=== PATIENT | male | born 1960 | race Caucasian/White ===

== ENCOUNTER 2019-06-20 12:13 | Emergency (ER) | payer MEDICAID ==
[2019-06-20] MEDS ORDERED: Pepcid 20 MG VIAL IV ONE ×2 (12:18→12:43)
[2019-06-20] MEDS ORDERED: Protonix 40MG Tablet PO ONE (12:19)
[2019-06-20] MEDS ORDERED: DUONEB 0.5-3 MG/3 ml Neb IH ONE ×2 (12:20→12:55)
[2019-06-20 12:33] LABS: BASOPHIL % 0.6 % (0.0-0.4); Basophil (Absolute #) 0.06 (0-0.4); Eosinophil % 1.9 % (0.00-5.0); Granulocyte Absolute (ANC) 7.69 (1.4-6.9); Granulocytes % 74.4 % (36.0-66.0); Hematocrit 37.2 % (42-50); Hemoglobin 10.9 gm/dl (12.5-18.0); Lymphocyte (Absolute #) 1.35 (1.0-4.6); Mean Cell Volume 73.5 fl (78-100); Mean Corpuscular Hemoglobin 21.5 pg (26-32); Mean Corpuscular Hgb Concent. 29.3 g/dl (32-36); Mean Platelet Volume 10.2 fl (6-9.5); Monocyte (Absolute #) 1.05 (0.0-1.3); Monocytes % 10.1 % (0.0-12.0); Platelet Count 336 K/mm3 (150-450); Red Blood Count 5.06 M/mm3 (4.1-5.6); Red Cell Distribution Width 20.7 % (11.5-14.0); White Blood Count 10.4 K/mm3 (4.0-10.5)
[2019-06-20] MEDS ORDERED: Protonix 40MG Tablet ONE (12:43)
[2019-06-20 12:53] LABS: ALKALINE PHOSPHATASE 81 U/L (38-126); ANION GAP 11.6 MEQ/L (5-15); BLOOD UREA NITROGEN 11 mg/dL (9-20); CHLORIDE 105 mmol/L (98-107); Calcium 9.8 mg/dL (8.4-10.2); Carbon Dioxide 28 mmol/L (22-30); Creatinine 1 0.92 mg/dL (0.66-1.25); Glucose 104 mg/dL (74-106); NT PRO BNP 1300 pg/mL (0-900); Potassium 4.1 mmol/L (3.5-5.1); SGOT/AST 30 U/L (17-59); SGPT/ALT 18 U/L (0-50); SODIUM 141 mmol/L (137-145); Total Protein 7.4 g/dL (6.3-8.2)
[2019-06-20 13:16] LABS: Slide Review 1 YES
[2019-06-20] MEDS ORDERED: BABY ASPIRIN 81 MG CHEW PO ONE (13:17)
[2019-06-20] MEDS ORDERED: BABY ASPIRIN 81 MG CHEW ONE (13:18)
--- NOTE | 2019-06-20 13:19 | ERPHSYRPT ---
- History of Present Illness Historian: patient Exam Limitations: no limitations Patient Subjective Stated Complaint: HAS BEEN HAVING SHARP UPPER EPIGASTRIC PAIN THAT RADIATES INTO CHEST AND HAVING SHORTNESS OF BREATH WITH ACTIVITY SINCE JANUARY. IS WORSE OVER THE PAST TWO WEEKS AND SAW DR. DE LUNA TODAY FOR SYMPTOMS AND WAS SENT TO THE ER. RECENT CAROTID SURGERY AND HAS HX OF MULTIPLE HEART STENTS. PATIENT STATES HE HAS NOT TAKEN ANY OF HIS MEDS SINCE MID JANUARY BECAUSE EVERY TIME HE TAKES THEM HE VOMITS. WAS ALSO IN THE PROCESS OF MOVING TO [place] AND WAS UNABLE TO FOLLOW UP WITH A DOCTOR AT THAT TIME. Triage Nursing Assessment: TO ROOM PER W/C. SKIN W/D, COLOR PALE, RESP SLIGHTLY LABORED WITH EXERTION OF GETTING OUT OF W/C AND ONTO COT. PAIN AND TENDERNESS IN UPPER EPIGASTRIC AREA. ALSO HAVING SOME NAUSEA OCCASIONALLY. Physician History: Pt in a 59 y/o male that presented to the ED secondary to complains of epigastric pain and discomfort. Pt has a h/o CAD with stents, CEA on the R and COPD. He could not tolerate ASA, as he was vomiting with it, and he decided to stop all his meds, including hs inhalers. Pt was planning to move to [place] from [place] , so he dfid not see any physician in [place] and did not start any work up. He presented to acute care today, with complains of epigastric pain, wheezing and SOB. He denies any radiation, or any abdominal pain. He was complaining of epigstric pain as stated. Timing/Duration: today Activities at Onset: none Quality: burning, sharpness, stabbing Location: epigastric Chest Pain Radiation: no radiation Severity of Pain-Max: moderate Severity of Pain-Current: moderate Modifying Factors: Improves With: other (being off ASA) Associated Symptoms: nausea, vomiting, heartburn, abdominal pain (epigastric), shortness of breath, cough Prior Chest Pain/Cardiac Workup: cardiac cath (with stents) Nitro Today/Relief: no nitro taken today Aspirin Treatment Today: no aspirin today, provided by ED (324mg) Allergies/Adverse Reactions: No Known Drug Allergies Allergy (Unverified 06/20/19 12:59) Home Medications: Albuterol 2.5 mg/3 ml Neb [Proventil 2.5 mg/3 ml Neb] 2.5 mg IH Q4HPRN PRN 06/20/19 [History] Albuterol Sulfate [Proair Hfa] 8.5 gm IH QIDPRN PRN 06/20/19 [History] Aspirin EC 325 mg [Ecotrin 325 MG] 325 mg PO DAILY 06/20/19 [History] Atorvastatin Calcium [Lipitor] 80 mg PO DAILY 06/20/19 [History] Clopidogrel Bisulfate 75 mg [PLAVIX 75 MG Tablet] 75 mg PO DAILY 06/20/19 [History] Clopidogrel Bisulfate 75 mg [PLAVIX 75 MG Tablet] 75 mg PO DAILY 06/20/19 [History] Metoprolol Tartrate 50 mg [Lopressor 50 MG] 50 mg PO BID 06/20/19 [History ] Tiotropium Br/Olodaterol HCl [Stiolto Respimat Inhal [place]] 4 gm IH DAILY [History] Trazodone HCl 50 mg [Desyrel 50 mg] 50 mg PO HS 06/20/19 [History] Hx Tetanus, Diphtheria Vaccination/Date Given: No Hx Influenza Vaccination/Date Given: No Hx Pneumococcal Vaccination/Date Given: No - Review of Systems Constitutional: No Fever, No Chills Eyes: No Symptoms Ears, Nose, & Throat: No Symptoms Respiratory: Cough, Dyspnea, Dyspnea on Exertion (FOX) Cardiac: Chest Pain (epigastric) Abdominal/Gastrointestinal: Abdominal Pain (epigastric), Nausea, Vomiting Genitourinary Symptoms: No Dysuria Musculoskeletal: No Back Pain, No Neck Pain Neurological: No Dizziness, No Focal Weakness, No Sensory Changes Psychological: No Symptoms Endocrine: No Symptoms - Past Medical History Pertinent Past Medical History: Yes Neurological History: Stroke Cardiac History: Angina, Congestive Heart Failure, Coronary Artery Disease, High Cholesterol, Hypertension, Myocardial Infarction ([place]) Respiratory History: Bronchitis, COPD Endocrine Medical History: No Pertinent History GI Medical History: Hernia, Ulcer Psycho-Social History: Depression - Past Surgical History Past Surgical History: Yes Cardiac: Cardiac Catheterization, Cardiac Stent, Vascular Surgery Gastrointestinal: Hernia Repair Other Surgical History: LEFT CAROTID SURGERY NOVEMBER 2018 - Social History Smoking Status: Current every day smoker How long have you smoked: 45 Exposure to second hand smoke: Yes Drug Use: none Patient Lives Alone: No - Nursing Vital Signs Nursing Vital Signs: Initial Vital Signs Temperature 97.9 F 06/20/19 12:16 Pulse Rate 117 H 06/20/19 12:16 Respiratory Rate 20 06/20/19 12:16 Blood Pressure 155/103 06/20/19 12:16 O2 Sat by Pulse Oximetry 96 06/20/19 12:16 Pain Scale Pain Intensity 5 - Physical Exam General Appearance: moderate distress, alert Eye Exam: PERRL/EOMI, eyes nml inspection Ears, Nose, Throat Exam: normal ENT inspection, moist mucous membranes Neck Exam: normal inspection, non-tender, supple, full range of motion Respiratory Exam: prolonged expirations, crackles/rales, wheezing Cardiovascular Exam: tachycardia, capillary refill >3 sec, No normal peripheral pulses Gastrointestinal/Abdomen Exam: normal bowel sounds, tenderness (epigastric only) Back Exam: normal inspection, No CVA tenderness, No vertebral tenderness Extremity Exam: normal inspection, normal range of motion Neurologic Exam: alert, oriented x 3, cooperative, normal mood/affect, sensation nml, No motor deficits Skin Exam: normal color, warm, dry SpO2 Interpretation: normal SpO2: 96 O2 Delivery: Room Air - Course Nursing assessment & vital signs reviewed: Yes EKG Interpreted by Me: RATE (112bpm), Non-specific ST Changes Ordered Tests: Active Orders 24 hr Category Date Time Status EKG-ER Only STAT Care 06/20/19 12:18 Active IV Insertion STAT Care 06/20/19 12:18 Active Oxygen-ED Only Nasal Cannula 2 lpm Care 06/20/19 12:18 Active CHEST 2 VIEWS (PA AND LAT) Stat Exams 06/20/19 12:18 Ordered CBC W DIFF Stat Lab 06/20/19 12:30 Completed CMP Stat Lab 06/20/19 12:30 Completed NT PRO BNP Stat Lab 06/20/19 12:30 Completed TROPONIN Q3H Lab 06/20/19 12:30 Completed TROPONIN Q3H Lab 06/20/19 15:30 Ordered TROPONIN Q3H Lab 06/20/19 18:30 Ordered TROPONIN Q3H Lab 06/20/19 21:30 Ordered TROPONIN Q3H Lab 06/21/19 00:30 Ordered Medication Summary Discontinued Medications Generic Name Dose Route Start Last Admin Trade Name Freq PRN Reason Stop Dose Admin Albuterol/Ipratropium 3 ml 06/20/19 12:20 Duoneb 0.5-3 Mg/3 Ml Neb IH 06/20/19 12:21 STAT ONE Albuterol/Ipratropium Confirm 06/20/19 12:55 Duoneb 0.5-3 Mg/3 Ml Neb Administered 06/20/19 12:56 Dose 3 ml IH .STK-MED ONE Famotidine 20 mg 06/20/19 12:18 06/20/19 12:46 Pepcid 20 Mg Vial IV 06/20/19 12:19 20 mg STAT ONE Administration Famotidine Confirm 06/20/19 12:43 Pepcid 20 Mg Vial Administered 06/20/19 12:44 Dose 20 mg IV .STK-MED ONE Pantoprazole Sodium 40 mg 06/20/19 12:19 06/20/19 12:46 Protonix 40mg Tablet PO 06/20/19 12:20 40 mg STAT ONE Administration Pantoprazole Sodium Confirm 06/20/19 12:43 Protonix 40mg Tablet Administered 06/20/19 12:44 Dose 40 mg .ROUTE .STK-MED ONE Lab/Rad Data: Laboratory Result Diagrams 06/20/19 12:30 06/20/19 12:30 Laboratory Results 06/20/19 06/20/19 06/20/19 Range/Units 12:30 12:30 12:30 WBC 10.4 (4.0-10.5) K/mm3 RBC 5.06 (4.1-5.6) M/mm3 Hgb 10.9 L (12.5-18.0) gm/dl Hct 37.2 L (42-50) % MCV 73.5 L (78-100) fl MCH 21.5 L (26-32) pg MCHC 29.3 L (32-36) g/dl RDW 20.7 H (11.5-14.0) % Plt Count 336 (150-450) K/mm3 MPV 10.2 H (6-9.5) fl Gran % 74.4 H (36.0-66.0) % Eos # (Auto) 0.20 (0-0.5) Absolute Lymphs (auto) 1.35 (1.0-4.6) Absolute Monos (auto) 1.05 (0.0-1.3) Lymphocytes % 13.0 L (24.0-44.0) % Monocytes % 10.1 (0.0-12.0) % Eosinophils % 1.9 (0.00-5.0) % Basophils % 0.6 (0.0-0.4) % Absolute Granulocytes 7.69 H (1.4-6.9) Basophils # 0.06 (0-0.4) Sodium 141 (137-145) mmol/L Potassium 4.1 (3.5-5.1) mmol/L Chloride 105 (98-107) mmol/L Carbon Dioxide 28 (22-30) mmol/L Anion Gap 11.6 (5-15) MEQ/L BUN 11 (9-20) mg/dL Creatinine 0.92 (0.66-1.25) mg/dL Estimated GFR > 60.0 ML/MIN Glucose 104 (74-106) mg/dL Calcium 9.8 (8.4-10.2) mg/dL Total Bilirubin 0.40 (0.2-1.3) mg/dL AST 30 (17-59) U/L ALT 18 (0-50) U/L Alkaline Phosphatase 81 (38-126) U/L Troponin I 0.979 H* (0.000-0.034) ng/mL NT-Pro-B Natriuret Pep 1300 H (0-900) pg/mL Serum Total Protein 7.4 (6.3-8.2) g/dL Albumin 4.0 (3.5-5.0) g/dL - Progress Progress: improved Air Movement: fair Progress Note: 06/20/19 13:24 Pt was seen and examined. He got Duo neb in the ER and was placed on O2. ASA 324mg was given, as well as Protonic and Pepcid as stomach protectors. Pt will get his home Metoprolol as ordered. Pt has elevated trop and Pro-BNP. Dr [facility]. CXR was ordered as well. Blood Culture(s) Obtained: No Antibiotics given: No Will see patient in: other (Transfer to [facility]) Counseled pt/family regarding: lab results, diagnosis, need for follow-up - Departure Departure Disposition: Transfer Clinical Impression: NSTEMI (non-ST elevated myocardial infarction) Condition: Fair Critical Care Time: No Referrals: AYUSH DE LUNA DO [Primary Care Provider] - Additional Instructions: Pt will be transferred to [facility]. Dr Sinha is accepting.
[2019-06-20 13:21] VITALS: BP 140/85
[2019-06-20] MEDS ORDERED: Toprol Xl 50 MG PO STA (13:30)
--- NOTE | 2019-06-20 13:53 | XRAY ---
Exam: Two-view chest from 06/20/2019. Comparison: None. Indication: 59-year-old male with chest pain. Comparison: None. Findings: The transverse heart size appears borderline enlarged. Mild diffuse bilateral perihilar and lower lung field vascular congestion is seen. I see no definite Harpreet B-lines or pleural fluid. No superimposed airspace infiltrate/consolidation or pneumothorax is seen. EKG leads and respiratory tubing are noted. Mild osteophyte formation is seen within the thoracic spine. No fracture or aggressive bone lesion is seen. Impression: 1. Borderline cardiomegaly with mild bilateral perihilar and lower lung field vascular congestion. I see no pleural fluid. Consider fluid volume overload versus early CHF. 2. No superimposed focal airspace consolidation is seen to suggest pneumonia.
[2019-06-20 13:58] VITALS: PULSE 108; O2SAT 97
== END 2019-06-20 14:04 | disposition short-term general hospital (02) ==
LOC: ED 12:13
DX: I21.4 Non-ST elevation (NSTEMI) myocardial infarction (principal); I50.9 Heart failure, unspecified; I25.10 Atherosclerotic heart disease of native coronary artery without angina pectoris; E78.00 Pure hypercholesterolemia, unspecified; J44.9 Chronic obstructive pulmonary disease, unspecified; Z79.899 Other long term (current) drug therapy
CPT/HCPCS: 36000; 36415; 71046; 80053; 83880; 84484; 85025; 93005; 94640; 96374; 99285; A9270-GY

== ENCOUNTER 2020-04-26 08:07 | Emergency (ER) | payer OTHER ==
--- NOTE | 2020-04-26 08:29 | ERPHSYRPT ---
- History of Present Illness Time Seen by Provider: 04/26/20 08:13 Historian: patient Exam Limitations: no limitations Physician History: 60 years old male with history of COPD on 2 L oxygen, coronary artery disease status post multiple stenting, hypertension, hyperlipidemia presented in the ER with chief complaint of substernal/left-sided chest pain continuously since last night. Patient reports intermittent chest pain for almost a month getting relieved with nitro but since last night he is having continuous chest pain and has been taking nitro every hour with partial relief. Patient reported at maximum pain is 6/10 intensity, pressure tightness sensation and was given nitro along with aspirin on the way to the ER and it is better now. Does not want any pain medication now. Patient report minimal increase in the shortness of breath and usual but has mild increased swelling bilateral lower extremities. Prior to arrival patient report he was sitting, turned around, got dizzy/lightheaded with some sweating and pale discoloration and he decided to come to the ER. Timing/Duration: yesterday, constant, gradual onset, improved Activities at Onset: rest Quality: fullness, pressure, tightness Location: substernal Chest Pain Radiation: no radiation Severity of Pain-Max: moderate Severity of Pain-Current: mild Modifying Factors: Improves With: nitroglycerin Associated Symptoms: shortness of breath, fatigue, dizziness Prior Chest Pain/Cardiac Workup: cardiac cath, heart attack Nitro Today/Relief: provided by EMS, mild relief Aspirin Treatment Today: 81 mg x 4, provided by EMS Allergies/Adverse Reactions: No Known Drug Allergies Allergy (Verified 04/26/20 08:26) Home Medications: Albuterol 2.5 mg/3 ml Neb [Proventil 2.5 mg/3 ml Neb] 2.5 mg IH Q4HPRN PRN 06/20/19 [History] Albuterol Sulfate [Proair Hfa] 8.5 gm IH QIDPRN PRN 06/20/19 [History] Aspirin EC 325 mg [Ecotrin 325 MG] 325 mg PO DAILY 06/20/19 [History] Atorvastatin Calcium [Lipitor] 80 mg PO DAILY 06/20/19 [History] Clopidogrel Bisulfate 75 mg [PLAVIX 75 MG Tablet] 75 mg PO DAILY 06/20/19 [History] Clopidogrel Bisulfate 75 mg [PLAVIX 75 MG Tablet] 75 mg PO DAILY 06/20/19 [History] Metoprolol Tartrate 50 mg [Lopressor 50 MG] 50 mg PO BID 06/20/19 [History ] Tiotropium Br/Olodaterol HCl [Stiolto Respimat Inhal [place]] 4 gm IH DAILY [History] Trazodone HCl 50 mg [Desyrel 50 mg] 50 mg PO HS 06/20/19 [History] Hx Tetanus, Diphtheria Vaccination/Date Given: No Hx Influenza Vaccination/Date Given: No Hx Pneumococcal Vaccination/Date Given: No Travel Risk - International Travel Have you traveled outside of the country in past 3 weeks: No Have you or anyone close to you been diagnosed with or: No Do your reside in a community with a known COVID-19 case?: Yes - Coronavirus Screening Has patient experienced Coronavirus symptoms: No - Review of Systems Constitutional: Fatigue Eyes: No Symptoms Ears, Nose, & Throat: No Symptoms Respiratory: Dyspnea on Exertion (FOX), Wheezing Cardiac: Chest Pain, Edema, Palpitations Abdominal/Gastrointestinal: No Symptoms Genitourinary Symptoms: No Symptoms Musculoskeletal: No Symptoms Skin: No Symptoms Neurological: No Symptoms Psychological: No Symptoms Endocrine: No Symptoms Hematologic/Lymphatic: No Symptoms Immunological/Allergic: No Symptoms - Past Medical History Pertinent Past Medical History: Yes Neurological History: Stroke Cardiac History: Angina, Congestive Heart Failure, Coronary Artery Disease, High Cholesterol, Hypertension, Myocardial Infarction ([place]) Respiratory History: Bronchitis, COPD Endocrine Medical History: No Pertinent History GI Medical History: Hernia, Ulcer Psycho-Social History: Depression - Past Surgical History Past Surgical History: Yes Cardiac: Cardiac Catheterization, Cardiac Stent, Vascular Surgery Gastrointestinal: Hernia Repair Other Surgical History: LEFT CAROTID SURGERY NOVEMBER 2018 - Social History Smoking Status: Current every day smoker How long have you smoked: 45 Exposure to second hand smoke: Yes Drug Use: none Patient Lives Alone: No - Nursing Vital Signs Nursing Vital Signs: Initial Vital Signs Temperature 98.4 F 04/26/20 08:09 Pulse Rate 94 H 04/26/20 08:09 Respiratory Rate 14 04/26/20 08:09 Blood Pressure 145/84 04/26/20 08:09 O2 Sat by Pulse Oximetry 100 04/26/20 08:09 Pain Scale Pain Intensity 0 - Physical Exam General Appearance: no apparent distress, alert Eye Exam: eyes nml inspection Ears, Nose, Throat Exam: normal ENT inspection, pharynx normal Neck Exam: normal inspection, supple, full range of motion Respiratory Exam: wheezing Cardiovascular Exam: regular rate/rhythm, normal heart sounds Gastrointestinal/Abdomen Exam: soft, No tenderness Back Exam: normal inspection, No CVA tenderness Extremity Exam: normal inspection, normal range of motion Neurologic Exam: alert, oriented x 3, cooperative Skin Exam: normal color SpO2 Interpretation: O2 applied SpO2: 98 (2L) O2 Delivery: Nasal Cannula - Course Nursing assessment & vital signs reviewed: Yes EKG Interpreted by Me: RATE ([id number]), NORMAL AXIS, NORMAL INTERVALS, Non-specific ST Changes Ordered Tests: Active Orders 24 hr Category Date Time Status Photogrammetric Tech STAT Care 04/26/20 08:23 Active EKG-ER Only STAT Care 04/26/20 08:22 Active IV Insertion STAT Care 04/26/20 08:22 Active IV Insertion-2nd Peripheral STAT Care 04/26/20 09:36 Active CHEST 1 VIEW (PORTABLE) Stat Exams 04/26/20 08:22 Completed CBC W DIFF Stat Lab 04/26/20 08:30 Completed CMP Stat Lab 04/26/20 08:30 Completed NT PRO BNP Stat Lab 04/26/20 08:30 Completed Occult Blood-Screening (Stool) [Occult Blood - Cancer Lab 04/26/20 10:34 Completed Screen] Stat PROTIME WITH INR Stat Lab 04/26/20 09:14 Completed PTT Stat Lab 04/26/20 09:14 Completed TROPONIN Q3H Lab 04/26/20 08:30 Completed TROPONIN Q3H Lab 04/26/20 11:45 Received TROPONIN Q3H Lab 04/26/20 14:30 Ordered TROPONIN Q3H Lab 04/26/20 17:30 Ordered TROPONIN Q3H Lab 04/26/20 20:30 Ordered Respiratory Therapy Assessment ONCE RT 04/26/20 09:20 Active Transfer Order Routine Transfer 04/26/20 Ordered Medication Summary Generic Name Dose Route Start Last Admin Trade Name Freq PRN Reason Stop Dose Admin Pantoprazole Sodium 80 mg/ 500 mls @ 50 mls/hr 04/26/20 10:45 04/26/20 11:09 Sodium Chloride IV 05/26/20 10:44 50 ml/hr .Q10H KIRBY 50 mls/hr Administration Discontinued Medications Generic Name Dose Route Start Last Admin Trade Name Mannie PRN Reason Stop Dose Admin Albuterol/Ipratropium 3 ml 04/26/20 08:47 04/26/20 09:13 Duoneb 0.5-3 Mg/3 Ml Neb IH 04/26/20 08:48 3 ml STAT ONE Administration Albuterol/Ipratropium Confirm 04/26/20 09:06 Duoneb 0.5-3 Mg/3 Ml Neb Administered 04/26/20 09:07 Dose 3 ml IH .STK-MED ONE Sodium Chloride Confirm 04/26/20 11:02 Sodium Chloride 0.9% 500 Ml Administered 04/26/20 11:03 Dose 500 mls @ ud IV .STK-MED ONE Pantoprazole Sodium 40 mg 04/26/20 10:32 04/26/20 10:40 Protonix 40 Mg Iv IV 04/26/20 10:33 40 mg STAT ONE Administration Pantoprazole Sodium Confirm 04/26/20 10:36 Protonix 40 Mg Iv Administered 04/26/20 10:37 Dose 40 mg IV .STK-MED ONE Pantoprazole Sodium Confirm 04/26/20 11:02 Protonix 40 Mg Iv Administered 04/26/20 11:03 Dose 80 mg IV .STK-MED ONE Lab/Rad Data: Laboratory Result Diagrams 04/26/20 08:30 04/26/20 08:30 Laboratory Results 04/26/20 04/26/20 04/26/20 Range/Units 10:34 09:25 09:25 WBC (4.0-10.5) K/mm3 RBC (4.1-5.6) M/mm3 Hgb (12.5-18.0) gm/dl Hct (42-50) % MCV (78-100) fl MCH (26-32) pg MCHC (32-36) g/dl RDW (11.5-14.0) % Plt Count (150-450) K/mm3 MPV (7.5-11.0) fl Gran % (36.0-66.0) % Eos # (Auto) (0-0.5) Absolute Lymphs (auto) (1.0-4.6) Absolute Monos (auto) (0.0-1.3) Lymphocytes % (24.0-44.0) % Monocytes % (0.0-12.0) % Eosinophils % (0.00-5.0) % Basophils % (0.0-0.4) % Absolute Granulocytes (1.4-6.9) Basophils # (0-0.4) PT (8.83-12.87) SECONDS INR (0.8-3.0) APTT (24.1-36.1) SECONDS Sodium (137-145) mmol/L Potassium (3.5-5.1) mmol/L Chloride (98-107) mmol/L Carbon Dioxide (22-30) mmol/L Anion Gap (5-15) MEQ/L BUN (9-20) mg/dL Creatinine (0.66-1.25) mg/dL Estimated GFR ML/MIN Glucose (74-106) mg/dL Calcium (8.4-10.2) mg/dL Total Bilirubin (0.2-1.3) mg/dL AST (17-59) U/L ALT (0-50) U/L Alkaline Phosphatase (38-126) U/L Troponin I (0.000-0.034) ng/mL NT-Pro-B Natriuret Pep (0-900) pg/mL Serum Total Protein (6.3-8.2) g/dL Albumin (3.5-5.0) g/dL Stool Occult Bld Scrn POSITIVE A (NEGATIVE) ABO Group O Rh Factor POSITIVE Antibody Screen NEGATIVE (NEGATIVE) Crossmatch COMPATIBLE COMPATIBLE (COMPATIBLE) 04/26/20 04/26/20 04/26/20 Range/Units 09:14 08:30 08:30 WBC (4.0-10.5) K/mm3 RBC (4.1-5.6) M/mm3 Hgb (12.5-18.0) gm/dl Hct (42-50) % MCV (78-100) fl MCH (26-32) pg MCHC (32-36) g/dl RDW (11.5-14.0) % Plt Count (150-450) K/mm3 MPV (7.5-11.0) fl Gran % (36.0-66.0) % Eos # (Auto) (0-0.5) Absolute Lymphs (auto) (1.0-4.6) Absolute Monos (auto) (0.0-1.3) Lymphocytes % (24.0-44.0) % Monocytes % (0.0-12.0) % Eosinophils % (0.00-5.0) % Basophils % (0.0-0.4) % Absolute Granulocytes (1.4-6.9) Basophils # (0-0.4) PT 13.1 H (8.83-12.87) SECONDS INR 1.16 (0.8-3.0) APTT 29.4 (24.1-36.1) SECONDS Sodium 141 (137-145) mmol/L Potassium 3.9 (3.5-5.1) mmol/L Chloride 102 (98-107) mmol/L Carbon Dioxide 30 (22-30) mmol/L Anion Gap 12.7 (5-15) MEQ/L BUN 23 H (9-20) mg/dL Creatinine 0.96 (0.66-1.25) mg/dL Estimated GFR > 60.0 ML/MIN Glucose 125 H (74-106) mg/dL Calcium 8.5 (8.4-10.2) mg/dL Total Bilirubin 0.40 (0.2-1.3) mg/dL AST 21 (17-59) U/L ALT 10 (0-50) U/L Alkaline Phosphatase 74 (38-126) U/L Troponin I 0.020 (0.000-0.034) ng/mL NT-Pro-B Natriuret Pep 558 (0-900) pg/mL Serum Total Protein 7.0 (6.3-8.2) g/dL Albumin 3.7 (3.5-5.0) g/dL Stool Occult Bld Scrn (NEGATIVE) ABO Group Rh Factor Antibody Screen (NEGATIVE) Crossmatch (COMPATIBLE) 04/26/20 Range/Units 08:30 WBC 8.2 (4.0-10.5) K/mm3 RBC 2.79 L (4.1-5.6) M/mm3 Hgb 6.4 L* (12.5-18.0) gm/dl Hct 22.5 L (42-50) % MCV 80.6 (78-100) fl MCH 22.9 L (26-32) pg MCHC 28.4 L (32-36) g/dl RDW 18.7 H (11.5-14.0) % Plt Count 240 (150-450) K/mm3 MPV 10.7 (7.5-11.0) fl Gran % 78.3 H (36.0-66.0) % Eos # (Auto) 0.12 (0-0.5) Absolute Lymphs (auto) 1.06 (1.0-4.6) Absolute Monos (auto) 0.54 (0.0-1.3) Lymphocytes % 12.9 L (24.0-44.0) % Monocytes % 6.6 (0.0-12.0) % Eosinophils % 1.5 (0.00-5.0) % Basophils % 0.7 (0.0-0.4) % Absolute Granulocytes 6.43 (1.4-6.9) Basophils # 0.06 (0-0.4) PT (8.83-12.87) SECONDS INR (0.8-3.0) APTT (24.1-36.1) SECONDS Sodium (137-145) mmol/L Potassium (3.5-5.1) mmol/L Chloride (98-107) mmol/L Carbon Dioxide (22-30) mmol/L Anion Gap (5-15) MEQ/L BUN (9-20) mg/dL Creatinine (0.66-1.25) mg/dL Estimated GFR ML/MIN Glucose (74-106) mg/dL Calcium (8.4-10.2) mg/dL Total Bilirubin (0.2-1.3) mg/dL AST (17-59) U/L ALT (0-50) U/L Alkaline Phosphatase (38-126) U/L Troponin I (0.000-0.034) ng/mL NT-Pro-B Natriuret Pep (0-900) pg/mL Serum Total Protein (6.3-8.2) g/dL Albumin (3.5-5.0) g/dL Stool Occult Bld Scrn (NEGATIVE) ABO Group Rh Factor Antibody Screen (NEGATIVE) Crossmatch (COMPATIBLE) - Progress Progress: unchanged Air Movement: fair Progress Note: 04/26/20 12:10 60 years old is evaluated for intermittent chest pain which is progressively worsening since last night. Patient received aspirin and nitro prior to arrival and pain is improved. EKG showed normal sinus rhythm with no acute ischemic changes. Negative initial troponins. Chest x-ray did not show any acute cardiopulmonary findings. Grossly unremarkable chemistries but has hemoglobin of 6.4 with a positive stool occult. This is probably the reason for his chest pain as well. I have started him on Protonix. I have typed and crossmatched. I have discussed with Dr. Oneal and patient is accepted for admission and will do transfusions. Later on I was told that hospital is full and patient cannot stay at [facility] and I have discussed with Dr. Fragoso at [facility] and patient is accepted for transfer there. Plan discussed with patient in detail who understand and agrees with it. Discussed with : Elise Counseled pt/family regarding: lab results, diagnosis, rad results - Departure Departure Disposition: Transfer Clinical Impression: Symptomatic anemia, Upper GI bleed Condition: Fair Critical Care Time: Yes Critical Care Time(excluding separately billable procedures): Critical 30-74 mins Referrals: LILLIAN ONEAL [Primary Care Provider] -
--- NOTE | 2020-04-26 08:43 | XRAY ---
Indication: Chest pain. Comparison: June 20, 2019. Portable apical lordotic chest limited as left costophrenic angle not included. Visualized lungs clear. Heart remains enlarged. Bony thorax intact. No new/acute findings.
[2020-04-26] MEDS ORDERED: DUONEB 0.5-3 MG/3 ml Neb IH ONE ×2 (08:47→09:06)
[2020-04-26 08:53] LABS: Absolute Neutrophil Ct (ANC) 6.43 (1.4-6.9); BASOPHIL % 0.7 % (0.0-0.4); Basophil (Absolute #) 0.06 (0-0.4); Eosinophil % 1.5 % (0.00-5.0); Eosinophil (Absolute #) 0.12 (0-0.5); Hematocrit 22.5 % (42-50); Lymphocyte (Absolute #) 1.06 (1.0-4.6); Lymphocytes % 12.9 % (24.0-44.0); Mean Cell Volume 80.6 fl (78-100); Mean Corpuscular Hemoglobin 22.9 pg (26-32); Mean Corpuscular Hgb Concent. 28.4 g/dl (32-36); Mean Platelet Volume 10.7 fl (7.5-11.0); Monocyte (Absolute #) 0.54 (0.0-1.3); Monocytes % 6.6 % (0.0-12.0); Neutrophil % 78.3 % (36.0-66.0); Platelet Count 240 K/mm3 (150-450); Red Blood Count 2.79 M/mm3 (4.1-5.6); Red Cell Distribution Width 18.7 % (11.5-14.0); White Blood Count 8.2 K/mm3 (4.0-10.5)
[2020-04-26 09:10] LABS: Hemoglobin 6.4 gm/dl (12.5-18.0)
[2020-04-26 09:23] LABS: ALBUMIN 3.7 g/dL (3.5-5.0); ALKALINE PHOSPHATASE 74 U/L (38-126); ANION GAP 12.7 MEQ/L (5-15); BLOOD UREA NITROGEN 23 mg/dL (9-20); CHLORIDE 102 mmol/L (98-107); Calcium 8.5 mg/dL (8.4-10.2); Carbon Dioxide 30 mmol/L (22-30); Creatinine 1 0.96 mg/dL (0.66-1.25); Glucose 125 mg/dL (74-106); NT PRO BNP 558 pg/mL (0-900); Potassium 3.9 mmol/L (3.5-5.1); SGOT/AST 21 U/L (17-59); SGPT/ALT 10 U/L (0-50); SODIUM 141 mmol/L (137-145)
[2020-04-26 09:27] LABS: INR 1.16 (0.8-3.0); PROTIME 13.1 SECONDS (8.83-12.87)
[2020-04-26 09:29] LABS: PTT 29.4 SECONDS (24.1-36.1)
[2020-04-26] MEDS ORDERED: PROTONIX 40 MG IV IV ONE ×3 (10:32→11:02)
[2020-04-26] MEDS ORDERED: PROTONIX 40 MG IV*** 80 MG in Sodium Chloride 0.9% 500 ML 500 ML IV SCH (10:45)
[2020-04-26] MEDS ORDERED: Sodium Chloride 0.9% 500 ML 500 ML IV ONE (11:02)
[2020-04-26 11:15] LABS: ABO TYPING O; Antibody Screen NEGATIVE (NEGATIVE); RH TYPING POSITIVE
[2020-04-26 11:18] LABS: CROSS MATCH (PRBC) COMPATIBLE (COMPATIBLE)
[2020-04-26 12:09] VITALS: BP 128/80; PULSE 88
[2020-04-26 12:13] VITALS: O2SAT 98
== END 2020-04-26 12:32 | disposition short-term general hospital (02) ==
LOC: ED 08:07
DX: D64.89 Other specified anemias (principal); K92.2 Gastrointestinal hemorrhage, unspecified; J44.9 Chronic obstructive pulmonary disease, unspecified; I25.10 Atherosclerotic heart disease of native coronary artery without angina pectoris; Z99.81 Dependence on supplemental oxygen; R07.89 Other chest pain
CPT/HCPCS: 36000; 36415; 71045; 80053; 82270; 83880; 84484; 85025; 85610; 85730; 86850; 86900; 86901; 86922; 93005; 93041; 94640; 96365; 96374; 99285; 99291; A9270-GY

== ENCOUNTER 2020-06-06 00:42 | Emergency (ER) | payer OTHER ==
[2020-06-06 01:11] LABS: Absolute Neutrophil Ct (ANC) 4.71 (1.4-6.9); BASOPHIL % 0.6 % (0.0-0.4); Basophil (Absolute #) 0.04 (0-0.4); Eosinophil % 3.4 % (0.00-5.0); Eosinophil (Absolute #) 0.23 (0-0.5); Lymphocyte (Absolute #) 1.24 (1.0-4.6); Lymphocytes % 18.5 % (24.0-44.0); Mean Cell Volume 89.7 fl (78-100); Mean Corpuscular Hemoglobin 26.9 pg (26-32); Monocyte (Absolute #) 0.48 (0.0-1.3); Monocytes % 7.2 % (0.0-12.0); Neutrophil % 70.3 % (36.0-66.0); Platelet Count 248 K/mm3 (150-450); Red Blood Count 2.34 M/mm3 (4.1-5.6); Red Cell Distribution Width 19.1 % (11.5-14.0); White Blood Count 6.7 K/mm3 (4.0-10.5)
[2020-06-06 01:20] LABS: Hemoglobin 6.3 gm/dl (12.5-18.0)
--- NOTE | 2020-06-06 01:31 | ERPHSYRPT ---
- History of Present Illness Time Seen by Provider: 06/06/20 00:58 Historian: patient Exam Limitations: no limitations Physician History: Patient is a 60-year-old male with a history of cardiac stents presents to our ED with complaints of chest pain that started yesterday. Pain has been ongoing. Patient has been taking nitroglycerin to control his chest pain. Home health visited with patient today. Advised patient to come to our ED for an evaluation. However patient did not come in immediately. Patient figured the pain would eventually go away. Pain is associated with mild nausea. No vomiting. Left upper extremity numbness and tingling. Pain did not improve so patient decided to come to our ED for further evaluation. Arrived to our ED via private vehicle. No associated trauma. No fever. No diarrhea. Symptoms are moderate in intensity. No specific worsening improving factors. Patient experiences symptoms at rest. Patient voices no other complaints at this time. Timing/Duration: yesterday Activities at Onset: none Location: substernal Chest Pain Radiation: arm Severity of Pain-Max: moderate Severity of Pain-Current: mild Modifying Factors: Improves With: nitroglycerin Associated Symptoms: nausea, fatigue, No vomiting Prior Chest Pain/Cardiac Workup: angina, heart attack Nitro Today/Relief: 0.4 mg x 4 Aspirin Treatment Today: 81 mg x 1 Allergies/Adverse Reactions: No Known Drug Allergies Allergy (Verified 04/26/20 08:26) Home Medications: Albuterol 2.5 mg/3 ml Neb [Proventil 2.5 mg/3 ml Neb] 2.5 mg IH Q4HPRN PRN 06/20/19 [History] Albuterol Sulfate [Proair Hfa] 8.5 gm IH QIDPRN PRN 06/20/19 [History] Aspirin EC 325 mg [Ecotrin 325 MG] 325 mg PO DAILY 06/20/19 [History] Atorvastatin Calcium [Lipitor] 80 mg PO DAILY 06/20/19 [History] Clopidogrel Bisulfate 75 mg [PLAVIX 75 MG Tablet] 75 mg PO DAILY 06/20/19 [History] Clopidogrel Bisulfate 75 mg [PLAVIX 75 MG Tablet] 75 mg PO DAILY 06/20/19 [History] Metoprolol Tartrate 50 mg [Lopressor 50 MG] 50 mg PO BID 06/20/19 [History] Tiotropium Br/Olodaterol HCl [Stiolto Respimat Inhal [place]] 4 gm IH DAILY 06/20/19 [History] Trazodone HCl 50 mg [Desyrel 50 mg] 50 mg PO HS 06/20/19 [History] Hx Tetanus, Diphtheria Vaccination/Date Given: No Hx Influenza Vaccination/Date Given: No Hx Pneumococcal Vaccination/Date Given: No - Past Medical History Pertinent Past Medical History: Yes Neurological History: Stroke Cardiac History: Angina, Congestive Heart Failure, Coronary Artery Disease, High Cholesterol, Hypertension, Myocardial Infarction ([place]) Respiratory History: Bronchitis, COPD Endocrine Medical History: No Pertinent History GI Medical History: Hernia, Ulcer Psycho-Social History: Depression - Past Surgical History Past Surgical History: Yes Cardiac: Cardiac Catheterization, Cardiac Stent, Vascular Surgery Gastrointestinal: Hernia Repair Other Surgical History: LEFT CAROTID SURGERY NOVEMBER 2018 - Social History Smoking Status: Current every day smoker How long have you smoked: 45 Exposure to second hand smoke: Yes Drug Use: none Patient Lives Alone: No - Nursing Vital Signs Nursing Vital Signs: Initial Vital Signs Temperature 98.3 F 06/06/20 00:54 Pulse Rate 93 H 06/06/20 00:54 Respiratory Rate 22 06/06/20 00:54 Blood Pressure 108/63 06/06/20 00:54 O2 Sat by Pulse Oximetry 98 06/06/20 00:54 Pain Scale Pain Intensity 4 - Physical Exam General Appearance: alert, other (Patient appears dusky.) Eye Exam: PERRL/EOMI, eyes nml inspection Ears, Nose, Throat Exam: normal ENT inspection, moist mucous membranes Neck Exam: normal inspection, non-tender, supple, full range of motion Respiratory Exam: normal breath sounds, lungs clear, airway intact, No chest tenderness, No respiratory distress, No accessory muscle use Cardiovascular Exam: regular rate/rhythm, normal heart sounds, normal peripheral pulses Gastrointestinal/Abdomen Exam: soft, other (Hemoccult negative), No tenderness, No mass Back Exam: normal inspection, No CVA tenderness, No vertebral tenderness Extremity Exam: normal inspection, normal range of motion Neurologic Exam: alert, oriented x 3, cooperative, normal mood/affect, sensation nml, No motor deficits Skin Exam: normal color, warm, dry Lymphatic Exam: No adenopathy SpO2 Interpretation: normal SpO2: 98 O2 Delivery: Room Air - Course Nursing assessment & vital signs reviewed: Yes EKG Interpreted by Me: RATE (94), Sinus Rhythm, NORMAL AXIS, NORMAL INTERVALS, Ischemic ST-T changes - Radiology Exams Chest X-ray Interpretation: Interpreted by me (Infiltrate or consolidation, no effusion atelectasis at bilateral bases, no pneumothorax cardiomegaly normal bony thorax) Ordered Tests: Active Orders 24 hr Category Date Time Status [place] Sifter STAT Care 06/06/20 00:55 Active EKG-ER Only STAT Care 06/06/20 00:54 Active IV Insertion STAT Care 06/06/20 00:54 Active IV Insertion-2nd Peripheral STAT Care 06/06/20 01:51 Active Pulse Oximetry (ED) STAT Care 06/06/20 00:54 Active CHEST 1 VIEW (PORTABLE) Stat Exams 06/06/20 00:55 Taken CBC W DIFF Stat Lab 06/06/20 01:08 Completed CMP Stat Lab 06/06/20 01:08 Completed NT PRO BNP Stat Lab 06/06/20 01:08 Completed PROTIME WITH INR Stat Lab 06/06/20 01:41 Completed PTT Stat Lab 06/06/20 01:41 Completed TROPONIN Q3H Lab 06/06/20 01:08 Completed TROPONIN Q3H Lab 06/06/20 04:00 Ordered TROPONIN Q3H Lab 06/06/20 07:00 Ordered TROPONIN Q3H Lab 06/06/20 10:00 Ordered TROPONIN Q3H Lab 06/06/20 13:00 Ordered Medication Summary Generic Name Dose Route Start Last Admin Trade Name Freq PRN Reason Stop Dose Admin Sodium Chloride 1,000 mls @ 100 mls/hr 06/06/20 01:45 06/06/20 01:57 Sodium Chloride 0.9% 1000 Ml IV 07/06/20 01:44 100 mls/hr .Q10H KIRBY Administration Discontinued Medications Generic Name Dose Route Start Last Admin Trade Name Freq PRN Reason Stop Dose Admin Morphine Sulfate 4 mg 06/06/20 02:18 06/06/20 02:22 Morphine Sulfate 4 Mg Inj IV 06/06/20 02:19 4 mg STAT ONE Administration Morphine Sulfate Confirm 06/06/20 02:20 Morphine Sulfate 4 Mg Inj Administered 06/06/20 02:21 Dose 4 mg .ROUTE .STK-MED ONE Nitroglycerin 1 gm 06/06/20 01:33 06/06/20 01:55 Nitro-Bid 2% Ud Packets TOP 06/06/20 01:34 1 gm STAT ONE Administration Nitroglycerin Confirm 06/06/20 01:53 Nitro-Bid 2% Ud Packets Administered 06/06/20 01:54 Dose 1 gm .ROUTE .STK-MED ONE Lab/Rad Data: Laboratory Result Diagrams 06/06/20 01:08 06/06/20 01:08 Laboratory Results 06/06/20 06/06/20 06/06/20 Range/Units 01:41 01:40 01:40 WBC (4.0-10.5) K/mm3 RBC (4.1-5.6) M/mm3 Hgb (12.5-18.0) gm/dl Hct (42-50) % MCV (78-100) fl MCH (26-32) pg MCHC (32-36) g/dl RDW (11.5-14.0) % Plt Count (150-450) K/mm3 MPV (7.5-11.0) fl Gran % (36.0-66.0) % Eos # (Auto) (0-0.5) Absolute Lymphs (auto) (1.0-4.6) Absolute Monos (auto) (0.0-1.3) Lymphocytes % (24.0-44.0) % Monocytes % (0.0-12.0) % Eosinophils % (0.00-5.0) % Basophils % (0.0-0.4) % Absolute Granulocytes (1.4-6.9) Basophils # (0-0.4) PT 13.0 H (8.83-12.87) SECONDS INR 1.15 (0.8-3.0) APTT 28.9 (24.1-36.1) SECONDS Sodium (137-145) mmol/L Potassium (3.5-5.1) mmol/L Chloride (98-107) mmol/L Carbon Dioxide (22-30) mmol/L Anion Gap (5-15) MEQ/L BUN (9-20) mg/dL Creatinine (0.66-1.25) mg/dL Estimated GFR ML/MIN Glucose (74-106) mg/dL Calcium (8.4-10.2) mg/dL Total Bilirubin (0.2-1.3) mg/dL AST (17-59) U/L ALT (0-50) U/L Alkaline Phosphatase (38-126) U/L Troponin I (0.000-0.034) ng/mL NT-Pro-B Natriuret Pep (0-900) pg/mL Serum Total Protein (6.3-8.2) g/dL Albumin (3.5-5.0) g/dL ABO Group O Rh Factor POSITIVE Antibody Screen NEGATIVE (NEGATIVE) Crossmatch COMPATIBLE (COMPATIBLE) 06/06/20 06/06/20 06/06/20 Range/Units 01:08 01:08 01:08 WBC 6.7 (4.0-10.5) K/mm3 RBC 2.34 L (4.1-5.6) M/mm3 Hgb 6.3 L* (12.5-18.0) gm/dl Hct 21.0 L (42-50) % MCV 89.7 (78-100) fl MCH 26.9 (26-32) pg MCHC 30.0 L (32-36) g/dl RDW 19.1 H (11.5-14.0) % Plt Count 248 (150-450) K/mm3 MPV 10.0 (7.5-11.0) fl Gran % 70.3 H (36.0-66.0) % Eos # (Auto) 0.23 (0-0.5) Absolute Lymphs (auto) 1.24 (1.0-4.6) Absolute Monos (auto) 0.48 (0.0-1.3) Lymphocytes % 18.5 L (24.0-44.0) % Monocytes % 7.2 (0.0-12.0) % Eosinophils % 3.4 (0.00-5.0) % Basophils % 0.6 (0.0-0.4) % Absolute Granulocytes 4.71 (1.4-6.9) Basophils # 0.04 (0-0.4) PT (8.83-12.87) SECONDS INR (0.8-3.0) APTT (24.1-36.1) SECONDS Sodium 136 L (137-145) mmol/L Potassium 4.4 (3.5-5.1) mmol/L Chloride 103 (98-107) mmol/L Carbon Dioxide 26 (22-30) mmol/L Anion Gap 11.4 (5-15) MEQ/L BUN 43 H (9-20) mg/dL Creatinine 1.96 H (0.66-1.25) mg/dL Estimated GFR 37.3 ML/MIN Glucose 121 H (74-106) mg/dL Calcium 9.0 (8.4-10.2) mg/dL Total Bilirubin 0.40 (0.2-1.3) mg/dL AST 19 (17-59) U/L ALT 11 (0-50) U/L Alkaline Phosphatase 64 (38-126) U/L Troponin I 0.024 (0.000-0.034) ng/mL NT-Pro-B Natriuret Pep 1160 H (0-900) pg/mL Serum Total Protein 6.5 (6.3-8.2) g/dL Albumin 3.6 (3.5-5.0) g/dL ABO Group Rh Factor Antibody Screen (NEGATIVE) Crossmatch (COMPATIBLE) - Progress Progress: improved Air Movement: fair Progress Note: 06/06/20 02:40 Patient reassessed. O- blood infusing. Blood pressure improved from 103 systolic to 114 systolic. Patient feels well. Chest pain improved. Troponin negative. New onset renal injury. Hemoccult negative patient normally receives his care at [facility]. Patient requested transfer to [facility] as thats where he normally receives his care. Case discussed with Dr. Dunlap at [facility] who accepted ED to ED transfer. Plan of care discussed with patient. He agrees to transfer to [facility] for further evaluation and treatment. 06/06/20 02:42 06/06/20 02:56 Blood Culture(s) Obtained: No Antibiotics given: No Counseled pt/family regarding: lab results, diagnosis, rad results - Departure Departure Disposition: Transfer Clinical Impression: Angina at rest, Acute renal injury, Elevated brain natriuretic peptide (BNP) level, Abnormal EKG, Symptomatic anemia, Normocytic anemia Condition: Stable Critical Care Time: Yes Critical Care Time(excluding separately billable procedures): Critical 105-134 mins Referrals: LILLIAN ROSADO [Primary Care Provider] -
[2020-06-06] MEDS ORDERED: NITRO-BID 2% UD PACKETS TOP ONE (01:33)
[2020-06-06 01:38] LABS: ALBUMIN 3.6 g/dL (3.5-5.0); ANION GAP 11.4 MEQ/L (5-15); BILIRUBIN,TOTAL 0.4 mg/dL (0.2-1.3); Creatinine 1 1.96 mg/dL (0.66-1.25); Potassium 4.4 mmol/L (3.5-5.1); Total Protein 6.5 g/dL (6.3-8.2)
[2020-06-06] MEDS ORDERED: Sodium Chloride 0.9% 1000 ML 1,000 ML IV SCH (01:45)
[2020-06-06 01:52] LABS: INR 1.15 (0.8-3.0)
[2020-06-06] MEDS ORDERED: NITRO-BID 2% UD PACKETS ONE (01:53)
[2020-06-06 01:54] LABS: PTT 28.9 SECONDS (24.1-36.1)
[2020-06-06] MEDS ORDERED: Sodium Chloride 0.9% 1000 ML 1,000 ML ONE (01:54)
[2020-06-06] MEDS ORDERED: MORPHINE SULFATE 4 MG INJ IV ONE (02:18)
[2020-06-06] MEDS ORDERED: MORPHINE SULFATE 4 MG INJ ONE (02:20)
[2020-06-06 02:40] LABS: ABO TYPING O; Antibody Screen NEGATIVE (NEGATIVE); RH TYPING POSITIVE
[2020-06-06 02:42] LABS: CROSS MATCH (PRBC) COMPATIBLE (COMPATIBLE)
[2020-06-06 03:04] VITALS: BP 113/58; PULSE 78
[2020-06-06 03:06] VITALS: O2SAT 98
--- NOTE | 2020-06-06 08:47 | XRAY ---
Indication: Chest pain. Comparison: April 26, 2020. Portable chest remains clear. Heart remains enlarged. Bony thorax intact. No new/acute findings.
== END 2020-06-06 03:20 | disposition short-term general hospital (02) ==
LOC: ED 00:42
DX: N17.9 Acute kidney failure, unspecified (principal); R79.89 Other specified abnormal findings of blood chemistry; R94.31 Abnormal electrocardiogram [ECG] [EKG]; D64.9 Anemia, unspecified; I50.9 Heart failure, unspecified; I25.10 Atherosclerotic heart disease of native coronary artery without angina pectoris; E78.00 Pure hypercholesterolemia, unspecified; F32.9 Major depressive disorder, single episode, unspecified; Z72.0 Tobacco use; Z86.73 Personal history of transient ischemic attack (TIA), and cerebral infarction without residual deficits
CPT/HCPCS: 36000; 36415; 71045; 80053; 82272; 83880; 84484; 85025; 85610; 85730; 86850; 86900; 86901; 86922; 93005; 93041; 94760; 96360; 96374; 99285; 99291; 99292; P9016; J2270; A9270-GY

== ENCOUNTER 2020-09-17 15:05 | Emergency (ER) | payer OTHER ==
[2020-09-17] MEDS ORDERED: BABY ASPIRIN 81 MG CHEW ONE (15:24)
[2020-09-17] MEDS ORDERED: Nitrostat 0.4 MG (ED) SL ONE (15:24)
[2020-09-17] MEDS: Nitrostat 0.4 MG Tablet SL STA (15:28)
[2020-09-17] MEDS: BABY ASPIRIN 81 MG CHEW PO ONE (15:28)
[2020-09-17 15:30] LABS: Absolute Neutrophil Ct (ANC) 5.66 (1.4-6.9); BASOPHIL % 0.7 % (0.0-0.4); Basophil (Absolute #) 0.06 (0-0.4); Eosinophil % 5.2 % (0.00-5.0); Eosinophil (Absolute #) 0.43 (0-0.5); Hematocrit 25.4 % (42-50); Hemoglobin 7.5 gm/dl (12.5-18.0); Lymphocyte (Absolute #) 1.49 (1.0-4.6); Lymphocytes % 17.9 % (24.0-44.0); Mean Cell Volume 81.4 fl (78-100); Mean Corpuscular Hgb Concent. 29.5 g/dl (32-36); Mean Platelet Volume 10.9 fl (7.5-11.0); Monocyte (Absolute #) 0.67 (0.0-1.3); Monocytes % 8.1 % (0.0-12.0); Neutrophil % 68.1 % (36.0-66.0); Platelet Count 305 K/mm3 (150-450); Red Blood Count 3.12 M/mm3 (4.1-5.6); Red Cell Distribution Width 16.8 % (11.5-14.0); White Blood Count 8.3 K/mm3 (4.0-10.5)
[2020-09-17 15:36] LABS: INR 1.18 (0.8-3.0); PROTIME 13.4 SECONDS (8.83-12.87)
[2020-09-17 15:39] LABS: PTT 31.1 SECONDS (24.1-36.1)
[2020-09-17 15:40] LABS: ALBUMIN 3.9 g/dL (3.5-5.0); ANION GAP 10.5 MEQ/L (5-15); BILIRUBIN,TOTAL 0.4 mg/dL (0.2-1.3); Calcium 8.8 mg/dL (8.4-10.2); Creatinine 1 1.65 mg/dL (0.66-1.25); EST GLOMERULAR FILTRATION RATE 45.5 ML/MIN; MAGNESIUM 2.1 mg/dL (1.6-2.3); Potassium 4.2 mmol/L (3.5-5.1); Total Protein 6.9 g/dL (6.3-8.2)
--- NOTE | 2020-09-17 16:00 | ERPHSYRPT ---
- History of Present Illness Historian: patient Exam Limitations: no limitations Patient Subjective Stated Complaint: Pt stated that his chest has been hurting off and on for the past 2 weeks, spoke to doctor yesterday and they advised to go to the ER so he came today Triage Nursing Assessment: Pt was brought to the ER by a friend, vitals wnl, rates pain 5-6/10, appears short of breath but is 100% on room air, no edema, skin is dusky and dry, left arm feels heavy Physician History: 60 yo wm w L sternal chest pain described as sharp x 2wks. Pt denies radiation and rates the pain a 5 on scale. It improves w NTG and is associated w dyspnea/N /V/diaphoresis. He has a h/o GA/multiple stents/HTN/Hyperlipidemia/2ppd smoker until 01/11. Activities at Onset: rest Quality: sharpness Location: substernal Chest Pain Radiation: no radiation Severity of Pain-Max: moderate Severity of Pain-Current: moderate Modifying Factors: Improves With: nitroglycerin Associated Symptoms: nausea, vomiting, shortness of breath, diaphoresis Prior Chest Pain/Cardiac Workup: heart attack Nitro Today/Relief: 0.4 mg x 2, mild relief Aspirin Treatment Today: 81 mg x 1 Allergies/Adverse Reactions: No Known Drug Allergies Allergy (Verified 09/17/20 15:17) Home Medications: Albuterol 2.5 mg/3 ml Neb [Proventil 2.5 mg/3 ml Neb] 2.5 mg IH Q4HPRN PRN 06/20/19 [History] Albuterol Sulfate [Proair Hfa] 8.5 gm IH QIDPRN PRN 06/20/19 [History] Atorvastatin Calcium [Lipitor] 80 mg PO DAILY 06/20/19 [History] Clopidogrel Bisulfate 75 mg [PLAVIX 75 MG Tablet] 75 mg PO DAILY 06/20/19 [History] Metoprolol Tartrate 50 mg [Lopressor 50 MG] 50 mg PO BID 06/20/19 [History] Tiotropium Br/Olodaterol HCl [Stiolto Respimat Inhal [place]] 4 gm IH DAILY 06/20/19 [History] Aspirin EC 81 mg [Ecotrin 81 mg] 81 mg PO DAILY 09/17/20 [History] Furosemide 40 mg PO BID 09/17/20 [History] Losartan Potassium 50 mg PO DAILY 09/17/20 [History] Potassium Chloride 10 Meq Tab* [Klor Con 10 MEQ] 10 meq PO DAILY 09/17/20 [History] Ranolazine [Ranolazine ER] 1,000 mg PO BID 09/17/20 [History] Sucralfate 1 gm PO QID 09/17/20 [History] Umeclidinium Brm/Vilanterol Tr [Anoro Ellipta 62.5-25 Mcg INH] 1 each IH UD 09/17/20 [History] lisinopriL [Zestril] 2.5 mg PO DAILY 09/17/20 [History] Hx Tetanus, Diphtheria Vaccination/Date Given: No Hx Influenza Vaccination/Date Given: No Hx Pneumococcal Vaccination/Date Given: No Travel Risk - International Travel Have you traveled outside of the country in past 3 weeks: No - Coronavirus Screening Are you exhibiting any of the following symptoms?: No Close contact with a COVID-19 positive Pt in past 14-21 Days: No - Review of Systems Constitutional: Night Sweats, Weakness Eyes: No Symptoms Ears, Nose, & Throat: No Symptoms, Snoring Respiratory: Dyspnea Cardiac: Chest Pain Abdominal/Gastrointestinal: No Symptoms, Nausea, Vomiting Genitourinary Symptoms: No Symptoms Musculoskeletal: No Symptoms Skin: No Symptoms Neurological: No Symptoms Psychological: No Symptoms Endocrine: No Symptoms Hematologic/Lymphatic: No Symptoms Immunological/Allergic: No Symptoms - Past Medical History Pertinent Past Medical History: Yes Neurological History: Stroke Cardiac History: Angina, Congestive Heart Failure, Coronary Artery Disease, High Cholesterol, Hypertension, Myocardial Infarction ([place]) Respiratory History: Bronchitis, COPD Endocrine Medical History: No Pertinent History GI Medical History: Hernia, Ulcer Psycho-Social History: Depression Other Medical History: Patient had a blood transfusion in April 2020 for a HGB of 6. - Past Surgical History Past Surgical History: Yes Cardiac: Cardiac Catheterization, Cardiac Stent, Vascular Surgery Gastrointestinal: Hernia Repair Other Surgical History: LEFT CAROTID SURGERY NOVEMBER 2018 - Social History Smoking Status: Former smoker How long have you smoked: 45 Exposure to second hand smoke: Yes Drug Use: none Patient Lives Alone: No - Nursing Vital Signs Nursing Vital Signs: Initial Vital Signs Temperature 97.6 F 09/17/20 15:06 Pulse Rate 117 H 09/17/20 15:06 Respiratory Rate 23 09/17/20 15:06 Blood Pressure 132/82 09/17/20 15:06 O2 Sat by Pulse Oximetry 98 09/17/20 15:06 Pain Scale Pain Intensity 2 - Physical Exam General Appearance: no apparent distress Eye Exam: PERRL/EOMI, eyes nml inspection Ears, Nose, Throat Exam: normal ENT inspection, TMs normal, pharynx normal, moist mucous membranes Neck Exam: normal inspection, non-tender, supple, full range of motion, No meningismus, No Brudzinski, No Kernig's, No JVD Respiratory Exam: normal breath sounds, lungs clear, respiratory distress, airway intact, No chest tenderness Cardiovascular Exam: regular rate/rhythm, normal heart sounds, normal peripheral pulses, No murmur Gastrointestinal/Abdomen Exam: soft, normal bowel sounds, No distention Back Exam: normal inspection, normal range of motion, No CVA tenderness Extremity Exam: normal inspection, normal range of motion Neurologic Exam: alert, oriented x 3, cooperative, rn telemetry II-XII nml as tested, normal mood/affect, nml cerebellar function, nml station & gait, sensation nml, No motor deficits, No sensory deficit Skin Exam: normal color, warm, dry, No rash Lymphatic Exam: No adenopathy SpO2 Interpretation: normal SpO2: 97 O2 Delivery: Room Air - Course EKG Interpreted by Me: RATE (Sinus tach/R107/PVC's/Normal QT-QTc/Poor R wave progression/Dig effect) - Radiology Exams Chest X-ray Interpretation: Interpreted by me (NAD) Ordered Tests: Active Orders 24 hr Category Date Time Status Speech Pathologist Assistant STAT Care 09/17/20 15:16 Completed EKG-ER Only STAT Care 09/17/20 15:10 Completed IV Insertion STAT Care 09/17/20 15:16 Completed CHEST 1 VIEW (PORTABLE) Stat Exams 09/17/20 15:13 Completed CBC W DIFF Stat Lab 09/17/20 15:10 Completed CMP Stat Lab 09/17/20 15:10 Completed MAGNESIUM Stat Lab 09/17/20 15:10 Completed PROTIME WITH INR Stat Lab 09/17/20 15:10 Completed PTT Stat Lab 09/17/20 15:10 Completed TROPONIN Q3H Lab 09/17/20 15:10 Completed TROPONIN Q3H Lab 09/17/20 18:20 Completed Medication Summary Discontinued Medications Generic Name Dose Route Start Last Admin Trade Name Luis Mq PRN Reason Stop Dose Admin Aspirin 324 mg 09/17/20 15:22 09/17/20 15:28 Baby Aspirin 81 Mg Chew PO 09/17/20 15:23 324 mg STAT ONE Administration Aspirin Confirm 09/17/20 15:24 Baby Aspirin 81 Mg Chew Administered 09/17/20 15:25 Dose 324 mg .ROUTE .STK-MED ONE Enoxaparin Sodium 100 mg 09/17/20 16:35 09/17/20 16:41 Enoxaparin Sodium SQ 09/17/20 16:36 100 mg STAT STA Administration Enoxaparin Sodium Confirm 09/17/20 16:40 Enoxaparin Sodium Administered 09/17/20 16:41 Dose 120 mg SQ .STK-MED ONE Morphine Sulfate 2 mg 09/17/20 16:08 09/17/20 16:14 Morphine Sulfate 2 Mg Inj IV 09/17/20 16:09 2 mg STAT ONE Administration Morphine Sulfate Confirm 09/17/20 16:12 Morphine Sulfate 2 Mg Inj Administered 09/17/20 16:13 Dose 2 mg .ROUTE .STK-MED ONE Nitroglycerin 0.4 mg 09/17/20 15:23 09/17/20 15:28 Nitrostat 0.4 Mg Tablet SL 09/17/20 15:24 0.4 mg Q5MIN PRN MR X 3 STA Administration Nitroglycerin Confirm 09/17/20 15:24 Nitrostat 0.4 Mg (Ed) Administered 09/17/20 15:25 Dose 0.4 mg SL .STK-MED ONE Ondansetron HCl 4 mg 09/17/20 16:12 09/17/20 16:14 Zofran 4 Mg/2 Ml Vial IV 09/17/20 16:13 4 mg STAT ONE Administration Ondansetron HCl Confirm 09/17/20 16:12 Zofran 4 Mg/2 Ml Vial Administered 09/17/20 16:13 Dose 4 mg .ROUTE .STK-MED ONE Lab/Rad Data: Laboratory Result Diagrams 09/17/20 15:10 09/17/20 15:10 Laboratory Results 09/17/20 09/17/20 09/17/20 Range/Units 18:20 15:10 15:10 WBC (4.0-10.5) K/mm3 RBC (4.1-5.6) M/mm3 Hgb (12.5-18.0) gm/dl Hct (42-50) % MCV (78-100) fl MCH (26-32) pg MCHC (32-36) g/dl RDW (11.5-14.0) % Plt Count (150-450) K/mm3 MPV (7.5-11.0) fl Gran % (36.0-66.0) % Eos # (Auto) (0-0.5) Absolute Lymphs (auto) (1.0-4.6) Absolute Monos (auto) (0.0-1.3) Lymphocytes % (24.0-44.0) % Monocytes % (0.0-12.0) % Eosinophils % (0.00-5.0) % Basophils % (0.0-0.4) % Absolute Granulocytes (1.4-6.9) Basophils # (0-0.4) PT 13.4 H (8.83-12.87) SECONDS INR 1.18 (0.8-3.0) APTT 31.1 (24.1-36.1) SECONDS Sodium (137-145) mmol/L Potassium (3.5-5.1) mmol/L Chloride (98-107) mmol/L Carbon Dioxide (22-30) mmol/L Anion Gap (5-15) MEQ/L BUN (9-20) mg/dL Creatinine (0.66-1.25) mg/dL Estimated GFR ML/MIN Glucose (74-106) mg/dL Calcium (8.4-10.2) mg/dL Magnesium (1.6-2.3) mg/dL Total Bilirubin (0.2-1.3) mg/dL AST (17-59) U/L ALT (0-50) U/L Alkaline Phosphatase (38-126) U/L Troponin I 0.108 H* 0.106 H* (0.000-0.034) ng/mL Serum Total Protein (6.3-8.2) g/dL Albumin (3.5-5.0) g/dL 09/17/20 09/17/20 Range/Units 15:10 15:10 WBC 8.3 (4.0-10.5) K/mm3 RBC 3.12 L (4.1-5.6) M/mm3 Hgb 7.5 L (12.5-18.0) gm/dl Hct 25.4 L (42-50) % MCV 81.4 (78-100) fl MCH 24.0 L (26-32) pg MCHC 29.5 L (32-36) g/dl RDW 16.8 H (11.5-14.0) % Plt Count 305 (150-450) K/mm3 MPV 10.9 (7.5-11.0) fl Gran % 68.1 H (36.0-66.0) % Eos # (Auto) 0.43 (0-0.5) Absolute Lymphs (auto) 1.49 (1.0-4.6) Absolute Monos (auto) 0.67 (0.0-1.3) Lymphocytes % 17.9 L (24.0-44.0) % Monocytes % 8.1 (0.0-12.0) % Eosinophils % 5.2 H (0.00-5.0) % Basophils % 0.7 (0.0-0.4) % Absolute Granulocytes 5.66 (1.4-6.9) Basophils # 0.06 (0-0.4) PT (8.83-12.87) SECONDS INR (0.8-3.0) APTT (24.1-36.1) SECONDS Sodium 136 L (137-145) mmol/L Potassium 4.2 (3.5-5.1) mmol/L Chloride 105 (98-107) mmol/L Carbon Dioxide 25 (22-30) mmol/L Anion Gap 10.5 (5-15) MEQ/L BUN 17 (9-20) mg/dL Creatinine 1.65 H (0.66-1.25) mg/dL Estimated GFR 45.5 ML/MIN Glucose 106 (74-106) mg/dL Calcium 8.8 (8.4-10.2) mg/dL Magnesium 2.1 (1.6-2.3) mg/dL Total Bilirubin 0.40 (0.2-1.3) mg/dL AST 17 (17-59) U/L ALT 10 (0-50) U/L Alkaline Phosphatase 80 (38-126) U/L Troponin I (0.000-0.034) ng/mL Serum Total Protein 6.9 (6.3-8.2) g/dL Albumin 3.9 (3.5-5.0) g/dL - Progress Air Movement: fair Progress Note: 09/17/20 16:07 Pt w transient improvement in pain after 1SL NTG w return of pain. 09/17/20 16:26 Spoke w brendon Solorio hospitalist to care for pt. 09/17/20 16:[address] Sánchez at [facility]. Wants Lovenox given. 09/17/20 21:25 Pt in stable condition when care assumed by ambulance crew. Pt w minimal chest pain throughout stay after 1SL NTG and 2mg IV Morphine sulfate. - Departure Departure Disposition: Transfer Clinical Impression: NSTEMI (non-ST elevated myocardial infarction) Condition: Stable Critical Care Time: Yes Critical Care Time(excluding separately billable procedures): Critical 30-74 mins Referrals: KATIE AKBAR [Primary Care Provider] -
[2020-09-17] MEDS ORDERED: Zofran 4 MG/2 ML VIAL ONE (16:12)
[2020-09-17] MEDS ORDERED: MORPHINE SULFATE 2 MG INJ ONE (16:12)
[2020-09-17] MEDS: MORPHINE SULFATE 2 MG INJ IV ONE (16:14)
[2020-09-17] MEDS: Zofran 4 MG/2 ML VIAL IV ONE (16:14)
--- NOTE | 2020-09-17 16:26 | XRAY ---
Indication: Chest pain. Comparison: June 06, 2020. Portable chest again demonstrates borderline cardiomegaly obscuring left lung base. Remaining lungs and bony thorax unremarkable.
[2020-09-17] MEDS ORDERED: ENOXAPARIN SODIUM SQ ONE (16:40)
[2020-09-17] MEDS: ENOXAPARIN SODIUM SQ STA (16:41)
[2020-09-17 19:49] VITALS: BP 113/61; PULSE 83
[2020-09-17 21:27] VITALS: O2SAT 97
== END 2020-09-17 20:08 | disposition short-term general hospital (02) ==
LOC: ED 15:05
DX: I21.4 Non-ST elevation (NSTEMI) myocardial infarction (principal); I50.9 Heart failure, unspecified; I25.10 Atherosclerotic heart disease of native coronary artery without angina pectoris; E78.00 Pure hypercholesterolemia, unspecified
CPT/HCPCS: 36000; 36415; 71045; 80053; 82103; 82104; 83735; 84484; 85025; 85610; 85730; 93005; 93041; 96372; 96374; 96375; 99285; 99291; J1650; J2270; J2405; A9270-GY

== ENCOUNTER 2020-11-18 21:37 | Emergency (ER) | payer OTHER ==
[2020-11-18] MEDS ORDERED: Heparin 5000 UNITS/0.5 ML (HIGH RISK MED) IV ONE (21:38)
[2020-11-18 22:04] VITALS: O2SAT 96
--- NOTE | 2020-11-18 22:34 | ERPHSYRPT ---
- History of Present Illness Time Seen by Provider: 11/18/20 21:45 Historian: patient Exam Limitations: no limitations Patient Subjective Stated Complaint: pt states he woke up this morning with chest pain and has been having pain intermittently through out the day. states pain was much worse tonight after taking a shower. states pain goes through to back and describes as stabbing. worse with activity and deep breath. Triage Nursing Assessment: pt alert and oriented, answers questions approp. pt back per wheelchair, transfers to stretcher per self with no difficulty. pt short of breath with exertions. lungs cta. skin pink warm and dry. heart rate 110, sinus tach on monitor. peripheral pulses intact. Physician History: Patient is a 60-year-old male presents to our ED for evaluation of chest pain. Patient has a history of coronary artery disease including cardiac stents. Patient states he awoke this morning with chest pain. Chest pain has been ongoing intermittently throughout the day. Patient has taken nitro with little relief. Chest pain is associated with shortness of breath. No nausea vomiting or diaphoresis. Chest pain tends to radiate to his back. No trauma. No fever. Symptoms are moderate in intensity. No specific worsening or improving factors. Patient voices no other complaints at this time. Timing/Duration: today Activities at Onset: none Quality: aching Location: substernal Chest Pain Radiation: back Severity of Pain-Max: moderate Severity of Pain-Current: mild Modifying Factors: Improves With: nitroglycerin Associated Symptoms: shortness of breath, No nausea Prior Chest Pain/Cardiac Workup: cardiac cath Nitro Today/Relief: 0.4 mg x 1 Aspirin Treatment Today: 81 mg x 1 Allergies/Adverse Reactions: No Known Drug Allergies Allergy (Verified 11/18/20 21:53) Home Medications: Albuterol 2.5 mg/3 ml Neb [Proventil 2.5 mg/3 ml Neb] 2.5 mg IH Q4HPRN PRN 06/20/19 [History] Albuterol Sulfate [Proair Hfa] 8.5 gm IH QIDPRN PRN 06/20/19 [History] Atorvastatin Calcium [Lipitor] 80 mg PO DAILY 06/20/19 [History] Clopidogrel Bisulfate 75 mg [PLAVIX 75 MG Tablet] 75 mg PO DAILY 06/20/19 [History] Metoprolol Tartrate 50 mg [Lopressor 50 MG] 50 mg PO BID 06/20/19 [History] Tiotropium Br/Olodaterol HCl [Stiolto Respimat Inhal [place]] 4 gm IH DAILY 06/20/19 [History] Aspirin EC 81 mg [Ecotrin 81 mg] 81 mg PO DAILY 09/17/20 [History] Furosemide 40 mg PO BID 09/17/20 [History] Losartan Potassium 50 mg PO DAILY 09/17/20 [History] Potassium Chloride 10 Meq Tab* [Klor Con 10 MEQ] 10 meq PO DAILY 09/17/20 [History] Ranolazine [Ranolazine ER] 1,000 mg PO BID 09/17/20 [History] Sucralfate 1 gm PO QID 09/17/20 [History] Umeclidinium Brm/Vilanterol Tr [Anoro Ellipta 62.5-25 Mcg INH] 1 each IH UD 1 [History] lisinopriL [Zestril] 2.5 mg PO DAILY 09/17/20 [History] Hx Tetanus, Diphtheria Vaccination/Date Given: No Hx Influenza Vaccination/Date Given: No Hx Pneumococcal Vaccination/Date Given: No Immunizations Up to Date: No Travel Risk - International Travel Have you traveled outside of the country in past 3 weeks: No - Coronavirus Screening Are you exhibiting any of the following symptoms?: No Close contact with a COVID-19 positive Pt in past 14-21 Days: No - Review of Systems Constitutional: No Symptoms, No Fever, No Chills Eyes: No Symptoms Ears, Nose, & Throat: No Symptoms Respiratory: No Symptoms, No Cough, No Dyspnea Cardiac: No Symptoms, No Chest Pain, No Edema, No Syncope Abdominal/Gastrointestinal: No Symptoms, No Abdominal Pain, No Nausea, No Vomiting, No Diarrhea Genitourinary Symptoms: No Symptoms, No Dysuria Musculoskeletal: No Symptoms, No Back Pain, No Neck Pain Skin: No Symptoms, No Rash Neurological: No Symptoms, No Dizziness, No Focal Weakness, No Sensory Changes Psychological: No Symptoms Endocrine: No Symptoms Hematologic/Lymphatic: No Symptoms Immunological/Allergic: No Symptoms All Other Systems: Reviewed and Negative - Past Medical History Pertinent Past Medical History: Yes Neurological History: Stroke Cardiac History: Angina, Congestive Heart Failure, Coronary Artery Disease, High Cholesterol, Hypertension, Myocardial Infarction ([place]) Respiratory History: Bronchitis, COPD Endocrine Medical History: No Pertinent History GI Medical History: Hernia, Ulcer Psycho-Social History: Depression Other Medical History: Patient had a blood transfusion in April 2020 for a HGB of 6. - Past Surgical History Past Surgical History: Yes Cardiac: Cardiac Catheterization, Cardiac Stent, Vascular Surgery Gastrointestinal: Hernia Repair Other Surgical History: LEFT CAROTID SURGERY NOVEMBER 2018 - Social History Smoking Status: Former smoker How long have you smoked: 45 Exposure to second hand smoke: Yes Drug Use: none Patient Lives Alone: No - Nursing Vital Signs Nursing Vital Signs: Initial Vital Signs Temperature 98.0 F 11/18/20 21:39 Pulse Rate 110 H 11/18/20 21:39 Respiratory Rate 24 11/18/20 21:39 Blood Pressure 208/128 11/18/20 21:39 O2 Sat by Pulse Oximetry 98 11/18/20 21:39 Pain Scale Pain Intensity 3 - Physical Exam General Appearance: no apparent distress, alert Eye Exam: PERRL/EOMI, eyes nml inspection Ears, Nose, Throat Exam: normal ENT inspection, moist mucous membranes Neck Exam: normal inspection, non-tender, supple, full range of motion Respiratory Exam: normal breath sounds, lungs clear, No respiratory distress Cardiovascular Exam: regular rate/rhythm, normal heart sounds Gastrointestinal/Abdomen Exam: soft, No tenderness, No mass Back Exam: normal inspection, No CVA tenderness, No vertebral tenderness Extremity Exam: normal inspection, normal range of motion Neurologic Exam: alert, oriented x 3, cooperative, normal mood/affect, sensation nml, No motor deficits Skin Exam: normal color, warm, dry SpO2 Interpretation: normal SpO2: 96 O2 Delivery: Room Air - Course Nursing assessment & vital signs reviewed: Yes EKG Interpreted by Me: RATE ([id number]), NORMAL AXIS, NORMAL INTERVALS - Radiology Exams Chest X-ray Interpretation: Interpreted by me (Borderline cardiomegaly otherwise negative chest x-ray) Ordered Tests: Active Orders 24 hr Category Date Time Status Customer Operations Intern STAT Care 11/18/20 21:58 Completed EKG-ER Only STAT Care 11/18/20 21:57 Completed IV Insertion STAT Care 11/18/20 21:57 Completed Pulse Oximetry (ED) STAT Care 11/18/20 21:57 Completed CHEST 1 VIEW (PORTABLE) Stat Exams 11/18/20 21:58 Taken CBC W DIFF Stat Lab 11/18/20 22:35 Completed CMP Stat Lab 11/18/20 22:35 Completed TROPONIN Q3H Lab 11/18/20 22:35 Completed Medication Summary Discontinued Medications Generic Name Dose Route Start Last Admin Trade Name Freq PRN Reason Stop Dose Admin Aspirin 243 mg 11/18/20 22:51 11/18/20 22:59 Baby Aspirin 81 Mg Chew PO 11/18/20 22:52 243 mg STAT ONE Administration Aspirin Confirm 11/18/20 22:58 Baby Aspirin 81 Mg Chew Administered 11/18/20 22:59 Dose 243 mg .ROUTE .STK-MED ONE Heparin Sodium/Dextrose 25,000 units in 250 mls @ 10 mls/hr 11/18/20 23:30 11/18/20 23:16 Heparin 25,000 Units/D5w 250ml Premix IV 12/18/20 23:29 10 mls/hr .Q24H KIRBY 10 mls/hr Administration Nitroglycerin/Dextrose 250 mls @ 1.5 mls/hr 11/18/20 23:17 11/18/20 23:24 Ntg 0.2mg/Ml In D5w Glass IV 12/18/20 23:16 5 mcg/min .Q24H PRN 1.5 mls/hr CHEST PAIN Administration Protocol 5 MCG/MIN Heparin Sodium/Dextrose Confirm 11/18/20 23:13 Heparin 25,000 Units/D5w 250ml Premix Administered 11/18/20 23:14 Dose 25,000 units in 250 mls @ ud IV .STK-MED ONE Nitroglycerin/Dextrose Confirm 11/18/20 23:20 Ntg 0.2mg/Ml In D5w Glass Administered 11/18/20 23:21 Dose 250 mls @ ud IV .STK-MED ONE Morphine Sulfate 4 mg 11/18/20 23:10 11/18/20 23:15 Morphine Sulfate 2 Mg Inj IV 11/18/20 23:11 4 mg STAT ONE Administration Morphine Sulfate Confirm 11/18/20 23:12 Morphine Sulfate 4 Mg Inj Administered 11/18/20 23:13 Dose 4 mg .ROUTE .STK-MED ONE Nitroglycerin 1 gm 11/18/20 22:52 11/18/20 22:59 Nitro-Bid 2% Ud Packets TOP 11/18/20 22:53 1 gm STAT ONE Administration Nitroglycerin Confirm 11/18/20 22:58 Nitro-Bid 2% Ud Packets Administered 11/18/20 22:59 Dose 1 gm .ROUTE .STK-MED ONE Nitroglycerin Confirm 11/18/20 23:03 Nitro-Bid 2% Ud Packets Administered 11/18/20 23:04 Dose 1 gm .ROUTE .STK-MED ONE Lab/Rad Data: Laboratory Result Diagrams 11/18/20 22:35 11/18/20 22:35 Laboratory Results 11/18/20 11/18/20 11/18/20 Range/Units 22:35 22:35 22:35 WBC 7.5 (4.0-10.5) K/mm3 RBC 3.54 L (4.1-5.6) M/mm3 Hgb 9.2 L (12.5-18.0) gm/dl Hct 30.3 L (42-50) % MCV 85.6 (78-100) fl MCH 26.0 (26-32) pg MCHC 30.4 L (32-36) g/dl RDW 18.6 H (11.5-14.0) % Plt Count 224 (150-450) K/mm3 MPV 10.2 (7.5-11.0) fl Gran % 74.5 H (36.0-66.0) % Eos # (Auto) 0.29 (0-0.5) Absolute Lymphs (auto) 1.04 (1.0-4.6) Absolute Monos (auto) 0.55 (0.0-1.3) Lymphocytes % 13.8 L (24.0-44.0) % Monocytes % 7.3 (0.0-12.0) % Eosinophils % 3.9 (0.00-5.0) % Basophils % 0.5 (0.0-0.4) % Absolute Granulocytes 5.61 (1.4-6.9) Basophils # 0.04 (0-0.4) Sodium 136 L (137-145) mmol/L Potassium 4.3 (3.5-5.1) mmol/L Chloride 106 (98-107) mmol/L Carbon Dioxide 26 (22-30) mmol/L Anion Gap 8.5 (5-15) MEQ/L BUN 15 (9-20) mg/dL Creatinine 1.04 (0.66-1.25) mg/dL Estimated GFR > 60.0 ML/MIN Glucose 109 H (74-106) mg/dL Calcium 9.0 (8.4-10.2) mg/dL Total Bilirubin 0.20 (0.2-1.3) mg/dL AST 18 (17-59) U/L ALT 9 (0-50) U/L Alkaline Phosphatase 80 (38-126) U/L Troponin I 0.052 H* (0.000-0.034) ng/mL Serum Total Protein 6.6 (6.3-8.2) g/dL Albumin 3.6 (3.5-5.0) g/dL - Progress Progress: improved Air Movement: good Blood Culture(s) Obtained: No Antibiotics given: No Counseled pt/family regarding: lab results, diagnosis, rad results - Departure Departure Disposition: Transfer Clinical Impression: ACS (acute coronary syndrome), NSTEMI (non-ST elevated myocardial infarction), Elevated troponin Condition: Stable Critical Care Time: No Referrals: KATIE AKBAR [Primary Care Provider] -
[2020-11-18 22:36] LABS: Absolute Neutrophil Ct (ANC) 5.61 (1.4-6.9); BASOPHIL % 0.5 % (0.0-0.4); Basophil (Absolute #) 0.04 (0-0.4); Eosinophil % 3.9 % (0.00-5.0); Eosinophil (Absolute #) 0.29 (0-0.5); Hematocrit 30.3 % (42-50); Hemoglobin 9.2 gm/dl (12.5-18.0); Lymphocyte (Absolute #) 1.04 (1.0-4.6); Lymphocytes % 13.8 % (24.0-44.0); Mean Cell Volume 85.6 fl (78-100); Mean Corpuscular Hgb Concent. 30.4 g/dl (32-36); Mean Platelet Volume 10.2 fl (7.5-11.0); Monocyte (Absolute #) 0.55 (0.0-1.3); Monocytes % 7.3 % (0.0-12.0); Neutrophil % 74.5 % (36.0-66.0); Platelet Count 224 K/mm3 (150-450); Red Blood Count 3.54 M/mm3 (4.1-5.6); Red Cell Distribution Width 18.6 % (11.5-14.0); White Blood Count 7.5 K/mm3 (4.0-10.5)
[2020-11-18 22:47] LABS: BLOOD UREA NITROGEN 15 mg/dL (9-20); Creatinine 1 1.04 mg/dL (0.66-1.25); Glucose 109 mg/dL (74-106)
[2020-11-18 22:48] LABS: ALBUMIN 3.6 g/dL (3.5-5.0); ALKALINE PHOSPHATASE 80 U/L (38-126); ANION GAP 8.5 MEQ/L (5-15); CHLORIDE 106 mmol/L (98-107); Carbon Dioxide 26 mmol/L (22-30); EST GLOMERULAR FILTRATION RATE > 60.0 ML/MIN; Potassium 4.3 mmol/L (3.5-5.1); SGOT/AST 18 U/L (17-59); SGPT/ALT 9 U/L (0-50); SODIUM 136 mmol/L (137-145); Total Protein 6.6 g/dL (6.3-8.2)
[2020-11-18] MEDS ORDERED: BABY ASPIRIN 81 MG CHEW PO ONE (22:51)
[2020-11-18] MEDS ORDERED: NITRO-BID 2% UD PACKETS TOP ONE (22:52)
[2020-11-18] MEDS ORDERED: BABY ASPIRIN 81 MG CHEW ONE (22:58)
[2020-11-18] MEDS ORDERED: NITRO-BID 2% UD PACKETS ONE ×2 (22:58→23:03)
[2020-11-18] MEDS ORDERED: MORPHINE SULFATE 2 MG INJ IV ONE (23:10)
[2020-11-18] MEDS ORDERED: MORPHINE SULFATE 4 MG INJ ONE (23:12)
[2020-11-18] MEDS ORDERED: Heparin 25,000 units/D5W 250ML PREMIX 25,000 UNITS/250 ML BAG IV ONE (23:13)
[2020-11-18] MEDS ORDERED: Ntg 0.2MG/Ml in D5W GLASS*** 250 ML IV PRN (23:17)
[2020-11-18] MEDS ORDERED: Ntg 0.2MG/Ml in D5W GLASS*** 250 ML IV ONE (23:20)
[2020-11-18] MEDS ORDERED: Heparin 25,000 units/D5W 250ML PREMIX 25,000 UNITS/250 ML BAG IV SCH (23:30)
[2020-11-18 23:56] VITALS: BP 166/99; PULSE 98
--- NOTE | 2020-11-19 08:52 | XRAY ---
Indication: Chest pain. Comparison: September 17, 2020. Portable chest does not completely include the left costophrenic angle. No focal infiltrate, consolidation, or large effusion. Heart remains borderline enlarged. Bony thorax intact again with mild degenerative changes. Impression: Nonacute limited chest with chronic features.
== END 2020-11-18 23:56 | disposition short-term general hospital (02) ==
LOC: ED 21:37
DX: I24.9 Acute ischemic heart disease, unspecified (principal); I21.3 ST elevation (STEMI) myocardial infarction of unspecified site; R74.8 Abnormal levels of other serum enzymes; Z79.899 Other long term (current) drug therapy
CPT/HCPCS: 36000; 36415; 71045; 80053; 84484; 85025; 93005; 93041; 94760; 96365; 96367; 96374; 96375; 99285; J1644; J2270; A9270-GY

== ENCOUNTER 2020-11-29 13:33 | Emergency (ER) | payer OTHER ==
[2020-11-29] MEDS ORDERED: Sodium Chloride 0.9% 1000 ML 1,000 ML IV SCH (13:45)
[2020-11-29] MEDS ORDERED: Sodium Chloride 0.9% 1000 ML 1,000 ML ONE (13:50)
[2020-11-29 14:11] LABS: INR 1.15 (0.8-3.0)
[2020-11-29 14:12] LABS: BASOPHIL % 0.5 % (0.0-0.4); Basophil (Absolute #) 0.03 (0-0.4); Eosinophil % 8.3 % (0.00-5.0); Eosinophil (Absolute #) 0.54 (0-0.5); Hematocrit 30.9 % (42-50); Hemoglobin 9.4 gm/dl (12.5-18.0); Lymphocyte (Absolute #) 1.52 (1.0-4.6); Lymphocytes % 23.3 % (24.0-44.0); Mean Corpuscular Hemoglobin 25.5 pg (26-32); Mean Corpuscular Hgb Concent. 30.4 g/dl (32-36); Monocyte (Absolute #) 0.53 (0.0-1.3); Monocytes % 8.1 % (0.0-12.0); Neutrophil % 59.8 % (36.0-66.0); Platelet Count 256 K/mm3 (150-450); Red Blood Count 3.68 M/mm3 (4.1-5.6); Red Cell Distribution Width 17.2 % (11.5-14.0); White Blood Count 6.5 K/mm3 (4.0-10.5)
[2020-11-29 14:14] LABS: PTT 30.4 SECONDS (24.1-36.1)
[2020-11-29 14:19] LABS: ALBUMIN 3.8 g/dL (3.5-5.0); ALKALINE PHOSPHATASE 63 U/L (38-126); AMYLASE 60 U/L (30-110); ANION GAP 10.7 MEQ/L (5-15); BLOOD UREA NITROGEN 11 mg/dL (9-20); CHLORIDE 105 mmol/L (98-107); Carbon Dioxide 26 mmol/L (22-30); Creatinine 1 1.04 mg/dL (0.66-1.25); EST GLOMERULAR FILTRATION RATE > 60.0 ML/MIN; Glucose 104 mg/dL (74-106); LIPASE 169 U/L (23-300); MAGNESIUM 1.8 mg/dL (1.6-2.3); Potassium 3.8 mmol/L (3.5-5.1); SGOT/AST 33 U/L (17-59); SGPT/ALT 32 U/L (0-50); SODIUM 137 mmol/L (137-145); Total Protein 6.6 g/dL (6.3-8.2)
--- NOTE | 2020-11-29 14:20 | XRAY ---
Indication: Chest pain. Comparison: November 10, 2020. Portable chest again does not completely include the left costophrenic angle. No focal infiltrate, consolidation, or large effusion. Heart remains borderline enlarged. Bony thorax intact. No new/acute abnormalities.
[2020-11-29 16:25] LABS: Appearance CLEAR (CLEAR); Bilirubin NEGATIVE (NEGATIVE); Blood NEGATIVE Ery/ul (0-5); Glucose NEGATIVE (NEGATIVE); Ketones NEGATIVE (NEGATIVE); Leukocyte Esterase NEGATIVE (NEGATIVE); Nitrite NEGATIVE (NEGATIVE); Protein,Urine Dip NEGATIVE (Negative); Urobilinogen NEGATIVE mg/dL (0-1)
--- NOTE | 2020-11-29 17:02 | XRAY ---
Indication: Chest pain for months. Elevated d-dimer. History COPD. Multiple contiguous axial images obtained through the chest using 100 cc Isovue-370 contrast and PE protocol. Comparison: None There is good opacification of the pulmonary arteries to include the lobar and segmental branches. No pulmonary embolus. Heart is borderline enlarged. No pericardial effusion. Aorta is minimally arteriosclerotic without aneurysm/dissection. Small left infrahilar calcified nodes. No pathologic mediastinal/hilar lymphadenopathy. Lungs demonstrate minimal bilateral dependent atelectasis and tiny left costophrenic angle calcified granuloma. No suspicious pulmonary mass, infiltrate, or effusion. Bony thorax intact. Limited upper abdomen including adrenal glands are unremarkable. Impression: 1. Negative pulmonary embolus. No acute cardiopulmonary abnormalities. 2. Incidental old granulomatous disease.
--- NOTE | 2020-11-29 18:08 | ERPHSYRPT ---
- History of Present Illness Time Seen by Provider: 11/29/20 14:00 Historian: patient Exam Limitations: no limitations Patient Subjective Stated Complaint: Pt began having chest pain approx 1 hour ago and went to Dr. Rodriguez office and was told to come to the ER, pt took 3 nitros with no relief, pt had a heart cath less than a week ago at [facility] Triage Nursing Assessment: Pt was brought to the ER by [facility], hypertensive, rates chest/neck/shoulder pain as 05/31, S1-S2 sounds irregular, pulses normal, skin n/w/d Physician History: Patient is a 60-year-old male who has known coronary artery disease multiple stents who [facility]. He was told he was not a candidate for surgery because of the large number of stents that he has had placed. He went to his PCP after 3 nitroglycerin without relief and was sent to [facility] ER Timing/Duration: today Activities at Onset: none Quality: stabbing Location: substernal Chest Pain Radiation: no radiation Severity of Pain-Max: moderate Severity of Pain-Current: moderate Modifying Factors: Improves With: nothing Associated Symptoms: denies symptoms Prior Chest Pain/Cardiac Workup: heart attack, recently seen/treated, recent hospitalization Nitro Today/Relief: 0.4 mg x 3 Aspirin Treatment Today: 81 mg x 3 Allergies/Adverse Reactions: No Known Drug Allergies Allergy (Verified 11/29/20 13:49) Home Medications: Albuterol 2.5 mg/3 ml Neb [Proventil 2.5 mg/3 ml Neb] 2.5 mg IH Q4HPRN PRN 06/20/19 [History] Albuterol Sulfate [Proair Hfa] 8.5 gm IH QIDPRN PRN 06/20/19 [History] Atorvastatin Calcium [Lipitor] 80 mg PO DAILY 06/20/19 [History] Clopidogrel Bisulfate 75 mg [PLAVIX 75 MG Tablet] 75 mg PO DAILY 06/20/19 [History] Metoprolol Tartrate 50 mg [Lopressor 50 MG] 50 mg PO BID 06/20/19 [History] Tiotropium Br/Olodaterol HCl [Stiolto Respimat Inhal [place]] 4 gm IH DAILY 06/20/19 [History] Aspirin EC 81 mg [Ecotrin 81 mg] 81 mg PO DAILY 09/17/20 [History] Furosemide 40 mg PO BID 09/17/20 [History] Losartan Potassium 50 mg PO DAILY 09/17/20 [History] Potassium Chloride 10 Meq Tab* [Klor Con 10 MEQ] 10 meq PO DAILY 09/17/20 [History] Ranolazine [Ranolazine ER] 1,000 mg PO BID 09/17/20 [History] Sucralfate 1 gm PO QID 09/17/20 [History] Umeclidinium Brm/Vilanterol Tr [Anoro Ellipta 62.5-25 Mcg INH] 1 each IH UD 09/17/20 [History] lisinopriL [Zestril] 2.5 mg PO DAILY 09/17/20 [History] Hx Tetanus, Diphtheria Vaccination/Date Given: No Hx Influenza Vaccination/Date Given: No Hx Pneumococcal Vaccination/Date Given: No Travel Risk - International Travel Have you traveled outside of the country in past 3 weeks: No - Coronavirus Screening Are you exhibiting any of the following symptoms?: No Close contact with a COVID-19 positive Pt in past 14-21 Days: No - Review of Systems Constitutional: No Fever, No Chills Eyes: No Symptoms Ears, Nose, & Throat: No Symptoms Respiratory: No Cough, No Dyspnea Cardiac: Chest Pain, No Edema, No Syncope Abdominal/Gastrointestinal: No Abdominal Pain, No Nausea, No Vomiting, No Diarrhea Genitourinary Symptoms: No Dysuria Musculoskeletal: No Back Pain, No Neck Pain Skin: No Rash Neurological: No Dizziness, No Focal Weakness, No Sensory Changes Psychological: No Symptoms Endocrine: No Symptoms All Other Systems: Reviewed and Negative - Past Medical History Pertinent Past Medical History: Yes Neurological History: Stroke Cardiac History: Angina, Congestive Heart Failure, Coronary Artery Disease, High Cholesterol, Hypertension, Myocardial Infarction ([place]) Respiratory History: Bronchitis, COPD Endocrine Medical History: No Pertinent History GI Medical History: Hernia, Ulcer Psycho-Social History: Depression Other Medical History: Patient had a blood transfusion in April 2020 for a HGB of 6. - Past Surgical History Past Surgical History: Yes Cardiac: Cardiac Catheterization, Cardiac Stent, Vascular Surgery Gastrointestinal: Hernia Repair Other Surgical History: LEFT CAROTID SURGERY NOVEMBER 2018 - Social History Smoking Status: Former smoker How long have you smoked: 45 Exposure to second hand smoke: Yes Drug Use: none Patient Lives Alone: No - Nursing Vital Signs Nursing Vital Signs: Initial Vital Signs Temperature 97.9 F 11/29/20 13:34 Pulse Rate 85 11/29/20 13:34 Respiratory Rate 18 11/29/20 13:34 Blood Pressure 171/91 11/29/20 13:34 O2 Sat by Pulse Oximetry 99 11/29/20 13:34 Pain Scale Pain Intensity 6 - Physical Exam General Appearance: mild distress, alert Eye Exam: PERRL/EOMI, eyes nml inspection Ears, Nose, Throat Exam: normal ENT inspection, moist mucous membranes Neck Exam: normal inspection, non-tender, supple, full range of motion Respiratory Exam: normal breath sounds, lungs clear, No respiratory distress Cardiovascular Exam: regular rate/rhythm, normal heart sounds Gastrointestinal/Abdomen Exam: soft, No tenderness, No mass Back Exam: normal inspection, No CVA tenderness, No vertebral tenderness Extremity Exam: normal inspection, normal range of motion Neurologic Exam: alert, oriented x 3, cooperative, normal mood/affect, sensation nml, No motor deficits Skin Exam: normal color, warm, dry SpO2: 98 - Course Nursing assessment & vital signs reviewed: Yes EKG Interpreted by Me: RATE, NORMAL AXIS, NORMAL INTERVALS, NORMAL QRS, Non- specific ST Changes - Radiology Exams Chest X-ray Interpretation: Negative - CT Exams Chest CT Interpretation: No PE Ordered Tests: Active Orders 24 hr Category Date Time Status CHEST 1 VIEW (PORTABLE) Stat Exams 11/29/20 13:43 Completed CHEST WITH CONTRAST [CT] Stat Exams 11/29/20 16:44 Completed AMYLASE Stat Lab 11/29/20 13:56 Completed CBC W DIFF Stat Lab 11/29/20 13:56 Completed CMP Stat Lab 11/29/20 13:56 Completed D-DIMER QUANTITATIVE Stat Lab 11/29/20 13:56 Completed LIPASE Stat Lab 11/29/20 13:56 Completed Lactic Acid Stat Lab 11/29/20 13:42 Completed MAGNESIUM Stat Lab 11/29/20 13:56 Completed PROTIME WITH INR Stat Lab 11/29/20 13:56 Completed PTT Stat Lab 11/29/20 13:56 Completed TROPONIN Q3H Lab 11/29/20 13:56 Completed TROPONIN Q3H Lab 11/29/20 17:05 Completed TROPONIN Q3H Lab 11/29/20 19:45 Ordered TROPONIN Q3H Lab 11/29/20 22:45 Ordered TROPONIN Q3H Lab 11/30/20 01:45 Ordered UA W/RFX UR CULTURE Stat Lab 11/29/20 16:05 Completed Medication Summary Generic Name Dose Route Start Last Admin Trade Name Mannie PRN Reason Stop Dose Admin Sodium Chloride 1,000 mls @ 100 mls/hr 11/29/20 13:45 11/29/20 13:51 Sodium Chloride 0.9% 1000 Ml IV 12/29/20 13:44 100 mls/hr .Q10H KIRBY Administration Lab/Rad Data: Laboratory Result Diagrams 11/29/20 13:56 11/29/20 13:56 Laboratory Results 11/29/20 11/29/20 11/29/20 Range/Units 17:05 16:05 13:56 WBC (4.0-10.5) K/mm3 RBC (4.1-5.6) M/mm3 Hgb (12.5-18.0) gm/dl Hct (42-50) % MCV (78-100) fl MCH (26-32) pg MCHC (32-36) g/dl RDW (11.5-14.0) % Plt Count (150-450) K/mm3 MPV (7.5-11.0) fl Gran % (36.0-66.0) % Eos # (Auto) (0-0.5) Absolute Lymphs (auto) (1.0-4.6) Absolute Monos (auto) (0.0-1.3) Lymphocytes % (24.0-44.0) % Monocytes % (0.0-12.0) % Eosinophils % (0.00-5.0) % Basophils % (0.0-0.4) % Absolute Granulocytes (1.4-6.9) Basophils # (0-0.4) PT (8.83-12.87) SECONDS INR (0.8-3.0) APTT (24.1-36.1) SECONDS D-Dimer (215-500) ng/mL Sodium (137-145) mmol/L Potassium (3.5-5.1) mmol/L Chloride (98-107) mmol/L Carbon Dioxide (22-30) mmol/L Anion Gap (5-15) MEQ/L BUN (9-20) mg/dL Creatinine (0.66-1.25) mg/dL Estimated GFR ML/MIN Glucose (74-106) mg/dL Lactic Acid (0.4-2.0) Calcium (8.4-10.2) mg/dL Magnesium (1.6-2.3) mg/dL Total Bilirubin (0.2-1.3) mg/dL AST (17-59) U/L ALT (0-50) U/L Alkaline Phosphatase (38-126) U/L Troponin I < 0.012 < 0.012 (0.000-0.034) ng/mL Serum Total Protein (6.3-8.2) g/dL Albumin (3.5-5.0) g/dL Amylase (30-110) U/L Lipase (23-300) U/L Urine Color YELLOW (YELLOW) Urine Appearance CLEAR (CLEAR) Urine pH 6.0 (5-6) Ur Specific Bath 1.010 (1.005-1.025) Urine Protein NEGATIVE (Negative) Urine Ketones NEGATIVE (NEGATIVE) Urine Blood NEGATIVE (0-5) Stuart/ul Urine Nitrite NEGATIVE (NEGATIVE) Urine Bilirubin NEGATIVE (NEGATIVE) Urine Urobilinogen NEGATIVE (0-1) mg/dL Ur Leukocyte Esterase NEGATIVE (NEGATIVE) Urine WBC (Auto) NONE (0-5) /HPF Urine RBC (Auto) NONE (0-2) /HPF U Epithel Cells (Auto) NONE (FEW) /HPF Urine Bacteria (Auto) NONE (NEGATIVE) /HPF Urine Culture Reflexed NO (NO) Urine Glucose NEGATIVE (NEGATIVE) mg/dL 11/29/20 11/29/20 11/29/20 Range/Units 13:56 13:56 13:56 WBC 6.5 (4.0-10.5) K/mm3 RBC 3.68 L (4.1-5.6) M/mm3 Hgb 9.4 L (12.5-18.0) gm/dl Hct 30.9 L (42-50) % MCV 84.0 (78-100) fl MCH 25.5 L (26-32) pg MCHC 30.4 L (32-36) g/dl RDW 17.2 H (11.5-14.0) % Plt Count 256 (150-450) K/mm3 MPV 11.0 (7.5-11.0) fl Gran % 59.8 (36.0-66.0) % Eos # (Auto) 0.54 H (0-0.5) Absolute Lymphs (auto) 1.52 (1.0-4.6) Absolute Monos (auto) 0.53 (0.0-1.3) Lymphocytes % 23.3 L (24.0-44.0) % Monocytes % 8.1 (0.0-12.0) % Eosinophils % 8.3 H (0.00-5.0) % Basophils % 0.5 (0.0-0.4) % Absolute Granulocytes 3.90 (1.4-6.9) Basophils # 0.03 (0-0.4) PT 13.0 H (8.83-12.87) SECONDS INR 1.15 (0.8-3.0) APTT 30.4 (24.1-36.1) SECONDS D-Dimer 650 H* (215-500) ng/mL Sodium 137 (137-145) mmol/L Potassium 3.8 (3.5-5.1) mmol/L Chloride 105 (98-107) mmol/L Carbon Dioxide 26 (22-30) mmol/L Anion Gap 10.7 (5-15) MEQ/L BUN 11 (9-20) mg/dL Creatinine 1.04 (0.66-1.25) mg/dL Estimated GFR > 60.0 ML/MIN Glucose 104 (74-106) mg/dL Lactic Acid (0.4-2.0) Calcium 9.0 (8.4-10.2) mg/dL Magnesium 1.8 (1.6-2.3) mg/dL Total Bilirubin 0.30 (0.2-1.3) mg/dL AST 33 (17-59) U/L ALT 32 (0-50) U/L Alkaline Phosphatase 63 (38-126) U/L Troponin I (0.000-0.034) ng/mL Serum Total Protein 6.6 (6.3-8.2) g/dL Albumin 3.8 (3.5-5.0) g/dL Amylase 60 (30-110) U/L Lipase 169 (23-300) U/L Urine Color (YELLOW) Urine Appearance (CLEAR) Urine pH (5-6) Ur Specific Bath (1.005-1.025) Urine Protein (Negative) Urine Ketones (NEGATIVE) Urine Blood (0-5) Stuart/ul Urine Nitrite (NEGATIVE) Urine Bilirubin (NEGATIVE) Urine Urobilinogen (0-1) mg/dL Ur Leukocyte Esterase (NEGATIVE) Urine WBC (Auto) (0-5) /HPF Urine RBC (Auto) (0-2) /HPF U Epithel Cells (Auto) (FEW) /HPF Urine Bacteria (Auto) (NEGATIVE) /HPF Urine Culture Reflexed (NO) Urine Glucose (NEGATIVE) mg/dL 11/29/20 Range/Units 13:42 WBC (4.0-10.5) K/mm3 RBC (4.1-5.6) M/mm3 Hgb (12.5-18.0) gm/dl Hct (42-50) % MCV (78-100) fl MCH (26-32) pg MCHC (32-36) g/dl RDW (11.5-14.0) % Plt Count (150-450) K/mm3 MPV (7.5-11.0) fl Gran % (36.0-66.0) % Eos # (Auto) (0-0.5) Absolute Lymphs (auto) (1.0-4.6) Absolute Monos (auto) (0.0-1.3) Lymphocytes % (24.0-44.0) % Monocytes % (0.0-12.0) % Eosinophils % (0.00-5.0) % Basophils % (0.0-0.4) % Absolute Granulocytes (1.4-6.9) Basophils # (0-0.4) PT (8.83-12.87) SECONDS INR (0.8-3.0) APTT (24.1-36.1) SECONDS D-Dimer (215-500) ng/mL Sodium (137-145) mmol/L Potassium (3.5-5.1) mmol/L Chloride (98-107) mmol/L Carbon Dioxide (22-30) mmol/L Anion Gap (5-15) MEQ/L BUN (9-20) mg/dL Creatinine (0.66-1.25) mg/dL Estimated GFR ML/MIN Glucose (74-106) mg/dL Lactic Acid 1.4 (0.4-2.0) Calcium (8.4-10.2) mg/dL Magnesium (1.6-2.3) mg/dL Total Bilirubin (0.2-1.3) mg/dL AST (17-59) U/L ALT (0-50) U/L Alkaline Phosphatase (38-126) U/L Troponin I (0.000-0.034) ng/mL Serum Total Protein (6.3-8.2) g/dL Albumin (3.5-5.0) g/dL Amylase (30-110) U/L Lipase (23-300) U/L Urine Color (YELLOW) Urine Appearance (CLEAR) Urine pH (5-6) Ur Specific Bath (1.005-1.025) Urine Protein (Negative) Urine Ketones (NEGATIVE) Urine Blood (0-5) Stuart/ul Urine Nitrite (NEGATIVE) Urine Bilirubin (NEGATIVE) Urine Urobilinogen (0-1) mg/dL Ur Leukocyte Esterase (NEGATIVE) Urine WBC (Auto) (0-5) /HPF Urine RBC (Auto) (0-2) /HPF U Epithel Cells (Auto) (FEW) /HPF Urine Bacteria (Auto) (NEGATIVE) /HPF Urine Culture Reflexed (NO) Urine Glucose (NEGATIVE) mg/dL - Progress Progress: improved Air Movement: good Progress Note: 11/29/20 18:07 Had an extensive work-up including a CTA of the chest because the D-dimer was slightly elevated EKG cardiac markers etc. he went awake and will continue to complain of pain does not wish to go back to [facility] specifically refuses to do so wishes to go home and we will honor his wishes. Blood Culture(s) Obtained: No Antibiotics given: No - Departure Departure Disposition: Home Clinical Impression: Chest pain Condition: Good Critical Care Time: Yes Critical Care Time(excluding separately billable procedures): Critical 30-74 mins Referrals: KATIE AKBAR [Primary Care Provider] - Instructions: Angina (DC) Prescriptions: Hydrocodone/APAP 5-325 Tab^^^ [Herman 5-325 Tablet^^^] 1 tab PO Q6HPRN PRN #10 tablet MDD 6 PRN Reason: Pain
[2020-11-29 18:20] VITALS: BP 132/76; PULSE 74; O2SAT 97
== END 2020-11-29 18:29 | disposition home or self-care (01) ==
LOC: ED 13:33
DX: R07.89 Other chest pain (principal); I25.10 Atherosclerotic heart disease of native coronary artery without angina pectoris; Z79.891 Long term (current) use of opiate analgesic; Z79.899 Other long term (current) drug therapy; I50.9 Heart failure, unspecified; E78.00 Pure hypercholesterolemia, unspecified; I10 Essential (primary) hypertension; I25.2 Old myocardial infarction
CPT/HCPCS: 36415; 71045; 71260; 80053; 81001; 82150; 83605; 83690; 83735; 84484; 85025; 85379; 85610; 85730; 96360; 96361; 99284; 99291

== ENCOUNTER 2020-12-13 10:05 | Emergency (ER) | payer OTHER ==
[2020-12-13] MEDS ORDERED: BABY ASPIRIN 81 MG CHEW PO ONE (10:06)
[2020-12-13 10:30] LABS: Absolute Neutrophil Ct (ANC) 4.81 (1.4-6.9); BASOPHIL % 0.5 % (0.0-0.4); Basophil (Absolute #) 0.04 (0-0.4); Eosinophil % 6.4 % (0.00-5.0); Eosinophil (Absolute #) 0.49 (0-0.5); Hematocrit 28.8 % (42-50); Hemoglobin 8.5 gm/dl (12.5-18.0); Lymphocyte (Absolute #) 1.65 (1.0-4.6); Lymphocytes % 21.7 % (24.0-44.0); Mean Corpuscular Hemoglobin 24.8 pg (26-32); Mean Corpuscular Hgb Concent. 29.5 g/dl (32-36); Mean Platelet Volume 10.8 fl (7.5-11.0); Monocyte (Absolute #) 0.61 (0.0-1.3); Neutrophil % 63.4 % (36.0-66.0); Platelet Count 240 K/mm3 (150-450); Red Blood Count 3.43 M/mm3 (4.1-5.6); White Blood Count 7.6 K/mm3 (4.0-10.5)
[2020-12-13] MEDS ORDERED: MORPHINE SULFATE 4 MG INJ IV ONE (10:30)
[2020-12-13] MEDS ORDERED: MORPHINE SULFATE 4 MG INJ ONE (10:33)
[2020-12-13 11:00] LABS: ALKALINE PHOSPHATASE 63 U/L (38-126); BLOOD UREA NITROGEN 19 mg/dL (9-20); CHLORIDE 106 mmol/L (98-107); Carbon Dioxide 24 mmol/L (22-30); EST GLOMERULAR FILTRATION RATE > 60.0 ML/MIN; Glucose 108 mg/dL (74-106); NT PRO BNP 367 pg/mL (0-900); Potassium 4.2 mmol/L (3.5-5.1); SGOT/AST 19 U/L (17-59); SGPT/ALT 9 U/L (0-50); SODIUM 136 mmol/L (137-145); Total Protein 6.8 g/dL (6.3-8.2)
[2020-12-13 11:05] LABS: INR 1.15 (0.8-3.0)
[2020-12-13 11:14] LABS: PTT 29.4 SECONDS (24.1-36.1)
[2020-12-13] MEDS ORDERED: TORAdol 30 mg Injection IV ONE (11:16)
[2020-12-13] MEDS ORDERED: TORAdol 30 mg Injection ONE (11:19)
--- NOTE | 2020-12-13 11:40 | ERPHSYRPT ---
- History of Present Illness Historian: patient Exam Limitations: no limitations Patient Subjective Stated Complaint: " My chest hurts really bad on the left side and goes into my left shoulder. It woke me up this morning about 5am and hasn't gone away. I took 3 nitros and those helped a little but I still have bad pain." Triage Nursing Assessment: Pt presents to ER with complaints of constant left sided chest pain since 0500 this morning. 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 Pt skin is pale, warm, and dry. Respirations slightly labored, complains of shortness of breath. Lung sounds noted mild wheezes throughout. Pt is a smoker. Pt denies nausea, vomiting, or diarrhea. Pt complains of dizziness and lightheadedness. Pt maritime engineer is Dr. Way and told pt to come to ER, also requested ECHO be done. Physician History: Patient is a 60-year-old male who presents to the ER with chest pain. Sudden onset about 5 AM this morning and has been persistent since. Patient has taken multiple doses of sublingual nitroglycerin with minimal relief. Patient called his maritime engineer who proceeded to call us and advised that the patient will be coming in for evaluation. His maritime engineer recommended that we do basic cardiac work-up along with echocardiogram. Patient has extensive cardiac history. Patient was recently admitted and cardiac catheterization was done as well late October and early November. Patient was also seen couple of days after discharge in this ER. After cardiac rule out, patient was going to be admitted but patient declined. Patient had a stent placed at [facility] in May 2020. Year prior to that, patient had a stent as well in his LAD by Dr. Mk baca at [facility]. His recent cardiac catheterization saw multi vessel disease which he was deemed not a candidate for further stents nor bypass. Timing/Duration: hour(s) (5) Activities at Onset: sleep Quality: stabbing Location: other (Left chest) Chest Pain Radiation: no radiation Severity of Pain-Max: severe Severity of Pain-Current: moderate Associated Symptoms: shortness of breath Prior Chest Pain/Cardiac Workup: angina, cardiac cath, heart attack, recently seen/treated, recent hospitalization Nitro Today/Relief: 0.4 mg x 3 Aspirin Treatment Today: 81 mg x 1 Allergies/Adverse Reactions: No Known Drug Allergies Allergy (Verified 12/13/20 10:15) Home Medications: Albuterol 2.5 mg/3 ml Neb [Proventil 2.5 mg/3 ml Neb] 2.5 mg IH Q4HPRN PRN 06/20/19 [History] Albuterol Sulfate [Proair Hfa] 8.5 gm IH QIDPRN PRN 06/20/19 [History] Atorvastatin Calcium [Lipitor] 80 mg PO DAILY 06/20/19 [History] Clopidogrel Bisulfate 75 mg [PLAVIX 75 MG Tablet] 75 mg PO DAILY 06/20/19 [History] Metoprolol Tartrate 50 mg [Lopressor 50 MG] 50 mg PO BID 06/20/19 [History] Tiotropium Br/Olodaterol HCl [Stiolto Respimat Inhal [place]] 4 gm IH DAILY 06/20/19 [History] Aspirin EC 81 mg [Ecotrin 81 mg] 81 mg PO DAILY 09/17/20 [History] Furosemide 40 mg PO BID 09/17/20 [History] Losartan Potassium 50 mg PO DAILY 09/17/20 [History] Potassium Chloride 10 Meq Tab* [Klor Con 10 MEQ] 10 meq PO DAILY 09/17/20 [History] Ranolazine [Ranolazine ER] 1,000 mg PO BID 09/17/20 [History] Sucralfate 1 gm PO QID 09/17/20 [History] lisinopriL [Zestril] 2.5 mg PO DAILY 09/17/20 [History] Hx Tetanus, Diphtheria Vaccination/Date Given: No Hx Influenza Vaccination/Date Given: No Hx Pneumococcal Vaccination/Date Given: No Immunizations Up to Date: No Travel Risk - International Travel Have you traveled outside of the country in past 3 weeks: No - Coronavirus Screening Are you exhibiting any of the following symptoms?: Yes Symptoms: Shortness of Breath Close contact with a COVID-19 positive Pt in past 14-21 Days: No - Review of Systems Constitutional: No Fever, No Chills Eyes: No Symptoms Ears, Nose, & Throat: No Symptoms Respiratory: Dyspnea, No Cough Cardiac: Chest Pain, No Edema, No Syncope Abdominal/Gastrointestinal: No Abdominal Pain, No Nausea, No Vomiting, No Diarrhea Genitourinary Symptoms: No Dysuria Musculoskeletal: No Back Pain, No Neck Pain Skin: No Rash Neurological: No Dizziness, No Focal Weakness, No Sensory Changes Psychological: No Symptoms Endocrine: No Symptoms All Other Systems: Reviewed and Negative - Past Medical History Pertinent Past Medical History: Yes Neurological History: Stroke Cardiac History: Angina, Congestive Heart Failure, Coronary Artery Disease, High Cholesterol, Hypertension, Myocardial Infarction ([place]) Respiratory History: Bronchitis, COPD Endocrine Medical History: No Pertinent History GI Medical History: Hernia, Ulcer Psycho-Social History: Depression Other Medical History: Patient had a blood transfusion in April 2020 for a HGB of 6. - Past Surgical History Past Surgical History: Yes Cardiac: Cardiac Catheterization, Cardiac Stent, Vascular Surgery Gastrointestinal: Hernia Repair Other Surgical History: LEFT CAROTID SURGERY NOVEMBER 2018 - Social History Smoking Status: Current every day smoker How long have you smoked: 45 Exposure to second hand smoke: No Drug Use: none Patient Lives Alone: No - Nursing Vital Signs Nursing Vital Signs: Initial Vital Signs Temperature 97.0 F 12/13/20 10:07 Pulse Rate 100 H 12/13/20 10:07 Respiratory Rate 18 12/13/20 10:07 Blood Pressure 179/101 12/13/20 10:07 O2 Sat by Pulse Oximetry 98 12/13/20 10:07 Pain Scale Pain Intensity 7 - Physical Exam General Appearance: mild distress, alert Eye Exam: PERRL/EOMI, eyes nml inspection Ears, Nose, Throat Exam: normal ENT inspection, moist mucous membranes Neck Exam: normal inspection, non-tender, supple, full range of motion Respiratory Exam: rhonchi, wheezing, No respiratory distress Cardiovascular Exam: normal heart sounds, tachycardia Gastrointestinal/Abdomen Exam: soft, No tenderness, No mass Back Exam: normal inspection, No CVA tenderness, No vertebral tenderness Extremity Exam: normal inspection, normal range of motion Neurologic Exam: alert, oriented x 3, cooperative, normal mood/affect, sensation nml, No motor deficits Skin Exam: normal color, warm, dry SpO2 Interpretation: normal SpO2: 98 - Course Nursing assessment & vital signs reviewed: Yes EKG Interpreted by Me: RATE ([id number]), Sinus Tach, NORMAL AXIS, NORMAL INTERVALS, Non-specific ST Changes Ordered Tests: Active Orders 24 hr Category Date Time Status Marketing Financial Analyst STAT Care 12/13/20 10:07 Active EKG-ER Only STAT Care 12/13/20 10:06 Active EKG-ER Only STAT Care 12/13/20 14:01 Active IV Insertion STAT Care 12/13/20 10:06 Active Oxygen-ED Only Nasal Cannula 2 lpm Care 12/13/20 10:06 Active CHEST 2 VIEWS (PA AND LAT) Stat Exams 12/13/20 10:07 Completed ECHO W/2D AND DOPPLER [US] Stat Exams 12/13/20 10:53 Draft CBC W DIFF Stat Lab 12/13/20 10:10 Completed CMP Stat Lab 12/13/20 10:10 Completed NT PRO BNP Stat Lab 12/13/20 10:10 Completed PROTIME WITH INR Stat Lab 12/13/20 10:10 Completed PTT Stat Lab 12/13/20 10:10 Completed TROPONIN Q3H Lab 12/13/20 10:10 Completed TROPONIN Q3H Lab 12/13/20 13:10 Completed TROPONIN Q3H Lab 12/13/20 16:15 Ordered TROPONIN Q3H Lab 12/13/20 19:15 Ordered TROPONIN Q3H Lab 12/13/20 22:15 Ordered Medication Summary Generic Name Dose Route Start Last Admin Trade Name Mannie PRN Reason Stop Dose Admin Aspirin 324 mg 12/13/20 10:06 12/13/20 10:15 Baby Aspirin 81 Mg Chew PO 12/13/20 10:07 243 mg STAT ONE Administration Discontinued Medications Generic Name Dose Route Start Last Admin Trade Name Mannie PRN Reason Stop Dose Admin Dexamethasone Sodium Phosphate 10 mg 12/13/20 11:55 12/13/20 11:59 Decadron 10mg Inj. IV 12/13/20 11:56 10 mg STAT ONE Administration Dexamethasone Sodium Phosphate Confirm 12/13/20 11:58 Decadron 10mg Inj. Administered 12/13/20 11:59 Dose 10 mg .ROUTE .STK-MED ONE Ketorolac Tromethamine 30 mg 12/13/20 11:16 12/13/20 11:20 Toradol 30 Mg Injection IV 12/13/20 11:17 30 mg STAT ONE Administration Ketorolac Tromethamine Confirm 12/13/20 11:19 Toradol 30 Mg Injection Administered 12/13/20 11:20 Dose 30 mg .ROUTE .STK-MED ONE Morphine Sulfate 4 mg 12/13/20 10:30 12/13/20 10:34 Morphine Sulfate 4 Mg Inj IV 12/13/20 10:31 4 mg STAT ONE Administration Morphine Sulfate Confirm 12/13/20 10:33 Morphine Sulfate 4 Mg Inj Administered 12/13/20 10:34 Dose 4 mg .ROUTE .STK-MED ONE Oxycodone/Acetaminophen 1 tab 12/13/20 13:05 12/13/20 13:09 Percocet Tablet 5/325mg PO 12/13/20 13:06 1 tab STAT ONE Administration Oxycodone/Acetaminophen Confirm 12/13/20 13:07 Percocet Tablet 5/325mg Administered 12/13/20 13:08 Dose 1 tab .ROUTE .STK-MED ONE Lab/Rad Data: Laboratory Result Diagrams 12/13/20 10:10 12/13/20 10:10 Laboratory Results 12/13/20 12/13/20 12/13/20 Range/Units 13:10 10:10 10:10 WBC (4.0-10.5) K/mm3 RBC (4.1-5.6) M/mm3 Hgb (12.5-18.0) gm/dl Hct (42-50) % MCV (78-100) fl MCH (26-32) pg MCHC (32-36) g/dl RDW (11.5-14.0) % Plt Count (150-450) K/mm3 MPV (7.5-11.0) fl Gran % (36.0-66.0) % Eos # (Auto) (0-0.5) Absolute Lymphs (auto) (1.0-4.6) Absolute Monos (auto) (0.0-1.3) Lymphocytes % (24.0-44.0) % Monocytes % (0.0-12.0) % Eosinophils % (0.00-5.0) % Basophils % (0.0-0.4) % Absolute Granulocytes (1.4-6.9) Basophils # (0-0.4) PT 13.0 H (8.83-12.87) SECONDS INR 1.15 (0.8-3.0) APTT 29.4 (24.1-36.1) SECONDS Sodium (137-145) mmol/L Potassium (3.5-5.1) mmol/L Chloride (98-107) mmol/L Carbon Dioxide (22-30) mmol/L Anion Gap (5-15) MEQ/L BUN (9-20) mg/dL Creatinine (0.66-1.25) mg/dL Estimated GFR ML/MIN Glucose (74-106) mg/dL Calcium (8.4-10.2) mg/dL Total Bilirubin (0.2-1.3) mg/dL AST (17-59) U/L ALT (0-50) U/L Alkaline Phosphatase (38-126) U/L Troponin I < 0.012 < 0.012 (0.000-0.034) ng/mL NT-Pro-B Natriuret Pep (0-900) pg/mL Serum Total Protein (6.3-8.2) g/dL Albumin (3.5-5.0) g/dL 12/13/20 12/13/20 Range/Units 10:10 10:10 WBC 7.6 (4.0-10.5) K/mm3 RBC 3.43 L (4.1-5.6) M/mm3 Hgb 8.5 L (12.5-18.0) gm/dl Hct 28.8 L (42-50) % MCV 84.0 (78-100) fl MCH 24.8 L (26-32) pg MCHC 29.5 L (32-36) g/dl RDW 17.0 H (11.5-14.0) % Plt Count 240 (150-450) K/mm3 MPV 10.8 (7.5-11.0) fl Gran % 63.4 (36.0-66.0) % Eos # (Auto) 0.49 (0-0.5) Absolute Lymphs (auto) 1.65 (1.0-4.6) Absolute Monos (auto) 0.61 (0.0-1.3) Lymphocytes % 21.7 L (24.0-44.0) % Monocytes % 8.0 (0.0-12.0) % Eosinophils % 6.4 H (0.00-5.0) % Basophils % 0.5 (0.0-0.4) % Absolute Granulocytes 4.81 (1.4-6.9) Basophils # 0.04 (0-0.4) PT (8.83-12.87) SECONDS INR (0.8-3.0) APTT (24.1-36.1) SECONDS Sodium 136 L (137-145) mmol/L Potassium 4.2 (3.5-5.1) mmol/L Chloride 106 (98-107) mmol/L Carbon Dioxide 24 (22-30) mmol/L Anion Gap 10.0 (5-15) MEQ/L BUN 19 (9-20) mg/dL Creatinine 1.10 (0.66-1.25) mg/dL Estimated GFR > 60.0 ML/MIN Glucose 108 H (74-106) mg/dL Calcium 9.0 (8.4-10.2) mg/dL Total Bilirubin 0.30 (0.2-1.3) mg/dL AST 19 (17-59) U/L ALT 9 (0-50) U/L Alkaline Phosphatase 63 (38-126) U/L Troponin I (0.000-0.034) ng/mL NT-Pro-B Natriuret Pep 367 (0-900) pg/mL Serum Total Protein 6.8 (6.3-8.2) g/dL Albumin 4.0 (3.5-5.0) g/dL - Progress Progress: improved Air Movement: good Progress Note: 12/13/20 14:06 Pt declined NEB tx for his wheezing. Pt better with toradol but not better with decadron. Pt better with percocet 5mg. 2nd EKG shows NSR 85, LAE, Low voltage. This EKG is much better than first. 12/13/20 14:20 Late entry. Echocardiogram was done and read by Dr. Way. The echocardiogram shows preserved left ventricular systolic function, mild to moderate pericardial effusion without any hemodynamic compromise no evidence of cardiac tamponade. Dr. Way recommended CRP, anti-inflammatory. He thought possibly using steroids as well. As above, Toradol did work well for him. However it was only short-lived. Option to transfer patient to [facility]. This was recommended by Dr. Way. He states that there is only limited treatment at [facility] and so would not be a good option at this time. Discussed with patient who states he had a bad experience at [facility] and does not wish to go there. He is willing to go home with better pain control. Patient will be discharged home with 8 tablets of Percocet 5 mg. He is advised to cut it in half to take as needed when his sublingual nitro glycerin does not help. Of course he is given precautions to return to the ER should his chest pain return. He is also advised to follow-up with Dr. Way as soon as possible. Blood Culture(s) Obtained: No Antibiotics given: No Discussed with Dr.: Kam Matos, Other (Kam Rand) Counseled pt/family regarding: lab results, diagnosis, need for follow-up, rad results, smoking cessation - Departure Departure Disposition: Home Clinical Impression: Angina at rest Condition: Stable Critical Care Time: No Referrals: KATIE RAND [Primary Care Provider] - Instructions: Angina (DC) Additional Instructions: Monitor symptoms closely. Continue with your home medications. Use pain medication only as needed. Follow-up with your PCP or your maritime engineer Dr. Way next week. Return to ER if worse. Prescriptions: Oxycodone HCl/Acetaminophen [Percocet 5-325 mg Tablet] 1 each PO Q6H PRN PRN #8 tablet MDD 10mg PRN Reason: Pain
[2020-12-13] MEDS ORDERED: DECADRON 10MG INJ. IV ONE (11:55)
[2020-12-13] MEDS ORDERED: DECADRON 10MG INJ. ONE (11:58)
--- NOTE | 2020-12-13 12:07 | XRAY ---
Indication: Chest pain. Comparison: November 29, 2020. AP/lateral chest remains hyperinflated and clear. Heart remains borderline enlarged. Bony thorax intact. No new/acute findings.
[2020-12-13] MEDS ORDERED: PERCOCET TABLET 5/325MG PO ONE (13:05)
[2020-12-13 13:07] VITALS: O2SAT 98
[2020-12-13] MEDS ORDERED: PERCOCET TABLET 5/325MG ONE (13:07)
--- NOTE | 2020-12-13 13:16 | ECHO ---
DATE OF PROCEDURE: 12/13/2020 PROCEDURE: 2D echocardiogram and Doppler. INDICATION: Chest pain. DESCRIPTION OF PROCEDURE: Overall left ventricular systolic function is within normal limits. There are no wall motion abnormalities. There is a mild to moderate pericardial effusion with no evidence of acute hemodynamic compromise. There is evidence of right ventricular collapse. The chamber sizes are grossly normal. The aortic valve is normal structure and function. The mitral valve is normal structure and function. The tricuspid valve is normal structure and function. The pulmonic valve is poorly seen. The aortic root size, wall thickness and chamber sizes are within normal limits. IMPRESSION: 1) Preserved left ventricular systolic function. 2) Mild to moderate pericardial effusion without any hemodynamic compromise nor evidence of cardiac tamponade etiology.
[2020-12-13 14:25] VITALS: BP 143/88; PULSE 80
== END 2020-12-13 14:30 | disposition home or self-care (01) ==
LOC: ED 10:05
DX: I20.9 Angina pectoris, unspecified (principal); R07.89 Other chest pain; Z79.899 Other long term (current) drug therapy; R06.02 Shortness of breath; I50.9 Heart failure, unspecified; E78.00 Pure hypercholesterolemia, unspecified; I10 Essential (primary) hypertension; I25.2 Old myocardial infarction; I25.10 Atherosclerotic heart disease of native coronary artery without angina pectoris
CPT/HCPCS: 36000; 36415; 71046; 80053; 83880; 84484; 85025; 85610; 85730; 86140; 93005; 93041; 93306; 96374; 96375; 99285; J1100; J1885; J2270; A9270-GY

== ENCOUNTER 2021-05-07 12:18 | Emergency (ER) | payer OTHER ==
[2021-05-07] MEDS ORDERED: BABY ASPIRIN 81 MG CHEW PO ONE (12:23)
--- NOTE | 2021-05-07 12:23 | ERPHSYRPT ---
- History of Present Illness Time Seen by Provider: 05/07/21 12:23 Historian: patient Exam Limitations: no limitations Physician History: This is a 61-year-old gentleman who has a history of hypertension, CHF, COPD, recurrent bronchitis, gastroesophageal reflux disease, coronary artery disease who continues to smoke and was seen at [facility] approximately 1 month ago for acute cardiac intervention and cardiac stent placement. He stated that he was coded and he "" before they brought him back. He then was transferred from [facility] to a long term for rehabilitation. He left AMA and signed out from that long term/rehab center. He does state that that was a mistake. He has been home, continues to smoke and yesterday in the evening he has been experiencing intermittent left anterior chest pain that is nonradiating and sharp. The pain is persistently intermittent this morning and therefore he has come to the emergency department for evaluation. Patient is on Brilinta anticoagulation medication. Patient states that he is not diabetic. Patient's primary care physician is Dr. Mulligan. Patient's property disposal officer in [facility] is Dr. Chris Galvez Timing/Duration: yesterday Activities at Onset: none Quality: sharpness Location: other (Left anterior chest) Chest Pain Radiation: no radiation Severity of Pain-Max: moderate Severity of Pain-Current: mild Modifying Factors: Improves With: nothing Associated Symptoms: denies symptoms Prior Chest Pain/Cardiac Workup: cardiac cath, heart attack, recently seen/treated, recent hospitalization Aspirin Treatment Today: 81 mg x 1, provided at home (Patient also on Brilinta) Allergies/Adverse Reactions: No Known Drug Allergies Allergy (Verified 05/07/21 12:31) Home Medications: Albuterol 2.5 mg/3 ml Neb [Proventil 2.5 mg/3 ml Neb] 2.5 mg IH Q4HPRN PRN 06/20/19 [History] Albuterol Sulfate [Proair Hfa] 8.5 gm IH QIDPRN PRN 06/20/19 [History] Atorvastatin Calcium [Lipitor] 80 mg PO DAILY 06/20/19 [History] Metoprolol Tartrate 50 mg [Lopressor 50 MG] 50 mg PO BID 06/20/19 [History] Tiotropium Br/Olodaterol HCl [Stiolto Respimat Inhal [place]] 4 gm IH DAILY 06/20/19 [History] Aspirin EC 81 mg [Ecotrin 81 mg] 81 mg PO DAILY 09/17/20 [History] Losartan Potassium 50 mg PO DAILY 09/17/20 [History] Ferrous Sulfate 325 mg [Feosol 325 mg] 1 ea DAILY 05/07/21 [History] Metoprolol Succinate 3 ea BID 05/07/21 [History] Nitroglycerin 0.4 mg/Hr [Nitro-Dur 0.4 MG/HR] 1 ea DAILY 05/07/21 [History] PANTOPRAZOLE 40 mg Tablet [Protonix 40MG Tablet] 1 ea DAILY 05/07/21 [History] Polyethylene Glycol 3350 17 gm [Miralax Powder 17GM PACKET] 1 ea DAILY 05/07/21 [History] Spironolactone 25 mg [Aldactone 25 MG] 1 ea DAILY 05/07/21 [History] Ticagrelor [Brilinta] 1 ea DAILY 05/07/21 [History] Torsemide 1 ea DAILY 05/07/21 [History] Hx Tetanus, Diphtheria Vaccination/Date Given: No Hx Influenza Vaccination/Date Given: No Hx Pneumococcal Vaccination/Date Given: No Travel Risk - International Travel Have you traveled outside of the country in past 3 weeks: No - Coronavirus Screening Are you exhibiting any of the following symptoms?: No Close contact with a COVID-19 positive Pt in past 14-21 Days: No - Review of Systems Constitutional: No Symptoms Eyes: No Symptoms Ears, Nose, & Throat: No Symptoms Respiratory: No Symptoms Cardiac: Chest Pain Abdominal/Gastrointestinal: No Symptoms Genitourinary Symptoms: No Symptoms Musculoskeletal: No Symptoms Skin: No Symptoms Neurological: No Symptoms Psychological: No Symptoms Endocrine: No Symptoms Hematologic/Lymphatic: No Symptoms Immunological/Allergic: No Symptoms All Other Systems: Reviewed and Negative - Past Medical History Pertinent Past Medical History: Yes Neurological History: Stroke Cardiac History: Angina, Congestive Heart Failure, Coronary Artery Disease, High Cholesterol, Hypertension, Myocardial Infarction ([place]) Respiratory History: Bronchitis, COPD Endocrine Medical History: No Pertinent History GI Medical History: Hernia, Ulcer Psycho-Social History: Depression Other Medical History: Patient had a blood transfusion in April 2020 for a HGB of 6. - Past Surgical History Past Surgical History: Yes Cardiac: Cardiac Catheterization, Cardiac Stent, Vascular Surgery Gastrointestinal: Hernia Repair Other Surgical History: LEFT CAROTID SURGERY NOVEMBER 2018 - Social History Smoking Status: Current every day smoker How long have you smoked: 45 Exposure to second hand smoke: No Drug Use: none Patient Lives Alone: No - Nursing Vital Signs Nursing Vital Signs: Initial Vital Signs Temperature 97.2 F 05/07/21 12:19 Pulse Rate 86 05/07/21 12:19 Respiratory Rate 18 05/07/21 12:19 Blood Pressure 113/96 05/07/21 12:19 O2 Sat by Pulse Oximetry 99 05/07/21 12:19 Pain Scale Pain Intensity 0 - Physical Exam General Appearance: no apparent distress, alert, anxiety, obese Eye Exam: PERRL/EOMI, eyes nml inspection Ears, Nose, Throat Exam: normal ENT inspection, moist mucous membranes Neck Exam: normal inspection, non-tender, supple, full range of motion Respiratory Exam: normal breath sounds, chest tenderness, lungs clear, airway intact, No respiratory distress Cardiovascular Exam: regular rate/rhythm, normal heart sounds, normal peripheral pulses Gastrointestinal/Abdomen Exam: soft, normal bowel sounds, No tenderness Rectal Exam: not done Back Exam: normal inspection, normal range of motion, No CVA tenderness Extremity Exam: normal inspection, normal range of motion, pelvis stable Neurologic Exam: alert, oriented x 3, cooperative, chest pain coordinator II-XII nml as tested, normal mood/affect, nml cerebellar function, nml station & gait, sensation nml Skin Exam: normal color, warm, dry Lymphatic Exam: No adenopathy SpO2 Interpretation: normal O2 Delivery: Room Air - Course Nursing assessment & vital signs reviewed: Yes EKG Interpreted by Me: RATE (89), Sinus Rhythm, NORMAL AXIS, NORMAL INTERVALS, NORMAL QRS, NORMAL ST-T, Other (There are no acute ischemic changes on today's EKG. When compared to EKG dated 12/13/2020, there is resolution of sinus tachycardia. There is persistence of reticular premature complex, low voltage precordial leads, nonspecific repolarization abnormality in diffuse leads) Ordered Tests: Active Orders 24 hr Category Date Time Status Video Editing Intern STAT Care 05/07/21 12:24 Active EKG-ER Only STAT Care 05/07/21 12:23 Active IV Insertion STAT Care 05/07/21 12:23 Active CHEST 1 VIEW (PORTABLE) Stat Exams 05/07/21 12:23 Completed CHEST WITH CONTRAST [CT] Stat Exams 05/07/21 13:30 Completed CBC W DIFF Stat Lab 05/07/21 12:30 Completed CMP Stat Lab 05/07/21 12:30 Completed D-DIMER QUANTITATIVE Stat Lab 05/07/21 12:30 Completed NT PRO BNP Stat Lab 05/07/21 12:30 Completed PROTIME WITH INR Stat Lab 05/07/21 12:30 Completed TROPONIN Q3H Lab 05/07/21 12:30 Completed TROPONIN Q3H Lab 05/07/21 15:08 Completed TROPONIN Q3H Lab 05/07/21 18:30 Ordered TROPONIN Q3H Lab 05/07/21 21:30 Ordered TROPONIN Q3H Lab 05/08/21 00:30 Ordered Medication Summary Generic Name Dose Route Start Last Admin Trade Name Freq PRN Reason Stop Dose Admin Sodium Chloride 500 mls @ 50 mls/hr 05/07/21 13:30 05/07/21 14:13 Sodium Chloride 0.9% 500 Ml IV 06/06/21 13:29 50 mls/hr .Q10H KIRBY Administration Discontinued Medications Generic Name Dose Route Start Last Admin Trade Name Freq PRN Reason Stop Dose Admin Aspirin 324 mg 05/07/21 12:23 05/07/21 13:19 Baby Aspirin 81 Mg Chew PO 05/07/21 12:24 324 mg STAT ONE Administration Furosemide 40 mg 05/07/21 15:43 05/07/21 16:06 Lasix 40 Mg/4 Ml IV 05/07/21 15:44 40 mg STAT ONE Administration Furosemide Confirm 05/07/21 15:54 Lasix 40 Mg/4 Ml Administered 05/07/21 15:55 Dose 40 mg .ROUTE .STK-MED ONE Morphine Sulfate 4 mg 05/07/21 14:31 05/07/21 14:42 Morphine Sulfate 4 Mg Inj IV 05/07/21 14:32 4 mg STAT ONE Administration Morphine Sulfate Confirm 05/07/21 14:37 Morphine Sulfate 4 Mg Inj Administered 05/07/21 14:38 Dose 4 mg .ROUTE .STK-MED ONE Ondansetron HCl 4 mg 05/07/21 14:31 05/07/21 14:42 Zofran 4 Mg/2 Ml Vial IV 05/07/21 14:32 4 mg STAT ONE Administration Ondansetron HCl Confirm 05/07/21 14:37 Zofran 4 Mg/2 Ml Vial Administered 05/07/21 14:38 Dose 4 mg .ROUTE .STK-MED ONE Lab/Rad Data: Laboratory Result Diagrams 05/07/21 12:30 05/07/21 12:30 Laboratory Results 05/07/21 05/07/21 05/07/21 Range/Units 15:08 12:30 12:30 WBC (4.0-10.5) K/mm3 RBC (4.1-5.6) M/mm3 Hgb (12.5-18.0) gm/dl Hct (42-50) % MCV (78-100) fl MCH (26-32) pg MCHC (32-36) g/dl RDW (11.5-14.0) % Plt Count (150-450) K/mm3 MPV (7.5-11.0) fl Gran % (36.0-66.0) % Eos # (Auto) (0-0.5) Absolute Lymphs (auto) (1.0-4.6) Absolute Monos (auto) (0.0-1.3) Lymphocytes % (24.0-44.0) % Monocytes % (0.0-12.0) % Eosinophils % (0.00-5.0) % Basophils % (0.0-0.4) % Absolute Granulocytes (1.4-6.9) Basophils # (0-0.4) PT 14.1 H (9.4-12.5) SECONDS INR 1.19 (0.8-3.0) D-Dimer 1568 H* (215-500) ng/mL Sodium (137-145) mmol/L Potassium (3.5-5.1) mmol/L Chloride (98-107) mmol/L Carbon Dioxide (22-30) mmol/L Anion Gap (5-15) MEQ/L BUN (9-20) mg/dL Creatinine (0.66-1.25) mg/dL Estimated GFR ML/MIN Glucose (74-106) mg/dL Calcium (8.4-10.2) mg/dL Total Bilirubin (0.2-1.3) mg/dL AST (17-59) U/L ALT (0-50) U/L Alkaline Phosphatase (38-126) U/L Troponin I 0.030 0.029 (0.000-0.034) ng/mL NT-Pro-B Natriuret Pep (0-900) pg/mL Serum Total Protein (6.3-8.2) g/dL Albumin (3.5-5.0) g/dL 05/07/21 05/07/21 Range/Units 12:30 12:30 WBC 6.1 (4.0-10.5) K/mm3 RBC 3.50 L (4.1-5.6) M/mm3 Hgb 8.9 L (12.5-18.0) gm/dl Hct 30.2 L (42-50) % MCV 86.3 (78-100) fl MCH 25.4 L (26-32) pg MCHC 29.5 L (32-36) g/dl RDW 19.4 H (11.5-14.0) % Plt Count 424 (150-450) K/mm3 MPV 9.8 (7.5-11.0) fl Gran % 71.1 H (36.0-66.0) % Eos # (Auto) 0.22 (0-0.5) Absolute Lymphs (auto) 0.92 L (1.0-4.6) Absolute Monos (auto) 0.61 (0.0-1.3) Lymphocytes % 15.0 L (24.0-44.0) % Monocytes % 10.0 (0.0-12.0) % Eosinophils % 3.6 (0.00-5.0) % Basophils % 0.3 (0.0-0.4) % Absolute Granulocytes 4.35 (1.4-6.9) Basophils # 0.02 (0-0.4) PT (9.4-12.5) SECONDS INR (0.8-3.0) D-Dimer (215-500) ng/mL Sodium 136 L (137-145) mmol/L Potassium 3.4 L (3.5-5.1) mmol/L Chloride 101 (98-107) mmol/L Carbon Dioxide 25 (22-30) mmol/L Anion Gap 12.5 (5-15) MEQ/L BUN 15 (9-20) mg/dL Creatinine 0.89 (0.66-1.25) mg/dL Estimated GFR > 60.0 ML/MIN Glucose 99 (74-106) mg/dL Calcium 8.4 (8.4-10.2) mg/dL Total Bilirubin 0.60 (0.2-1.3) mg/dL AST 32 (17-59) U/L ALT 9 (0-50) U/L Alkaline Phosphatase 87 (38-126) U/L Troponin I (0.000-0.034) ng/mL NT-Pro-B Natriuret Pep 4440 H (0-900) pg/mL Serum Total Protein 6.2 L (6.3-8.2) g/dL Albumin 3.2 L (3.5-5.0) g/dL - Progress Progress: improved, re-examined Air Movement: fair Progress Note: 05/07/21 16:38 Medical decision making: This patient has persistent chest pain and dizziness present. He has CHF. I spoke with Dr. Jie Galvez at [facility] in [facility]. This is the patient's demo coordinator. I reviewed the patient history, condition, laboratory results and radiographic studies with him. He accepts the patient in transfer. He wants us to call the transfer center. He stated that he will call them to give them a heads up. chest x-ray shows no acute cardiopulmonary process. There is cardiomegaly present CAT scan of the chest with contrast shows no evidence of any pulmonary embolus. There is no new/acute cardiopulmonary abnormalities. 05/07/21 16:49 Blood Culture(s) Obtained: No Antibiotics given: No Counseled pt/family regarding: lab results, diagnosis, rad results - Departure Departure Disposition: Transfer Clinical Impression: Chest pain, Dizziness Condition: Stable Critical Care Time: No Referrals: KATIE AKBAR [CONSULTING PHYSICIAN] -
--- NOTE | 2021-05-07 12:46 | XRAY ---
Indication: Chest pain. Comparison: December 13, 2020. Portable apical lordotic chest again hyperinflated and clear. Heart remains borderline enlarged. Bony thorax intact again with mild degenerative changes. Impression: Continued nonacute hyperinflated chest with chronic features.
[2021-05-07 12:49] LABS: Absolute Neutrophil Ct (ANC) 4.35 (1.4-6.9); BASOPHIL % 0.3 % (0.0-0.4); Basophil (Absolute #) 0.02 (0-0.4); Eosinophil % 3.6 % (0.00-5.0); Eosinophil (Absolute #) 0.22 (0-0.5); Hematocrit 30.2 % (42-50); Hemoglobin 8.9 gm/dl (12.5-18.0); Lymphocyte (Absolute #) 0.92 (1.0-4.6); Mean Cell Volume 86.3 fl (78-100); Mean Corpuscular Hemoglobin 25.4 pg (26-32); Mean Corpuscular Hgb Concent. 29.5 g/dl (32-36); Mean Platelet Volume 9.8 fl (7.5-11.0); Monocyte (Absolute #) 0.61 (0.0-1.3); Neutrophil % 71.1 % (36.0-66.0); Platelet Count 424 K/mm3 (150-450); Red Cell Distribution Width 19.4 % (11.5-14.0); White Blood Count 6.1 K/mm3 (4.0-10.5)
[2021-05-07 12:53] LABS: INR 1.19 (0.8-3.0); PROTIME 14.1 SECONDS (9.4-12.5)
[2021-05-07 13:10] LABS: ALBUMIN 3.2 g/dL (3.5-5.0); ALKALINE PHOSPHATASE 87 U/L (38-126); ANION GAP 12.5 MEQ/L (5-15); BLOOD UREA NITROGEN 15 mg/dL (9-20); CHLORIDE 101 mmol/L (98-107); Calcium 8.4 mg/dL (8.4-10.2); Carbon Dioxide 25 mmol/L (22-30); Creatinine 1 0.89 mg/dL (0.66-1.25); EST GLOMERULAR FILTRATION RATE > 60.0 ML/MIN; Glucose 99 mg/dL (74-106); NT PRO BNP 4440 pg/mL (0-900); Potassium 3.4 mmol/L (3.5-5.1); SGOT/AST 32 U/L (17-59); SGPT/ALT 9 U/L (0-50); SODIUM 136 mmol/L (137-145); Total Protein 6.2 g/dL (6.3-8.2)
[2021-05-07] MEDS ORDERED: Sodium Chloride 0.9% 500 ML 500 ML IV SCH (13:30)
[2021-05-07] MEDS ORDERED: Sodium Chloride 0.9% 500 ML 500 ML IV ONE (13:55)
--- NOTE | 2021-05-07 14:19 | XRAY ---
Indication: COPD. Short of breath. History blood clot and myocardial infarction. Multiple contiguous axial images obtained through the chest using 100 cc Isovue 370 contrast and PE protocol. Comparison: November 29, 2020. There is good opacification of the pulmonary arteries to include the lobar and segmental branches. Again no pulmonary embolus. Heart remains borderline enlarged. Aorta normal in course and caliber again with minimal arteriosclerotic calcifications. Stable small left infrahilar calcified nodes. No pathologic mediastinal/hilar lymphadenopathy. Lungs again demonstrate minimal bilateral dependent atelectasis, mild pulmonary emphysema, and tiny left costophrenic angle calcified granuloma. No new pulmonary mass, infiltrate, or effusion. Bony thorax intact with new healing nondisplaced right 4-6 anterior lateral rib fractures. Limited upper abdomen unremarkable. Impression: 1. Continued negative pulmonary embolus. No new/acute cardiopulmonary abnormalities. 2. New healing right 4-6 rib fractures. 3. Again incidental borderline cardiomegaly, pulmonary emphysema, and old granulomatous disease.
[2021-05-07] MEDS ORDERED: MORPHINE SULFATE 4 MG INJ IV ONE ×2 (14:31→19:20)
[2021-05-07] MEDS ORDERED: Zofran 4 MG/2 ML VIAL IV ONE (14:31)
[2021-05-07] MEDS ORDERED: Zofran 4 MG/2 ML VIAL ONE (14:37)
[2021-05-07] MEDS ORDERED: MORPHINE SULFATE 4 MG INJ ONE ×2 (14:37→19:32)
[2021-05-07] MEDS ORDERED: Lasix 40 MG/4 ML IV ONE (15:43)
[2021-05-07] MEDS ORDERED: Lasix 40 MG/4 ML ONE (15:54)
[2021-05-07 17:47] VITALS: O2SAT 98
[2021-05-07 19:15] VITALS: BP 126/77; PULSE 96
== END 2021-05-07 19:42 | disposition short-term general hospital (02) ==
LOC: ED 12:18
DX: R07.9 Chest pain, unspecified (principal); R42 Dizziness and giddiness; I50.9 Heart failure, unspecified; J44.9 Chronic obstructive pulmonary disease, unspecified; I25.10 Atherosclerotic heart disease of native coronary artery without angina pectoris; Z79.899 Other long term (current) drug therapy; E78.00 Pure hypercholesterolemia, unspecified; I25.2 Old myocardial infarction; Z72.0 Tobacco use
CPT/HCPCS: 36000; 36415; 71045; 71260; 80053; 83880; 84484; 85025; 85379; 85610; 93005; 93041; 96374; 96375; 96376; 99285; J1940; J2270; J2405; A9270-GY

== ENCOUNTER 2021-05-17 17:44 | Inpatient (IN) | payer OTHER ==
--- NOTE | 2021-05-17 17:48 | ERPHSYRPT ---
- History of Present Illness Time Seen by Provider: 05/17/21 17:48 Historian: patient, family Physician History: This is a morbidly obese 61-year-old white male who has significant cardiac history on Brilinta whose primary care doctor is Dr. Mulligan. 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 Chris Galvez. Patient was seen by me in this emergency department 10 days ago for chest pain and was sent to [facility]. Patient had further work-up at that institution there was no primary or acute heart issue. In the last couple days patient had worsening abdominal distention and pain that is generalized in location. He has felt nauseated but no vomiting. He has had no diarrhea. Patient has had an abdominal hernia repair in the past. He thinks it was a repair with mesh but he is not certain. He does not have chest pain or shortness of breath today per his report. Timing/Duration: day(s) (2) Activities at Onset: none Quality: cramping, fullness, pressure Abdominal Pain Onset Location: generalized abdomen Pain Radiation: no radiation Severity of Pain-Max: moderate Severity of Pain-Current: moderate Modifying Factors: Improves With: nothing Associated Symptoms: loss of appetite, nausea, No chest pain, No diarrhea, No fever/chills, No vomiting Previous symptoms: no prior history, different symptoms, recently seen, recent hospitalization, recently treated Allergies/Adverse Reactions: No Known Drug Allergies Allergy (Verified 05/17/21 17:57) Home Medications: Albuterol 2.5 mg/3 ml Neb [Proventil 2.5 mg/3 ml Neb] 2.5 mg IH Q4HPRN PRN 06/20/19 [History] Albuterol Sulfate [Proair Hfa] 8.5 gm IH QIDPRN PRN 06/20/19 [History] Atorvastatin Calcium [Lipitor] 80 mg PO DAILY 06/20/19 [History] Metoprolol Tartrate 50 mg [Lopressor 50 MG] 50 mg PO BID 06/20/19 [History] Tiotropium Br/Olodaterol HCl [Stiolto Respimat Inhal [place]] 4 gm IH DAILY 06/20/19 [History] Aspirin EC 81 mg [Ecotrin 81 mg] 81 mg PO DAILY 09/17/20 [History] Losartan Potassium 50 mg PO DAILY 09/17/20 [History] Metoprolol Succinate 3 ea BID 05/07/21 [History] PANTOPRAZOLE 40 mg Tablet [Protonix 40MG Tablet] 1 ea DAILY 05/07/21 [History] Polyethylene Glycol 3350 17 gm [Miralax Powder 17GM PACKET] 1 ea DAILY 05/07/21 [History] Spironolactone 25 mg [Aldactone 25 MG] 1 ea DAILY 05/07/21 [History] Ticagrelor [Brilinta] 1 ea BID 05/07/21 [History] Torsemide 1 ea DAILY 05/07/21 [History] Sucralfate 1 gm [Carafate 1 GM] 1 ea DAILY 05/17/21 [History] Hx Tetanus, Diphtheria Vaccination/Date Given: No Hx Influenza Vaccination/Date Given: No Hx Pneumococcal Vaccination/Date Given: No Travel Risk - International Travel Have you traveled outside of the country in past 3 weeks: No - Coronavirus Screening Are you exhibiting any of the following symptoms?: No Close contact with a COVID-19 positive Pt in past 14-21 Days: No - Vaccine Status Have you recieved a Covid-19 vaccination: No - Review of Systems Constitutional: No Symptoms Eyes: No Symptoms Ears, Nose, & Throat: No Symptoms Respiratory: No Symptoms Cardiac: No Symptoms Abdominal/Gastrointestinal: Abdominal Pain, Nausea, No Vomiting, No Diarrhea Genitourinary Symptoms: No Symptoms Musculoskeletal: No Symptoms Skin: No Symptoms Neurological: No Symptoms Psychological: No Symptoms Endocrine: No Symptoms Hematologic/Lymphatic: No Symptoms Immunological/Allergic: No Symptoms All Other Systems: Reviewed and Negative - Past Medical History Pertinent Past Medical History: Yes Neurological History: Stroke Cardiac History: Angina, Congestive Heart Failure, Coronary Artery Disease, High Cholesterol, Hypertension, Myocardial Infarction ([place]) Respiratory History: Bronchitis, COPD Endocrine Medical History: No Pertinent History GI Medical History: Hernia, Ulcer Psycho-Social History: Depression Other Medical History: Patient had a blood transfusion in April 2020 for a HGB of 6. - Past Surgical History Past Surgical History: Yes Cardiac: Cardiac Catheterization, Cardiac Stent, Vascular Surgery Gastrointestinal: Hernia Repair Other Surgical History: LEFT CAROTID SURGERY NOVEMBER 2018 - Social History Smoking Status: Current every day smoker How long have you smoked: 45 Exposure to second hand smoke: No Drug Use: none Patient Lives Alone: No - Nursing Vital Signs Nursing Vital Signs: Initial Vital Signs Temperature 96.2 F 05/17/21 17:49 Pulse Rate 107 H 05/17/21 17:49 Respiratory Rate 18 05/17/21 17:49 Blood Pressure 141/88 05/17/21 17:49 O2 Sat by Pulse Oximetry 97 05/17/21 17:49 Pain Scale Pain Intensity 8 - Physical Exam General Appearance: mild distress, alert, anxiety, obese Eye Exam: PERRL/EOMI, eyes nml inspection Ears, Nose, Throat Exam: normal ENT inspection, moist mucous membranes, tonsillar exudate Neck Exam: normal inspection, non-tender, supple Respiratory Exam: normal breath sounds, lungs clear, airway intact, No chest tenderness, No respiratory distress Cardiovascular Exam: regular rate/rhythm, normal heart sounds, normal peripheral pulses Gastrointestinal/Abdomen Exam: tenderness, distention, guarding Rectal Exam: not done Back Exam: normal inspection, normal range of motion, No CVA tenderness, No vertebral tenderness Extremity Exam: normal inspection, normal range of motion, pelvis stable Neurologic Exam: alert, oriented x 3, cooperative, echocardiography technologist II-XII nml as tested, normal mood/affect, nml cerebellar function, nml station & gait, sensation nml Skin Exam: normal color, warm, dry Lymphatic Exam: No adenopathy SpO2 Interpretation: normal O2 Delivery: Room Air - Course Nursing assessment & vital signs reviewed: Yes Ordered Tests: Active Orders 24 hr Category Date Time Status IV Insertion STAT Care 05/17/21 18:06 Active ABDOMEN AND PELVIS W/0 CONTRAS [CT] Stat Exams 05/17/21 18:06 Taken AMYLASE Stat Lab 05/17/21 18:20 Completed CBC W DIFF Stat Lab 05/17/21 18:20 Completed CMP Stat Lab 05/17/21 18:20 Completed LIPASE Stat Lab 05/17/21 18:20 Completed Lactic Acid Stat Lab 05/17/21 18:15 Completed Lactic Acid Stat Lab 05/17/21 20:21 Received PROTIME WITH INR Stat Lab 05/17/21 18:20 Completed TROPONIN Q3H Lab 05/17/21 18:05 Completed TROPONIN Q3H Lab 05/17/21 23:00 Ordered TROPONIN Q3H Lab 05/18/21 02:00 Ordered TROPONIN Q3H Lab 05/18/21 05:00 Ordered TROPONIN Q3H Lab 05/18/21 08:00 Ordered UA W/RFX UR CULTURE Stat Lab 05/17/21 18:06 Ordered Transfer Order Routine Transfer 05/17/21 Ordered Medication Summary Generic Name Dose Route Start Last Admin Trade Name Mannie PRN Reason Stop Dose Admin Sodium Chloride 1,000 mls @ 100 mls/hr 05/17/21 18:15 05/17/21 18:16 Sodium Chloride 0.9% 1000 Ml IV 06/16/21 18:14 100 mls/hr .Q10H KIRBY Administration Discontinued Medications Generic Name Dose Route Start Last Admin Trade Name Mannie PRN Reason Stop Dose Admin Morphine Sulfate 4 mg 05/17/21 18:06 05/17/21 18:16 Morphine Sulfate 4 Mg Inj IV 05/17/21 18:07 4 mg STAT ONE Administration Morphine Sulfate Confirm 05/17/21 18:15 Morphine Sulfate 4 Mg Inj Administered 05/17/21 18:16 Dose 4 mg .ROUTE .STK-MED ONE Ondansetron HCl 4 mg 05/17/21 18:06 05/17/21 18:16 Zofran 4 Mg/2 Ml Vial IV 05/17/21 18:07 4 mg STAT ONE Administration Ondansetron HCl Confirm 05/17/21 18:15 Zofran 4 Mg/2 Ml Vial Administered 05/17/21 18:16 Dose 4 mg .ROUTE .STK-MED ONE Lab/Rad Data: Laboratory Result Diagrams 05/17/21 18:20 05/17/21 18:20 Laboratory Results 05/17/21 05/17/21 05/17/21 Range/Units 18:20 18:20 18:20 WBC 19.8 H (4.0-10.5) K/mm3 RBC 4.06 L (4.1-5.6) M/mm3 Hgb 10.3 L (12.5-18.0) gm/dl Hct 34.2 L (42-50) % MCV 84.2 (78-100) fl MCH 25.4 L (26-32) pg MCHC 30.1 L (32-36) g/dl RDW 18.7 H (11.5-14.0) % Plt Count 645 H (150-450) K/mm3 MPV 9.6 (7.5-11.0) fl Gran % 90.5 H (36.0-66.0) % Eos # (Auto) 0.04 (0-0.5) Absolute Lymphs (auto) 0.86 L (1.0-4.6) Absolute Monos (auto) 0.97 (0.0-1.3) Lymphocytes % 4.3 L (24.0-44.0) % Monocytes % 4.9 (0.0-12.0) % Eosinophils % 0.2 (0.00-5.0) % Basophils % 0.1 (0.0-0.4) % Absolute Granulocytes 17.90 H (1.4-6.9) Basophils # 0.02 (0-0.4) PT 13.3 H (9.4-12.5) SECONDS INR 1.13 (0.8-3.0) Sodium 136 L (137-145) mmol/L Potassium 3.8 (3.5-5.1) mmol/L Chloride 100 (98-107) mmol/L Carbon Dioxide 26 (22-30) mmol/L Anion Gap 13.5 (5-15) MEQ/L BUN 18 (9-20) mg/dL Creatinine 1.07 (0.66-1.25) mg/dL Estimated GFR > 60.0 ML/MIN Glucose 129 H (74-106) mg/dL Lactic Acid (0.4-2.0) Calcium 8.9 (8.4-10.2) mg/dL Total Bilirubin 0.60 (0.2-1.3) mg/dL AST 24 (17-59) U/L ALT 12 (0-50) U/L Alkaline Phosphatase 124 (38-126) U/L Troponin I (0.000-0.034) ng/mL Serum Total Protein 6.6 (6.3-8.2) g/dL Albumin 3.4 L (3.5-5.0) g/dL Amylase 57 (30-110) U/L Lipase 57 (23-300) U/L 05/17/21 05/17/21 Range/Units 18:15 18:05 WBC (4.0-10.5) K/mm3 RBC (4.1-5.6) M/mm3 Hgb (12.5-18.0) gm/dl Hct (42-50) % MCV (78-100) fl MCH (26-32) pg MCHC (32-36) g/dl RDW (11.5-14.0) % Plt Count (150-450) K/mm3 MPV (7.5-11.0) fl Gran % (36.0-66.0) % Eos # (Auto) (0-0.5) Absolute Lymphs (auto) (1.0-4.6) Absolute Monos (auto) (0.0-1.3) Lymphocytes % (24.0-44.0) % Monocytes % (0.0-12.0) % Eosinophils % (0.00-5.0) % Basophils % (0.0-0.4) % Absolute Granulocytes (1.4-6.9) Basophils # (0-0.4) PT (9.4-12.5) SECONDS INR (0.8-3.0) Sodium (137-145) mmol/L Potassium (3.5-5.1) mmol/L Chloride (98-107) mmol/L Carbon Dioxide (22-30) mmol/L Anion Gap (5-15) MEQ/L BUN (9-20) mg/dL Creatinine (0.66-1.25) mg/dL Estimated GFR ML/MIN Glucose (74-106) mg/dL Lactic Acid 2.2 H (0.4-2.0) Calcium (8.4-10.2) mg/dL Total Bilirubin (0.2-1.3) mg/dL AST (17-59) U/L ALT (0-50) U/L Alkaline Phosphatase (38-126) U/L Troponin I 0.032 (0.000-0.034) ng/mL Serum Total Protein (6.3-8.2) g/dL Albumin (3.5-5.0) g/dL Amylase (30-110) U/L Lipase (23-300) U/L - Progress Progress: improved, pain not gone completely, re-examined Progress Note: 05/17/21 19:45 CAT scan of the abdomen pelvis without contrast shows dilated small bowel loops to 4 cm consistent with an obstruction with possible right abdominal transition point. 05/17/21 20:18 Medical decision making: This patient has a significant cardiac history. This was discussed with Dr. Parr, our hospitalist ivette. However, the patient is not having any chest pain. He is not short of breath. Patient prefers to stay at this hospital if possible. The patient is on Brilinta. His diagnosis is that of a small bowel obstruction. The patient is not vomiting but does have nausea. I reviewed the patient history, medication list, physical findings and results of the laboratory data and his CAT scan of the abdomen pelvis results with Dr. Parr. I believe we can hold off on the nasogastric tube at this time. However if he begins vomiting one needs to be placed. Dr. Parr and I feel the patient can be admitted into the hospital with bowel rest, intravenous fluids, intravenous Protonix, intravenous narcotics for pain control and antinau sea medication. We will also obtain a surgical consultation. Discussed with : Fredis Counseled pt/family regarding: lab results, diagnosis, need for follow-up, rad results - Departure Departure Disposition: In-patient Admission Clinical Impression: Small bowel obstruction, Leukocytosis Condition: Stable Critical Care Time: No Referrals: GABRIEL MULLIGAN [Primary Care Provider] -
[2021-05-17] MEDS ORDERED: Zofran 4 MG/2 ML VIAL IV ONE (18:06)
[2021-05-17] MEDS ORDERED: MORPHINE SULFATE 4 MG INJ IV ONE ×2 (18:06→21:39)
[2021-05-17] MEDS ORDERED: Sodium Chloride 0.9% 1000 ML 1,000 ML ONE (18:15)
[2021-05-17] MEDS ORDERED: MORPHINE SULFATE 4 MG INJ ONE ×2 (18:15→21:56)
[2021-05-17] MEDS ORDERED: Sodium Chloride 0.9% 1000 ML 1,000 ML IV SCH (18:15)
[2021-05-17] MEDS ORDERED: Zofran 4 MG/2 ML VIAL ONE (18:15)
[2021-05-17 18:23] LABS: BASOPHIL % 0.1 % (0.0-0.4); Basophil (Absolute #) 0.02 (0-0.4); Eosinophil % 0.2 % (0.00-5.0); Eosinophil (Absolute #) 0.04 (0-0.5); Hematocrit 34.2 % (42-50); Hemoglobin 10.3 gm/dl (12.5-18.0); Lymphocyte (Absolute #) 0.86 (1.0-4.6); Lymphocytes % 4.3 % (24.0-44.0); Mean Cell Volume 84.2 fl (78-100); Mean Corpuscular Hemoglobin 25.4 pg (26-32); Mean Corpuscular Hgb Concent. 30.1 g/dl (32-36); Mean Platelet Volume 9.6 fl (7.5-11.0); Monocyte (Absolute #) 0.97 (0.0-1.3); Monocytes % 4.9 % (0.0-12.0); Neutrophil % 90.5 % (36.0-66.0); Platelet Count 645 K/mm3 (150-450); Red Blood Count 4.06 M/mm3 (4.1-5.6); Red Cell Distribution Width 18.7 % (11.5-14.0); White Blood Count 19.8 K/mm3 (4.0-10.5)
[2021-05-17 18:30] LABS: INR 1.13 (0.8-3.0); PROTIME 13.3 SECONDS (9.4-12.5)
[2021-05-17 18:35] LABS: ALBUMIN 3.4 g/dL (3.5-5.0); ALKALINE PHOSPHATASE 124 U/L (38-126); AMYLASE 57 U/L (30-110); ANION GAP 13.5 MEQ/L (5-15); BLOOD UREA NITROGEN 18 mg/dL (9-20); CHLORIDE 100 mmol/L (98-107); Calcium 8.9 mg/dL (8.4-10.2); Carbon Dioxide 26 mmol/L (22-30); Creatinine 1 1.07 mg/dL (0.66-1.25); EST GLOMERULAR FILTRATION RATE > 60.0 ML/MIN; Glucose 129 mg/dL (74-106); LIPASE 57 U/L (23-300); Potassium 3.8 mmol/L (3.5-5.1); SGOT/AST 24 U/L (17-59); SGPT/ALT 12 U/L (0-50); SODIUM 136 mmol/L (137-145); Total Protein 6.6 g/dL (6.3-8.2)
--- NOTE | 2021-05-17 20:30 | XRAY ---
Indication: Abdomen pain, bloating, and constipation 3 months. Multiple contiguous axial images obtained through the abdomen and pelvis without contrast. Comparison: None. Lung bases demonstrates tiny left costophrenic angle calcified granuloma. No infiltrate or effusion. Heart not enlarged. Stomach and small bowel loops are abnormally fluid distended throughout with asynchronous fluid leveling. Small bowel loops are distended up to 4 cm with transition point right lower quadrant favoring partial distal small bowel obstruction. There is colonic bowel gas as well as mild scattered diverticulosis. Normal air-filled appendix. No free fluid/air. Remaining liver, gallbladder, pancreas, spleen, adrenal glands, kidneys, ureters, and bladder are unremarkable for noncontrast exam. Mild scattered aortoiliac calcifications without AAA. Osseous structures intact with mild degenerative changes throughout the thoracolumbar spine. Impression: 1. CT findings favor partial distal small bowel obstruction. Transition point right lower quadrant. 2. Incidental colonic diverticulosis and chronic bony findings. Comment: Preliminary interpretation was made by [facility]. No critical discrepancy.
[2021-05-17] MEDS ORDERED: PROTONIX 40 MG IV IV SCH (22:18)
[2021-05-17] MEDS ORDERED: FEVERALL 650 MG PR PRN (22:18)
[2021-05-17] MEDS: Zofran 4 MG/2 ML VIAL IV PRN (22:48)
[2021-05-17 23:23] LABS: Appearance CLEAR (CLEAR); Bilirubin NEGATIVE (NEGATIVE); Blood NEGATIVE Ery/ul (0-5); Glucose NEGATIVE (NEGATIVE); Ketones NEGATIVE (NEGATIVE); Leukocyte Esterase NEGATIVE (NEGATIVE); Mucus SLIGHT /HPF (NEGATIVE); Nitrite NEGATIVE (NEGATIVE); Protein,Urine Dip NEGATIVE (Negative); RBC 0-2 /HPF (0-2); Specific Gravity 1.014 (1.005-1.025); Urobilinogen NEGATIVE mg/dL (0-1); WBC 0-2 /HPF (0-5)
[2021-05-17 23:29] LABS: Bacteria NONE SEEN /HPF (NEGATIVE)
[2021-05-18] MEDS: Hydromorphone 1 mg/ml Injection IV PRN ×4 (02:27→20:57)
[2021-05-18] MEDS: Sodium Chloride 0.9% 1000 ML 1,000 ML IV SCH ×3 (03:18→21:05)
[2021-05-18 06:28] LABS: ALBUMIN 2.5 g/dL (3.5-5.0); ALKALINE PHOSPHATASE 94 U/L (38-126); ANION GAP 10.3 MEQ/L (5-15); Absolute Neutrophil Ct (ANC) 7.61 (1.4-6.9); BASOPHIL % 0.2 % (0.0-0.4); BLOOD UREA NITROGEN 20 mg/dL (9-20); Basophil (Absolute #) 0.02 (0-0.4); CHLORIDE 105 mmol/L (98-107); Calcium 7.9 mg/dL (8.4-10.2); Carbon Dioxide 25 mmol/L (22-30); Creatinine 1 0.96 mg/dL (0.66-1.25); EST GLOMERULAR FILTRATION RATE > 60.0 ML/MIN; Eosinophil % 1.2 % (0.00-5.0); Eosinophil (Absolute #) 0.11 (0-0.5); Glucose 99 mg/dL (74-106); Hematocrit 29.9 % (42-50); Hemoglobin 8.6 gm/dl (12.5-18.0); Lymphocyte (Absolute #) 0.96 (1.0-4.6); Mean Cell Volume 85.9 fl (78-100); Mean Corpuscular Hemoglobin 24.7 pg (26-32); Mean Corpuscular Hgb Concent. 28.8 g/dl (32-36); Mean Platelet Volume 9.6 fl (7.5-11.0); Monocyte (Absolute #) 0.86 (0.0-1.3); Neutrophil % 79.6 % (36.0-66.0); Platelet Count 482 K/mm3 (150-450); Potassium 3.5 mmol/L (3.5-5.1); Red Blood Count 3.48 M/mm3 (4.1-5.6); Red Cell Distribution Width 18.6 % (11.5-14.0); SGOT/AST 21 U/L (17-59); SGPT/ALT 9 U/L (0-50); SODIUM 137 mmol/L (137-145); Total Protein 5.1 g/dL (6.3-8.2); White Blood Count 9.6 K/mm3 (4.0-10.5)
[2021-05-18] MEDS ORDERED: DUONEB 0.5-3 MG/3 ml Neb IH ONE (07:07)
[2021-05-18] MEDS: PROVENTIL 2.5 MG/3 ML NEB IH SCH ×4 (07:31→19:20)
[2021-05-18] MEDS: Zofran 4 MG/2 ML VIAL IV PRN ×2 (07:47→21:04)
[2021-05-18] MEDS ORDERED: Nitrostat 0.4 MG Tablet SL ONE (08:48)
[2021-05-18] MEDS: Nitrostat 0.4 MG Tablet SL PRN ×2 (08:50→08:58)
--- NOTE | 2021-05-18 10:56 | XRAY ---
Indication: Follow-up small bowel obstruction. Continued pain. Comparison: CT abdomen/pelvis 1 day earlier. 2 view abdomen again demonstrates mild air distended small bowel loops up to 5.5 cm in diameter with air-fluid leveling and paucity distal colonic bowel gas favoring partial distal small bowel obstruction. No free air. Solid organs unremarkable. Osseous structures intact again with mild degenerative changes throughout the spine. Single PA chest again demonstrates normal heart and lungs with incidental left based calcified granuloma. Bony thorax intact. Impression: 1. Partial distal small bowel obstruction as detailed. 2. Nonacute one view chest with incidental old granulomatous disease. Comment: Preliminary interpretation was made by [facility]. No critical discrepancy.
[2021-05-18] MEDS: Protonix 40MG Tablet PO SCH (10:58)
[2021-05-18] MEDS: Klor Con 10 MEQ PO SCH (10:58)
[2021-05-18] MEDS: Miralax Powder 17GM PACKET PO SCH (10:58)
[2021-05-18] MEDS: Lopressor 50 MG PO SCH (10:58)
[2021-05-18] MEDS: ECOTRIN 81 MG PO SCH (10:58)
[2021-05-18] MEDS: BRILINTA PO SCH ×2 (10:59→21:04)
[2021-05-18] MEDS: Levofloxacin 500MG/100ML D5W 500 MG/100 ML BAG IV SCH (10:59)
[2021-05-18] MEDS ORDERED: Carafate 1 GM PO SCH (11:00)
[2021-05-18 11:27] LABS: Slide Review 1 YES
[2021-05-18] MEDS: FLAGYL 500 MG IVPB 500 MG/100 ML BAG IV SCH ×2 (13:43→21:06)
[2021-05-18] MEDS: LIPITOR 40MG PO SCH (21:05)
[2021-05-19] MEDS ORDERED: Tums EX 750 MG PO PRN (01:25)
[2021-05-19] MEDS ORDERED: Tums EX 750 MG PO SCH (01:30)
[2021-05-19] MEDS: Hydromorphone 1 mg/ml Injection IV PRN ×3 (05:06→21:51)
[2021-05-19] MEDS: Zofran 4 MG/2 ML VIAL IV PRN ×2 (05:07→13:43)
[2021-05-19] MEDS: FLAGYL 500 MG IVPB 500 MG/100 ML BAG IV SCH ×3 (05:07→21:36)
[2021-05-19 05:34] LABS: Hematocrit 26.2 % (42-50); Hemoglobin 7.5 gm/dl (12.5-18.0); Mean Cell Volume 87.3 fl (78-100); Mean Corpuscular Hgb Concent. 28.6 g/dl (32-36); Mean Platelet Volume 9.7 fl (7.5-11.0); Platelet Count 364 K/mm3 (150-450); Red Cell Distribution Width 18.4 % (11.5-14.0); White Blood Count 4.5 K/mm3 (4.0-10.5)
[2021-05-19] MEDS: Sodium Chloride 0.9% 1000 ML 1,000 ML IV SCH ×2 (06:07→19:41)
[2021-05-19 06:23] LABS: ALBUMIN 2.2 g/dL (3.5-5.0); ALKALINE PHOSPHATASE 85 U/L (38-126); ANION GAP 6.9 MEQ/L (5-15); BLOOD UREA NITROGEN 13 mg/dL (9-20); CHLORIDE 110 mmol/L (98-107); Calcium 7.7 mg/dL (8.4-10.2); Carbon Dioxide 25 mmol/L (22-30); EST GLOMERULAR FILTRATION RATE > 60.0 ML/MIN; Glucose 80 mg/dL (74-106); Potassium 3.3 mmol/L (3.5-5.1); SGOT/AST 18 U/L (17-59); SGPT/ALT 7 U/L (0-50); SODIUM 138 mmol/L (137-145); Total Protein 4.6 g/dL (6.3-8.2)
[2021-05-19] MEDS: PROVENTIL 2.5 MG/3 ML NEB IH SCH ×4 (06:40→18:49)
[2021-05-19 06:50] LABS: Slide Review YES
[2021-05-19] MEDS: Carafate 1 GM PO SCH ×4 (07:39→21:36)
--- NOTE | 2021-05-19 09:34 | XRAY ---
Indication: Follow-up bowel obstruction. Comparison: One day earlier. 2 view abdomen again demonstrates mild air distended small bowel loops less than before up to 4.5 cm diameter again with air-fluid leveling and paucity distal colonic bowel gas favoring distal small bowel obstruction. No free air. Solid organs unremarkable. Osseous structures intact again with mild degenerative changes throughout the spine. Single PA chest demonstrates new left base discoid atelectasis with stable left base calcified granuloma. Remaining heart and lungs unremarkable. Impression: Abdominal findings again favor distal small bowel obstruction with diminished bowel distention as detailed. New left lung base discoid atelectasis.
[2021-05-19] MEDS ORDERED: Carafate 1 GM PO SCH (10:00)
[2021-05-19] MEDS ORDERED: NON-FORMULARY ITEM (Atorvastatin Calcium [Lipitor] 80 MG) PO SCH (10:00)
[2021-05-19] MEDS: Lopressor 50 MG PO SCH (10:20)
[2021-05-19] MEDS: Levofloxacin 500MG/100ML D5W 500 MG/100 ML BAG IV SCH (10:21)
[2021-05-19] MEDS: BRILINTA PO SCH (10:21)
[2021-05-19] MEDS: ECOTRIN 81 MG PO SCH (10:21)
[2021-05-19] MEDS: Klor Con 10 MEQ PO SCH (10:21)
[2021-05-19] MEDS: Protonix 40MG Tablet PO SCH ×2 (10:21→21:51)
[2021-05-19] MEDS: Miralax Powder 17GM PACKET PO SCH (10:21)
--- NOTE | 2021-05-19 11:01 | CONS ---
CONSULT DATE: 05/18/2021 REASON FOR CONSULT: Possible bowel obstruction. HISTORY: The patient is a 61 year-old male who came to the emergency room with abdominal distention, abdominal pain, some nausea, vomiting and diarrhea. CT showed some dilated loops of small bowel with air fluid level and was admitted with NPO and IV fluids. No nasogastric tube was placed in the emergency room. I was asked to see in consultation for surgical evaluation and management. He has been on anticoagulant. The patient states that after his stent he had off and on abdominal discomfort, some irregular bowel movements, sometimes he gets constipation and sometimes diarrhea and bloated. He takes some laxative and the pain and distention decreases. At this point this morning apparently just had a bowel movement. 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 This morning the bowel movement was watery. On admission he had leukocytosis with a white count of 19,000 but this morning his white count is back to normal range. PAST MEDICAL HISTORY: Positive for some coronary artery disease. The patient had a recent stent in December and also had a heart attack at that time. Congestive heart failure, high cholesterol, hypertension, history of myocardial infarction, chronic obstructive pulmonary disease. History of depression. PAST SURGICAL HISTORY: Positive for umbilical hernia repair. Left carotid endarterectomy in 2019. ALLERGIES: THE PATIENT DENIES ANY ALLERGIES TO MEDICATIONS. MEDICATIONS: Please refer to the medication list. PHYSICAL EXAMINATION: He is alert and oriented. The patient remains afebrile. HEENT: Pupils are equal and normoreactive. NECK: Supple. COR: Regular rhythm. ABDOMEN: Slightly distended and slightly tender throughout. EXTREMITIES: Within normal limits and no pedal edema. LAB DATA AND TESTS: Laboratory studies showed the white count of 19.8 but this morning as mentioned earlier is back to 9. The patient is afebrile and as mentioned just had a bowel movement this morning and feels slightly better. He had a KUB this morning which showed still dilated small bowel loops with some multiple air fluid level still consistent with a partial small bowel obstruction. IMPRESSION: At this time no immediate surgical intervention is needed. If the patient starts getting more distended and nauseated, will place an epigastric tube but since he had a bowel movement this morning will allow sips of liquid and will repeat a KUB tomorrow. As mentioned earlier no immediate surgical intervention is needed.
[2021-05-19] MEDS ORDERED: MORPHINE SULFATE 4 MG INJ IV PRN (16:36)
[2021-05-19] MEDS: LIPITOR 40MG PO SCH (21:36)
[2021-05-20] MEDS: Hydromorphone 1 mg/ml Injection IV PRN ×4 (01:34→22:14)
[2021-05-20] MEDS: Zofran 4 MG/2 ML VIAL IV PRN ×3 (01:34→22:14)
[2021-05-20 05:02] LABS: Hematocrit 24.9 % (42-50); Mean Corpuscular Hemoglobin 24.7 pg (26-32); Mean Corpuscular Hgb Concent. 28.1 g/dl (32-36); Platelet Count 314 K/mm3 (150-450); Red Blood Count 2.83 M/mm3 (4.1-5.6); Red Cell Distribution Width 18.2 % (11.5-14.0); White Blood Count 4.4 K/mm3 (4.0-10.5)
[2021-05-20 05:14] LABS: ALBUMIN 2.1 g/dL (3.5-5.0); ALKALINE PHOSPHATASE 76 U/L (38-126); ANION GAP 5.9 MEQ/L (5-15); BLOOD UREA NITROGEN 7 mg/dL (9-20); CHLORIDE 110 mmol/L (98-107); Calcium 7.9 mg/dL (8.4-10.2); Carbon Dioxide 24 mmol/L (22-30); Creatinine 1 0.77 mg/dL (0.66-1.25); EST GLOMERULAR FILTRATION RATE > 60.0 ML/MIN; Glucose 75 mg/dL (74-106); Potassium 3.5 mmol/L (3.5-5.1); SGOT/AST 18 U/L (17-59); SGPT/ALT 7 U/L (0-50); SODIUM 136 mmol/L (137-145); Total Protein 4.5 g/dL (6.3-8.2)
[2021-05-20] MEDS: FLAGYL 500 MG IVPB 500 MG/100 ML BAG IV SCH ×3 (05:47→22:13)
[2021-05-20 05:55] LABS: Slide Review YES
[2021-05-20] MEDS: PROVENTIL 2.5 MG/3 ML NEB IH SCH ×4 (06:55→19:30)
[2021-05-20] MEDS ORDERED: Lasix 40 MG/4 ML IV ONE (07:25)
[2021-05-20] MEDS: Nitrostat 0.4 MG Tablet SL PRN (07:47)
[2021-05-20] MEDS: Carafate 1 GM PO SCH ×4 (08:13→22:13)
[2021-05-20] MEDS ORDERED: Sodium Chloride 0.9% 500 ML 500 ML IV SCH (09:00)
[2021-05-20 09:20] LABS: ABO TYPING O; RH TYPING POSITIVE
[2021-05-20 09:21] LABS: Antibody Screen NEGATIVE (NEGATIVE)
[2021-05-20 09:23] LABS: CROSS MATCH (PRBC) COMPATIBLE (COMPATIBLE)
[2021-05-20] MEDS: ECOTRIN 81 MG PO SCH (09:32)
[2021-05-20] MEDS: Klor Con 10 MEQ PO SCH (09:32)
[2021-05-20] MEDS: Lopressor 50 MG PO SCH ×2 (09:32→09:35)
[2021-05-20] MEDS: Protonix 40MG Tablet PO SCH ×2 (09:33→22:14)
[2021-05-20] MEDS: Levofloxacin 500MG/100ML D5W 500 MG/100 ML BAG IV SCH (09:33)
[2021-05-20] MEDS: Miralax Powder 17GM PACKET PO SCH (09:33)
[2021-05-20 20:46] VITALS: BP 104/65; PULSE 81; O2SAT 94
[2021-05-20] MEDS: Sodium Chloride 0.9% 1000 ML 1,000 ML IV SCH ×2 (22:08→22:12)
[2021-05-20] MEDS: LIPITOR 40MG PO SCH (22:13)
--- NOTE | 2021-05-24 19:03 | PCM.HP ---
History of Present Illness - Chief Complaint Chief Complaint: small bowel obstruction, leukocytosis Date: 05/18/21 History of Present Illness: is a 61 year old male. Pt. presented to er with increasing abdominal distension, and pain, pt. notes he usually takes his constipation medication and this resolves on its own with no further issues but this time the pain persisted to get worse and no results of bowel movement. - Review of Systems Constitutional: No Fever, No Chills Eyes: No Symptoms Ears, Nose, & Throat: No Symptoms Respiratory: No Cough, No Short Of Breath Cardiac: No Chest Pain, No Edema, No Syncope Abdominal/Gastrointestinal: Abdominal Pain, Nausea, No Vomiting, No Diarrhea Genitourinary Symptoms: No Dysuria Musculoskeletal: No Back Pain, No Neck Pain Skin: No Rash Neurological: No Dizziness, No Focal Weakness, No Sensory Changes Psychological: No Symptoms Endocrine: No Symptoms Hematologic/Lymphatic: No Symptoms Immunological/Allergic: No Symptoms Medications & Allergies Home Medications: Home Medication List Albuterol 2.5 mg/3 ml Neb [Proventil 2.5 mg/3 ml Neb] 2.5 mg IH Q4HPRN PRN 06/20/19 [History Confirmed 05/17/21] Albuterol Sulfate [Proair Hfa] 1 inh IH QIDPRN PRN 06/20/19 [History Confirmed 05/18/21] Atorvastatin Calcium [Lipitor] 80 mg PO DAILY 06/20/19 [History Confirmed 05/18/21] Metoprolol Tartrate 50 mg [Lopressor 50 MG] 50 mg PO DAILY 06/20/19 [History Confirmed 05/18/21] Tiotropium Br/Olodaterol HCl [Stiolto Respimat Inhal [place]] 1 inh IH DAILY 06/20/19 [History Confirmed 05/18/21] Aspirin EC 81 mg [Ecotrin 81 mg] 81 mg PO DAILY 09/17/20 [History Confirmed 05/18/21] Losartan Potassium 50 mg PO DAILY 09/17/20 [History Confirmed 05/17/21] PANTOPRAZOLE 40 mg Tablet [Protonix 40MG Tablet] 40 mg PO DAILY 05/07/21 [History Confirmed 05/18/21] Polyethylene Glycol 3350 17 gm [Miralax Powder 17GM PACKET] 17 gm PO DAILY 05/07/21 [History Confirmed 05/18/21] Spironolactone 25 mg [Aldactone 25 MG] 25 mg PO DAILY 05/07/21 [History Confirmed 05/18/21] Ticagrelor [Brilinta] 90 mg BID 05/07/21 [History Confirmed 05/18/21] Torsemide 20 mg PO DAILY 05/07/21 [History Confirmed 05/18/21] Sucralfate 1 gm [Carafate 1 GM] 1 ea PO QID 05/17/21 [History Confirmed 05/19/21] Potassium Chloride 10 Meq Tab* [Klor Con 10 MEQ] 20 meq PO DAILY 05/18/21 [History Confirmed 05/18/21] Allergies/Adverse Reactions: Allergies Allergy/AdvReac Type Severity Reaction Status Date / Time No Known Drug Allergies Allergy Verified 05/17/21 17:57 - Past Medical History Past Medical History: Yes Neurological History: Stroke ENT History: No Pertinent History Cardiac History: Angina, Congestive Heart Failure, Coronary Artery Disease, High Cholesterol, Hypertension, Myocardial Infarction ([place]) Respiratory History: Bronchitis, COPD Endocrine Medical History: No Pertinent History Musculoskelatal History: No Pertinent History GI Medical History: Hernia, Ulcer History: No Pertinent History Pyscho-Social History: Depression Male Reproductive Disorders: No Pertinent History Comment: Patient had a blood transfusion in April 2020 for a HGB of 6. - Past Surgical History Past Surgical History: Yes Neuro Surgical History: No Pertinent History Cardiac History: Cardiac Catheterization, Cardiac Stent, Vascular Surgery Respiratory Surgery: No Pertinent History GI Surgical History: Hernia Repair Genitourinary Surgical Hx: No Pertinent History Musculskeletal Surgical Hx: No Pertinent History Male Surgical History: No Pertinent History Other Surgical History: LEFT CAROTID SURGERY NOVEMBER 2018 - Social History Smoking Status: Current some day smoker How long have you smoked: 45 Exposure to second hand smoke: Yes Alcohol: None Drug Use: none - Physical Exam General Appearance: no apparent distress, alert Neurologic Exam: alert, oriented x 3, cooperative, normal mood/affect, nml cerebellar function, nml station & gait, sensation nml, No motor deficits Eye Exam: PERRL/EOMI, eyes nml inspection Ears, Nose, Throat Exam: normal ENT inspection, TMs normal, pharynx normal, moist mucous membranes Neck Exam: normal inspection, non-tender, supple, full range of motion Respiratory Exam: normal breath sounds, lungs clear, No respiratory distress Cardiovascular Exam: regular rate/rhythm, normal heart sounds, normal peripheral pulses Gastrointestinal/Abdomen Exam: soft, tenderness (diffusely tender on exam, pt. is now passing gas and bowel sounds noted although decreased), No mass Back Exam: normal inspection, normal range of motion, No CVA tenderness, No vertebral tenderness Extremity Exam: normal inspection, normal range of motion, pelvis stable Skin Exam: normal color, warm, dry, No rash Wound Assessment: Skin/Wound Assessment Wound/Incision Assessment Start: 05/17/21 23:49 Text: Status: Active Freq: Q6H Protocol: Document 05/20/21 20:00 MS (Rec: 05/21/21 01:20 MS [id number]) Wound/Incision Assessment Left Buttock Wound Assessment Shift Assessment Wound Type Pressure Ulcer Wound Stage Stage II Drainage Amount None General Appearance Unapproximated Wound Bed Greatest Portion Red (Granulation) Wound Bed Lesser Portion Dusky Red % Granulated (Red) 3 % Slough (Yellow) 3 Surrounding Tissue [place] Comment barrier cream applied Right Lateral Buttock Wound Assessment Shift Assessment Wound Type Pressure Ulcer Wound Stage Stage II Drainage Amount None General Appearance Unapproximated Length (cm) (cm) 4 Width (cm) (cm) 3 Depth (cm) (cm) 0.5 Wound Bed Greatest Portion Red (Granulation) Wound Bed Lesser Portion Dusky Red Surrounding Tissue [place] Primary Dressing mepilex Comment new mepilex applied Right Buttock Wound Assessment Shift Assessment Wound Type Pressure Ulcer Wound Stage Stage II Drainage Amount None General Appearance Unapproximated Length (cm) (cm) 3 Width (cm) (cm) 1 Wound Bed Greatest Portion Red (Granulation) Wound Bed Lesser Portion Dusky Red Surrounding Tissue [place] Primary Dressing mepilex Wound Photo Photo Taken No Comment: one placed on chart Lymphatic Exam: No adenopathy Assessment/Plan (1) Leukocytosis Status: Acute Assessment & Plan: Pt. started on prophylactic iv abx Code(s): D72.829 - ELEVATED WHITE BLOOD CELL COUNT, UNSPECIFIED (2) Small bowel obstruction Status: Acute Assessment & Plan: surgery has been consulted, pt. will be maintained NPO until some improvements are noted. Code(s): K56.609 - UNSP INTESTNL OBST, UNSP TO PARTIAL VERSUS COMPLETE OBST
--- NOTE | 2021-05-29 11:37 | ECHO ---
DATE OF PROCEDURE: 05/20/2021 CLINICAL INFORMATION: Chest pain with elevated troponin. The M-mode 2D, and Doppler echocardiogram including color flow Doppler shows the left ventricle is moderately dilated with the dimension of 6.8 cm. There is no thrombus present. The septal wall thickness is increased at 1.3 cm. The left ventricular posterior wall thickness is increased at 1.2 cm. There is normal contractility of the left ventricle. The ejection fraction is calculated to be 51%. The right ventricle is grossly normal. The left atrium is mildly dilated with a dimension of 4.4 cm. The interatrial septum is intact. The right atrium is normal. The mitral valve E/A inflow velocity ratio is decreased at 0.92 consistent with possible impaired left ventricular relaxation. The aortic valve opens well. There is no aortic regurgitation. There is mitral valve leaflet thickening associated with mild mitral regurgitation. The tricuspid valve is normal. There is mild pulmonic regurgitation. The pulmonic valve is not well visualized. The aortic root is normal at 3.6 cm. There is a small to medium sized anterior and posterior pericardial effusion without evidence of cardiac tamponade. IMPRESSION: 1) NORMAL CONTRACTILITY OF THE LEFT VENTRICLE. 2) MILD CONCENTRIC LEFT VENTRICULAR HYPERTROPHY. 3) POSSIBLE IMPAIRED LEFT VENTRICULAR RELAXATION. 4) MILD MITRAL REGURGITATION ASSOCIATED WITH MITRAL VALVE LEAFLET THICKENING. 5) MILD PULMONIC REGURGITATION. 6) MILD TO MODERATE PERICARDIAL EFFUSION. 7) MILD LEFT ATRIAL DILATATION. 8) MODERATE LEFT VENTRICULAR DILATATION.
--- NOTE | 2021-06-03 11:00 | DS ---
DATE OF TRANSFER: 05/20/2021 DISCHARGE DIAGNOSIS: ELEVATION OF CARDIAC ENZYMES, NEED FOR CARDIOLOGY EVALUATION AND FAIRLY RECENT HISTORY OF MYOCARDIAL INFARCTION AND CARDIOVERSION BY THE CREDIT RISK OFFICER IN [place]. HOSPITAL COURSE: The patient presented to the emergency room with complaints of vomiting, abdominal pain and was found to have on x-ray to have what appeared to be a small bowel obstruction. The patient was admitted to the facility for IV fluids and made NPO. Surgery consult was obtained and the patient was felt to not need intervention and basically placed him on NPO with sips of water. The patient did afterwards report that he was having some diarrheal stools. Surgical intervention at this time was therefore not felt to be necessary. The patient did also have a fairly recent cardiac event. He was seen in a [place] by the lime kiln and recausticizing operator there and is still under their care for a fairly recent myocardial infarction. The patient during his stay did have an elevation in his cardiac enzymes with complaints of chest discomfort. We therefore contacted his lime kiln and recausticizing operator and arranged for the patient to be transferred to their facility for further care. He was therefore transferred to [facility] on 05/20/2021 for higher level of care and especially consultation.
== END 2021-05-20 23:00 | disposition home or self-care (01) | DRG 948 ==
LOC: ED 17:44 → MED SURG 22:12
PROVIDERS: ADMIT Family Medicine; ATTEND Family Medicine
DX: R74.8 Abnormal levels of other serum enzymes (principal); K56.609 Unspecified intestinal obstruction, unspecified as to partial versus complete obstruction; Z79.899 Other long term (current) drug therapy; J44.9 Chronic obstructive pulmonary disease, unspecified; I25.10 Atherosclerotic heart disease of native coronary artery without angina pectoris; I10 Essential (primary) hypertension; E78.00 Pure hypercholesterolemia, unspecified; D72.829 Elevated white blood cell count, unspecified; R19.7 Diarrhea, unspecified; Z20.828 Contact with and (suspected) exposure to other viral communicable diseases; I25.2 Old myocardial infarction; L89.322 Pressure ulcer of left buttock, stage 2; L89.312 Pressure ulcer of right buttock, stage 2; F17.200 Nicotine dependence, unspecified, uncomplicated
CPT/HCPCS: 36000; 36415; 36430; 74022; 74176; 80053; 81001; 82150; 83605; 83690; 84484; 85025; 85027; 85610; 86850; 86900; 86901; 86922; 93005; 93306; 94640; 94760; 96374; 96375; 96376; 99285; J1170; J1940; J1956; J2270; J2405; J7609; P9016; U0003; A9270-GY

== ENCOUNTER 2021-07-04 16:59 | Observation (INO) | payer OTHER ==
[2021-07-04] MEDS ORDERED: Zofran 4 MG/2 ML VIAL IV ONE ×2 (17:20→23:54)
[2021-07-04] MEDS ORDERED: MORPHINE SULFATE 4 MG INJ IV ONE ×2 (17:20→23:54)
[2021-07-04 17:28] LABS: Absolute Neutrophil Ct (ANC) 4.03 (1.4-6.9); BASOPHIL % 0.2 % (0.0-0.4); Basophil (Absolute #) 0.01 (0-0.4); Eosinophil % 1.4 % (0.00-5.0); Eosinophil (Absolute #) 0.08 (0-0.5); Hematocrit 31.8 % (42-50); Hemoglobin 9.4 gm/dl (12.5-18.0); Lymphocyte (Absolute #) 0.96 (1.0-4.6); Lymphocytes % 16.8 % (24.0-44.0); Mean Cell Volume 87.8 fl (78-100); Mean Corpuscular Hgb Concent. 29.6 g/dl (32-36); Mean Platelet Volume 10.4 fl (7.5-11.0); Monocyte (Absolute #) 0.64 (0.0-1.3); Monocytes % 11.2 % (0.0-12.0); Neutrophil % 70.4 % (36.0-66.0); Platelet Count 348 K/mm3 (150-450); Red Blood Count 3.62 M/mm3 (4.1-5.6); Red Cell Distribution Width 18.1 % (11.5-14.0); White Blood Count 5.7 K/mm3 (4.0-10.5)
[2021-07-04] MEDS ORDERED: MORPHINE SULFATE 4 MG INJ ONE (17:28)
[2021-07-04] MEDS ORDERED: Sodium Chloride 0.9% 1000 ML 1,000 ML ONE (17:28)
[2021-07-04] MEDS ORDERED: Zofran 4 MG/2 ML VIAL ONE (17:28)
[2021-07-04] MEDS ORDERED: Sodium Chloride 0.9% 1000 ML 1,000 ML IV SCH ×2 (17:30→23:54)
[2021-07-04 17:32] LABS: ALBUMIN 2.6 g/dL (3.5-5.0); ALKALINE PHOSPHATASE 75 U/L (38-126); AMYLASE 36 U/L (30-110); ANION GAP 11.9 MEQ/L (5-15); BLOOD UREA NITROGEN 11 mg/dL (9-20); CHLORIDE 109 mmol/L (98-107); Calcium 8.4 mg/dL (8.4-10.2); Carbon Dioxide 23 mmol/L (22-30); Creatinine 1 0.83 mg/dL (0.66-1.25); EST GLOMERULAR FILTRATION RATE > 60.0 ML/MIN; Glucose 105 mg/dL (74-106); LIPASE 38 U/L (23-300); Potassium 3.7 mmol/L (3.5-5.1); SGOT/AST 16 U/L (17-59); SGPT/ALT 7 U/L (0-50); SODIUM 140 mmol/L (137-145); Total Protein 5.1 g/dL (6.3-8.2)
[2021-07-04 17:39] LABS: INR 1.14 (0.8-3.0); PROTIME 13.5 SECONDS (9.4-12.5)
--- NOTE | 2021-07-04 18:10 | ERPHSYRPT ---
- History of Present Illness Historian: patient Exam Limitations: no limitations Patient Subjective Stated Complaint: Pt states "I have a small bowel blockage that was found at [facility] in may and they didn't do anything about it. Now I am having chest pain, it is burning pain." Triage Nursing Assessment: Pt presented alert and oriented X 3, skin pwd pt ambulates with a slow gait, holding abdomen. Pt in no apparent respiratory distress. Timing/Duration: week(s) (1) Activities at Onset: none Quality: cramping, stabbing Abdominal Pain Onset Location: generalized abdomen Pain Radiation: no radiation Severity of Pain-Max: severe Severity of Pain-Current: severe Modifying Factors: Improves With: nothing Associated Symptoms: diarrhea, nausea, vomiting Previous symptoms: same symptoms as today Hx Tetanus, Diphtheria Vaccination/Date Given: No Hx Influenza Vaccination/Date Given: No Hx Pneumococcal Vaccination/Date Given: No Immunizations Up to Date: Yes <EDILBERTO HOSKINS - Last Filed: 07/04/21 19:35> <KADE HAYDEN - Last Filed: 07/04/21 21:49> - History of Present Illness Time Seen by Provider: 07/04/21 17:15 Physician History: Patient is a 61-year-old white male who presents with a complaint of lower abdominal pain similar to a bowel obstruction which he suffered in May of this year. He was treated in [place] but was not subjected to any surgery. He has had nausea vomiting and some diarrhea but lots of gas and bowel sounds which are loud and then rushes. His only previous surgery to the abdomen was u mbilical hernia repair. He also complains of some chest pain which is significant in that he has had 3 MIs and has 16 stents. He has used aspirin and nitroglycerin without relief. He has been short of breath he has had some diaphoresis and he has had some nausea and vomiting. He has no history of any type of coronary artery bypass grafting. (EDILBERTO HOSKINS) Allergies/Adverse Reactions: No Known Drug Allergies Allergy (Verified 05/17/21 17:57) Home Medications: Albuterol 2.5 mg/3 ml Neb [Proventil 2.5 mg/3 ml Neb] 2.5 mg IH Q4HPRN PRN 06/20/19 [History] Albuterol Sulfate [Proair Hfa] 1 inh IH QIDPRN PRN 06/20/19 [History] Atorvastatin Calcium [Lipitor] 80 mg PO DAILY 06/20/19 [History] Metoprolol Tartrate 50 mg [Lopressor 50 MG] 50 mg PO DAILY 06/20/19 [History] Tiotropium Br/Olodaterol HCl [Stiolto Respimat Inhal Sparkman] 1 inh IH DAILY 06/20/19 [History] Aspirin EC 81 mg [Ecotrin 81 mg] 81 mg PO DAILY 09/17/20 [History] PANTOPRAZOLE 40 mg Tablet [Protonix 40MG Tablet] 40 mg PO DAILY 05/07/21 [History] Polyethylene Glycol 3350 17 gm [Miralax Powder 17GM PACKET] 17 gm PO DAILY 05/07/21 [History] Ticagrelor [Brilinta] 90 mg BID 05/07/21 [History] Sucralfate 1 gm [Carafate 1 GM] 1 ea PO QID 05/17/21 [History] Potassium Chloride 10 Meq Tab* [Klor Con 10 MEQ] 20 meq PO DAILY 05/18/21 [History] Travel Risk - International Travel Have you traveled outside of the country in past 3 weeks: No - Coronavirus Screening Are you exhibiting any of the following symptoms?: No Close contact with a COVID-19 positive Pt in past 14-21 Days: No - Vaccine Status Have you recieved a Covid-19 vaccination: No <EDILBERTO HOSKINS - Last Filed: 07/04/21 19:35> - Review of Systems Constitutional: Lethargy, No Fever, No Chills Eyes: No Symptoms Ears, Nose, & Throat: No Symptoms Respiratory: Dyspnea, Dyspnea on Exertion (FOX), No Cough Cardiac: Chest Pain, No Edema, No Syncope Abdominal/Gastrointestinal: Abdominal Pain, Nausea, Vomiting, Diarrhea Genitourinary Symptoms: No Dysuria Musculoskeletal: No Back Pain, No Neck Pain Skin: No Symptoms, No Rash Neurological: No Dizziness, No Focal Weakness, No Sensory Changes Psychological: No Symptoms Endocrine: No Symptoms Hematologic/Lymphatic: No Symptoms Immunological/Allergic: No Symptoms All Other Systems: Reviewed and Negative <EDILBERTO HOSKINS - Last Filed: 07/04/21 19:35> - Past Medical History Pertinent Past Medical History: Yes Neurological History: Stroke ENT History: No Pertinent History Cardiac History: Angina, Congestive Heart Failure, Coronary Artery Disease, High Cholesterol, Hypertension, Myocardial Infarction ([place]) Respiratory History: Bronchitis, COPD Endocrine Medical History: No Pertinent History Musculoskeletal History: No Pertinent History GI Medical History: Hernia, Ulcer History: No Pertinent History Psycho-Social History: Depression Male Reproductive Disorders: No Pertinent History Other Medical History: Patient had a blood transfusion in April 2020 for a HGB of 6. - Past Surgical History Past Surgical History: Yes Neuro Surgical History: No Pertinent History Cardiac: Cardiac Catheterization, Cardiac Stent, Vascular Surgery Respiratory: No Pertinent History Gastrointestinal: Hernia Repair Genitourinary: No Pertinent History Musculoskeletal: No Pertinent History Male Surgical History: No Pertinent History Other Surgical History: LEFT CAROTID SURGERY NOVEMBER 2018 - Social History Smoking Status: Current some day smoker How long have you smoked: 45 Exposure to second hand smoke: Yes Drug Use: none Patient Lives Alone: No <EDILBERTO HOSKINS - Last Filed: 07/04/21 19:35> - Physical Exam General Appearance: moderate distress, alert Eye Exam: eyes nml inspection, other (Pupils are equal round react to light and accommodation however she does not track past the midline to the right) Ears, Nose, Throat Exam: normal ENT inspection, pharynx normal, moist mucous membranes Neck Exam: normal inspection, non-tender, supple, full range of motion Respiratory Exam: normal breath sounds, lungs clear, No respiratory distress Cardiovascular Exam: regular rate/rhythm, normal heart sounds, tachycardia Gastrointestinal/Abdomen Exam: tenderness (Generalized tenderness but especially in the lower abdomen), distention, guarding, other ([place] in rushes), No normal bowel sounds, No mass Rectal Exam: deferred Back Exam: normal inspection, normal range of motion, No CVA tenderness, No vertebral tenderness Extremity Exam: normal inspection, normal range of motion, pelvis stable Neurologic Exam: other (She is basically aphasic she does not follow directions she is inattentive to the right side and she has weakness right upper and lower extremities), No motor deficits Skin Exam: normal color, warm, dry SpO2 Interpretation: normal SpO2: 97 O2 Delivery: Room Air <EDILBERTO HOSKINS - Last Filed: 07/04/21 19:35> - Nursing Vital Signs Nursing Vital Signs: Initial Vital Signs Temperature 97.6 F 07/04/21 17:00 Pulse Rate 100 H 07/04/21 17:00 Respiratory Rate 24 07/04/21 17:00 Blood Pressure 100/66 07/04/21 17:00 O2 Sat by Pulse Oximetry 97 07/04/21 17:00 Pain Scale Pain Intensity 5 - Course Nursing assessment & vital signs reviewed: Yes EKG Interpreted by Me: RATE (100), NORMAL AXIS, NORMAL INTERVALS, Non-specific ST Changes <EDILBERTO HOSKINS - Last Filed: 07/04/21 19:35> Ordered Tests: Active Orders 24 hr Category Date Time Status EKG-ER Only STAT Care 07/04/21 17:20 Active IV Insertion STAT Care 07/04/21 17:20 Active ABDOMEN AND PELVIS W CONTRAST [CT] Stat Exams 07/04/21 17:21 Completed CHEST 1 VIEW (PORTABLE) Stat Exams 07/04/21 17:21 Completed AMYLASE Stat Lab 07/04/21 17:20 Completed CBC W DIFF Stat Lab 07/04/21 17:20 Completed CMP Stat Lab 07/04/21 17:20 Completed D-DIMER QUANTITATIVE Stat Lab 07/04/21 17:13 Completed LIPASE Stat Lab 07/04/21 17:20 Completed Lactic Acid Stat Lab 07/04/21 17:20 Completed NT PRO BNP Stat Lab 07/04/21 17:13 Completed PROTIME WITH INR Stat Lab 07/04/21 17:20 Completed TROPONIN Q3H Lab 07/04/21 17:40 Completed TROPONIN Q3H Lab 07/04/21 20:45 Completed TROPONIN Q3H Lab 07/04/21 23:30 Ordered TROPONIN Q3H Lab 07/05/21 02:30 Ordered TROPONIN Q3H Lab 07/05/21 05:30 Ordered UA W/RFX UR CULTURE Stat Lab 07/04/21 20:42 Completed Transfer Order Routine Transfer 07/04/21 Ordered Medication Summary Generic Name Dose Route Start Last Admin Trade Name Freq PRN Reason Stop Dose Admin Sodium Chloride 1,000 mls @ 100 mls/hr 07/04/21 17:30 07/04/21 17:31 Sodium Chloride 0.9% 1000 Ml IV 08/03/21 17:29 100 mls/hr .Q10H KIRBY Administration Discontinued Medications Generic Name Dose Route Start Last Admin Trade Name Freq PRN Reason Stop Dose Admin Hydromorphone HCl 1 mg 07/04/21 20:40 07/04/21 20:45 Hydromorphone 1 Mg/Ml Injection IV 07/04/21 20:41 1 mg STAT ONE Administration Hydromorphone HCl Confirm 07/04/21 20:44 Hydromorphone 1 Mg/Ml Injection Administered 07/04/21 20:45 Dose 1 mg .ROUTE .STK-MED ONE Morphine Sulfate 4 mg 07/04/21 17:20 07/04/21 17:30 Morphine Sulfate 4 Mg Inj IV 07/04/21 17:21 4 mg STAT ONE Administration Morphine Sulfate Confirm 07/04/21 17:28 Morphine Sulfate 4 Mg Inj Administered 07/04/21 17:29 Dose 4 mg .ROUTE .STK-MED ONE Ondansetron HCl 4 mg 07/04/21 17:20 07/04/21 17:30 Zofran 4 Mg/2 Ml Vial IV 07/04/21 17:21 4 mg STAT ONE Administration Ondansetron HCl Confirm 07/04/21 17:28 Zofran 4 Mg/2 Ml Vial Administered 07/04/21 17:29 Dose 4 mg .ROUTE .STK-MED ONE Lab/Rad Data: Laboratory Result Diagrams 07/04/21 17:20 07/04/21 17:20 Laboratory Results 07/04/21 07/04/21 07/04/21 Range/Units 20:45 20:42 17:40 WBC (4.0-10.5) K/mm3 RBC (4.1-5.6) M/mm3 Hgb (12.5-18.0) gm/dl Hct (42-50) % MCV (78-100) fl MCH (26-32) pg MCHC (32-36) g/dl RDW (11.5-14.0) % Plt Count (150-450) K/mm3 MPV (7.5-11.0) fl Gran % (36.0-66.0) % Eos # (Auto) (0-0.5) Absolute Lymphs (auto) (1.0-4.6) Absolute Monos (auto) (0.0-1.3) Lymphocytes % (24.0-44.0) % Monocytes % (0.0-12.0) % Eosinophils % (0.00-5.0) % Basophils % (0.0-0.4) % Absolute Granulocytes (1.4-6.9) Basophils # (0-0.4) PT (9.4-12.5) SECONDS INR (0.8-3.0) D-Dimer (215-500) ng/mL Sodium (137-145) mmol/L Potassium (3.5-5.1) mmol/L Chloride (98-107) mmol/L Carbon Dioxide (22-30) mmol/L Anion Gap (5-15) MEQ/L BUN (9-20) mg/dL Creatinine (0.66-1.25) mg/dL Estimated GFR ML/MIN Glucose (74-106) mg/dL Lactic Acid (0.4-2.0) Calcium (8.4-10.2) mg/dL Total Bilirubin (0.2-1.3) mg/dL AST (17-59) U/L ALT (0-50) U/L Alkaline Phosphatase (38-126) U/L Troponin I 0.017 0.014 (0.000-0.034) ng/mL NT-Pro-B Natriuret Pep (0-900) pg/mL Serum Total Protein (6.3-8.2) g/dL Albumin (3.5-5.0) g/dL Amylase (30-110) U/L Lipase (23-300) U/L Urine Color YELLOW (YELLOW) Urine Appearance CLEAR (CLEAR) Urine pH 5.0 (5-6) Ur Specific [place] 1.030 (1.005-1.025) Urine Protein NEGATIVE (Negative) Urine Ketones NEGATIVE (NEGATIVE) Urine Blood NEGATIVE (0-5) Stuart/ul Urine Nitrite NEGATIVE (NEGATIVE) Urine Bilirubin NEGATIVE (NEGATIVE) Urine Urobilinogen NEGATIVE (0-1) mg/dL Ur Leukocyte Esterase NEGATIVE (NEGATIVE) Urine WBC (Auto) 0-2 (0-5) /HPF Urine RBC (Auto) NONE (0-2) /HPF U Epithel Cells (Auto) NONE (FEW) /HPF Urine Bacteria (Auto) NONE (NEGATIVE) /HPF Urine Mucus (Auto) SLIGHT (NEGATIVE) /HPF Urine Culture Reflexed NO (NO) Urine Glucose NEGATIVE (NEGATIVE) mg/dL 07/04/21 07/04/21 07/04/21 Range/Units 17:20 17:20 17:20 WBC (4.0-10.5) K/mm3 RBC (4.1-5.6) M/mm3 Hgb (12.5-18.0) gm/dl Hct (42-50) % MCV (78-100) fl MCH (26-32) pg MCHC (32-36) g/dl RDW (11.5-14.0) % Plt Count (150-450) K/mm3 MPV (7.5-11.0) fl Gran % (36.0-66.0) % Eos # (Auto) (0-0.5) Absolute Lymphs (auto) (1.0-4.6) Absolute Monos (auto) (0.0-1.3) Lymphocytes % (24.0-44.0) % Monocytes % (0.0-12.0) % Eosinophils % (0.00-5.0) % Basophils % (0.0-0.4) % Absolute Granulocytes (1.4-6.9) Basophils # (0-0.4) PT 13.5 H (9.4-12.5) SECONDS INR 1.14 (0.8-3.0) D-Dimer (215-500) ng/mL Sodium 140 (137-145) mmol/L Potassium 3.7 (3.5-5.1) mmol/L Chloride 109 H (98-107) mmol/L Carbon Dioxide 23 (22-30) mmol/L Anion Gap 11.9 (5-15) MEQ/L BUN 11 (9-20) mg/dL Creatinine 0.83 (0.66-1.25) mg/dL Estimated GFR > 60.0 ML/MIN Glucose 105 (74-106) mg/dL Lactic Acid 1.9 (0.4-2.0) Calcium 8.4 (8.4-10.2) mg/dL Total Bilirubin 0.50 (0.2-1.3) mg/dL AST 16 L (17-59) U/L ALT 7 (0-50) U/L Alkaline Phosphatase 75 (38-126) U/L Troponin I (0.000-0.034) ng/mL NT-Pro-B Natriuret Pep (0-900) pg/mL Serum Total Protein 5.1 L (6.3-8.2) g/dL Albumin 2.6 L (3.5-5.0) g/dL Amylase 36 (30-110) U/L Lipase 38 (23-300) U/L Urine Color (YELLOW) Urine Appearance (CLEAR) Urine pH (5-6) Ur Specific [place] (1.005-1.025) Urine Protein (Negative) Urine Ketones (NEGATIVE) Urine Blood (0-5) Stuart/ul Urine Nitrite (NEGATIVE) Urine Bilirubin (NEGATIVE) Urine Urobilinogen (0-1) mg/dL Ur Leukocyte Esterase (NEGATIVE) Urine WBC (Auto) (0-5) /HPF Urine RBC (Auto) (0-2) /HPF U Epithel Cells (Auto) (FEW) /HPF Urine Bacteria (Auto) (NEGATIVE) /HPF Urine Mucus (Auto) (NEGATIVE) /HPF Urine Culture Reflexed (NO) Urine Glucose (NEGATIVE) mg/dL 07/04/21 07/04/21 07/04/21 Range/Units 17:20 17:13 17:13 WBC 5.7 (4.0-10.5) K/mm3 RBC 3.62 L (4.1-5.6) M/mm3 Hgb 9.4 L (12.5-18.0) gm/dl Hct 31.8 L (42-50) % MCV 87.8 (78-100) fl MCH 26.0 (26-32) pg MCHC 29.6 L (32-36) g/dl RDW 18.1 H (11.5-14.0) % Plt Count 348 (150-450) K/mm3 MPV 10.4 (7.5-11.0) fl Gran % 70.4 H (36.0-66.0) % Eos # (Auto) 0.08 (0-0.5) Absolute Lymphs (auto) 0.96 L (1.0-4.6) Absolute Monos (auto) 0.64 (0.0-1.3) Lymphocytes % 16.8 L (24.0-44.0) % Monocytes % 11.2 (0.0-12.0) % Eosinophils % 1.4 (0.00-5.0) % Basophils % 0.2 (0.0-0.4) % Absolute Granulocytes 4.03 (1.4-6.9) Basophils # 0.01 (0-0.4) PT (9.4-12.5) SECONDS INR (0.8-3.0) D-Dimer 816 H* (215-500) ng/mL Sodium (137-145) mmol/L Potassium (3.5-5.1) mmol/L Chloride (98-107) mmol/L Carbon Dioxide (22-30) mmol/L Anion Gap (5-15) MEQ/L BUN (9-20) mg/dL Creatinine (0.66-1.25) mg/dL Estimated GFR ML/MIN Glucose (74-106) mg/dL Lactic Acid (0.4-2.0) Calcium (8.4-10.2) mg/dL Total Bilirubin (0.2-1.3) mg/dL AST (17-59) U/L ALT (0-50) U/L Alkaline Phosphatase (38-126) U/L Troponin I (0.000-0.034) ng/mL NT-Pro-B Natriuret Pep 1990 H (0-900) pg/mL Serum Total Protein (6.3-8.2) g/dL Albumin (3.5-5.0) g/dL Amylase (30-110) U/L Lipase (23-300) U/L Urine Color (YELLOW) Urine Appearance (CLEAR) Urine pH (5-6) Ur Specific [place] (1.005-1.025) Urine Protein (Negative) Urine Ketones (NEGATIVE) Urine Blood (0-5) Stuart/ul Urine Nitrite (NEGATIVE) Urine Bilirubin (NEGATIVE) Urine Urobilinogen (0-1) mg/dL Ur Leukocyte Esterase (NEGATIVE) Urine WBC (Auto) (0-5) /HPF Urine RBC (Auto) (0-2) /HPF U Epithel Cells (Auto) (FEW) /HPF Urine Bacteria (Auto) (NEGATIVE) /HPF Urine Mucus (Auto) (NEGATIVE) /HPF Urine Culture Reflexed (NO) Urine Glucose (NEGATIVE) mg/dL - Progress Progress: improved, pain not gone completely, re-examined Discussed with : Mikki Counseled pt/family regarding: lab results, diagnosis, rad results <KADE HAYDEN - Last Filed: 07/04/21 21:49> - Progress Progress Note: 07/04/21 21:33 CAT scan of the abdomen pelvis with contrast shows recurrent partial small bowel obstruction again with transition point in the right lower quadrant. Chest x-ray shows nonacute chest with chronic features. Medical decision making: The patient prefers to stay at this hospital if possible. He has a recurrent partial small bowel obstruction. Patient has had similar episodes in the past. Each of which has been dealt with nonoperatively. I spoke with Dr. Wells who is on-call for the hospital and I reviewed the patient history, condition, physical findings, laboratory report, and radiographic study results. He accepts the patient for admission. We will obtain a surgical consultation, we will make the patient n.p.o., provide intravenous fluids, intravenous pain medication, and antiemetics. 07/04/21 21:38 Reexamined of the patient at the time of discussion of the above with the patient, the patient denies chest pain. He denies shortness of breath. (KADE HAYDEN) <EDILBERTO HOSKINS - Last Filed: 07/04/21 19:35> - Departure Departure Disposition: In-patient Admission Critical Care Time: No <KADE HAYDEN - Last Filed: 07/04/21 21:49> - Departure Clinical Impression: Partial small bowel obstruction Condition: Stable Referrals: GABRIEL MEEKS [Primary Care Provider] -
[2021-07-04] MEDS ORDERED: Hydromorphone 1 mg/ml Injection IV ONE (20:40)
[2021-07-04] MEDS ORDERED: Hydromorphone 1 mg/ml Injection ONE (20:44)
[2021-07-04 21:03] LABS: Appearance CLEAR (CLEAR); Bilirubin NEGATIVE (NEGATIVE); Blood NEGATIVE Ery/ul (0-5); Glucose NEGATIVE (NEGATIVE); Ketones NEGATIVE (NEGATIVE); Leukocyte Esterase NEGATIVE (NEGATIVE); Mucus SLIGHT /HPF (NEGATIVE); Nitrite NEGATIVE (NEGATIVE); Protein,Urine Dip NEGATIVE (Negative); Urobilinogen NEGATIVE mg/dL (0-1); WBC 0-2 /HPF (0-5)
--- NOTE | 2021-07-04 21:08 | XRAY ---
Indication: Abdomen pain 1 week. Multiple contiguous axial images obtained through the abdomen and pelvis using 80 cc Isovue 370 contrast. Comparison: May 17, 2021. Lung bases demonstrates minimal dependent atelectasis. No infiltrate or effusion. Stable left costophrenic angle and left infrahilar calcified granulomas. Heart not enlarged. Noncontrasted stomach unremarkable. Normal appendix. Small bowel loops are again mildly fluid distended with fluid leveling. Maximum bowel dilatation is 4 cm with again transition point right lower quadrant. More distal small bowel loops decompressed with normal colonic bowel gas. Findings again favor partial distal small bowel obstruction. Pelvis demonstrates new tiny free fluid presumed reactive. No free air. There remains minimal scattered colonic diverticulosis. Remaining liver, gallbladder, pancreas, spleen, adrenal glands, kidneys, ureters, and bladder appear unremarkable. There remains mild scattered aortoiliac calcifications without AAA. Impression: 1. Recurrent partial small bowel obstruction again with transition point right lower quadrant. New tiny pelvic free fluid presumed reactive. 2. Again incidental colonic diverticulosis and old granulomatous disease.
--- NOTE | 2021-07-04 21:10 | XRAY ---
Indication: Chest pain. Comparison: May 19, 2021. Portable apical lordotic chest again hyperinflated with tiny left base calcified granuloma. No focal infiltrate, consolidation, or large effusion. Heart not enlarged for AP portable technique. Bony thorax intact again with mild degenerative changes. Impression: Nonacute chest with chronic features.
[2021-07-04] MEDS ORDERED: FEVERALL 650 MG PR PRN (23:54)
[2021-07-05] MEDS: Sodium Chloride 0.9% 1000 ML 1,000 ML IV SCH ×2 (01:03→14:46)
[2021-07-05] MEDS: Hydromorphone 1 mg/ml Injection IV PRN ×5 (04:45→23:10)
[2021-07-05] MEDS ORDERED: VENTOLIN COMMON CANISTER IH PRN (05:13)
[2021-07-05] MEDS: Zofran 4 MG/2 ML VIAL IV PRN ×3 (06:04→19:29)
[2021-07-05 06:36] LABS: Absolute Neutrophil Ct (ANC) 2.64 (1.4-6.9); BASOPHIL % 0.4 % (0.0-0.4); Basophil (Absolute #) 0.02 (0-0.4); Eosinophil % 2.3 % (0.00-5.0); Eosinophil (Absolute #) 0.11 (0-0.5); Hematocrit 29.4 % (42-50); Hemoglobin 8.5 gm/dl (12.5-18.0); Lymphocyte (Absolute #) 1.26 (1.0-4.6); Lymphocytes % 26.7 % (24.0-44.0); Mean Cell Volume 88.8 fl (78-100); Mean Corpuscular Hemoglobin 25.7 pg (26-32); Mean Corpuscular Hgb Concent. 28.9 g/dl (32-36); Mean Platelet Volume 10.4 fl (7.5-11.0); Monocyte (Absolute #) 0.69 (0.0-1.3); Monocytes % 14.6 % (0.0-12.0); Platelet Count 294 K/mm3 (150-450); Red Blood Count 3.31 M/mm3 (4.1-5.6); White Blood Count 4.7 K/mm3 (4.0-10.5)
[2021-07-05 06:50] LABS: ALBUMIN 2.1 g/dL (3.5-5.0); ALKALINE PHOSPHATASE 62 U/L (38-126); ANION GAP 9.8 MEQ/L (5-15); BLOOD UREA NITROGEN 10 mg/dL (9-20); CHLORIDE 111 mmol/L (98-107); Calcium 7.9 mg/dL (8.4-10.2); Carbon Dioxide 24 mmol/L (22-30); Creatinine 1 0.74 mg/dL (0.66-1.25); EST GLOMERULAR FILTRATION RATE > 60.0 ML/MIN; Glucose 82 mg/dL (74-106); Potassium 3.8 mmol/L (3.5-5.1); SGOT/AST 15 U/L (17-59); SODIUM 141 mmol/L (137-145); Total Protein 4.3 g/dL (6.3-8.2)
[2021-07-05 06:51] LABS: SGPT/ALT 5 U/L (0-50)
[2021-07-05] MEDS ORDERED: PROVENTIL 2.5 MG/3 ML NEB IH ONE (07:23)
[2021-07-05] MEDS: PROVENTIL 2.5 MG/3 ML NEB IH PRN ×2 (07:27→12:59)
[2021-07-05] MEDS: Advair Hfa 230/21 Mcg COMMON CANISTER IH SCH ×2 (07:27→20:01)
[2021-07-05 09:12] LABS: Slide Review 1 YES
--- NOTE | 2021-07-05 10:21 | PCM.HP ---
History of Present Illness - Chief Complaint Chief Complaint: Partial small bowel obstruction History of Present Illness: is a 61 year old male who reported to the ER with abdominal pain, nausea and dry heaves with poor po intake. He has a history of recurrent SBO and was admitted to [place] last month. He has not had any intervention and states he was recommended no surgery due to his cardiac status and history of [place]. - Review of Systems Constitutional: No Fever, No Chills Respiratory: No Cough, No Short Of Breath Cardiac: Chest Pain Abdominal/Gastrointestinal: Abdominal Pain, Nausea, No Diarrhea, No Constipation Genitourinary Symptoms: No Dysuria Skin: No Rash All Other Systems: Reviewed and Negative Medications & Allergies Home Medications: Home Medication List Albuterol 2.5 mg/3 ml Neb [Proventil 2.5 mg/3 ml Neb] 2.5 mg IH Q4HPRN PRN 06/20/19 [History Confirmed 07/04/21] Albuterol Sulfate [Proair Hfa] 1 inh IH QIDPRN PRN 06/20/19 [History Confirmed 07/04/21] Metoprolol Tartrate 50 mg [Lopressor 50 MG] 50 mg PO BID 06/20/19 [History Confirmed 07/05/21] Tiotropium Br/Olodaterol HCl [Stiolto Respimat Inhal [place]] 1 inh IH DAILY 06/20/19 [History Confirmed 07/04/21] Aspirin EC 81 mg [Ecotrin 81 mg] 81 mg PO DAILY 09/17/20 [History Confirmed 07/04/21] PANTOPRAZOLE 40 mg Tablet [Protonix 40MG Tablet] 40 mg PO BID 05/07/21 [History Confirmed 07/05/21] Polyethylene Glycol 3350 17 gm [Miralax Powder 17GM PACKET] 17 gm PO DAILY 05/07/21 [History Confirmed 07/04/21] Ticagrelor [Brilinta] 90 mg BID 05/07/21 [History Confirmed 07/04/21] Sucralfate 1 gm [Carafate 1 GM] 1 ea PO QID 05/17/21 [History Confirmed 07/04/21] Potassium Chloride 10 Meq Tab* [Klor Con 10 MEQ] 20 meq PO DAILY 05/18/21 [History Confirmed 07/04/21] Isosorbide Mononitrate 30 mg [Imdur 30 MG] 30 mg PO BID 07/05/21 [History Confirmed 07/05/21] Nitroglycerin [Nitroglycerin Patch] 1 each TD DAILY 07/05/21 [History Confirmed 07/05/21] Allergies/Adverse Reactions: Allergies Allergy/AdvReac Type Severity Reaction Status Date / Time No Known Drug Allergies Allergy Verified 05/17/21 17:57 - Past Medical History Past Medical History: Yes Neurological History: Stroke ENT History: No Pertinent History Cardiac History: Angina, Congestive Heart Failure, Coronary Artery Disease, Deep Vein Thrombosis, High Cholesterol, Hypertension, Myocardial Infarction ([place]) Respiratory History: Bronchitis, COPD Endocrine Medical History: No Pertinent History Musculoskelatal History: No Pertinent History GI Medical History: Hernia, Ulcer History: No Pertinent History Pyscho-Social History: Depression Male Reproductive Disorders: No Pertinent History Comment: Patient had a blood transfusion in May 2021 and April 2020 for a HGB of 6. - Past Surgical History Past Surgical History: Yes Neuro Surgical History: No Pertinent History Cardiac History: Cardiac Catheterization, Cardiac Stent, Vascular Surgery Respiratory Surgery: No Pertinent History GI Surgical History: Hernia Repair Genitourinary Surgical Hx: No Pertinent History Musculskeletal Surgical Hx: No Pertinent History Male Surgical History: No Pertinent History Other Surgical History: LEFT CAROTID SURGERY NOVEMBER 2018 - Social History Smoking Status: Current every day smoker How long have you smoked: 50 yrs Exposure to second hand smoke: Yes Alcohol: None Drug Use: none - Physical Exam Vital Signs: Vital Signs - 24 hr Temp Pulse Pulse Resp BP Pulse Ox 07/05/21 08:00 98.3 F 85 18 110/58 96 07/05/21 07:31 89 18 95 07/05/21 05:37 79 16 95 07/05/21 04:05 98.3 F 78 16 100/61 96 07/05/21 00:00 98.0 F 89 20 128/74 95 07/04/21 23:54 95 07/04/21 23:07 82 18 101/62 93 L 07/04/21 22:05 77 17 92/69 92 L 07/04/21 21:10 81 17 116/73 92 L 07/04/21 20:24 79 112/77 95 07/04/21 19:35 97 07/04/21 19:23 81 19 102/68 97 07/04/21 17:00 97.6 F 104 H 100 H 24 100/66 97 General Appearance: no apparent distress, alert Neurologic Exam: alert, oriented x 3 Respiratory Exam: normal breath sounds, lungs clear, No respiratory distress Cardiovascular Exam: regular rate/rhythm, normal heart sounds, normal peripheral pulses Gastrointestinal/Abdomen Exam: soft, tenderness, distention, No normal bowel sounds, No guarding, No rebound Extremity Exam: normal inspection, normal range of motion, pelvis stable Skin Exam: normal color, warm, dry, No rash Results - Labs Lab/Micro Results: Lab Results-Last 24 Hours 07/04/21 07/04/21 07/04/21 Range/Units 00:30 17:13 17:13 WBC (4.0-10.5) K/mm3 RBC (4.1-5.6) M/mm3 Hgb (12.5-18.0) gm/dl Hct (42-50) % MCV (78-100) fl MCH (26-32) pg MCHC (32-36) g/dl RDW (11.5-14.0) % Plt Count (150-450) K/mm3 MPV (7.5-11.0) fl Gran % (36.0-66.0) % Eos # (Auto) (0-0.5) Absolute Lymphs (auto) (1.0-4.6) Absolute Monos (auto) (0.0-1.3) Lymphocytes % (24.0-44.0) % Monocytes % (0.0-12.0) % Eosinophils % (0.00-5.0) % Basophils % (0.0-0.4) % Absolute Granulocytes (1.4-6.9) Basophils # (0-0.4) PT (9.4-12.5) SECONDS INR (0.8-3.0) D-Dimer 816 H* (215-500) ng/mL Sodium (137-145) mmol/L Potassium (3.5-5.1) mmol/L Chloride (98-107) mmol/L Carbon Dioxide (22-30) mmol/L Anion Gap (5-15) MEQ/L BUN (9-20) mg/dL Creatinine (0.66-1.25) mg/dL Estimated GFR ML/MIN Glucose (74-106) mg/dL Lactic Acid (0.4-2.0) Calcium (8.4-10.2) mg/dL Total Bilirubin (0.2-1.3) mg/dL AST (17-59) U/L ALT (0-50) U/L Alkaline Phosphatase (38-126) U/L Troponin I 0.022 (0.000-0.034) ng/mL NT-Pro-B Natriuret Pep 1990 H (0-900) pg/mL Serum Total Protein (6.3-8.2) g/dL Albumin (3.5-5.0) g/dL Amylase (30-110) U/L Lipase (23-300) U/L Urine Color (YELLOW) Urine Appearance (CLEAR) Urine pH (5-6) Ur Specific [place] (1.005-1.025) Urine Protein (Negative) Urine Ketones (NEGATIVE) Urine Blood (0-5) Stuart/ul Urine Nitrite (NEGATIVE) Urine Bilirubin (NEGATIVE) Urine Urobilinogen (0-1) mg/dL Ur Leukocyte Esterase (NEGATIVE) Urine WBC (Auto) (0-5) /HPF Urine RBC (Auto) (0-2) /HPF U Epithel Cells (Auto) (FEW) /HPF Urine Bacteria (Auto) (NEGATIVE) /HPF Urine Mucus (Auto) (NEGATIVE) /HPF Urine Culture Reflexed (NO) Urine Glucose (NEGATIVE) mg/dL SARS-CoV-2 (PCR) (NEGATIVE) Slides for Path Review 07/04/21 07/04/21 07/04/21 Range/Units 17:20 17:20 17:20 WBC 5.7 (4.0-10.5) K/mm3 RBC 3.62 L (4.1-5.6) M/mm3 Hgb 9.4 L (12.5-18.0) gm/dl Hct 31.8 L (42-50) % MCV 87.8 (78-100) fl MCH 26.0 (26-32) pg MCHC 29.6 L (32-36) g/dl RDW 18.1 H (11.5-14.0) % Plt Count 348 (150-450) K/mm3 MPV 10.4 (7.5-11.0) fl Gran % 70.4 H (36.0-66.0) % Eos # (Auto) 0.08 (0-0.5) Absolute Lymphs (auto) 0.96 L (1.0-4.6) Absolute Monos (auto) 0.64 (0.0-1.3) Lymphocytes % 16.8 L (24.0-44.0) % Monocytes % 11.2 (0.0-12.0) % Eosinophils % 1.4 (0.00-5.0) % Basophils % 0.2 (0.0-0.4) % Absolute Granulocytes 4.03 (1.4-6.9) Basophils # 0.01 (0-0.4) PT (9.4-12.5) SECONDS INR (0.8-3.0) D-Dimer (215-500) ng/mL Sodium 140 (137-145) mmol/L Potassium 3.7 (3.5-5.1) mmol/L Chloride 109 H (98-107) mmol/L Carbon Dioxide 23 (22-30) mmol/L Anion Gap 11.9 (5-15) MEQ/L BUN 11 (9-20) mg/dL Creatinine 0.83 (0.66-1.25) mg/dL Estimated GFR > 60.0 ML/MIN Glucose 105 (74-106) mg/dL Lactic Acid 1.9 (0.4-2.0) Calcium 8.4 (8.4-10.2) mg/dL Total Bilirubin 0.50 (0.2-1.3) mg/dL AST 16 L (17-59) U/L ALT 7 (0-50) U/L Alkaline Phosphatase 75 (38-126) U/L Troponin I (0.000-0.034) ng/mL NT-Pro-B Natriuret Pep (0-900) pg/mL Serum Total Protein 5.1 L (6.3-8.2) g/dL Albumin 2.6 L (3.5-5.0) g/dL Amylase 36 (30-110) U/L Lipase 38 (23-300) U/L Urine Color (YELLOW) Urine Appearance (CLEAR) Urine pH (5-6) Ur Specific [place] (1.005-1.025) Urine Protein (Negative) Urine Ketones (NEGATIVE) Urine Blood (0-5) Stuart/ul Urine Nitrite (NEGATIVE) Urine Bilirubin (NEGATIVE) Urine Urobilinogen (0-1) mg/dL Ur Leukocyte Esterase (NEGATIVE) Urine WBC (Auto) (0-5) /HPF Urine RBC (Auto) (0-2) /HPF U Epithel Cells (Auto) (FEW) /HPF Urine Bacteria (Auto) (NEGATIVE) /HPF Urine Mucus (Auto) (NEGATIVE) /HPF Urine Culture Reflexed (NO) Urine Glucose (NEGATIVE) mg/dL SARS-CoV-2 (PCR) (NEGATIVE) Slides for Path Review 07/04/21 07/04/21 07/04/21 Range/Units 17:20 17:40 20:42 WBC (4.0-10.5) K/mm3 RBC (4.1-5.6) M/mm3 Hgb (12.5-18.0) gm/dl Hct (42-50) % MCV (78-100) fl MCH (26-32) pg MCHC (32-36) g/dl RDW (11.5-14.0) % Plt Count (150-450) K/mm3 MPV (7.5-11.0) fl Gran % (36.0-66.0) % Eos # (Auto) (0-0.5) Absolute Lymphs (auto) (1.0-4.6) Absolute Monos (auto) (0.0-1.3) Lymphocytes % (24.0-44.0) % Monocytes % (0.0-12.0) % Eosinophils % (0.00-5.0) % Basophils % (0.0-0.4) % Absolute Granulocytes (1.4-6.9) Basophils # (0-0.4) PT 13.5 H (9.4-12.5) SECONDS INR 1.14 (0.8-3.0) D-Dimer (215-500) ng/mL Sodium (137-145) mmol/L Potassium (3.5-5.1) mmol/L Chloride (98-107) mmol/L Carbon Dioxide (22-30) mmol/L Anion Gap (5-15) MEQ/L BUN (9-20) mg/dL Creatinine (0.66-1.25) mg/dL Estimated GFR ML/MIN Glucose (74-106) mg/dL Lactic Acid (0.4-2.0) Calcium (8.4-10.2) mg/dL Total Bilirubin (0.2-1.3) mg/dL AST (17-59) U/L ALT (0-50) U/L Alkaline Phosphatase (38-126) U/L Troponin I 0.014 (0.000-0.034) ng/mL NT-Pro-B Natriuret Pep (0-900) pg/mL Serum Total Protein (6.3-8.2) g/dL Albumin (3.5-5.0) g/dL Amylase (30-110) U/L Lipase (23-300) U/L Urine Color YELLOW (YELLOW) Urine Appearance CLEAR (CLEAR) Urine pH 5.0 (5-6) Ur Specific [place] 1.030 (1.005-1.025) Urine Protein NEGATIVE (Negative) Urine Ketones NEGATIVE (NEGATIVE) Urine Blood NEGATIVE (0-5) Stuart/ul Urine Nitrite NEGATIVE (NEGATIVE) Urine Bilirubin NEGATIVE (NEGATIVE) Urine Urobilinogen NEGATIVE (0-1) mg/dL Ur Leukocyte Esterase NEGATIVE (NEGATIVE) Urine WBC (Auto) 0-2 (0-5) /HPF Urine RBC (Auto) NONE (0-2) /HPF U Epithel Cells (Auto) NONE (FEW) /HPF Urine Bacteria (Auto) NONE (NEGATIVE) /HPF Urine Mucus (Auto) SLIGHT (NEGATIVE) /HPF Urine Culture Reflexed NO (NO) Urine Glucose NEGATIVE (NEGATIVE) mg/dL SARS-CoV-2 (PCR) (NEGATIVE) Slides for Path Review 07/04/21 07/04/21 07/05/21 Range/Units 20:45 21:53 03:10 WBC (4.0-10.5) K/mm3 RBC (4.1-5.6) M/mm3 Hgb (12.5-18.0) gm/dl Hct (42-50) % MCV (78-100) fl MCH (26-32) pg MCHC (32-36) g/dl RDW (11.5-14.0) % Plt Count (150-450) K/mm3 MPV (7.5-11.0) fl Gran % (36.0-66.0) % Eos # (Auto) (0-0.5) Absolute Lymphs (auto) (1.0-4.6) Absolute Monos (auto) (0.0-1.3) Lymphocytes % (24.0-44.0) % Monocytes % (0.0-12.0) % Eosinophils % (0.00-5.0) % Basophils % (0.0-0.4) % Absolute Granulocytes (1.4-6.9) Basophils # (0-0.4) PT (9.4-12.5) SECONDS INR (0.8-3.0) D-Dimer (215-500) ng/mL Sodium (137-145) mmol/L Potassium (3.5-5.1) mmol/L Chloride (98-107) mmol/L Carbon Dioxide (22-30) mmol/L Anion Gap (5-15) MEQ/L BUN (9-20) mg/dL Creatinine (0.66-1.25) mg/dL Estimated GFR ML/MIN Glucose (74-106) mg/dL Lactic Acid (0.4-2.0) Calcium (8.4-10.2) mg/dL Total Bilirubin (0.2-1.3) mg/dL AST (17-59) U/L ALT (0-50) U/L Alkaline Phosphatase (38-126) U/L Troponin I 0.017 0.020 (0.000-0.034) ng/mL NT-Pro-B Natriuret Pep (0-900) pg/mL Serum Total Protein (6.3-8.2) g/dL Albumin (3.5-5.0) g/dL Amylase (30-110) U/L Lipase (23-300) U/L Urine Color (YELLOW) Urine Appearance (CLEAR) Urine pH (5-6) Ur Specific [place] (1.005-1.025) Urine Protein (Negative) Urine Ketones (NEGATIVE) Urine Blood (0-5) Stuart/ul Urine Nitrite (NEGATIVE) Urine Bilirubin (NEGATIVE) Urine Urobilinogen (0-1) mg/dL Ur Leukocyte Esterase (NEGATIVE) Urine WBC (Auto) (0-5) /HPF Urine RBC (Auto) (0-2) /HPF U Epithel Cells (Auto) (FEW) /HPF Urine Bacteria (Auto) (NEGATIVE) /HPF Urine Mucus (Auto) (NEGATIVE) /HPF Urine Culture Reflexed (NO) Urine Glucose (NEGATIVE) mg/dL SARS-CoV-2 (PCR) NEGATIVE (NEGATIVE) Slides for Path Review 07/05/21 07/05/21 07/05/21 Range/Units 05:30 05:30 05:30 WBC 4.7 (4.0-10.5) K/mm3 RBC 3.31 L (4.1-5.6) M/mm3 Hgb 8.5 L (12.5-18.0) gm/dl Hct 29.4 L (42-50) % MCV 88.8 (78-100) fl MCH 25.7 L (26-32) pg MCHC 28.9 L (32-36) g/dl RDW 18.0 H (11.5-14.0) % Plt Count 294 (150-450) K/mm3 MPV 10.4 (7.5-11.0) fl Gran % 56.0 (36.0-66.0) % Eos # (Auto) 0.11 (0-0.5) Absolute Lymphs (auto) 1.26 (1.0-4.6) Absolute Monos (auto) 0.69 (0.0-1.3) Lymphocytes % 26.7 (24.0-44.0) % Monocytes % 14.6 H (0.0-12.0) % Eosinophils % 2.3 (0.00-5.0) % Basophils % 0.4 (0.0-0.4) % Absolute Granulocytes 2.64 (1.4-6.9) Basophils # 0.02 (0-0.4) PT (9.4-12.5) SECONDS INR (0.8-3.0) D-Dimer (215-500) ng/mL Sodium 141 (137-145) mmol/L Potassium 3.8 (3.5-5.1) mmol/L Chloride 111 H (98-107) mmol/L Carbon Dioxide 24 (22-30) mmol/L Anion Gap 9.8 (5-15) MEQ/L BUN 10 (9-20) mg/dL Creatinine 0.74 (0.66-1.25) mg/dL Estimated GFR > 60.0 ML/MIN Glucose 82 (74-106) mg/dL Lactic Acid (0.4-2.0) Calcium 7.9 L (8.4-10.2) mg/dL Total Bilirubin 0.40 (0.2-1.3) mg/dL AST 15 L (17-59) U/L ALT 5 (0-50) U/L Alkaline Phosphatase 62 (38-126) U/L Troponin I 0.020 (0.000-0.034) ng/mL NT-Pro-B Natriuret Pep (0-900) pg/mL Serum Total Protein 4.3 L (6.3-8.2) g/dL Albumin 2.1 L (3.5-5.0) g/dL Amylase (30-110) U/L Lipase (23-300) U/L Urine Color (YELLOW) Urine Appearance (CLEAR) Urine pH (5-6) Ur Specific [place] (1.005-1.025) Urine Protein (Negative) Urine Ketones (NEGATIVE) Urine Blood (0-5) Stuart/ul Urine Nitrite (NEGATIVE) Urine Bilirubin (NEGATIVE) Urine Urobilinogen (0-1) mg/dL Ur Leukocyte Esterase (NEGATIVE) Urine WBC (Auto) (0-5) /HPF Urine RBC (Auto) (0-2) /HPF U Epithel Cells (Auto) (FEW) /HPF Urine Bacteria (Auto) (NEGATIVE) /HPF Urine Mucus (Auto) (NEGATIVE) /HPF Urine Culture Reflexed (NO) Urine Glucose (NEGATIVE) mg/dL SARS-CoV-2 (PCR) (NEGATIVE) Slides for Path Review YES - Radiology Impressions Radiology Exams & Impressions: Radiology Procedures Category Date Time Status ABDOMEN AND PELVIS W CONTRAST [CT] Stat Exams 07/04/21 17:21 Completed CHEST 1 VIEW (PORTABLE) Stat Exams 07/04/21 17:21 Completed - Other Procedures and Tests Respiratory Therapy 07/05/21 05:06 Oxygen Nasal Cannula 2 lpm 07/05/21 05:11 Respiratory Therapy Assessment DAILY Assessment/Plan (1) Partial small bowel obstruction Current Visit: Yes Status: Acute Assessment & Plan: surgery consulted, NPO at this time. Code(s): K56.600 - PARTIAL INTESTINAL OBSTRUCTION, UNSPECIFIED TO CAUSE (2) Coronary arteriosclerosis Current Visit: Yes Status: Acute Assessment & Plan: troponin is negative, BNP elevated but appears clear in chest on xray and no crackles on exam so symptoms seem GI and noncardiac
[2021-07-05] MEDS ORDERED: MEDICATION INTERVENTION MC SCH (13:15)
[2021-07-05] MEDS ORDERED: ECOTRIN 81 MG PO SCH (14:00)
[2021-07-05] MEDS ORDERED: Miralax Powder 17GM PACKET PO SCH (14:00)
[2021-07-05] MEDS ORDERED: NITRO-DUR 0.1MG/HR TD SCH (14:00)
[2021-07-05] MEDS ORDERED: Klor Con 10 MEQ PO SCH (14:00)
[2021-07-05] MEDS: BRILINTA PO SCH ×2 (14:36→23:11)
[2021-07-05] MEDS: Protonix 40MG Tablet PO SCH ×2 (14:36→23:12)
[2021-07-05] MEDS: Imdur 30 MG PO SCH ×2 (14:36→22:03)
[2021-07-05] MEDS: Lopressor 50 MG PO SCH ×2 (14:36→22:03)
[2021-07-05] MEDS: Carafate 1 GM PO SCH ×2 (17:50→23:11)
[2021-07-05] MEDS ORDERED: PROVENTIL 2.5 MG/3 ML NEB IH SCH (19:06)
[2021-07-05 20:07] VITALS: PULSE 74; O2SAT 98
--- NOTE | 2021-07-05 22:18 | PCM.DS ---
Discharge Summary Date of Admission: 07/04/21 23:53 Admitting Physician: GABRIEL MEEKS Consults: Consults on Case 07/04/21 23:54 Consult Surgery ROUTINE Primary Care Provider: GABRIEL MEEKS Allergies Allergies No Known Drug Allergies Allergy (Verified 05/17/21 17:57) Hospital Summary - Hospital Course Hospital Course: patient was admitted with partial SBO, abd pain and nausea. seen by surgery and plan to treat conservatively, this evening he developed substernal sharp and stabbing chest pain with diaphoresis. troponin was significantly elevated with no obvious new EKG changes. due to extensive cardiac history transferring to [place]. - Vitals & Intake/Output Vital Signs: Vital Signs Temperature 97.7 F 07/05/21 20:06 Pulse Rate 74 07/05/21 20:06 Respiratory Rate 18 07/05/21 20:06 Blood Pressure 86/47 07/05/21 20:06 O2 Sat by Pulse Oximetry 98 07/05/21 20:06 Intake & Output: Intake & Output 07/03/21 07/04/21 07/05/21 07/06/21 11:59 11:59 11:59 11:59 Intake Total 285 1093 Output Total 350 650 Balance -65 443 Weight 100.9 kg - Lab Result Diagrams: 07/05/21 05:30 07/05/21 05:30 Lab Results-Last 24 Hrs: Lab Results-Last 24 Hours 07/04/21 07/04/21 07/05/21 Range/Units 00:30 21:53 03:10 WBC (4.0-10.5) K/mm3 RBC (4.1-5.6) M/mm3 Hgb (12.5-18.0) gm/dl Hct (42-50) % MCV (78-100) fl MCH (26-32) pg MCHC (32-36) g/dl RDW (11.5-14.0) % Plt Count (150-450) K/mm3 MPV (7.5-11.0) fl Gran % (36.0-66.0) % Eos # (Auto) (0-0.5) Absolute Lymphs (auto) (1.0-4.6) Absolute Monos (auto) (0.0-1.3) Lymphocytes % (24.0-44.0) % Monocytes % (0.0-12.0) % Eosinophils % (0.00-5.0) % Basophils % (0.0-0.4) % Absolute Granulocytes (1.4-6.9) Basophils # (0-0.4) Sodium (137-145) mmol/L Potassium (3.5-5.1) mmol/L Chloride (98-107) mmol/L Carbon Dioxide (22-30) mmol/L Anion Gap (5-15) MEQ/L BUN (9-20) mg/dL Creatinine (0.66-1.25) mg/dL Estimated GFR ML/MIN Glucose (74-106) mg/dL Calcium (8.4-10.2) mg/dL Total Bilirubin (0.2-1.3) mg/dL AST (17-59) U/L ALT (0-50) U/L Alkaline Phosphatase (38-126) U/L Troponin I 0.022 0.020 (0.000-0.034) ng/mL Serum Total Protein (6.3-8.2) g/dL Albumin (3.5-5.0) g/dL SARS-CoV-2 (PCR) NEGATIVE (NEGATIVE) Slides for Path Review 07/05/21 07/05/21 07/05/21 Range/Units 05:30 05:30 05:30 WBC 4.7 (4.0-10.5) K/mm3 RBC 3.31 L (4.1-5.6) M/mm3 Hgb 8.5 L (12.5-18.0) gm/dl Hct 29.4 L (42-50) % MCV 88.8 (78-100) fl MCH 25.7 L (26-32) pg MCHC 28.9 L (32-36) g/dl RDW 18.0 H (11.5-14.0) % Plt Count 294 (150-450) K/mm3 MPV 10.4 (7.5-11.0) fl Gran % 56.0 (36.0-66.0) % Eos # (Auto) 0.11 (0-0.5) Absolute Lymphs (auto) 1.26 (1.0-4.6) Absolute Monos (auto) 0.69 (0.0-1.3) Lymphocytes % 26.7 (24.0-44.0) % Monocytes % 14.6 H (0.0-12.0) % Eosinophils % 2.3 (0.00-5.0) % Basophils % 0.4 (0.0-0.4) % Absolute Granulocytes 2.64 (1.4-6.9) Basophils # 0.02 (0-0.4) Sodium 141 (137-145) mmol/L Potassium 3.8 (3.5-5.1) mmol/L Chloride 111 H (98-107) mmol/L Carbon Dioxide 24 (22-30) mmol/L Anion Gap 9.8 (5-15) MEQ/L BUN 10 (9-20) mg/dL Creatinine 0.74 (0.66-1.25) mg/dL Estimated GFR > 60.0 ML/MIN Glucose 82 (74-106) mg/dL Calcium 7.9 L (8.4-10.2) mg/dL Total Bilirubin 0.40 (0.2-1.3) mg/dL AST 15 L (17-59) U/L ALT 5 (0-50) U/L Alkaline Phosphatase 62 (38-126) U/L Troponin I 0.020 (0.000-0.034) ng/mL Serum Total Protein 4.3 L (6.3-8.2) g/dL Albumin 2.1 L (3.5-5.0) g/dL SARS-CoV-2 (PCR) (NEGATIVE) Slides for Path Review YES 07/05/21 Range/Units 20:45 WBC (4.0-10.5) K/mm3 RBC (4.1-5.6) M/mm3 Hgb (12.5-18.0) gm/dl Hct (42-50) % MCV (78-100) fl MCH (26-32) pg MCHC (32-36) g/dl RDW (11.5-14.0) % Plt Count (150-450) K/mm3 MPV (7.5-11.0) fl Gran % (36.0-66.0) % Eos # (Auto) (0-0.5) Absolute Lymphs (auto) (1.0-4.6) Absolute Monos (auto) (0.0-1.3) Lymphocytes % (24.0-44.0) % Monocytes % (0.0-12.0) % Eosinophils % (0.00-5.0) % Basophils % (0.0-0.4) % Absolute Granulocytes (1.4-6.9) Basophils # (0-0.4) Sodium (137-145) mmol/L Potassium (3.5-5.1) mmol/L Chloride (98-107) mmol/L Carbon Dioxide (22-30) mmol/L Anion Gap (5-15) MEQ/L BUN (9-20) mg/dL Creatinine (0.66-1.25) mg/dL Estimated GFR ML/MIN Glucose (74-106) mg/dL Calcium (8.4-10.2) mg/dL Total Bilirubin (0.2-1.3) mg/dL AST (17-59) U/L ALT (0-50) U/L Alkaline Phosphatase (38-126) U/L Troponin I 0.333 H* (0.000-0.034) ng/mL Serum Total Protein (6.3-8.2) g/dL Albumin (3.5-5.0) g/dL SARS-CoV-2 (PCR) (NEGATIVE) Slides for Path Review - Radiology Exams Ordered Rad Exams-Entire Visit: Radiology Procedures Category Date Time Status ABDOMEN AND PELVIS W CONTRAST [CT] Stat Exams 07/04/21 17:21 Completed CHEST 1 VIEW (PORTABLE) Stat Exams 07/04/21 17:21 Completed SMALL BOWEL FOLLOWING UGI Routine Exams 07/06/21 08:00 Ordered UGI w/o AIR Routine Exams 07/06/21 08:00 Ordered - Procedures and Test Procedures and Tests throughout Hospitalization: Therapy Orders & Screens 07/05/21 00:38 RT Screen per Nursing Assess ONCE Comment: Protocol Order Physician Instructions: Greater than 3 points order RT Admission Screen Reason For Exam: Triggered on Admission Diagnosis: Partial small bowel obstruction Diagnosis: Partial small bowel obstruction Pneumonia: No Home O2: Yes Asthma: No CHF: No Home CPAP/BIPAP: No Home Nebs/MDI: Yes Total Points: 10 Smoking Cessation Education ONCE Comment: Diagnosis: Partial small bowel obstruction Smoking Status: Current every day smoker How long have you smoked: 50 yrs Have you smoked in the past 12 months: Yes Approximately how many cigarettes per day: 10-12 per day Do you dip or chew tobacco: No If,Former Smoker,when did you quit: 07/05/21 05:06 Oxygen Nasal Cannula 2 lpm Comment: Diagnosis: Partial small bowel obstruction 07/05/21 05:11 Respiratory Therapy Assessment DAILY Comment: Diagnosis: Partial small bowel obstruction 07/05/21 20:44 EKG ROUTINE Comment: Diagnosis: Partial small bowel obstruction Discharge Exam General Appearance: no apparent distress, alert Neurologic Exam: alert, oriented x 3, cooperative, normal mood/affect, nml cerebellar function, sensation nml, No motor deficits Respiratory Exam: normal breath sounds, lungs clear, No respiratory distress Cardiovascular Exam: regular rate/rhythm, normal heart sounds Gastrointestinal/Abdomen Exam: soft, No tenderness, No mass Extremity Exam: normal inspection, normal range of motion Skin Exam: normal color, warm, dry Final Diagnosis/Problem List - Final Discharge Diagnosis/Problem (1) Non-ST elevated myocardial infarction Current Visit: Yes Status: Acute Assessment & Plan: spoke with Dr Joann Anderson at [facility] and she agrees to accept patient in transfer to [facility], he needs cardiology consult and has been seen by Dr Toño Layton most recently. Code(s): I21.4 - NON-ST ELEVATION (NSTEMI) MYOCARDIAL INFARCTION (2) Partial small bowel obstruction Current Visit: Yes Status: Acute Code(s): K56.600 - PARTIAL INTESTINAL OBSTRUCTION, UNSPECIFIED TO CAUSE (3) Coronary arteriosclerosis Current Visit: Yes Status: Acute - Discharge Disposition: DC TO [facility] Condition: Stable Prescriptions: No Action Metoprolol Tartrate 50 mg [Lopressor 50 MG] 50 mg PO BID Tiotropium Br/Olodaterol HCl [Stiolto Respimat Inhal [place]] 1 inh IH DAILY Albuterol Sulfate [Proair Hfa] 1 inh IH QIDPRN PRN PRN Reason: Shortness Of Breath Albuterol 2.5 mg/3 ml Neb [Proventil 2.5 mg/3 ml Neb] 2.5 mg IH Q4HPRN PRN PRN Reason: Shortness Of Breath Aspirin EC 81 mg [Ecotrin 81 mg] 81 mg PO DAILY Polyethylene Glycol 3350 17 gm [Miralax Powder 17GM PACKET] 17 gm PO DAILY PANTOPRAZOLE 40 mg Tablet [Protonix 40MG Tablet] 40 mg PO BID Ticagrelor [Brilinta] 90 mg BID Sucralfate 1 gm [Carafate 1 GM] 1 ea PO QID Potassium Chloride 10 Meq Tab* [Klor Con 10 MEQ] 20 meq PO DAILY Isosorbide Mononitrate 30 mg [Imdur 30 MG] 30 mg PO BID Nitroglycerin [Nitroglycerin Patch] 1 each TD DAILY Follow up with: GABRIEL MEEKS [Primary Care Provider] -
[2021-07-05 23:00] VITALS: BP 107/64
--- NOTE | 2021-07-07 10:02 | CONS ---
CONSULT DATE: 07/05/2021 REASON FOR CONSULT: Bowel obstruction. HISTORY: The patient had been seen at [facility] by the [facility]. I personally have not seen the patient but three of our partners had. Apparently the patient had a near fatal code. I guess he was put into hypothermic treatment subsequently. He ended up at [facility] because of his cardiac status. He apparently had some heart stents there and then subsequently made it out of there. He said he has had mid abdominal pain ever since. At some point in May he had an upper scope and a lower scope and neither one of these were extremely remarkable. He is alert and oriented. He does not look like he is in severe distress. He is mildly distended. He said he has had some right lower quadrant pain. He has not had much in the way of surgical disorders. He had an umbilical hernia about seven or eight years ago. Scopes are as mentioned. IMPRESSION: I think he has had satisfactory recent examinations with EGD and satisfactory recent examination with colonoscopy. He has not had the small bowel checked. He could have partial small bowel obstruction. PLAN: We will get small bowel follow through on Wednesday.
== END 2021-07-05 23:50 | disposition short-term general hospital (02) ==
LOC: ED 16:59 → INTOOBSV 23:53 → MED SURG 23:53
PROVIDERS: ADMIT Family Medicine; ATTEND Family Medicine
DX: I21.4 Non-ST elevation (NSTEMI) myocardial infarction (principal); K56.600 Partial intestinal obstruction, unspecified as to cause; I25.10 Atherosclerotic heart disease of native coronary artery without angina pectoris; R11.2 Nausea with vomiting, unspecified; R06.02 Shortness of breath; Z79.899 Other long term (current) drug therapy; I10 Essential (primary) hypertension; Z20.822 Contact with and (suspected) exposure to COVID-19
CPT/HCPCS: 36000; 36415; 71045; 74177; 80053; 81001; 82150; 83605; 83690; 83880; 84484; 85025; 85379; 85610; 87040; 93005; 93268; 94640; 94760; 96374; 96375; 99285; G0378; U0003; J1170; J2270; J2405; J7609; A9270-GY

== ENCOUNTER 2021-07-21 14:42 | Emergency (ER) | payer OTHER ==
[2021-07-21 15:14] LABS: Absolute Neutrophil Ct (ANC) 8.65 (1.4-6.9); BASOPHIL % 0.3 % (0.0-0.4); Basophil (Absolute #) 0.03 (0-0.4); Eosinophil % 0.9 % (0.00-5.0); Hemoglobin 9.3 gm/dl (12.5-18.0); Lymphocyte (Absolute #) 1.52 (1.0-4.6); Lymphocytes % 13.4 % (24.0-44.0); Mean Cell Volume 88.1 fl (78-100); Mean Corpuscular Hemoglobin 26.4 pg (26-32); Monocyte (Absolute #) 1.05 (0.0-1.3); Monocytes % 9.3 % (0.0-12.0); Neutrophil % 76.1 % (36.0-66.0); Platelet Count 392 K/mm3 (150-450); Red Blood Count 3.52 M/mm3 (4.1-5.6); Red Cell Distribution Width 19.1 % (11.5-14.0); White Blood Count 11.4 K/mm3 (4.0-10.5)
--- NOTE | 2021-07-21 15:21 | ERPHSYRPT ---
- History of Present Illness Source: patient Exam Limitations: no limitations Patient Subjective Stated Complaint: bilateral leg swelling and pain Triage Nursing Assessment: pt to ED c/o bilateral leg swelling and pain x 3 days. reports cardiac hx but recently taken off water pill by PCP. 2+ pitting edema noted to both lower extremities. pt reports tightness pain 7/10. also reports some mild CP which he has been wearing nitro patch for since 1999 last night with some relief. Physician History: 61 yo wm w h/o [place]/multiple stents/Htn/hyperlipidemia/1ppd smoker presents w BLE edema x 3 days w orthopnea/DUE. Pt has L sternal chest pain described as stabbing w radiation to his L shoulder. Pain is 4/10 and is accompanied by diaphoresis wo nausea/vomiting. He has taken several SL NTG over last several days and is fully dosed on ASA. Timing/Duration: other (3 days) Severity of Dyspnea-Max: moderate Severity of Dyspnea-Current: mild Possible Cause: frequent episodes Modifying Factors: Improves With: activity, lying down Associated Symptoms: chest pain/discomfort, edema, ankle swelling, leg swelling, No fever, No insomnia, No loss of appetite, No lightheadedness, No wheezing, No weakness, No chills, No hemoptysis, No calf pain, No dizziness, No heaviness, No heart racing, No lightheadedness, No muscle spasms feet, No muscle spasms hands, No painful breathing, No productive cough, No sweating, No tightness, No tingling face, No tingling hands Allergies/Adverse Reactions: No Known Drug Allergies Allergy (Verified 05/17/21 17:57) Home Medications: Albuterol 2.5 mg/3 ml Neb [Proventil 2.5 mg/3 ml Neb] 2.5 mg IH Q4HPRN PRN 06/20/19 [History] Albuterol Sulfate [Proair Hfa] 1 inh IH QIDPRN PRN 06/20/19 [History] Metoprolol Tartrate 50 mg [Lopressor 50 MG] 50 mg PO BID 06/20/19 [History] Tiotropium Br/Olodaterol HCl [Stiolto Respimat Inhal Valyermo] 1 inh IH DAILY 06/20/19 [History] Aspirin EC 81 mg [Ecotrin 81 mg] 81 mg PO DAILY 09/17/20 [History] PANTOPRAZOLE 40 mg Tablet [Protonix 40MG Tablet] 40 mg PO BID 05/07/21 [History] Polyethylene Glycol 3350 17 gm [Miralax Powder 17GM PACKET] 17 gm PO DAILY 05/07/21 [History] Ticagrelor [Brilinta] 90 mg BID 05/07/21 [History] Sucralfate 1 gm [Carafate 1 GM] 1 ea PO QID 05/17/21 [History] Potassium Chloride 10 Meq Tab* [Klor Con 10 MEQ] 20 meq PO DAILY 05/18/21 [History] Isosorbide Mononitrate 30 mg [Imdur 30 MG] 30 mg PO BID 07/05/21 [History] Nitroglycerin [Nitroglycerin Patch] 1 each TD DAILY 07/05/21 [History] Hx Tetanus, Diphtheria Vaccination/Date Given: No Hx Influenza Vaccination/Date Given: No Hx Pneumococcal Vaccination/Date Given: No Immunizations Up to Date: No Travel Risk - International Travel Have you traveled outside of the country in past 3 weeks: No - Coronavirus Screening Are you exhibiting any of the following symptoms?: No Close contact with a COVID-19 positive Pt in past 14-21 Days: No - Vaccine Status Have you recieved a Covid-19 vaccination: No - Review of Systems Constitutional: No Symptoms Eyes: No Symptoms Ears, Nose, & Throat: No Symptoms Respiratory: Dyspnea, Dyspnea on Exertion (FOX) Cardiac: No Symptoms, Chest Pain, Edema, Orthopnea, PND Abdominal/Gastrointestinal: No Symptoms Genitourinary Symptoms: No Symptoms Musculoskeletal: No Symptoms Skin: No Symptoms Neurological: No Symptoms Psychological: No Symptoms Endocrine: No Symptoms Hematologic/Lymphatic: No Symptoms Immunological/Allergic: No Symptoms - Past Medical History Pertinent Past Medical History: Yes Neurological History: Stroke ENT History: No Pertinent History Cardiac History: Angina, Congestive Heart Failure, Coronary Artery Disease, Deep Vein Thrombosis, High Cholesterol, Hypertension, Myocardial Infarction ([place]) Respiratory History: Bronchitis, COPD Endocrine Medical History: No Pertinent History Musculoskeletal History: No Pertinent History GI Medical History: Hernia, Ulcer History: No Pertinent History Psycho-Social History: Depression Male Reproductive Disorders: No Pertinent History Other Medical History: Patient had a blood transfusion in May 2021 and April 2020 for a HGB of 6. [place] x3 - Past Surgical History Past Surgical History: Yes Neuro Surgical History: No Pertinent History Cardiac: Cardiac Catheterization, Cardiac Stent, Vascular Surgery Respiratory: No Pertinent History Gastrointestinal: Hernia Repair Genitourinary: No Pertinent History Musculoskeletal: No Pertinent History Male Surgical History: No Pertinent History Other Surgical History: LEFT CAROTID SURGERY NOVEMBER 2018. 16 stents reported - Social History Smoking Status: Current every day smoker How long have you smoked: 50 yrs Exposure to second hand smoke: Yes Drug Use: none Patient Lives Alone: No Significant Family History: no pertinent family hx - Nursing Vital Signs Nursing Vital Signs: Initial Vital Signs Temperature 97.8 F 07/21/21 14:49 Pulse Rate 92 H 07/21/21 14:49 Respiratory Rate 13 07/21/21 14:49 Blood Pressure 124/84 07/21/21 14:49 O2 Sat by Pulse Oximetry 98 07/21/21 14:49 Pain Scale Pain Intensity 0 WNL - Physical Exam General Appearance: no apparent distress Eye Exam: PERRL/EOMI, eyes nml inspection Ears, Nose, Throat Exam: hearing grossly normal, normal ENT inspection, normal pharynx, No abnormal TM (R) Neck Exam: normal inspection, non-tender, supple, full range of motion, No Brudzinski, No Kernig's, No meningismus, No carotid bruit Respiratory Exam: crackles/rales (Faint rales at bases), No respiratory distress Cardiovascular/Chest Exam: normal heart sounds, regular rate/rhythm, No murmur Abdominal/Gastrointestinal Exam: soft, normal bowel sounds, No tenderness Extremity Exam: normal capillary refill, swelling (2+ pretibial edema) Peripheral Pulses Exam: carotid (R): 2+, carotid (L): 2+ Neurologic Exam: alert, oriented x 3, cooperative, security flex officer II-XII nml as tested, normal mood/affect, nml station & gait, sensation nml Skin Exam: normal color, warm, dry Lymphatic Exam: No adenopathy SpO2 Interpretation: normal SpO2: 98 O2 Delivery: Room Air - Course Nursing assessment & vital signs reviewed: Yes EKG Interpreted by Me: RATE (NSR/R93/RBBB/Prolonged QTc/) - Radiology Exams Chest X-ray Interpretation: Discussed w/ radiologist (CXR neg per rad) Ordered Tests: Active Orders 24 hr Category Date Time Status EKG-ER Only STAT Care 07/21/21 14:52 Completed IV Insertion STAT Care 07/21/21 14:52 Completed CHEST 1 VIEW (PORTABLE) Stat Exams 07/21/21 14:52 Completed CBC W DIFF Stat Lab 07/21/21 15:13 Completed CMP Stat Lab 07/21/21 15:13 Completed NT PRO BNP Stat Lab 07/21/21 15:13 Completed PROTIME WITH INR Stat Lab 07/21/21 14:52 Completed PTT Stat Lab 07/21/21 14:52 Completed TROPONIN Q3H Lab 07/21/21 15:13 Completed TROPONIN Q3H Lab 07/21/21 17:48 Completed Medication Summary Discontinued Medications Generic Name Dose Route Start Last Admin Trade Name Freq PRN Reason Stop Dose Admin Furosemide 60 mg 07/21/21 15:41 07/21/21 16:18 Lasix 40 Mg/4 Ml IV 07/21/21 15:42 60 mg STAT ONE Administration Furosemide Confirm 07/21/21 16:02 Lasix 40 Mg/4 Ml Administered 07/21/21 16:03 Dose 80 mg .ROUTE .STK-MED ONE Lab/Rad Data: Laboratory Result Diagrams 07/21/21 15:13 07/21/21 15:13 Laboratory Results 07/21/21 07/21/21 07/21/21 Range/Units 17:48 15:13 15:13 WBC (4.0-10.5) K/mm3 RBC (4.1-5.6) M/mm3 Hgb (12.5-18.0) gm/dl Hct (42-50) % MCV (78-100) fl MCH (26-32) pg MCHC (32-36) g/dl RDW (11.5-14.0) % Plt Count (150-450) K/mm3 MPV (7.5-11.0) fl Gran % (36.0-66.0) % Eos # (Auto) (0-0.5) Absolute Lymphs (auto) (1.0-4.6) Absolute Monos (auto) (0.0-1.3) Lymphocytes % (24.0-44.0) % Monocytes % (0.0-12.0) % Eosinophils % (0.00-5.0) % Basophils % (0.0-0.4) % Absolute Granulocytes (1.4-6.9) Basophils # (0-0.4) PT (9.4-12.5) SECONDS INR (0.8-3.0) APTT (25.1-36.5) SECONDS Sodium 138 (137-145) mmol/L Potassium 4.3 (3.5-5.1) mmol/L Chloride 107 (98-107) mmol/L Carbon Dioxide 26 (22-30) mmol/L Anion Gap 9.8 (5-15) MEQ/L BUN 10 (9-20) mg/dL Creatinine 0.83 (0.66-1.25) mg/dL Estimated GFR > 60.0 ML/MIN Glucose 91 (74-106) mg/dL Calcium 8.2 L (8.4-10.2) mg/dL Total Bilirubin 0.40 (0.2-1.3) mg/dL AST 21 (17-59) U/L ALT 9 (0-50) U/L Alkaline Phosphatase 51 (38-126) U/L Troponin I 0.013 < 0.012 (0.000-0.034) ng/mL NT-Pro-B Natriuret Pep 3320 H (0-900) pg/mL Serum Total Protein 5.5 L (6.3-8.2) g/dL Albumin 2.9 L (3.5-5.0) g/dL 07/21/21 07/21/21 Range/Units 15:13 14:52 WBC 11.4 H (4.0-10.5) K/mm3 RBC 3.52 L (4.1-5.6) M/mm3 Hgb 9.3 L (12.5-18.0) gm/dl Hct 31.0 L (42-50) % MCV 88.1 (78-100) fl MCH 26.4 (26-32) pg MCHC 30.0 L (32-36) g/dl RDW 19.1 H (11.5-14.0) % Plt Count 392 (150-450) K/mm3 MPV 10.0 (7.5-11.0) fl Gran % 76.1 H (36.0-66.0) % Eos # (Auto) 0.10 (0-0.5) Absolute Lymphs (auto) 1.52 (1.0-4.6) Absolute Monos (auto) 1.05 (0.0-1.3) Lymphocytes % 13.4 L (24.0-44.0) % Monocytes % 9.3 (0.0-12.0) % Eosinophils % 0.9 (0.00-5.0) % Basophils % 0.3 (0.0-0.4) % Absolute Granulocytes 8.65 H (1.4-6.9) Basophils # 0.03 (0-0.4) PT 11.0 (9.4-12.5) SECONDS INR 0.93 (0.8-3.0) APTT 28.0 (25.1-36.5) SECONDS Sodium (137-145) mmol/L Potassium (3.5-5.1) mmol/L Chloride (98-107) mmol/L Carbon Dioxide (22-30) mmol/L Anion Gap (5-15) MEQ/L BUN (9-20) mg/dL Creatinine (0.66-1.25) mg/dL Estimated GFR ML/MIN Glucose (74-106) mg/dL Calcium (8.4-10.2) mg/dL Total Bilirubin (0.2-1.3) mg/dL AST (17-59) U/L ALT (0-50) U/L Alkaline Phosphatase (38-126) U/L Troponin I (0.000-0.034) ng/mL NT-Pro-B Natriuret Pep (0-900) pg/mL Serum Total Protein (6.3-8.2) g/dL Albumin (3.5-5.0) g/dL - Progress Progress: improved Progress Note: 07/21/21 16:57 60mg IV Lasix Spoke w Dr. Layton, stated that pt has chronic angina and will probably need a CABG in the future which he has discussed w the pt. Would diurese pt and disc harge if enzymes negative. Pt has not had his CV19 vaccine. 07/21/21 18:33 2000ml of urine produced after 60mg IV Lasix. Pt resting comfortably and in NAD. Trop neg x2. Will discharge and have pt f/u with Dr. Laytno 07/21/21 20:14 Urine output close to 3L before discharge. Pt ambulating wo dyspnea/chest pain before discharge. Counseled pt/family regarding: lab results, diagnosis, need for follow-up, rad results - Departure Departure Disposition: Home Clinical Impression: Congestive heart failure (CHF) Condition: Stable Critical Care Time: No Referrals: GABRIEL MEEKS [Primary Care Provider] - Instructions: Heart Failure, Heart Failure, Adult (DC) Additional Instructions: Follow up with Dr. Layton in 1-2 days Lasix 40mg tablet in AM Lasix 20mg tablet in the afternoon Potassium once a day Return to ER for increasing chest pain or increasing shortness of breath Prescriptions: Furosemide 20 mg [Lasix 20 mg] 20 mg PO DAILY #60 tablet Furosemide 40 mg [Lasix 40 MG] 40 mg PO DAILY #30 tablet Potassium Chloride 20 meq PO DAILY #30 Potassium Chloride 20 meq PO QAM #30
--- NOTE | 2021-07-21 15:23 | XRAY ---
Indication: Dyspnea. Comparison: July 04, 2021. Portable chest remains clear again with incidental left base calcified granuloma. Heart not enlarged. No new/acute findings.
[2021-07-21 15:28] LABS: ALBUMIN 2.9 g/dL (3.5-5.0); ALKALINE PHOSPHATASE 51 U/L (38-126); ANION GAP 9.8 MEQ/L (5-15); BLOOD UREA NITROGEN 10 mg/dL (9-20); CHLORIDE 107 mmol/L (98-107); Calcium 8.2 mg/dL (8.4-10.2); Carbon Dioxide 26 mmol/L (22-30); Creatinine 1 0.83 mg/dL (0.66-1.25); EST GLOMERULAR FILTRATION RATE > 60.0 ML/MIN; Glucose 91 mg/dL (74-106); NT PRO BNP 3320 pg/mL (0-900); Potassium 4.3 mmol/L (3.5-5.1); SGOT/AST 21 U/L (17-59); SGPT/ALT 9 U/L (0-50); SODIUM 138 mmol/L (137-145); Total Protein 5.5 g/dL (6.3-8.2)
[2021-07-21 15:38] LABS: INR 0.93 (0.8-3.0)
[2021-07-21] MEDS ORDERED: Lasix 40 MG/4 ML IV ONE (15:41)
[2021-07-21] MEDS ORDERED: Lasix 40 MG/4 ML ONE (16:02)
[2021-07-21 17:26] VITALS: BP 144/69
[2021-07-21 18:08] VITALS: PULSE 90; O2SAT 98
== END 2021-07-21 19:05 | disposition home or self-care (01) ==
LOC: ED 14:42
DX: I50.9 Heart failure, unspecified (principal); M79.605 Pain in left leg; M79.604 Pain in right leg; R07.89 Other chest pain; E78.5 Hyperlipidemia, unspecified
CPT/HCPCS: 36000; 36415; 71045; 80053; 83880; 84484; 85025; 85610; 85730; 93005; 96374; 99284; J1940

== ENCOUNTER 2021-08-19 03:19 | Inpatient (IN) | payer OTHER ==
--- NOTE | 2021-08-19 03:42 | ERPHSYRPT ---
- History of Present Illness Time Seen by Provider: 08/19/21 03:30 Historian: patient Exam Limitations: no limitations Patient Subjective Stated Complaint: Patient states " I have been feeling SOB for about 4 days and then this evening I just couldn't catch my breath." Triage Nursing Assessment: Patient arrived to ED via private vehicle. Patient A/O times 4. Patient able to follow instructions without difficulty. Physician History: Patient is a 61-year-old male with a history of congestive heart failure for heart attacks in the past including 16 stents, COPD presents to our ED with complaints of 4-day history of progressive shortness of breath. Patient states the shortness of breath became significantly worse this evening. Patient admits to experiencing an intermittent cough for 2 weeks. Cough productive of yellow- green sputum. No fevers. Patient is experiencing a chest pressure that is constant and tends to radiate towards her left arm. Patient has a history of COPD. He requires 2 to 4 L of oxygen per day. Patient is currently wheezing. There are bilateral basal crackles of both lungs. Patient advises that his lower extremities have been progressively swollen. Patient contacted his primary care doctor who advised increasing his dose of Lasix by 40 mg/day. Patient has been following his recommendations but states that his leg swelling has progressed in spite of his efforts. Patient feels mildly nauseous. No vomiting. No diarrhea. No rash. No trauma. Symptoms are moderate in inten sity. Exertion worsens symptoms. Patient states that he lays down most of the day due to fatigue. Patient voices no other complaints or concerns at this time. Timing/Duration: day(s) (4 days) Activities at Onset: rest Quality: pressure Location: substernal Chest Pain Radiation: arm (Radiate to left arm.) Severity of Pain-Max: moderate Severity of Pain-Current: mild Modifying Factors: Improves With: nothing Associated Symptoms: nausea, shortness of breath, cough, edema, No hurts to breathe, No fever Prior Chest Pain/Cardiac Workup: cardiac cath, heart attack Nitro Today/Relief: provided at home (Nitro patch on left arm.) Aspirin Treatment Today: 81 mg x 1 (81 mg aspirin yesterday morning. Less than 24 hours ago.) Allergies/Adverse Reactions: No Known Drug Allergies Allergy (Verified 08/19/21 03:35) Home Medications: Albuterol 2.5 mg/3 ml Neb [Proventil 2.5 mg/3 ml Neb] 2.5 mg IH Q4HPRN PRN 06/20/19 [History] Albuterol Sulfate [Proair Hfa] 1 inh IH QIDPRN PRN 06/20/19 [History] Metoprolol Tartrate 50 mg [Lopressor 50 MG] 50 mg PO BID 06/20/19 [History] Tiotropium Br/Olodaterol HCl [Stiolto Respimat Inhal [place]] 1 inh IH DAILY 06/20/19 [History] Aspirin EC 81 mg [Ecotrin 81 mg] 81 mg PO DAILY 09/17/20 [History] PANTOPRAZOLE 40 mg Tablet [Protonix 40MG Tablet] 40 mg PO BID 05/07/21 [History] Polyethylene Glycol 3350 17 gm [Miralax Powder 17GM PACKET] 17 gm PO DAILY 05/07/21 [History] Ticagrelor [Brilinta] 90 mg BID 05/07/21 [History] Sucralfate 1 gm [Carafate 1 GM] 1 ea PO QID 05/17/21 [History] Potassium Chloride 10 Meq Tab* [Klor Con 10 MEQ] 20 meq PO DAILY 05/18/21 [History] Nitroglycerin [Nitroglycerin Patch] 1 each TD DAILY 07/05/21 [History] Hx Tetanus, Diphtheria Vaccination/Date Given: No Hx Influenza Vaccination/Date Given: No Hx Pneumococcal Vaccination/Date Given: No Immunizations Up to Date: Yes Travel Risk - International Travel Have you traveled outside of the country in past 3 weeks: No - Coronavirus Screening Are you exhibiting any of the following symptoms?: Yes Symptoms: Cough: New Onset, Shortness of Breath, Vomiting/Diarrhea, Loss of Taste or Smell Close contact with a COVID-19 positive Pt in past 14-21 Days: No - Vaccine Status Have you recieved a Covid-19 vaccination: No - Review of Systems Constitutional: No Symptoms, No Fever, No Chills Eyes: No Symptoms Ears, Nose, & Throat: No Symptoms Respiratory: No Symptoms, No Cough, No Dyspnea Cardiac: No Symptoms, No Chest Pain, No Edema, No Syncope Abdominal/Gastrointestinal: No Symptoms, No Abdominal Pain, No Nausea, No Vomiting, No Diarrhea Genitourinary Symptoms: No Symptoms, No Dysuria Musculoskeletal: No Symptoms, No Back Pain, No Neck Pain Skin: No Symptoms, No Rash Neurological: No Symptoms, No Dizziness, No Focal Weakness, No Sensory Changes Psychological: No Symptoms Endocrine: No Symptoms Hematologic/Lymphatic: No Symptoms Immunological/Allergic: No Symptoms All Other Systems: Reviewed and Negative - Past Medical History Pertinent Past Medical History: Yes Neurological History: Stroke ENT History: No Pertinent History Cardiac History: Angina, Congestive Heart Failure, Coronary Artery Disease, Deep Vein Thrombosis, High Cholesterol, Hypertension, Myocardial Infarction (ME) Respiratory History: Bronchitis, COPD Endocrine Medical History: No Pertinent History Musculoskeletal History: No Pertinent History GI Medical History: Hernia, Ulcer History: No Pertinent History Psycho-Social History: Depression Male Reproductive Disorders: No Pertinent History Other Medical History: Patient had a blood transfusion in May 2021 and April 2020 for a HGB of 6. ME x3 - Past Surgical History Past Surgical History: Yes Neuro Surgical History: No Pertinent History Cardiac: Cardiac Catheterization, Cardiac Stent, Vascular Surgery Respiratory: No Pertinent History Gastrointestinal: Hernia Repair Genitourinary: No Pertinent History Musculoskeletal: No Pertinent History Male Surgical History: No Pertinent History Other Surgical History: LEFT CAROTID SURGERY NOVEMBER 2018. 16 stents reported - Social History Smoking Status: Current every day smoker How long have you smoked: 50 years Exposure to second hand smoke: Yes Drug Use: none Patient Lives Alone: No Significant Family History: no pertinent family hx - Nursing Vital Signs Nursing Vital Signs: Initial Vital Signs Temperature 97.9 F 08/19/21 03:20 Pulse Rate 105 H 08/19/21 03:20 Respiratory Rate 22 08/19/21 03:20 Blood Pressure 117/80 08/19/21 03:20 O2 Sat by Pulse Oximetry 99 08/19/21 03:20 Pain Scale Pain Intensity 8 - Physical Exam General Appearance: no apparent distress, alert, other (Patient appears pale.) Eye Exam: PERRL/EOMI, eyes nml inspection Ears, Nose, Throat Exam: normal ENT inspection, moist mucous membranes Neck Exam: normal inspection, non-tender, supple, full range of motion Respiratory Exam: normal breath sounds, lungs clear, No respiratory distress Cardiovascular Exam: regular rate/rhythm, normal heart sounds Gastrointestinal/Abdomen Exam: soft, No tenderness, No mass Back Exam: normal inspection, No CVA tenderness, No vertebral tenderness Extremity Exam: normal inspection, normal range of motion, pedal edema, swelling (4+ pitting edema bilaterally. Homans' sign negative), No promise's sign Neurologic Exam: alert, oriented x 3, cooperative, normal mood/affect, sensation nml, No motor deficits Skin Exam: normal color, warm, dry SpO2 Interpretation: normal SpO2: 99 O2 Delivery: Room Air - Course Nursing assessment & vital signs reviewed: Yes EKG Interpreted by Me: RATE ([id number]), Sinus Tach, NORMAL AXIS, NORMAL INTERVALS - Radiology Exams Chest X-ray Interpretation: Interpreted by me (Cephalization, early CHF, borderline cardiomegaly, left lung base calcified granuloma. No infiltrate or consolidation.) Ordered Tests: Active Orders 24 hr Category Date Time Status Systems Qa Analyst STAT Care 08/19/21 03:40 Active EKG-ER Only STAT Care 08/19/21 03:39 Active IV Insertion STAT Care 08/19/21 03:39 Active Pulse Oximetry (ED) STAT Care 08/19/21 03:39 Active CHEST 1 VIEW (PORTABLE) Stat Exams 08/19/21 03:40 Taken CBC W DIFF Stat Lab 08/19/21 03:50 Results CMP Stat Lab 08/19/21 03:50 Completed Ferritin Stat Lab 08/19/21 03:50 Completed MAG [MAGNESIUM] Stat Lab 08/19/21 03:50 Completed NT PRO BNP Stat Lab 08/19/21 03:50 Completed Pathologist Review Stat Lab 08/19/21 03:50 Results TROPONIN Q3H Lab 08/19/21 03:50 Completed TROPONIN Q3H Lab 08/19/21 06:40 Received TROPONIN Q3H Lab 08/19/21 09:45 Ordered TROPONIN Q3H Lab 08/19/21 12:45 Ordered TROPONIN Q3H Lab 08/19/21 15:45 Ordered Transfer Order Routine Transfer 08/19/21 Ordered Medication Summary Generic Name Dose Route Start Last Admin Trade Name Freq PRN Reason Stop Dose Admin Potassium Chloride 20 meq in 100 mls @ 50 mls/hr 08/19/21 04:30 08/19/21 04:32 Potassium Chloride 20 Meq In Water 100ml IV 08/19/21 08:29 50 mls/hr Q2H KIRBY Administration Sodium Chloride 500 mls @ 50 mls/hr 08/19/21 04:30 08/19/21 04:31 Sodium Chloride 0.9% 500 Ml IV 09/18/21 04:29 50 mls/hr .Q10H KIRBY Administration Nitroglycerin/Dextrose 250 mls @ 1.5 mls/hr 08/19/21 04:45 08/19/21 06:00 Ntg 0.2mg/Ml In D5w Glass IV 09/18/21 04:44 3 mcg/min .Q24H PRN 0.9 mls/hr CHEST PAIN Titration Protocol 5 MCG/MIN Discontinued Medications Generic Name Dose Route Start Last Admin Trade Name Freq PRN Reason Stop Dose Admin Aspirin 324 mg 08/19/21 04:48 08/19/21 05:00 Baby Aspirin 81 Mg Chew PO 08/19/21 04:49 324 mg STAT ONE Administration Furosemide 80 mg 08/19/21 04:28 08/19/21 04:36 Lasix 40 Mg/4 Ml IV 08/19/21 04:29 80 mg STAT ONE Administration Furosemide Confirm 08/19/21 04:32 Lasix 40 Mg/4 Ml Administered 08/19/21 04:33 Dose 80 mg .ROUTE .STK-MED ONE Sodium Chloride Confirm 08/19/21 06:23 Sodium Chloride 0.9% 250 Ml Administered 08/19/21 06:24 Dose 250 mls @ ud IV .STK-MED ONE Morphine Sulfate 4 mg 08/19/21 07:00 Morphine Sulfate 4 Mg Inj IV 08/19/21 07:01 STAT ONE Lab/Rad Data: Laboratory Result Diagrams 08/19/21 03:50 08/19/21 03:50 Laboratory Results 08/19/21 08/19/21 08/19/21 Range/Units 05:04 04:35 04:35 WBC (4.0-10.5) K/mm3 RBC (4.1-5.6) M/mm3 Hgb (12.5-18.0) gm/dl Hct (42-50) % MCV (78-100) fl MCH (26-32) pg MCHC (32-36) g/dl RDW (11.5-14.0) % Plt Count (150-450) K/mm3 MPV (7.5-11.0) fl Gran % (36.0-66.0) % Eos # (Auto) (0-0.5) Absolute Lymphs (auto) (1.0-4.6) Absolute Monos (auto) (0.0-1.3) Lymphocytes % (24.0-44.0) % Monocytes % (0.0-12.0) % Eosinophils % (0.00-5.0) % Basophils % (0.0-0.4) % Absolute Granulocytes (1.4-6.9) Basophils # (0-0.4) Smear Path Review Sodium (137-145) mmol/L Potassium (3.5-5.1) mmol/L Chloride (98-107) mmol/L Carbon Dioxide (22-30) mmol/L Anion Gap (5-15) MEQ/L BUN (9-20) mg/dL Creatinine (0.66-1.25) mg/dL Estimated GFR ML/MIN Glucose (74-106) mg/dL Calcium (8.4-10.2) mg/dL Magnesium (1.6-2.3) mg/dL Iron (49-181) ug/dL TIBC (261-497) ug/dL Ferritin (17.9-464) ng/mL Total Bilirubin (0.2-1.3) mg/dL AST (17-59) U/L ALT (0-50) U/L Alkaline Phosphatase (38-126) U/L Troponin I (0.000-0.034) ng/mL NT-Pro-B Natriuret Pep (0-900) pg/mL Serum Total Protein (6.3-8.2) g/dL Albumin (3.5-5.0) g/dL SARS-CoV-2 (PCR) NEGATIVE (NEGATIVE) Slides for Path Review ABO Group Rh Factor Antibody Screen (NEGATIVE) Crossmatch COMPATIBLE COMPATIBLE (COMPATIBLE) 08/19/21 08/19/21 08/19/21 Range/Units 04:35 03:50 03:50 WBC (4.0-10.5) K/mm3 RBC (4.1-5.6) M/mm3 Hgb (12.5-18.0) gm/dl Hct (42-50) % MCV (78-100) fl MCH (26-32) pg MCHC (32-36) g/dl RDW (11.5-14.0) % Plt Count (150-450) K/mm3 MPV (7.5-11.0) fl Gran % (36.0-66.0) % Eos # (Auto) (0-0.5) Absolute Lymphs (auto) (1.0-4.6) Absolute Monos (auto) (0.0-1.3) Lymphocytes % (24.0-44.0) % Monocytes % (0.0-12.0) % Eosinophils % (0.00-5.0) % Basophils % (0.0-0.4) % Absolute Granulocytes (1.4-6.9) Basophils # (0-0.4) Smear Path Review Sodium (137-145) mmol/L Potassium (3.5-5.1) mmol/L Chloride (98-107) mmol/L Carbon Dioxide (22-30) mmol/L Anion Gap (5-15) MEQ/L BUN (9-20) mg/dL Creatinine (0.66-1.25) mg/dL Estimated GFR ML/MIN Glucose (74-106) mg/dL Calcium (8.4-10.2) mg/dL Magnesium 2.2 (1.6-2.3) mg/dL Iron (49-181) ug/dL TIBC (261-497) ug/dL Ferritin 7.60 L (17.9-464) ng/mL Total Bilirubin (0.2-1.3) mg/dL AST (17-59) U/L ALT (0-50) U/L Alkaline Phosphatase (38-126) U/L Troponin I (0.000-0.034) ng/mL NT-Pro-B Natriuret Pep (0-900) pg/mL Serum Total Protein (6.3-8.2) g/dL Albumin (3.5-5.0) g/dL SARS-CoV-2 (PCR) (NEGATIVE) Slides for Path Review ABO Group O Rh Factor POSITIVE Antibody Screen NEGATIVE (NEGATIVE) Crossmatch (COMPATIBLE) 08/19/21 08/19/21 08/19/21 Range/Units 03:50 03:50 03:50 WBC (4.0-10.5) K/mm3 RBC (4.1-5.6) M/mm3 Hgb (12.5-18.0) gm/dl Hct (42-50) % MCV (78-100) fl MCH (26-32) pg MCHC (32-36) g/dl RDW (11.5-14.0) % Plt Count (150-450) K/mm3 MPV (7.5-11.0) fl Gran % (36.0-66.0) % Eos # (Auto) (0-0.5) Absolute Lymphs (auto) (1.0-4.6) Absolute Monos (auto) (0.0-1.3) Lymphocytes % (24.0-44.0) % Monocytes % (0.0-12.0) % Eosinophils % (0.00-5.0) % Basophils % (0.0-0.4) % Absolute Granulocytes (1.4-6.9) Basophils # (0-0.4) Smear Path Review Sodium 137 (137-145) mmol/L Potassium 3.2 L (3.5-5.1) mmol/L Chloride 103 (98-107) mmol/L Carbon Dioxide 23 (22-30) mmol/L Anion Gap 13.9 (5-15) MEQ/L BUN 22 H (9-20) mg/dL Creatinine 0.95 (0.66-1.25) mg/dL Estimated GFR > 60.0 ML/MIN Glucose 108 H (74-106) mg/dL Calcium 8.6 (8.4-10.2) mg/dL Magnesium (1.6-2.3) mg/dL Iron < 10 L (49-181) ug/dL TIBC 358 (261-497) ug/dL Ferritin (17.9-464) ng/mL Total Bilirubin 0.40 (0.2-1.3) mg/dL AST 17 (17-59) U/L ALT 18 (0-50) U/L Alkaline Phosphatase 64 (38-126) U/L Troponin I 0.286 H* (0.000-0.034) ng/mL NT-Pro-B Natriuret Pep 8610 H (0-900) pg/mL Serum Total Protein 5.6 L (6.3-8.2) g/dL Albumin 3.2 L (3.5-5.0) g/dL SARS-CoV-2 (PCR) (NEGATIVE) Slides for Path Review ABO Group Rh Factor Antibody Screen (NEGATIVE) Crossmatch (COMPATIBLE) 08/19/21 Range/Units 03:50 WBC 11.7 H (4.0-10.5) K/mm3 RBC 2.69 L (4.1-5.6) M/mm3 Hgb 6.1 L* (12.5-18.0) gm/dl Hct 21.8 L (42-50) % MCV 81.0 (78-100) fl MCH 22.7 L (26-32) pg MCHC 28.0 L (32-36) g/dl RDW 18.7 H (11.5-14.0) % Plt Count 381 (150-450) K/mm3 MPV 12.4 H (7.5-11.0) fl Gran % 73.3 H (36.0-66.0) % Eos # (Auto) 0.13 (0-0.5) Absolute Lymphs (auto) 2.11 (1.0-4.6) Absolute Monos (auto) 0.88 (0.0-1.3) Lymphocytes % 18.0 L (24.0-44.0) % Monocytes % 7.5 (0.0-12.0) % Eosinophils % 1.1 (0.00-5.0) % Basophils % 0.1 (0.0-0.4) % Absolute Granulocytes 8.61 H (1.4-6.9) Basophils # 0.01 (0-0.4) Smear Path Review Pending Sodium (137-145) mmol/L Potassium (3.5-5.1) mmol/L Chloride (98-107) mmol/L Carbon Dioxide (22-30) mmol/L Anion Gap (5-15) MEQ/L BUN (9-20) mg/dL Creatinine (0.66-1.25) mg/dL Estimated GFR ML/MIN Glucose (74-106) mg/dL Calcium (8.4-10.2) mg/dL Magnesium (1.6-2.3) mg/dL Iron (49-181) ug/dL TIBC (261-497) ug/dL Ferritin (17.9-464) ng/mL Total Bilirubin (0.2-1.3) mg/dL AST (17-59) U/L ALT (0-50) U/L Alkaline Phosphatase (38-126) U/L Troponin I (0.000-0.034) ng/mL NT-Pro-B Natriuret Pep (0-900) pg/mL Serum Total Protein (6.3-8.2) g/dL Albumin (3.5-5.0) g/dL SARS-CoV-2 (PCR) (NEGATIVE) Slides for Path Review YES ABO Group Rh Factor Antibody Screen (NEGATIVE) Crossmatch (COMPATIBLE) - Progress Progress: improved Air Movement: fair Progress Note: Case discussed with Dr. 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 Per Dr. Layton patient is to receive [address] IV. Dr. Layton advised nitroglycerin however patient currently has a nitro patch on his arm. So no additional nitro requested. Patient hemoglobin is 6.1. Patient is typed and screened. Iron studies ordered. 08/19/21 04:33 [facility] has no beds available at this time. We tried calling [facility] and [facility] who is currently on diversion. There are no beds available locally. Dr. Wells covering Dr. Meeks. Dr. Wells accepts admission to our intensive care unit. Troponin elevated. This is likely related to patient's active CHF. Patient is typed and screened. Transfusion order initiated. We are currently replacing potassium. Plan of care discussed with patient. He agrees to admission at [facility] for further evaluation and treatment. 08/19/21 04:50 Covid test pending 08/19/21 04:52 Covid test negative. Patient complaining of chest pain. We are going up on nitro. Patient received morphine. We will hold off on heparin as patient hemoglobin is 6.1 and we are not sure the source of the blood loss. However clement nam has received aspirin. 08/19/21 07:05 We are currently awaiting a bed assignment. This is a change of shift at this time. Patient endorsed to Dr. Connor. Admit orders entered. 08/19/21 07:08 Blood Culture(s) Obtained: No Antibiotics given: No Counseled pt/family regarding: lab results, diagnosis, rad results - Departure Departure Disposition: Transfer Clinical Impression: Symptomatic anemia, CHF (congestive heart failure), Elevated brain natriuretic peptide (BNP) level, Hypokalemia, Elevated troponin Condition: Stable Critical Care Time: No Referrals: GABRIEL MEEKS [Primary Care Provider] - Instructions: Heart Failure
[2021-08-19 04:12] LABS: Absolute Neutrophil Ct (ANC) 8.61 (1.4-6.9); BASOPHIL % 0.1 % (0.0-0.4); Basophil (Absolute #) 0.01 (0-0.4); Eosinophil % 1.1 % (0.00-5.0); Eosinophil (Absolute #) 0.13 (0-0.5); Hematocrit 21.8 % (42-50); Lymphocyte (Absolute #) 2.11 (1.0-4.6); Mean Corpuscular Hemoglobin 22.7 pg (26-32); Mean Platelet Volume 12.4 fl (7.5-11.0); Monocyte (Absolute #) 0.88 (0.0-1.3); Monocytes % 7.5 % (0.0-12.0); Neutrophil % 73.3 % (36.0-66.0); Platelet Count 381 K/mm3 (150-450); Red Blood Count 2.69 M/mm3 (4.1-5.6); Red Cell Distribution Width 18.7 % (11.5-14.0); White Blood Count 11.7 K/mm3 (4.0-10.5)
[2021-08-19 04:15] LABS: Hemoglobin 6.1 gm/dl (12.5-18.0)
[2021-08-19 04:17] LABS: ALBUMIN 3.2 g/dL (3.5-5.0); ALKALINE PHOSPHATASE 64 U/L (38-126); ANION GAP 13.9 MEQ/L (5-15); BLOOD UREA NITROGEN 22 mg/dL (9-20); CHLORIDE 103 mmol/L (98-107); Calcium 8.6 mg/dL (8.4-10.2); Carbon Dioxide 23 mmol/L (22-30); Creatinine 1 0.95 mg/dL (0.66-1.25); EST GLOMERULAR FILTRATION RATE > 60.0 ML/MIN; Glucose 108 mg/dL (74-106); NT PRO BNP 8610 pg/mL (0-900); Potassium 3.2 mmol/L (3.5-5.1); SGOT/AST 17 U/L (17-59); SGPT/ALT 18 U/L (0-50); SODIUM 137 mmol/L (137-145); Total Protein 5.6 g/dL (6.3-8.2)
[2021-08-19] MEDS ORDERED: Lasix 40 MG/4 ML IV ONE (04:28)
[2021-08-19] MEDS ORDERED: Sodium Chloride 0.9% 500 ML 500 ML IV SCH ×2 (04:30→16:30)
[2021-08-19] MEDS: POTASSIUM CHLORIDE 20 mEq IN WATER 100ML 20 MEQ/100 ML BAG IV SCH ×2 (04:32→09:26)
[2021-08-19] MEDS ORDERED: Lasix 40 MG/4 ML ONE (04:32)
[2021-08-19] MEDS ORDERED: Ntg 0.2MG/Ml in D5W GLASS*** 250 ML IV PRN (04:45)
[2021-08-19] MEDS ORDERED: BABY ASPIRIN 81 MG CHEW PO ONE (04:48)
[2021-08-19 05:00] LABS: TIBC 358 ug/dL (261-497)
[2021-08-19 05:03] LABS: Slide Review 1 YES
[2021-08-19 05:29] LABS: Iron < 10 ug/dL (49-181)
[2021-08-19 05:38] LABS: ABO TYPING O; Antibody Screen NEGATIVE (NEGATIVE); RH TYPING POSITIVE
[2021-08-19 06:18] LABS: CROSS MATCH (PRBC) COMPATIBLE (COMPATIBLE)
[2021-08-19] MEDS ORDERED: Sodium Chloride 0.9% 250 ML 250 ML IV ONE (06:23)
[2021-08-19] MEDS ORDERED: MORPHINE SULFATE 4 MG INJ IV ONE (07:00)
[2021-08-19] MEDS ORDERED: MORPHINE SULFATE 4 MG INJ ONE (07:09)
[2021-08-19] MEDS ORDERED: Sodium Chloride 0.9% 1000 ML 1,000 ML IV SCH (08:30)
--- NOTE | 2021-08-19 08:52 | XRAY ---
Indication: Chest pain. Comparison: July 21, 2021. Portable chest now demonstrates bilateral mid to lower lung hazy interstitial alveolar opacities without consolidation/large effusion. Heart within normal limits for AP portable technique. Remaining chest unremarkable.
[2021-08-19] MEDS: Lasix 20 MG/2 ML IV SCH ×2 (09:33→13:05)
[2021-08-19] MEDS: MORPHINE SULFATE 2 MG INJ IV PRN ×3 (10:14→17:30)
[2021-08-19] MEDS ORDERED: Zofran 4 MG/2 ML VIAL IV PRN (11:12)
[2021-08-19] MEDS ORDERED: DUONEB 0.5-3 MG/3 ml Neb IH ONE (11:57)
[2021-08-19] MEDS: DUONEB 0.5-3 MG/3 ml Neb IH SCH ×2 (12:00→17:27)
[2021-08-19] MEDS ORDERED: PROVENTIL 2.5 MG/3 ML NEB IH PRN (12:04)
[2021-08-19] MEDS ORDERED: Ventolin Hfa MDI IH PRN (12:04)
[2021-08-19] MEDS ORDERED: VENTOLIN COMMON CANISTER IH PRN (12:11)
[2021-08-19] MEDS ORDERED: MEDICATION INTERVENTION MC SCH ×2 (12:30)
[2021-08-19] MEDS ORDERED: NITRO-DUR 0.1MG/HR TD SCH (13:00)
[2021-08-19] MEDS ORDERED: Miralax Powder 17GM PACKET PO SCH (13:00)
[2021-08-19] MEDS ORDERED: Toprol-Xl 25MG Tablets PO SCH (13:00)
[2021-08-19] MEDS ORDERED: BRILINTA PO SCH (13:00)
[2021-08-19] MEDS ORDERED: Klor Con 10 MEQ PO SCH (13:00)
[2021-08-19] MEDS ORDERED: Protonix 40MG Tablet PO SCH (13:00)
[2021-08-19] MEDS ORDERED: Lasix 20 MG/2 ML IV ONE (13:54)
[2021-08-19] MEDS ORDERED: POTASSIUM CHLORIDE 20 mEq IN WATER 100ML 20 MEQ/100 ML BAG IV ONE (14:00)
[2021-08-19] MEDS ORDERED: Aldactone 25 MG PO SCH (14:00)
[2021-08-19 14:02] LABS: Hematocrit 27.1 % (42-50); Hemoglobin 8.1 gm/dl (12.5-18.0)
[2021-08-19 15:41] LABS: CROSS MATCH (PRBC) COMPATIBLE (COMPATIBLE)
[2021-08-19 16:09] VITALS: BP 101/65; PULSE 90; O2SAT 99
[2021-08-19] MEDS ORDERED: Carafate 1 GM PO SCH (16:30)
[2021-08-19] MEDS ORDERED: LASIX 20 MG PO SCH (17:00)
[2021-08-19] MEDS ORDERED: NON-FORMULARY ITEM (Omeprazole [Omeprazole] 20 MG) PO SCH (22:00)
[2021-08-20] MEDS ORDERED: TIOTROPIUM BR IH SCH (10:00)
[2021-08-20] MEDS ORDERED: ECOTRIN 81 MG PO SCH (10:00)
[2021-08-20] MEDS ORDERED: Lasix 40 MG PO SCH (10:00)
[2021-08-20] MEDS ORDERED: Lasix 40 MG/4 ML IV SCH (10:00)
[2021-08-20] MEDS ORDERED: OLODATEROL HCL IH SCH (10:00)
--- NOTE | 2021-08-20 10:01 | CONS ---
CONSULT DATE: 08/19/2021 REASON FOR CONSULTATION: Chest pain, abnormal ECG, elevated troponin, anemia. HISTORY OF PRESENT ILLNESS: Mr. Mireles is a 61 y/o gentleman with a past medical history of severe 3-vessel coronary disease with numerous previous percutaneous coronary interventions. He had a percutaneous coronary intervention of his left main in March 2021. He subsequently has had multiple hospitalizations for chronic angina. At [facility], he underwent a repeat cardiac catheterization on 07/10/2021 which demonstrated a severe 3-vessel coronary disease with no obvious intervenable lesions. He has been evaluated for coronary artery bypass graft in the past at [facility] in [place] and was told that he was too high risk for surgery and underwent high risk percutaneous coronary intervention of his left main LAD as well as also left circumflex. He also has been having chronic abdominal issues and a partial small bowel obstruction for which he underwent conservative management. He presented early this morning to the Emergency Department at [facility] with progressive shortness of breath and was found to be hypervolemic and in congestive heart failure with troponin of approximately 0.379 which is up to 0.6. He was also found to be severely anemic with an Hgb of 6.1. He has been admitted. He has currently received 2 units of blood and is receiving IV diuretics. He has produced approximately 900 cc of urine since being admitted to the medical floor. He reports intermittent substernal chest pain which is similar to previous angina. However, remains hemodynamically stable on low-dose nitroglycerin drip. He has also been reporting progressive shortness of breath and lower extremity edema over the past month. He also reports paroxysmal nocturnal dyspnea and orthopnea. He has noted that his stools have been somewhat darker recently. However, he does not have daily bowel movements and reports that his normal routine is to have a bowel movement approximately every 5 days. He has not produced a bowel movement here for occult blood testing yet. REVIEW OF SYSTEMS: 14 systems review performed pertinent for positives noted in the HPI. CURRENT MEDICATIONS: Reviewed. See EMR for full details. PAST MEDICAL HISTORY: 1. Coronary artery disease with history of numerous previous stents with known severe 3-vessel coronary disease, 2. Ischemic cardiomyopathy with mild left ventricular systolic dysfunction with last ejection fraction approximately 45-50%, 3. Respiratory failure, 4. Iron deficiency anemia, 5. Hypertension, 6. 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 SOCIAL HISTORY: Denies any alcohol or illicit drug use. He is a former smoker, quit a few years ago.. FAMILY HISTORY: He is adopted and does not know his family history. PHYSICAL EXAMINATION: VITAL SIGNS: Vital signs are stable. Heart rate is 100 with BP of 110/60 saturating 94% on room air. GENERAL: He is ill-appearing. He is overweight. CVS: Tachycardic, but regular. There is a 1/6 systolic murmur. There is 3+ pitting edema. Jugular venous pressure is elevated. ABDOMEN: Somewhat distended. GASTROINTESTINAL: Abdomen is somewhat distended, but no pain with palpation. No rebound or guarding. MUSCULOSKELETAL: Normal bulk and tone. No clubbing or cyanosis. SKIN: Warm and well perfused. No rashes. PSYCH: Alert and oriented X 4. Appropriate insight and judgment. Normal mood and affect. NEURO: Grossly nonfocal. LABORATORY DATA: Personally reviewed. See EMR for full details. Hgb is 6.1. Troponin is up from approximately 0.3 to 0.6. Creatinine was normal. EKG personally reviewed. Demonstrates diffuse ST depression consistent with global ischemia. This is similar to previous EKG. However, ST depressions are slightly worse. IMPRESSION: 1. TYPE 2 MYOCARDIAL INFARCTION SECONARY TO SEVERE ANEMIA WITH HGB OF 6.1 AND KNOWN BASELINE SEVERE 3-VESSEL CORONARY ARTERY DISEASE. 2. SEVERE IRON DEFICIENCY ANEMIA. 3. SEVERE 3-VESSEL CORONARY ARTERY DISEASE NOTED ABOVE. 4. CHRONIC OBSTRUCTIVE PULMONARY DISEASE WITH CHRONIC HYPOXEMIC RESPIRATORY FAILURE. 5. HISTORY OF PARTIAL SMALL BOWEL OBSTRUCTION. RECOMMENDATIONS: 1. Would continue transfusion with goal Hgb of 9-10 g/dL in the setting of ongoing cardiac ischemia. 2. Would also continue low-dose nitroglycerin drip. The patient's coronary anatomy is not very amenable to any further percutaneous coronary intervention. He has been evaluated for a coronary artery bypass graft in the past and was deemed too high risk due to ongoing pulmonary issues. 3. Would optimize from a hematologic standpoint first. He will also likely need further evaluation from gastrointestinal regarding ongoing blood losses. 4. Would also continue aggressive IV diuretics to maintain that negative fluid balance of 1-2 liters a day especially considering he is going to likely receive multiple units of blood products. 5. Would also replete electrolytes to maintain potassium above 4 and magnesium above 2. 6. Would start spironolactone 25 mg PO daily to aid in potassium retention in the setting of ongoing aggressive diuresis. I have already requested transfer to [facility] which is pending awaiting bed availability.
[2021-08-20] MEDS ORDERED: Lasix 20 MG/2 ML IV ONE (13:31)
--- NOTE | 2021-09-08 12:58 | SSS ---
DISCHARGE DIAGNOSES: 1) ACUTE MYOCARDIAL INFARCTION. 2) ANEMIA. SPINNER HYDRAULIC: Dr. Toño Layton. HOSPITAL COURSE: The patient is a 61-year-old white male patient who presented to the hospital with complaints of chest pain. He had previous cardiac catheterization in March 2021 which showed triple vessel disease. They decided not to take him for surgery as he was increased risk due to his pulmonary conditions. The patient was admitted to our facility for evaluation and monitoring with a positive troponin already but due to the COVID issue the patient was unable to transfer to the [facility] [place] facilities. PHYSICAL EXAMINATION: Revealed an obese white male patient in moderate distress due to chest discomfort. He is currently on a Nitro drip. HEENT: Normocephalic, atraumatic. Pupils equal round reactive to light. Extraocular movements intact. Oropharynx is pink and moist. NECK: Supple without lymphadenopathy, thyromegaly or JVD. CHEST: Essentially clear to auscultation. HEART: Heart appears to be regular at present without significant murmurs, rubs or gallops heard. ABDOMEN: Soft. No palpable masses. EXTREMITIES: Without cyanosis, clubbing or edema. NEUROLOGIC: The patient is alert and oriented x3 with no focal deficits. LAB DATA AND TESTS: Significant laboratory data revealed the patient's hemoglobin to be at 6.1. He is currently receiving a blood transfusion. The patient was also noted to be having increasing troponins over the next several times up to 1.01. The patient was seen in the hospital by Dr. Toño Layton. We were initially told that they had no beds available but Dr. Layton was able to obtain a bed for him. He transferred to [facility] for higher level of care due to the ongoing myocardial infarction and significant anemia.
== END 2021-08-19 17:33 | disposition short-term general hospital (02) | DRG 281 ==
LOC: ED 03:19 → ICU 08:13
PROVIDERS: ADMIT Family Medicine; ATTEND Family Medicine
DX: I21.9 Acute myocardial infarction, unspecified (principal); J96.11 Chronic respiratory failure with hypoxia; D64.9 Anemia, unspecified; I11.0 Hypertensive heart disease with heart failure; I50.9 Heart failure, unspecified; J44.9 Chronic obstructive pulmonary disease, unspecified; R11.0 Nausea; E87.70 Fluid overload, unspecified; R74.8 Abnormal levels of other serum enzymes; R19.7 Diarrhea, unspecified; I10 Essential (primary) hypertension; I25.10 Atherosclerotic heart disease of native coronary artery without angina pectoris; R07.9 Chest pain, unspecified; E87.6 Hypokalemia; Z86.718 Personal history of other venous thrombosis and embolism; Z99.81 Dependence on supplemental oxygen; Z79.899 Other long term (current) drug therapy; R79.89 Other specified abnormal findings of blood chemistry; Z20.822 Contact with and (suspected) exposure to COVID-19
CPT/HCPCS: 36000; 36415; 36430; 71045; 80053; 82728; 83540; 83550; 83735; 83880; 84466; 84484; 85014; 85018; 85025; 86850; 86900; 86901; 86922; 93005; 93041; 94640; 94760; 96365; 96366; 96367; 96374; 96375; 99285; J1940; J2270; J3480; P9016; U0003; A9270-GY

== ENCOUNTER 2021-09-10 11:17 | Emergency (ER) | payer OTHER ==
[2021-09-10] MEDS ORDERED: Ntg 0.2MG/Ml in D5W GLASS*** 250 ML IV PRN (11:30)
[2021-09-10] MEDS ORDERED: BABY ASPIRIN 81 MG CHEW PO ONE (11:31)
--- NOTE | 2021-09-10 11:41 | ERPHSYRPT ---
- History of Present Illness Time Seen by Provider: 09/10/21 11:30 Exam Limitations: no limitations Patient Subjective Stated Complaint: Pt states "I was here getting lab work and I had sudden chest pain." Triage Nursing Assessment: PT presented alert and oriented X 3, SKIN PWD. PT moaning and grunting. PT stated he has 16 stentes, Dr. Layton is nurse administrator. pt diaphoretic. Physician History: Patient is a 61-year-old male with a heart history including 16 stents and congestive heart failure presents today with sudden onset left-sided chest pain with referral into the left shoulder and down the left arm. Symptoms started just prior to arrival as he was in our hospital obtaining lab work. Patient is mildly nauseous. No dizziness or lightheadedness. Symptoms are constant. Symptoms are moderate in intensity. No specific worsening or improving factors. Patient's nurse administrator is Dr. Rachael Layton from [facility]. Patient has been t aking all medications as prescribed. He is taking his Brilinta as well. Patient voices no other complaints or concerns at this time. Timing/Duration: today Activities at Onset: none Quality: aching Location: other (Left chest) Chest Pain Radiation: arm (Radiates to left arm.) Severity of Pain-Max: moderate Severity of Pain-Current: mild Modifying Factors: Improves With: nothing Associated Symptoms: nausea, No vomiting, No abdominal pain, No cough, No chills, No fever, No headache, No dizziness, No edema, No back pain Prior Chest Pain/Cardiac Workup: cardiac cath Nitro Today/Relief: no nitro taken today Aspirin Treatment Today: no aspirin today Allergies/Adverse Reactions: No Known Drug Allergies Allergy (Verified 08/19/21 03:35) Home Medications: Albuterol 2.5 mg/3 ml Neb [Proventil 2.5 mg/3 ml Neb] 2.5 mg IH Q4HPRN PRN 06/20/19 [History] Albuterol Sulfate [Proair Hfa] 1 inh IH QIDPRN PRN 06/20/19 [History] Tiotropium Br/Olodaterol HCl [Stiolto Respimat Inhal [place]] 1 inh IH DAILY 06/20/19 [History] Aspirin EC 81 mg [Ecotrin 81 mg] 81 mg PO DAILY 09/17/20 [History] Polyethylene Glycol 3350 17 gm [Miralax Powder 17GM PACKET] 17 gm PO DAILY 05/07/21 [History] Ticagrelor [Brilinta] 90 mg BID 05/07/21 [History] Sucralfate 1 gm [Carafate 1 GM] 1 ea PO QID 05/17/21 [History] Potassium Chloride 10 Meq Tab* [Klor Con 10 MEQ] 20 meq PO DAILY 05/18/21 [History] Nitroglycerin [Nitroglycerin Patch] 1 each TD DAILY 07/05/21 [History] Metoprolol Succinate 25 mg Xl* [Toprol-Xl 25MG Tablets] 25 mg PO BID 08/19/21 [History] Omeprazole 20 mg PO BID 08/19/21 [History] Hx Tetanus, Diphtheria Vaccination/Date Given: No Hx Influenza Vaccination/Date Given: No Hx Pneumococcal Vaccination/Date Given: No Immunizations Up to Date: Yes Travel Risk - International Travel Have you traveled outside of the country in past 3 weeks: No - Coronavirus Screening Are you exhibiting any of the following symptoms?: No Close contact with a COVID-19 positive Pt in past 14-21 Days: No - Vaccine Status Have you recieved a Covid-19 vaccination: No - Review of Systems Constitutional: No Symptoms, No Fever, No Chills Eyes: No Symptoms Ears, Nose, & Throat: No Symptoms Respiratory: No Symptoms, No Cough, No Dyspnea Cardiac: No Symptoms, No Chest Pain, No Edema, No Syncope Abdominal/Gastrointestinal: No Symptoms, No Abdominal Pain, No Nausea, No Vomiting, No Diarrhea Genitourinary Symptoms: No Symptoms, No Dysuria Musculoskeletal: No Symptoms, No Back Pain, No Neck Pain Skin: No Symptoms, No Rash Neurological: No Symptoms, No Dizziness, No Focal Weakness, No Sensory Changes Psychological: No Symptoms Endocrine: No Symptoms Hematologic/Lymphatic: No Symptoms Immunological/Allergic: No Symptoms All Other Systems: Reviewed and Negative - Past Medical History Pertinent Past Medical History: Yes Neurological History: Stroke ENT History: No Pertinent History Cardiac History: Angina, Congestive Heart Failure, Coronary Artery Disease, Deep Vein Thrombosis, High Cholesterol, Hypertension, Myocardial Infarction ([place]) Respiratory History: Bronchitis, COPD Endocrine Medical History: No Pertinent History Musculoskeletal History: No Pertinent History GI Medical History: Hernia, Ulcer History: No Pertinent History Psycho-Social History: Depression Male Reproductive Disorders: No Pertinent History Other Medical History: Patient had a blood transfusion in May 2021 and April 2020 for a HGB of 6. [place] x3 - Past Surgical History Past Surgical History: Yes Neuro Surgical History: No Pertinent History Cardiac: Cardiac Catheterization, Cardiac Stent, Vascular Surgery Respiratory: No Pertinent History Gastrointestinal: Hernia Repair Genitourinary: No Pertinent History Musculoskeletal: No Pertinent History Male Surgical History: No Pertinent History Other Surgical History: LEFT CAROTID SURGERY NOVEMBER 2018. 16 stents reported - Social History Smoking Status: Current every day smoker How long have you smoked: 50 years Exposure to second hand smoke: Yes Drug Use: none Patient Lives Alone: No Significant Family History: no pertinent family hx - Nursing Vital Signs Nursing Vital Signs: Initial Vital Signs Temperature 78.2 F 09/10/21 11:21 Pulse Rate 107 H 09/10/21 11:21 Respiratory Rate 24 09/10/21 11:21 Blood Pressure 155/87 09/10/21 11:21 O2 Sat by Pulse Oximetry 99 09/10/21 11:21 Pain Scale Pain Intensity 2 - Physical Exam General Appearance: no apparent distress, alert Eye Exam: PERRL/EOMI, eyes nml inspection Ears, Nose, Throat Exam: normal ENT inspection, TMs normal, pharynx normal, moist mucous membranes Neck Exam: normal inspection, non-tender, supple, full range of motion Respiratory Exam: normal breath sounds, lungs clear, No respiratory distress Cardiovascular Exam: regular rate/rhythm, normal heart sounds, normal peripheral pulses Gastrointestinal/Abdomen Exam: soft, No tenderness, No mass, No pulsatile mass Back Exam: normal inspection, No CVA tenderness, No vertebral tenderness Extremity Exam: normal inspection, normal range of motion, pedal edema (Bilateral lower extremity swelling. 2+ pitting edema) Neurologic Exam: alert, oriented x 3, cooperative, normal mood/affect, sensation nml, No motor deficits Skin Exam: normal color, warm, dry Lymphatic Exam: No adenopathy SpO2 Interpretation: normal SpO2: 99 O2 Delivery: Room Air - Course Nursing assessment & vital signs reviewed: Yes EKG Interpreted by Me: RATE, Sinus Tach, NORMAL AXIS, NORMAL INTERVALS (Slight ST depression in lateral lead.) Ordered Tests: Active Orders 24 hr Category Date Time Status Clinical Training Coordinator STAT Care 09/10/21 11:25 Active EKG-ER Only STAT Care 09/10/21 11:25 Active IV Insertion STAT Care 09/10/21 11:25 Active Pulse Oximetry (ED) STAT Care 09/10/21 11:25 Active CHEST 1 VIEW (PORTABLE) Stat Exams 09/10/21 11:25 Completed CBC W DIFF Stat Lab 09/10/21 11:30 Completed CMP Stat Lab 09/10/21 11:30 Completed NT PRO BNP Stat Lab 09/10/21 11:30 Completed PROTIME WITH INR Stat Lab 09/10/21 11:30 Completed PTT Stat Lab 09/10/21 11:30 Completed TROPONIN Q3H Lab 09/10/21 11:30 Completed TROPONIN Q3H Lab 09/10/21 14:10 Completed TROPONIN Q3H Lab 09/10/21 17:30 Ordered TROPONIN Q3H Lab 09/10/21 20:30 Ordered TROPONIN Q3H Lab 09/10/21 23:30 Ordered UA W/RFX UR CULTURE Stat Lab 09/10/21 14:19 Completed Medication Summary Generic Name Dose Route Start Last Admin Trade Name Freq PRN Reason Stop Dose Admin Nitroglycerin/Dextrose 250 mls @ 1.5 mls/hr 09/10/21 11:30 Ntg 0.2mg/Ml In D5w Glass IV 10/10/21 11:29 .Q24H PRN CHEST PAIN Protocol 5 MCG/MIN Heparin Sodium/Dextrose 25,000 units in 250 mls @ 10 mls/hr 09/10/21 12:00 09/10/21 11:50 Heparin 25,000 Units/D5w 250ml Premix IV 10/10/21 11:59 1,000 units/hr .Q24H KIRBY 10 mls/hr Administration Discontinued Medications Generic Name Dose Route Start Last Admin Trade Name Freq PRN Reason Stop Dose Admin Aspirin 324 mg 09/10/21 11:31 09/10/21 11:54 Aspirin 81 Mg Tab.Chew PO 09/10/21 11:32 324 mg STAT ONE Administration Aspirin Confirm 09/10/21 11:45 Aspirin 81 Mg Tab.Chew Administered 09/10/21 11:46 Dose 324 mg .ROUTE .STK-MED ONE Furosemide 40 mg 09/10/21 15:14 Furosemide 40 Mg/4 Ml Vial IV 09/10/21 15:15 STAT ONE Heparin Sodium (Beef Lung) 5,000 unit 09/10/21 11:50 09/10/21 11:54 Heparin 5000 Unit/0.5 Ml Syringe IV 09/10/21 11:51 5,000 unit STAT ONE Administration Heparin Sodium (Beef Lung) Confirm 09/10/21 11:53 Heparin 5000 Unit/0.5 Ml Syringe Administered 09/10/21 11:54 Dose 5,000 unit .ROUTE .STK-[employer] ONE Heparin Sodium/Dextrose Confirm 09/10/21 11:45 Heparin 25,000 Units/D5w 250ml Premix Administered 09/10/21 11:46 Dose 25,000 units in 250 mls @ ud IV .[employer]-MED ONE Lab/Rad Data: Laboratory Result Diagrams 09/10/21 11:30 09/10/21 11:30 Laboratory Results 09/10/21 09/10/21 09/10/21 Range/Units 14:19 14:10 11:30 WBC (4.0-10.5) K/mm3 RBC (4.1-5.6) M/mm3 Hgb (12.5-18.0) gm/dl Hct (42-50) % MCV (78-100) fl MCH (26-32) pg MCHC (32-36) g/dl RDW (11.5-14.0) % Plt Count (150-450) K/mm3 MPV (7.5-11.0) fl Gran % (36.0-66.0) % Eos # (Auto) (0-0.5) Absolute Lymphs (auto) (1.0-4.6) Absolute Monos (auto) (0.0-1.3) Lymphocytes % (24.0-44.0) % Monocytes % (0.0-12.0) % Eosinophils % (0.00-5.0) % Basophils % (0.0-0.4) % Absolute Granulocytes (1.4-6.9) Basophils # (0-0.4) PT 10.9 (9.4-12.5) SECONDS INR 0.92 (0.8-3.0) APTT 30.9 (25.1-36.5) SECONDS Sodium (137-145) mmol/L Potassium (3.5-5.1) mmol/L Chloride (98-107) mmol/L Carbon Dioxide (22-30) mmol/L Anion Gap (5-15) MEQ/L BUN (9-20) mg/dL Creatinine (0.66-1.25) mg/dL Estimated GFR ML/MIN Glucose (74-106) mg/dL Calcium (8.4-10.2) mg/dL Total Bilirubin (0.2-1.3) mg/dL AST (17-59) U/L ALT (0-50) U/L Alkaline Phosphatase (38-126) U/L Troponin I 0.033 (0.000-0.034) ng/mL NT-Pro-B Natriuret Pep (0-900) pg/mL Serum Total Protein (6.3-8.2) g/dL Albumin (3.5-5.0) g/dL Urine Color YELLOW (YELLOW) Urine Appearance CLEAR (CLEAR) Urine pH 6.0 (5-6) Ur Specific [place] 1.015 (1.005-1.025) Urine Protein NEGATIVE (Negative) Urine Ketones NEGATIVE (NEGATIVE) Urine Blood NEGATIVE (0-5) Stuart/ul Urine Nitrite NEGATIVE (NEGATIVE) Urine Bilirubin NEGATIVE (NEGATIVE) Urine Urobilinogen 2 (0-1) mg/dL Ur Leukocyte Esterase NEGATIVE (NEGATIVE) Urine WBC (Auto) 0-2 (0-5) /HPF Urine RBC (Auto) NONE (0-2) /HPF U Epithel Cells (Auto) NONE (FEW) /HPF Urine Mucus (Auto) SLIGHT (NEGATIVE) /HPF Urine Culture Reflexed NO (NO) Urine Glucose NEGATIVE (NEGATIVE) mg/dL 09/10/21 09/10/21 09/10/21 Range/Units 11:30 11:30 11:30 WBC 13.7 H (4.0-10.5) K/mm3 RBC 3.92 L (4.1-5.6) M/mm3 Hgb 9.9 L (12.5-18.0) gm/dl Hct 33.8 L (42-50) % MCV 86.2 (78-100) fl MCH 25.3 L (26-32) pg MCHC 29.3 L (32-36) g/dl RDW 18.6 H (11.5-14.0) % Plt Count 458 H (150-450) K/mm3 MPV 10.1 (7.5-11.0) fl Gran % 77.9 H (36.0-66.0) % Eos # (Auto) 0.33 (0-0.5) Absolute Lymphs (auto) 1.71 (1.0-4.6) Absolute Monos (auto) 0.91 (0.0-1.3) Lymphocytes % 12.5 L (24.0-44.0) % Monocytes % 6.7 (0.0-12.0) % Eosinophils % 2.4 (0.00-5.0) % Basophils % 0.5 (0.0-0.4) % Absolute Granulocytes 10.65 H (1.4-6.9) Basophils # 0.07 (0-0.4) PT (9.4-12.5) SECONDS INR (0.8-3.0) APTT (25.1-36.5) SECONDS Sodium 138 (137-145) mmol/L Potassium 3.8 (3.5-5.1) mmol/L Chloride 106 (98-107) mmol/L Carbon Dioxide 23 (22-30) mmol/L Anion Gap 11.8 (5-15) MEQ/L BUN 14 (9-20) mg/dL Creatinine 0.79 (0.66-1.25) mg/dL Estimated GFR > 60.0 ML/MIN Glucose 117 H (74-106) mg/dL Calcium 8.7 (8.4-10.2) mg/dL Total Bilirubin 0.30 (0.2-1.3) mg/dL AST 21 (17-59) U/L ALT 13 (0-50) U/L Alkaline Phosphatase 79 (38-126) U/L Troponin I 0.024 (0.000-0.034) ng/mL NT-Pro-B Natriuret Pep 3960 H (0-900) pg/mL Serum Total Protein 5.8 L (6.3-8.2) g/dL Albumin 3.2 L (3.5-5.0) g/dL Urine Color (YELLOW) Urine Appearance (CLEAR) Urine pH (5-6) Ur Specific [place] (1.005-1.025) Urine Protein (Negative) Urine Ketones (NEGATIVE) Urine Blood (0-5) Stuart/ul Urine Nitrite (NEGATIVE) Urine Bilirubin (NEGATIVE) Urine Urobilinogen (0-1) mg/dL Ur Leukocyte Esterase (NEGATIVE) Urine WBC (Auto) (0-5) /HPF Urine RBC (Auto) (0-2) /HPF U Epithel Cells (Auto) (FEW) /HPF Urine Mucus (Auto) (NEGATIVE) /HPF Urine Culture Reflexed (NO) Urine Glucose (NEGATIVE) mg/dL - Progress Progress: improved Air Movement: good Progress Note: Case discussed with Dr. Layton our patient's hospitalist who accepts transfer. Transfer service will contact us with a bed assignment. 09/10/21 11:54 Work-up reveals congestive heart failure. Elevated BNP. Lasix administered. Patient currently on heparin drip. We held on nitroglycerin due to blood pressure. Plan of care discussed with patient. He agrees to admission [facility] for further evaluation and treatment. 09/10/21 12:10 Portions of this note were created with voice recognition technology. There may be grammatical, spelling, punctuation or sound alike errors Blood Culture(s) Obtained: No Antibiotics given: No Counseled pt/family regarding: lab results, diagnosis, rad results - Departure Departure Disposition: Transfer Clinical Impression: ACS (acute coronary syndrome), CHF (congestive heart failure), Elevated brain natriuretic peptide (BNP) level, Leukocytosis, Anemia Condition: Stable Critical Care Time: No Referrals: GABRIEL MEEKS [Primary Care Provider] - Instructions: Heart Failure
[2021-09-10 11:43] LABS: Absolute Neutrophil Ct (ANC) 10.65 (1.4-6.9); BASOPHIL % 0.5 % (0.0-0.4); Basophil (Absolute #) 0.07 (0-0.4); Eosinophil % 2.4 % (0.00-5.0); Eosinophil (Absolute #) 0.33 (0-0.5); Hematocrit 33.8 % (42-50); Hemoglobin 9.9 gm/dl (12.5-18.0); Lymphocyte (Absolute #) 1.71 (1.0-4.6); Lymphocytes % 12.5 % (24.0-44.0); Mean Cell Volume 86.2 fl (78-100); Mean Corpuscular Hemoglobin 25.3 pg (26-32); Mean Corpuscular Hgb Concent. 29.3 g/dl (32-36); Mean Platelet Volume 10.1 fl (7.5-11.0); Monocyte (Absolute #) 0.91 (0.0-1.3); Monocytes % 6.7 % (0.0-12.0); Neutrophil % 77.9 % (36.0-66.0); Platelet Count 458 K/mm3 (150-450); Red Blood Count 3.92 M/mm3 (4.1-5.6); Red Cell Distribution Width 18.6 % (11.5-14.0); White Blood Count 13.7 K/mm3 (4.0-10.5)
[2021-09-10] MEDS ORDERED: BABY ASPIRIN 81 MG CHEW ONE (11:45)
[2021-09-10] MEDS ORDERED: Ntg 0.2MG/Ml in D5W GLASS*** 0 ML IV ONE (11:45)
[2021-09-10] MEDS ORDERED: Heparin 25,000 units/D5W 250ML PREMIX 25,000 UNITS/250 ML BAG IV ONE (11:45)
[2021-09-10 11:49] LABS: INR 0.92 (0.8-3.0); PROTIME 10.9 SECONDS (9.4-12.5)
[2021-09-10] MEDS ORDERED: Heparin 5000 UNITS/0.5 ML (HIGH RISK MED) IV ONE (11:50)
[2021-09-10 11:52] LABS: PTT 30.9 SECONDS (25.1-36.5)
[2021-09-10] MEDS ORDERED: Heparin 5000 UNITS/0.5 ML (HIGH RISK MED) ONE (11:53)
[2021-09-10] MEDS ORDERED: Heparin 25,000 units/D5W 250ML PREMIX 25,000 UNITS/250 ML BAG IV SCH (12:00)
[2021-09-10 12:03] LABS: ALBUMIN 3.2 g/dL (3.5-5.0); ALKALINE PHOSPHATASE 79 U/L (38-126); ANION GAP 11.8 MEQ/L (5-15); BLOOD UREA NITROGEN 14 mg/dL (9-20); CHLORIDE 106 mmol/L (98-107); Calcium 8.7 mg/dL (8.4-10.2); Carbon Dioxide 23 mmol/L (22-30); Creatinine 1 0.79 mg/dL (0.66-1.25); EST GLOMERULAR FILTRATION RATE > 60.0 ML/MIN; Glucose 117 mg/dL (74-106); NT PRO BNP 3960 pg/mL (0-900); Potassium 3.8 mmol/L (3.5-5.1); SGOT/AST 21 U/L (17-59); SGPT/ALT 13 U/L (0-50); SODIUM 138 mmol/L (137-145); Total Protein 5.8 g/dL (6.3-8.2)
--- NOTE | 2021-09-10 12:11 | XRAY ---
Indication: Chest pain. Comparison: August 11, 2021. Portable chest unchanged again demonstrating mild bilateral mid to lower lung haziness interstitial alveolar opacities without consolidation/large effusion. Heart not enlarged. No new cardiopulmonary abnormalities. Bony thorax intact again with mild degenerative changes.
[2021-09-10] MEDS ORDERED: Lasix 40 MG/4 ML IV ONE (15:14)
[2021-09-10 15:23] LABS: Appearance CLEAR (CLEAR); Bilirubin NEGATIVE (NEGATIVE); Blood NEGATIVE Ery/ul (0-5); Glucose NEGATIVE (NEGATIVE); Ketones NEGATIVE (NEGATIVE); Leukocyte Esterase NEGATIVE (NEGATIVE); Mucus SLIGHT /HPF (NEGATIVE); Nitrite NEGATIVE (NEGATIVE); Protein,Urine Dip NEGATIVE (Negative); Specific Gravity 1.015 (1.005-1.025); Urobilinogen 2 mg/dL (0-1); WBC 0-2 /HPF (0-5)
[2021-09-10 16:11] VITALS: BP 104/67; PULSE 86; O2SAT 98
[2021-09-10] MEDS ORDERED: Lasix 40 MG/4 ML ONE (16:14)
== END 2021-09-10 16:33 | disposition short-term general hospital (02) ==
LOC: ED 11:17
DX: I24.9 Acute ischemic heart disease, unspecified (principal); I50.9 Heart failure, unspecified; R79.89 Other specified abnormal findings of blood chemistry
CPT/HCPCS: 36000; 36415; 71045; 80053; 81001; 83880; 84484; 85025; 85610; 85730; 93005; 93041; 94760; 96374; 96375; 99285; J1644; J1940; A9270-GY

== ENCOUNTER 2022-02-03 20:59 | Emergency (ER) | payer OTHER ==
--- NOTE | 2022-02-03 21:07 | ERPHSYRPT ---
- History of Present Illness Time Seen by Provider: 02/03/22 21:06 Historian: patient Exam Limitations: no limitations Physician History: This is a 62-year-old obese white male patient of Dr. Mulligan who has a significant cardiac history with several cardiac stents. He has a LifeVest on. He has history of COPD that is oxygen dependent, CHF, hypertension, history of d eep venous thromboses, elevated cholesterol, TIAs and anemia in the past and has required transfusions. Patient takes aspirin and Plavix daily which he already took this morning. 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 Rachael Layton out of [facility]. Patient complains of left-sided chest pain that is sharp and nonradiating. Patient took 2 nitro glycerin sublingually. Patient has a nitro patch on that he placed today at noon. Patient states he chronically has chest pain on the left side but it was worse today than usual. He has associated shortness of breath. He has not had a fever. Timing/Duration: today, intermittent, worse Quality: sharpness Location: other (Left chest) Chest Pain Radiation: no radiation Severity of Pain-Max: moderate Severity of Pain-Current: moderate Associated Symptoms: shortness of breath Prior Chest Pain/Cardiac Workup: angina, cardiac cath, heart attack Nitro Today/Relief: 0.4 mg x 2 (In addition, patient has a nitroglycerin patch in place that was placed approximately 9 hours ago) Aspirin Treatment Today: 81 mg x 4, provided at home Allergies/Adverse Reactions: No Known Drug Allergies Allergy (Verified 02/03/22 21:31) Home Medications: Albuterol 2.5 mg/3 ml Neb [Proventil 2.5 mg/3 ml Neb] 2.5 mg IH Q4HPRN PRN 06/20/19 [History] Albuterol Sulfate [Proair Hfa] 1 inh IH QIDPRN PRN 06/20/19 [History] Tiotropium Br/Olodaterol HCl [Stiolto Respimat Inhal [place]] 1 inh IH DAILY 06/20/19 [History] Aspirin EC 81 mg [Ecotrin 81 mg] 81 mg PO DAILY 09/17/20 [History] Polyethylene Glycol 3350 17 gm [Miralax Powder 17GM PACKET] 17 gm PO DAILY 05/07/21 [History] Ticagrelor [Brilinta] 90 mg BID 05/07/21 [History] Sucralfate 1 gm [Carafate 1 GM] 1 ea PO QID 05/17/21 [History] Potassium Chloride 10 Meq Tab* [Klor Con 10 MEQ] 20 meq PO DAILY 05/18/21 [History] Nitroglycerin [Nitroglycerin Patch] 1 each TD DAILY 07/05/21 [History] Metoprolol Succinate 25 mg Xl* [Toprol-Xl 25MG Tablets] 25 mg PO BID 08/19/21 [History] Omeprazole 20 mg PO BID 08/19/21 [History] Hx Tetanus, Diphtheria Vaccination/Date Given: No Hx Influenza Vaccination/Date Given: No Hx Pneumococcal Vaccination/Date Given: No Travel Risk - International Travel Have you traveled outside of the country in past 3 weeks: No - Coronavirus Screening Are you exhibiting any of the following symptoms?: No Close contact with a COVID-19 positive Pt in past 14-21 Days: No - Vaccine Status Have you recieved a Covid-19 vaccination: No - Review of Systems Constitutional: No Symptoms Eyes: No Symptoms Ears, Nose, & Throat: No Symptoms Respiratory: Dyspnea Cardiac: Chest Pain Abdominal/Gastrointestinal: No Symptoms Genitourinary Symptoms: No Symptoms Musculoskeletal: No Symptoms Skin: No Symptoms Neurological: No Symptoms Psychological: No Symptoms Endocrine: No Symptoms Hematologic/Lymphatic: No Symptoms Immunological/Allergic: No Symptoms All Other Systems: Reviewed and Negative - Past Medical History Pertinent Past Medical History: Yes Neurological History: Stroke ENT History: No Pertinent History Cardiac History: Angina, Congestive Heart Failure, Coronary Artery Disease, Deep Vein Thrombosis, High Cholesterol, Hypertension, Myocardial Infarction ([place]) Respiratory History: Bronchitis, COPD Endocrine Medical History: No Pertinent History Musculoskeletal History: No Pertinent History GI Medical History: Hernia, Ulcer History: No Pertinent History Psycho-Social History: Depression Male Reproductive Disorders: No Pertinent History Other Medical History: Patient had a blood transfusion in May 2021 and April 2020 for a HGB of 6. [place] x3 - Past Surgical History Past Surgical History: Yes Neuro Surgical History: No Pertinent History Cardiac: Cardiac Catheterization, Cardiac Stent, Vascular Surgery Respiratory: No Pertinent History Gastrointestinal: Hernia Repair Genitourinary: No Pertinent History Musculoskeletal: No Pertinent History Male Surgical History: No Pertinent History Other Surgical History: LEFT CAROTID SURGERY NOVEMBER 2018. 16 stents reported - Social History Smoking Status: Current every day smoker How long have you smoked: 50 years Exposure to second hand smoke: Yes Drug Use: none Patient Lives Alone: No Significant Family History: no pertinent family hx - Nursing Vital Signs Nursing Vital Signs: Initial Vital Signs Temperature 97.5 F 02/03/22 21:01 Pulse Rate 95 H 02/03/22 21:01 Respiratory Rate 22 02/03/22 21:01 Blood Pressure 129/79 02/03/22 21:01 O2 Sat by Pulse Oximetry 95 02/03/22 21:01 Pain Scale Pain Intensity 5 - Physical Exam General Appearance: mild distress, alert, anxiety, obese Eye Exam: PERRL/EOMI, eyes nml inspection Ears, Nose, Throat Exam: normal ENT inspection, dry mucous membranes Neck Exam: normal inspection, non-tender, supple, full range of motion Respiratory Exam: chest tenderness, airway intact, wheezing (Sparse bilateral), No respiratory distress Cardiovascular Exam: regular rate/rhythm, normal heart sounds, normal peripheral pulses Gastrointestinal/Abdomen Exam: soft, normal bowel sounds, No tenderness Rectal Exam: not done Back Exam: normal inspection, normal range of motion, No CVA tenderness, No vertebral tenderness Extremity Exam: normal inspection, normal range of motion, pelvis stable Neurologic Exam: alert, oriented x 3, cooperative, pasteurizer II-XII nml as tested, normal mood/affect, nml cerebellar function, nml station & gait, sensation nml Skin Exam: pale Lymphatic Exam: No adenopathy SpO2 Interpretation: normal O2 Delivery: Room Air - Course Nursing assessment & vital signs reviewed: Yes EKG Interpreted by Me: RATE (91), Sinus Rhythm, Right Bundle Branch Block (And left posterior fascicular block), NORMAL ST-T, Other (No acute ischemic changes on today's EKG. Today's EKG shows resolution of sinus tachycardia that was present on comparison EKG dated 09/10/2021. The remainder of today's EKG is similar to other findings on the comparison EKG) Ordered Tests: Active Orders 24 hr Category Date Time Status Office Engineer STAT Care 02/03/22 21:07 Active EKG-ER Only STAT Care 02/03/22 21:06 Active IV Insertion STAT Care 02/03/22 21:06 Active Oxygen-ED Only Nasal Cannula 2 lpm Care 02/03/22 21:06 Active Pulse Oximetry (ED) STAT Care 02/03/22 21:06 Active CHEST 1 VIEW (PORTABLE) Stat Exams 02/03/22 21:13 Taken CBC W DIFF Stat Lab 02/03/22 21:06 Completed CMP Stat Lab 02/03/22 21:39 Completed COVID AG-BINAX NOW RAPID TEST Stat Lab 02/03/22 21:40 Completed D-DIMER QUANTITATIVE Stat Lab 02/03/22 21:39 Completed NT PRO BNP Stat Lab 02/03/22 21:39 Completed PROTIME WITH INR Stat Lab 02/03/22 21:39 Completed TROPONIN Q3H Lab 02/03/22 21:15 Completed TROPONIN Q3H Lab 02/04/22 00:15 Ordered TROPONIN Q3H Lab 02/04/22 03:15 Ordered TROPONIN Q3H Lab 02/04/22 06:15 Ordered TROPONIN Q3H Lab 02/04/22 09:15 Ordered Respiratory Therapy Assessment DAILY RT 02/03/22 21:33 Active Transfer Order Routine Transfer 02/03/22 Ordered Medication Summary Discontinued Medications Generic Name Dose Route Start Last Admin Trade Name Luis Mq PRN Reason Stop Dose Admin Albuterol Sulfate Confirm 02/03/22 21:28 Albuterol Sulfate 2.5 Mg/3 Ml Neb Administered 02/03/22 21:29 Dose 2.5 mg IH .STK-MED ONE Albuterol Sulfate 2.5 mg 02/03/22 21:31 02/03/22 21:32 Albuterol Sulfate 2.5 Mg/3 Ml Neb IH 02/03/22 21:32 2.5 mg STAT ONE Administration Methylprednisolone Sodium 0 mg 02/03/22 21:23 02/03/22 21:26 Succinate 125 mg/ Sterile IV 02/03/22 21:24 125 mg Water 2 ml STAT ONE Administration Diphenhydramine HCl 50 mg 02/03/22 22:48 02/03/22 22:50 Diphenhydramine Hcl 50 Mg/Ml Vial IV 02/03/22 22:49 50 mg STAT ONE Administration Diphenhydramine HCl Confirm 02/03/22 22:48 Diphenhydramine Hcl 50 Mg/Ml Vial Administered 02/03/22 22:49 Dose 50 mg .ROUTE .STK-MED ONE Furosemide 40 mg 02/03/22 21:25 02/03/22 21:29 Furosemide 40 Mg/4 Ml Vial IV 02/03/22 21:26 40 mg STAT ONE Administration Furosemide Confirm 02/03/22 21:27 Furosemide 40 Mg/4 Ml Vial Administered 02/03/22 21:28 Dose 40 mg .ROUTE .STK-MED ONE Sodium Chloride Confirm 02/03/22 22:47 Sodium Chloride 0.9% 1000 Ml Administered 02/03/22 22:48 Dose 1,000 mls @ ud .ROUTE .STK-MED ONE Methylprednisolone Sodium Succinate Confirm 02/03/22 21:24 Methylprednis Sod Succ 125 Mg/2 Ml Vial Administered 02/03/22 21:25 Dose 125 mg .ROUTE .STK-MED ONE Morphine Sulfate 4 mg 02/03/22 21:26 02/03/22 21:29 Morphine Sulfate 4 Mg/Ml Injection IV 02/03/22 21:27 4 mg STAT ONE Administration Morphine Sulfate Confirm 02/03/22 21:26 Morphine Sulfate 4 Mg/Ml Injection Administered 02/03/22 21:27 Dose 4 mg .ROUTE .STK-MED ONE Morphine Sulfate 4 mg 02/03/22 22:54 02/03/22 22:56 Morphine Sulfate 4 Mg/Ml Injection IV 02/03/22 22:55 4 mg STAT ONE Administration Morphine Sulfate Confirm 02/03/22 22:55 Morphine Sulfate 4 Mg/Ml Injection Administered 02/03/22 22:56 Dose 4 mg .ROUTE .STK-MED ONE Nitroglycerin 0.5 gm 02/03/22 22:37 02/03/22 22:38 Nitroglycerin 1 Gm Packet TOP 02/03/22 22:38 0.5 gm STAT ONE Administration Nitroglycerin Confirm 02/03/22 22:35 Nitroglycerin 1 Gm Packet Administered 02/03/22 22:36 Dose 1 gm .ROUTE .STK-MED ONE Ondansetron HCl 4 mg 02/03/22 21:26 02/03/22 21:29 Ondansetron Hcl 4 Mg/2 Ml Vial IV 02/03/22 21:27 4 mg STAT ONE Administration Ondansetron HCl Confirm 02/03/22 21:26 Ondansetron Hcl 4 Mg/2 Ml Vial Administered 02/03/22 21:27 Dose 4 mg .ROUTE .STK-MED ONE Lab/Rad Data: Laboratory Result Diagrams 02/03/22 21:06 02/03/22 21:39 Laboratory Results 02/03/22 02/03/22 02/03/22 Range/Units 21:52 21:52 21:40 WBC (4.0-10.5) K/mm3 RBC (4.1-5.6) M/mm3 Hgb (12.5-18.0) gm/dl Hct (42-50) % MCV (78-100) fl MCH (26-32) pg MCHC (32-36) g/dl RDW (11.5-14.0) % Plt Count (150-450) K/mm3 MPV (7.5-11.0) fl Gran % (36.0-66.0) % Eos # (Auto) (0-0.5) Absolute Lymphs (auto) (1.0-4.6) Absolute Monos (auto) (0.0-1.3) Lymphocytes % (24.0-44.0) % Monocytes % (0.0-12.0) % Eosinophils % (0.00-5.0) % Basophils % (0.0-0.4) % Absolute Granulocytes (1.4-6.9) Basophils # (0-0.4) PT (9.4-12.5) SECONDS INR (0.8-3.0) D-Dimer (215-500) ng/mL Sodium (137-145) mmol/L Potassium (3.5-5.1) mmol/L Chloride (98-107) mmol/L Carbon Dioxide (22-30) mmol/L Anion Gap (5-15) MEQ/L BUN (9-20) mg/dL Creatinine (0.66-1.25) mg/dL Estimated GFR ML/MIN Glucose (74-106) mg/dL Calcium (8.4-10.2) mg/dL Total Bilirubin (0.2-1.3) mg/dL AST (17-59) U/L ALT (0-50) U/L Alkaline Phosphatase (38-126) U/L Troponin I (0.000-0.034) ng/mL NT-Pro-B Natriuret Pep (0-900) pg/mL Serum Total Protein (6.3-8.2) g/dL Albumin (3.5-5.0) g/dL SARS-CoV-2 Ag (Rapid) NEGATIVE (NEGATIVE) ABO Group O Rh Factor POSITIVE Antibody Screen NEGATIVE (NEGATIVE) Crossmatch COMPATIBLE COMPATIBLE (COMPATIBLE) 02/03/22 02/03/22 02/03/22 Range/Units 21:39 21:39 21:15 WBC (4.0-10.5) K/mm3 RBC (4.1-5.6) M/mm3 Hgb (12.5-18.0) gm/dl Hct (42-50) % MCV (78-100) fl MCH (26-32) pg MCHC (32-36) g/dl RDW (11.5-14.0) % Plt Count (150-450) K/mm3 MPV (7.5-11.0) fl Gran % (36.0-66.0) % Eos # (Auto) (0-0.5) Absolute Lymphs (auto) (1.0-4.6) Absolute Monos (auto) (0.0-1.3) Lymphocytes % (24.0-44.0) % Monocytes % (0.0-12.0) % Eosinophils % (0.00-5.0) % Basophils % (0.0-0.4) % Absolute Granulocytes (1.4-6.9) Basophils # (0-0.4) PT 13.7 H (9.4-12.5) SECONDS INR 1.16 (0.8-3.0) D-Dimer 552 H* (215-500) ng/mL Sodium 141 (137-145) mmol/L Potassium 4.3 (3.5-5.1) mmol/L Chloride 107 (98-107) mmol/L Carbon Dioxide 28 (22-30) mmol/L Anion Gap 11.0 (5-15) MEQ/L BUN 17 (9-20) mg/dL Creatinine 0.92 (0.66-1.25) mg/dL Estimated GFR > 60.0 ML/MIN Glucose 115 H (74-106) mg/dL Calcium 8.7 (8.4-10.2) mg/dL Total Bilirubin 0.60 (0.2-1.3) mg/dL AST 16 L (17-59) U/L ALT 9 (0-50) U/L Alkaline Phosphatase 81 (38-126) U/L Troponin I 0.018 (0.000-0.034) ng/mL NT-Pro-B Natriuret Pep 4910 H (0-900) pg/mL Serum Total Protein 5.9 L (6.3-8.2) g/dL Albumin 3.4 L (3.5-5.0) g/dL SARS-CoV-2 Ag (Rapid) (NEGATIVE) ABO Group Rh Factor Antibody Screen (NEGATIVE) Crossmatch (COMPATIBLE) 02/03/22 Range/Units 21:06 WBC 8.6 (4.0-10.5) K/mm3 RBC 3.00 L (4.1-5.6) M/mm3 Hgb 7.4 L (12.5-18.0) gm/dl Hct 26.0 L (42-50) % MCV 86.7 (78-100) fl MCH 24.7 L (26-32) pg MCHC 28.5 L (32-36) g/dl RDW 21.4 H (11.5-14.0) % Plt Count 283 (150-450) K/mm3 MPV 11.5 H (7.5-11.0) fl Gran % 78.5 H (36.0-66.0) % Eos # (Auto) 0.25 (0-0.5) Absolute Lymphs (auto) 0.89 L (1.0-4.6) Absolute Monos (auto) 0.70 (0.0-1.3) Lymphocytes % 10.3 L (24.0-44.0) % Monocytes % 8.1 (0.0-12.0) % Eosinophils % 2.9 (0.00-5.0) % Basophils % 0.2 (0.0-0.4) % Absolute Granulocytes 6.76 (1.4-6.9) Basophils # 0.02 (0-0.4) PT (9.4-12.5) SECONDS INR (0.8-3.0) D-Dimer (215-500) ng/mL Sodium (137-145) mmol/L Potassium (3.5-5.1) mmol/L Chloride (98-107) mmol/L Carbon Dioxide (22-30) mmol/L Anion Gap (5-15) MEQ/L BUN (9-20) mg/dL Creatinine (0.66-1.25) mg/dL Estimated GFR ML/MIN Glucose (74-106) mg/dL Calcium (8.4-10.2) mg/dL Total Bilirubin (0.2-1.3) mg/dL AST (17-59) U/L ALT (0-50) U/L Alkaline Phosphatase (38-126) U/L Troponin I (0.000-0.034) ng/mL NT-Pro-B Natriuret Pep (0-900) pg/mL Serum Total Protein (6.3-8.2) g/dL Albumin (3.5-5.0) g/dL SARS-CoV-2 Ag (Rapid) (NEGATIVE) ABO Group Rh Factor Antibody Screen (NEGATIVE) Crossmatch (COMPATIBLE) - Progress Progress: improved Air Movement: fair Progress Note: 02/03/22 21:24 Chest x-ray shows cardiomegaly with right pleural effusion and bibasilar infiltrate versus fluid 02/03/22 22:23 Medical decision making: This patient is fully anticoagulated on Plavix and aspirin. He has acute coronary syndrome, CHF and anemia that is going to require transfusions. Patient wants to go to [facility] but there are no beds available at this time. He was placed on a wait list. I spoke with the patient's primary care physician Dr. Mulligan. We will place him in the intensive care unit, use topical nitroglycerin paste, transfused 2 units packed red blood cells with Lasix between units transfused and keep him monitored. Will provide him with supplemental oxygen. We will also repeat labs in the mo rning. We will stop his aspirin and Plavix. We will provide him with nebulizer treatments. 02/03/22 23:10 Medical decision making: Dr. Irwin, the hospitalist at [facility], called back and I reviewed the patient history, physical findings, EKG findings, x-ray results and laboratory results with him. He accepts the patient in transfer. In addition, in the interim, PCU beds did open up at [facility] and per Dr. Irwin and transfer center, a bed should be available shortly. Therefore, we will transfer the patient to [facility]. Blood Culture(s) Obtained: Yes Antibiotics given: No Discussed with : Maribeth Counseled pt/family regarding: lab results, diagnosis, rad results - Departure Departure Disposition: Transfer Clinical Impression: ACS (acute coronary syndrome), Chest pain, Symptomatic anemia, CHF (congestive heart failure) Condition: Fair Critical Care Time: Yes Critical Care Time(excluding separately billable procedures): Critical 30-74 mins (30 minutes) Referrals: GABRIEL MULLIGAN [Primary Care Provider] - Follow up/PCP as directed Instructions: Heart Failure
[2022-02-03 21:22] LABS: Absolute Neutrophil Ct (ANC) 6.76 (1.4-6.9); Basophil (Absolute #) 0.02 (0-0.4); Eosinophil % 2.9 % (0.00-5.0); Eosinophil (Absolute #) 0.25 (0-0.5); Hemoglobin 7.4 gm/dl (12.5-18.0); Lymphocyte (Absolute #) 0.89 (1.0-4.6); Lymphocytes % 10.3 % (24.0-44.0); Mean Cell Volume 86.7 fl (78-100); Mean Corpuscular Hemoglobin 24.7 pg (26-32); Mean Corpuscular Hgb Concent. 28.5 g/dl (32-36); Mean Platelet Volume 11.5 fl (7.5-11.0); Monocytes % 8.1 % (0.0-12.0); Neutrophil % 78.5 % (36.0-66.0); Platelet Count 283 K/mm3 (150-450); Red Cell Distribution Width 21.4 % (11.5-14.0); White Blood Count 8.6 K/mm3 (4.0-10.5)
[2022-02-03] MEDS ORDERED: solu-MEDROL 125 MG, Sterile H2O 10 ml 2 ML IV ONE ×2 (21:23)
[2022-02-03] MEDS ORDERED: solu-MEDROL ONE (21:24)
[2022-02-03] MEDS ORDERED: Lasix 40 MG/4 ML IV ONE (21:25)
[2022-02-03] MEDS ORDERED: Zofran 4 MG/2 ML VIAL ONE (21:26)
[2022-02-03] MEDS ORDERED: MORPHINE SULFATE 4 MG INJ ONE ×2 (21:26→22:55)
[2022-02-03] MEDS ORDERED: MORPHINE SULFATE 4 MG INJ IV ONE ×2 (21:26→22:54)
[2022-02-03] MEDS ORDERED: Zofran 4 MG/2 ML VIAL IV ONE (21:26)
[2022-02-03] MEDS ORDERED: Lasix 40 MG/4 ML ONE (21:27)
[2022-02-03] MEDS ORDERED: PROVENTIL 2.5 MG/3 ML NEB IH ONE ×2 (21:28→21:31)
[2022-02-03 21:42] LABS: INR 1.16 (0.8-3.0); PROTIME 13.7 SECONDS (9.4-12.5)
[2022-02-03 21:54] LABS: ALBUMIN 3.4 g/dL (3.5-5.0); ALKALINE PHOSPHATASE 81 U/L (38-126); BLOOD UREA NITROGEN 17 mg/dL (9-20); CHLORIDE 107 mmol/L (98-107); Calcium 8.7 mg/dL (8.4-10.2); Carbon Dioxide 28 mmol/L (22-30); Creatinine 1 0.92 mg/dL (0.66-1.25); EST GLOMERULAR FILTRATION RATE > 60.0 ML/MIN; Glucose 115 mg/dL (74-106); NT PRO BNP 4910 pg/mL (0-900); Potassium 4.3 mmol/L (3.5-5.1); SGOT/AST 16 U/L (17-59); SGPT/ALT 9 U/L (0-50); SODIUM 141 mmol/L (137-145); Total Protein 5.9 g/dL (6.3-8.2)
[2022-02-03 22:04] LABS: COVID AG -BINAX NOW RAPID TEST NEGATIVE (NEGATIVE)
[2022-02-03] MEDS ORDERED: NITRO-BID 2% UD PACKETS ONE (22:35)
[2022-02-03] MEDS ORDERED: NITRO-BID 2% UD PACKETS TOP ONE (22:37)
[2022-02-03 22:45] LABS: ABO TYPING O; Antibody Screen NEGATIVE (NEGATIVE); RH TYPING POSITIVE
[2022-02-03 22:46] LABS: CROSS MATCH (PRBC) COMPATIBLE (COMPATIBLE)
[2022-02-03] MEDS ORDERED: Sodium Chloride 0.9% 1000 ML 1,000 ML ONE (22:47)
[2022-02-03] MEDS ORDERED: BENADRYL 50 MG/ML ONE (22:48)
[2022-02-03] MEDS ORDERED: BENADRYL 50 MG/ML IV ONE (22:48)
[2022-02-03 23:03] VITALS: O2SAT 97
[2022-02-03 23:35] LABS: Slide Review 1 YES
[2022-02-04 00:03] VITALS: BP 128/73; PULSE 83
--- NOTE | 2022-02-04 08:36 | XRAY ---
Indication: Chest pain and cough. Comparison: September 10, 2021. Portable chest now demonstrates borderline cardiomegaly, central vascular congestion, and small bibasilar effusions/atelectasis right greater than left favoring cardiac decompensation/CHF. Superimposed pneumonia not completely excluded. Bony thorax intact again with degenerative changes.
== END 2022-02-04 00:02 | disposition short-term general hospital (02) ==
LOC: ED 20:59
DX: I24.9 Acute ischemic heart disease, unspecified (principal); I50.9 Heart failure, unspecified; R07.9 Chest pain, unspecified; D64.9 Anemia, unspecified; R06.02 Shortness of breath; I25.10 Atherosclerotic heart disease of native coronary artery without angina pectoris; Z86.718 Personal history of other venous thrombosis and embolism; Z79.01 Long term (current) use of anticoagulants; I25.2 Old myocardial infarction; E78.5 Hyperlipidemia, unspecified; I11.0 Hypertensive heart disease with heart failure; J44.9 Chronic obstructive pulmonary disease, unspecified; Z72.0 Tobacco use; Z79.899 Other long term (current) drug therapy
CPT/HCPCS: 36000; 36415; 36430; 71045; 80053; 83880; 84484; 85025; 85379; 85610; 86850; 86900; 86901; 86922; 93005; 93041; 94640; 94760; 96374; 96375; 96376; 99000; 99285; 99291; J1200; J1940; J2270; J2405; J2930; J7609; P9016; A9270-GY

== ENCOUNTER 2022-07-03 16:07 | Emergency (ER) | payer MEDICARE, OTHER ==
[2022-07-03] MEDS ORDERED: BABY ASPIRIN 81 MG CHEW PO ONE (16:22)
[2022-07-03 16:38] LABS: Absolute Neutrophil Ct (ANC) 5.06 x10^3/uL (1.4-6.9); Basophil (Absolute #) 0.05 x10^3/uL (0-0.4); Eosinophil % 2.2 % (0.00-5.0); Eosinophil (Absolute #) 0.15 x10^3/uL (0-0.5); Lymphocyte (Absolute #) 0.71 x10^3/uL (1.0-4.6); Lymphocytes % 10.5 % (24.0-44.0); Mean Cell Volume 87.9 fL (78-100); Mean Corpuscular Hemoglobin 24.2 pg (26-32); Mean Corpuscular Hgb Concent. 27.6 g/dL (32-36); Mean Platelet Volume 11.3 fL (7.5-11.0); Monocyte (Absolute #) 0.77 x10^3/uL (0.0-1.3); Monocytes % 11.4 % (0.0-12.0); Neutrophil % 74.9 % (36.0-66.0); Platelet Count 234 x10^3/uL (150-450); White Blood Count 6.8 x10^3/uL (4.0-10.5)
--- NOTE | 2022-07-03 16:41 | XRAY ---
Indication: Chest pain and short of breath. Comparison: February 03, 2022 Portable chest again demonstrates right base infiltrate/atelectasis and small effusion. Remaining heart and left lung unremarkable. Bony thorax intact.
[2022-07-03 16:55] LABS: ALBUMIN 3.3 g/dL (3.5-5.0); ALKALINE PHOSPHATASE 78 U/L (38-126); ANION GAP 9.5 MEQ/L (5-15); BLOOD UREA NITROGEN 21 mg/dL (9-20); CHLORIDE 99 mmol/L (98-107); Calcium 8.4 mg/dL (8.4-10.2); Carbon Dioxide 32 mmol/L (22-30); Creatinine 1 1.19 mg/dL (0.66-1.25); EST GLOMERULAR FILTRATION RATE > 60.0 ML/MIN; Glucose 101 mg/dL (74-106); NT PRO BNP 5090 pg/mL (0-900); Potassium 4.6 mmol/L (3.5-5.1); SGOT/AST 18 U/L (17-59); SGPT/ALT 10 U/L (0-50); SODIUM 136 mmol/L (137-145); Total Protein 5.7 g/dL (6.3-8.2)
[2022-07-03 17:09] LABS: INFLUENZA A NEGATIVE (NEGATIVE); INFLUENZA B NEGATIVE (NEGATIVE); RESPIRATORY SYNCTIAL VIRUS NEGATIVE (Negative); SARS-CoV-2 Xpert Express NEGATIVE (NEGATIVE)
--- NOTE | 2022-07-03 17:31 | ERPHSYRPT ---
- History of Present Illness Time Seen by Provider: 07/03/22 16:15 Historian: patient Exam Limitations: no limitations Patient Subjective Stated Complaint: C/O chest pain and SOB X past few weeks but it has increased today. Denies fever. Triage Nursing Assessment: Patient is alert and oriented. Presented SOB. Patient normally wears oxygen at home (4L per N/C) but did not wear any into the ED today. 02 sats 86% on room air; patient placed on 02 @ 4L per N/C and 02 sats increased to 98%. Pain is in his left chest and radiates to left arm at times. Non-productive cough noted at times during assessment but patient reports productive cough with yellow sputum at home. Physician History: This is an obese 62-year-old white male patient who is a patient of Dr. Meeks and presents to the emergency department with shortness of breath and chest pain. Patient states that symptoms have been going on for approximately 3 weeks intermittently. Symptoms were worse today. Patient states the chest pain is sharp in the left chest and radiates to the left arm. Patient has a history of oxygen dependent COPD on 4 L oxygen nasal cannula but did not wear it to the emergency department. He also is supposed to be on a LifeVest but he left that at home as well. Patient has a history of coronary artery disease, chronic ang antony, hypertension, DVT, elevated cholesterol, TIAs and chronic anemia. Patient's personnel consultant is Dr. Rachael Layton at [facility]. He continues to be daily smoker of cigarettes. He has a history of peripheral vascular disease. Patient states he has had a cough. Recently its been clear sputum. However within the last few weeks there have been episodes of yellowish sputum. Patient is on Brilinta. Timing/Duration: week(s), intermittent (3 weeks), worse Activities at Onset: none Quality: sharpness, stabbing Location: other (Left anterior chest) Chest Pain Radiation: arm (Left arm) Severity of Pain-Max: moderate Severity of Pain-Current: mild Modifying Factors: Improves With: coughing, oxygen Associated Symptoms: shortness of breath, cough Prior Chest Pain/Cardiac Workup: cardiac cath Nitro Today/Relief: no nitro taken today Aspirin Treatment Today: 81 mg x 1, provided at home Allergies/Adverse Reactions: No Known Drug Allergies Allergy (Verified 07/03/22 18:21) Home Medications: Albuterol Sulfate [Proair Hfa] 1 inh IH QIDPRN PRN 06/20/19 [History] Aspirin EC 81 mg [Ecotrin 81 mg] 81 mg PO DAILY 09/17/20 [History] Sucralfate 1 gm [Carafate 1 GM] 1 ea PO QID 05/17/21 [History] Potassium Chloride Tab* [Klor Con 10 MEQ] 10 meq PO DAILY 05/18/21 [History] Nitroglycerin [Nitroglycerin Patch] 1 each TD DAILY 07/05/21 [History] Metoprolol Succinate 25 mg Xl* [Toprol-Xl 25MG Tablets] 50 mg PO BID 08/19/21 [History] Omeprazole 20 mg PO DAILY 08/19/21 [History] Amiodarone HCl 200 mg [Cordarone 200 MG] 1 tab PO DAILY 07/03/22 [History] Amlodipine Besylate 5 mg [Norvasc 5 mg] 1 tab PO DAILY 07/03/22 [History] Clopidogrel Bisulfate [Clopidogrel] 1 tab PO DAILY 07/03/22 [History] Nitroglycerin 0.4 mg Tablet [Nitrostat 0.4 MG Tablet] 1 tab PO CLARIFY 07/03/22 [History] Ranolazine [Ranolazine ER] 1 tab PO BID 07/03/22 [History] Hx Tetanus, Diphtheria Vaccination/Date Given: Yes Hx Influenza Vaccination/Date Given: No Hx Pneumococcal Vaccination/Date Given: No Immunizations Up to Date: Yes Travel Risk - International Travel Have you traveled outside of the country in past 3 weeks: No - Coronavirus Screening Are you exhibiting any of the following symptoms?: Yes Symptoms: Cough: New Onset, Shortness of Breath - Vaccine Status Have you recieved a Covid-19 vaccination: No - Review of Systems Constitutional: No Symptoms Eyes: No Symptoms Ears, Nose, & Throat: No Symptoms Respiratory: Cough, Dyspnea Cardiac: Chest Pain Abdominal/Gastrointestinal: No Symptoms Genitourinary Symptoms: No Symptoms Musculoskeletal: No Symptoms Skin: No Symptoms Neurological: No Symptoms Psychological: No Symptoms Endocrine: No Symptoms Hematologic/Lymphatic: No Symptoms Immunological/Allergic: No Symptoms All Other Systems: Reviewed and Negative - Past Medical History Pertinent Past Medical History: Yes Neurological History: Stroke ENT History: No Pertinent History Cardiac History: Angina, Congestive Heart Failure, Coronary Artery Disease, Deep Vein Thrombosis, High Cholesterol, Hypertension, Myocardial Infarction ([place]) Respiratory History: Bronchitis, COPD Endocrine Medical History: No Pertinent History Musculoskeletal History: No Pertinent History GI Medical History: Hernia, Ulcer History: No Pertinent History Psycho-Social History: Depression Male Reproductive Disorders: No Pertinent History Other Medical History: Patient had a blood transfusion in May 2021 and April 2020 for a HGB of 6. [place] x3 - Past Surgical History Past Surgical History: Yes Neuro Surgical History: No Pertinent History Cardiac: Cardiac Catheterization, Cardiac Stent, Vascular Surgery Respiratory: No Pertinent History Gastrointestinal: Hernia Repair Genitourinary: No Pertinent History Musculoskeletal: No Pertinent History Male Surgical History: No Pertinent History Other Surgical History: LEFT CAROTID SURGERY NOVEMBER 2018. 16 stents reported - Social History Smoking Status: Current every day smoker How long have you smoked: 50 years Exposure to second hand smoke: Yes Drug Use: none Patient Lives Alone: No Significant Family History: no pertinent family hx - Nursing Vital Signs Nursing Vital Signs: Initial Vital Signs Temperature 98.3 F 07/03/22 16:13 Pulse Rate 72 07/03/22 16:13 Respiratory Rate 23 07/03/22 16:13 Blood Pressure 101/58 07/03/22 16:13 O2 Sat by Pulse Oximetry 98 07/03/22 16:13 Pain Scale Pain Intensity 4 - Physical Exam General Appearance: mild distress, alert, anxiety, obese Eye Exam: PERRL/EOMI, eyes nml inspection Ears, Nose, Throat Exam: normal ENT inspection, moist mucous membranes Neck Exam: normal inspection, non-tender, supple, full range of motion Respiratory Exam: normal breath sounds, chest tenderness, lungs clear, airway intact, No respiratory distress Cardiovascular Exam: regular rate/rhythm, normal heart sounds, normal peripheral pulses Gastrointestinal/Abdomen Exam: soft, normal bowel sounds, No tenderness Rectal Exam: not done Back Exam: normal inspection, normal range of motion, No CVA tenderness, No vertebral tenderness Extremity Exam: normal inspection, normal range of motion, pelvis stable Neurologic Exam: alert, oriented x 3, cooperative, tobacco stemmer machine II-XII nml as tested, normal mood/affect, nml cerebellar function, nml station & gait, sensation nml Skin Exam: normal color, warm, dry Lymphatic Exam: No adenopathy SpO2 Interpretation: normal SpO2: 97 O2 Delivery: Nasal Cannula (4 L oxygen) - Course Nursing assessment & vital signs reviewed: Yes EKG Interpreted by Me: RATE (74), Sinus Rhythm, NORMAL INTERVALS, Right Bundle Branch Block, Other (EKG states abnormal T consider ischemia lateral leads. Patient also has LPF B on today's EKG. These findings are no different than those findings on the EKG dated 02/03/2022.) Ordered Tests: Active Orders 24 hr Category Date Time Status Bridge Crew Member STAT Care 07/03/22 16:23 Active EKG-ER Only STAT Care 07/03/22 16:22 Active IV Insertion STAT Care 07/03/22 16:22 Active Pulse Oximetry (ED) STAT Care 07/03/22 16:22 Active CHEST 1 VIEW (PORTABLE) Stat Exams 07/03/22 16:23 Completed CHEST WITH CONTRAST [CT] Stat Exams 07/03/22 17:37 Taken CBC W DIFF Stat Lab 07/03/22 16:20 Completed CMP Stat Lab 07/03/22 16:20 Completed D-DIMER QUANTITATIVE Stat Lab 07/03/22 16:20 Completed NT PRO BNP Stat Lab 07/03/22 16:20 Completed TROPONIN Q4H Lab 07/03/22 16:20 Completed TROPONIN Q4H Lab 07/03/22 20:30 Ordered TROPONIN Q4H Lab 07/04/22 00:30 Ordered Medication Summary Generic Name Dose Route Start Last Admin Trade Name Freq PRN Reason Stop Dose Admin Sodium Chloride 500 mls @ 50 mls/hr 07/03/22 17:45 07/03/22 17:47 Sodium Chloride 0.9% 500 Ml IV 08/02/22 17:44 50 mls/hr .Q10H KIRBY Administration Levofloxacin/Dextrose 500 mg in 100 mls @ 100 mls/hr 07/03/22 18:33 Levofloxacin 500mg/100ml D5w IV 07/03/22 19:32 STAT STA Discontinued Medications Generic Name Dose Route Start Last Admin Trade Name Freq PRN Reason Stop Dose Admin Albuterol Sulfate 2.5 mg 07/03/22 17:55 Albuterol Sulfate 2.5 Mg/3 Ml Neb IH 07/03/22 17:56 STAT ONE Albuterol Sulfate Confirm 07/03/22 17:59 Albuterol Sulfate 2.5 Mg/3 Ml Neb Administered 07/03/22 18:00 Dose 2.5 mg IH .STK-MED ONE Aspirin 324 mg 07/03/22 16:22 07/03/22 16:42 Aspirin 81 Mg Tab.Chew PO 07/03/22 16:23 243 mg STAT ONE Administration Furosemide 40 mg 07/03/22 17:37 07/03/22 17:47 Furosemide 40 Mg/4 Ml Vial IV 07/03/22 17:38 40 mg STAT ONE Administration Furosemide Confirm 07/03/22 17:41 Furosemide 40 Mg/4 Ml Vial Administered 07/03/22 17:42 Dose 40 mg .ROUTE .STK-MED ONE Lab/Rad Data: Laboratory Result Diagrams 07/03/22 16:20 07/03/22 16:20 Laboratory Results 07/03/22 07/03/22 07/03/22 Range/Units 16:20 16:20 16:20 WBC (4.0-10.5) x10^3/uL RBC (4.1-5.6) x10^6/uL Hgb (12.5-18.0) g/dL Hct (42-50) % MCV (78-100) fL MCH (26-32) pg MCHC (32-36) g/dL RDW (11.5-14.0) % Plt Count (150-450) x10^3/uL MPV (7.5-11.0) fL Gran % (36.0-66.0) % Immature Gran % (Auto) (0.00-0.4) % Nucleat RBC Rel Count (0.00-0.1) % Eos # (Auto) (0-0.5) x10^3/uL Immature Gran # (Auto) (0.00-0.03) x10^3u/L Absolute Lymphs (auto) (1.0-4.6) x10^3/uL Absolute Monos (auto) (0.0-1.3) x10^3/uL Absolute Nucleated RBC (0.00-0.01) x10^3u/L Lymphocytes % (24.0-44.0) % Monocytes % (0.0-12.0) % Eosinophils % (0.00-5.0) % Basophils % (0.0-0.4) % Absolute Granulocytes (1.4-6.9) x10^3/uL Basophils # (0-0.4) x10^3/uL D-Dimer 0.75 H* (0.0-0.50) mg/L Sodium (137-145) mmol/L Potassium (3.5-5.1) mmol/L Chloride (98-107) mmol/L Carbon Dioxide (22-30) mmol/L Anion Gap (5-15) MEQ/L BUN (9-20) mg/dL Creatinine (0.66-1.25) mg/dL Estimated GFR ML/MIN Glucose (74-106) mg/dL Calcium (8.4-10.2) mg/dL Total Bilirubin (0.2-1.3) mg/dL AST (17-59) U/L ALT (0-50) U/L Alkaline Phosphatase (38-126) U/L Troponin I 0.046 H* (0.000-0.034) ng/mL NT-Pro-B Natriuret Pep (0-900) pg/mL Serum Total Protein (6.3-8.2) g/dL Albumin (3.5-5.0) g/dL Influenza Type A Ag NEGATIVE (NEGATIVE) Influenza Type B Ag NEGATIVE (NEGATIVE) RSV (PCR) NEGATIVE (Negative) SARS-CoV-2 (PCR) NEGATIVE (NEGATIVE) 07/03/22 07/03/22 Range/Units 16:20 16:20 WBC 6.8 (4.0-10.5) x10^3/uL RBC 3.30 L (4.1-5.6) x10^6/uL Hgb 8.0 L (12.5-18.0) g/dL Hct 29.0 L (42-50) % MCV 87.9 (78-100) fL MCH 24.2 L (26-32) pg MCHC 27.6 L (32-36) g/dL RDW 17.0 H (11.5-14.0) % Plt Count 234 (150-450) x10^3/uL MPV 11.3 H (7.5-11.0) fL Gran % 74.9 H (36.0-66.0) % Immature Gran % (Auto) 0.3 (0.00-0.4) % Nucleat RBC Rel Count 0.0 (0.00-0.1) % Eos # (Auto) 0.15 (0-0.5) x10^3/uL Immature Gran # (Auto) 0.02 (0.00-0.03) x10^3u/L Absolute Lymphs (auto) 0.71 L (1.0-4.6) x10^3/uL Absolute Monos (auto) 0.77 (0.0-1.3) x10^3/uL Absolute Nucleated RBC 0.00 (0.00-0.01) x10^3u/L Lymphocytes % 10.5 L (24.0-44.0) % Monocytes % 11.4 (0.0-12.0) % Eosinophils % 2.2 (0.00-5.0) % Basophils % 0.7 (0.0-0.4) % Absolute Granulocytes 5.06 (1.4-6.9) x10^3/uL Basophils # 0.05 (0-0.4) x10^3/uL D-Dimer (0.0-0.50) mg/L Sodium 136 L (137-145) mmol/L Potassium 4.6 (3.5-5.1) mmol/L Chloride 99 (98-107) mmol/L Carbon Dioxide 32 H (22-30) mmol/L Anion Gap 9.5 (5-15) MEQ/L BUN 21 H (9-20) mg/dL Creatinine 1.19 (0.66-1.25) mg/dL Estimated GFR > 60.0 ML/MIN Glucose 101 (74-106) mg/dL Calcium 8.4 (8.4-10.2) mg/dL Total Bilirubin 0.70 (0.2-1.3) mg/dL AST 18 (17-59) U/L ALT 10 (0-50) U/L Alkaline Phosphatase 78 (38-126) U/L Troponin I (0.000-0.034) ng/mL NT-Pro-B Natriuret Pep 5090 H (0-900) pg/mL Serum Total Protein 5.7 L (6.3-8.2) g/dL Albumin 3.3 L (3.5-5.0) g/dL Influenza Type A Ag (NEGATIVE) Influenza Type B Ag (NEGATIVE) RSV (PCR) (Negative) SARS-CoV-2 (PCR) (NEGATIVE) - Progress Progress: improved, re-examined Air Movement: good Progress Note: 07/03/22 17:35 Chest x-ray shows persistent right base atelectasis/infiltrate with small pleural effusion. 07/03/22 18:26 Medical decision making: This patient was reviewed with [facility] Dr. Paez, personnel consultant on-call for Dr. Rachael Layton. He does not feel the patient needs an acute cardiac catheterization but is referring as to the hospitalist for admission and they will consult on this patient. We are awaiting the callback from the hospitalist. 07/03/22 18:38 Medical decision making: I received a phone call from Dr. Lewis, the hospitalist covering for [facility]. I reviewed the patient history, work- up results with him. He accepts the patient in transfer. We are waiting a call back from [facility] when a bed opens up. They stated they felt strongly that there would be a bed open this evening. Antibiotics given: Yes Counseled pt/family regarding: lab results, diagnosis, need for follow-up, rad results - Departure Departure Disposition: Transfer Clinical Impression: Non-STEMI (non-ST elevated myocardial infarction), CHF (congestive heart failure), Hypoxia, Symptomatic anemia, Angina at rest Condition: Fair Critical Care Time: Yes Critical Care Time(excluding separately billable procedures): Critical 30-74 mins (30 minutes) Referrals: GABRIEL MEEKS [Primary Care Provider] - Follow up/PCP as directed Instructions: Heart Failure
[2022-07-03] MEDS ORDERED: Lasix 40 MG/4 ML IV ONE (17:37)
[2022-07-03] MEDS ORDERED: Sodium Chloride 0.9% 500 ML 500 ML IV ONE (17:41)
[2022-07-03] MEDS ORDERED: Lasix 40 MG/4 ML ONE (17:41)
[2022-07-03] MEDS ORDERED: Sodium Chloride 0.9% 500 ML 500 ML IV SCH (17:45)
[2022-07-03] MEDS ORDERED: PROVENTIL 2.5 MG/3 ML NEB IH ONE ×2 (17:55→17:59)
[2022-07-03] MEDS ORDERED: Levofloxacin 500MG/100ML D5W 500 MG/100 ML BAG IV STA (18:33)
--- NOTE | 2022-07-03 19:06 | XRAY ---
Indication: Chest pain and short of breath. Elevated d-dimer. COPD. Multiple contiguous axial images obtained through the chest using 100 cc Isovue 370 contrast and PE protocol. Comparison: May 07, 2021 Good opacification of the pulmonary arteries to include the lobar and segmental branches. Mild respiration artifact limits evaluation of the more distal segmental branches. No obvious pulmonary embolus. Heart is now enlarged. Aorta remains mildly arteriosclerotic without aneurysm/dissection. Stable small left infrahilar calcified nodes. No pathologic mediastinal/hilar lymphadenopathy. Lungs demonstrates new moderate right effusion with mild right lower lobe compressive atelectasis. Left lung demonstrates mild dependent atelectasis with stable posterior gutter calcified granuloma. Bony thorax intact mild degenerative changes throughout the spine and old right 4-6 rib fractures. Limited upper abdomen demonstrates new mildly distended gallbladder with 6 mm gallstone and pericholecystic stranding possible cholecystitis in the right clinical setting. Also tiny perihepatic fluid presumably related. Impression: 1. Continued negative pulmonary embolus. 2. New cardiomegaly with moderate right effusion. 3. New small gallstone, pericholecystic stranding, and tiny perihepatic fluid. Rule out cholecystitis. 4. Chronic bony findings and old granulomatous disease.
[2022-07-03] MEDS ORDERED: Levofloxacin 500MG/100ML D5W 500 MG/100 ML BAG IV ONE (19:19)
[2022-07-03 19:40] LABS: Slide Review 1 YES
[2022-07-03] MEDS ORDERED: MORPHINE SULFATE 2 MG INJ IV ONE (20:45)
[2022-07-03] MEDS ORDERED: Zofran 4 MG/2 ML VIAL IV ONE (20:45)
[2022-07-03] MEDS ORDERED: MORPHINE SULFATE 2 MG INJ ONE (20:47)
[2022-07-03] MEDS ORDERED: Zofran 4 MG/2 ML VIAL ONE (20:47)
[2022-07-03 21:06] VITALS: O2SAT 95
[2022-07-03 21:26] VITALS: BP 115/76; PULSE 73
== END 2022-07-03 21:35 | disposition short-term general hospital (02) ==
LOC: ED 16:07
DX: I21.4 Non-ST elevation (NSTEMI) myocardial infarction (principal); I11.0 Hypertensive heart disease with heart failure; I50.9 Heart failure, unspecified; R09.02 Hypoxemia; D64.9 Anemia, unspecified; I25.119 Atherosclerotic heart disease of native coronary artery with unspecified angina pectoris; E78.5 Hyperlipidemia, unspecified; R07.9 Chest pain, unspecified; R06.02 Shortness of breath; J44.9 Chronic obstructive pulmonary disease, unspecified; Z72.0 Tobacco use; Z79.02 Long term (current) use of antithrombotics/antiplatelets; Z79.899 Other long term (current) drug therapy; Z99.81 Dependence on supplemental oxygen; Z20.828 Contact with and (suspected) exposure to other viral communicable diseases
CPT/HCPCS: 0241U; 36000; 36415; 71045; 71260; 80053; 83880; 84484; 85025; 85379; 93005; 93041; 94640; 94760; 96374; 96375; 99285; 99291; 96365; J1940; J1956; J2270; J2405; J7609; A9270-GY

== ENCOUNTER 2022-07-21 13:45 | Inpatient (IN) | payer MEDICARE, OTHER ==
[2022-07-21] MEDS ORDERED: NOREPINEPHRINE 8 MG/250 ML-D5W 8 MG/250 ML PLAST..BAG IV PRN (14:29)
[2022-07-21] MEDS ORDERED: NOREPINEPHRINE 8 MG/250 ML-D5W 8 MG/250 ML PLAST..BAG IV ONE (14:30)
--- NOTE | 2022-07-21 14:33 | ERPHSYRPT ---
- History of Present Illness Source: patient Exam Limitations: other (Poor historian) Patient Subjective Stated Complaint: " I have felt really short of breath for the past couple of days and I have pains in my chest". Triage Nursing Assessment: Pt presents to ER with complaints of shortness of breath, pt is in wheelchair in lobby and RN helps pt to ER Room 6. Pt is leth argic, pale, and obvious short of breath. Noted swelling to lower extremities, 2+ pitting edema. Pt states abdomen does feel distended. Pt is hypotensive upon triage. Respirations are labored at a rate of 24 breaths/min, lung sounds diminished throughout. Pt is alert and able to answer questions. States has pain in left sided chest, rates pain 7/10 scale, has lifevest currently on in place. Pt has been expiencing frequent falls and has bruising to left arm - possible LOC. Pt complains of nausea, fatigue, and generalized weakness. Physician History: 62 yo WM who is 4L O2 NC at home w h/o OK/Stents/CHF/HTN/COPD presents w increasing dyspnea x 2 days. He has increasing LE edema and L lateral chest pain which is described as pressure. It radiates to his L shoulder. He has had nausea wo vomiting/diarrhea/melena/hematochezia. He has a mild chronic cough and mild coryza. Timing/Duration: other (2 wks) Severity of Dyspnea-Max: moderate Severity of Dyspnea-Current: moderate Possible Cause: frequent episodes Modifying Factors: Improves With: activity Associated Symptoms: cough, chest pain/discomfort, edema, weakness, ankle swelling, leg swelling, tightness Allergies/Adverse Reactions: No Known Drug Allergies Allergy (Verified 07/21/22 14:10) Home Medications: Aspirin EC 81 mg [Ecotrin 81 mg] 81 mg PO DAILY 09/17/20 [History] Sucralfate 1 gm [Carafate 1 GM] 1 ea PO QID 05/17/21 [History] Potassium Chloride Tab* [Klor Con 10 MEQ] 10 meq PO DAILY 05/18/21 [History] Nitroglycerin [Nitroglycerin Patch] 1 each TD DAILY 07/05/21 [History] Metoprolol Succinate 25 mg Xl* [Toprol-Xl 25MG Tablets] 50 mg PO BID 08/19/21 [History] Omeprazole 20 mg PO DAILY 08/19/21 [History] Amiodarone HCl 200 mg [Cordarone 200 MG] 1 tab PO DAILY 07/03/22 [History] Amlodipine Besylate 5 mg [Norvasc 5 mg] 1 tab PO DAILY 07/03/22 [History] Atorvastatin Calcium [Lipitor] 1 tab PO HS 07/03/22 [History] Bumetanide 1 mg [Bumex 1 mg] 2 tab PO BID 07/03/22 [History] Clopidogrel Bisulfate [Clopidogrel] 1 tab PO DAILY 07/03/22 [History] Empagliflozin [Jardiance] 1 tab PO DAILY 07/03/22 [History] Escitalopram Oxalate [Lexapro] 1 tab PO DAILY 07/03/22 [History] Ferrous Sulfate 1 tab PO DAILY 07/03/22 [History] Gabapentin [Neurontin ] 1 cap PO TID 07/03/22 [History] Isosorbide Mononitrate [Isosorbide Mononitrate ER] 1 tab PO DAILY 07/03/22 [History] Losartan Potassium [Cozaar] 1 tab PO DAILY 07/03/22 [History] Nitroglycerin 0.4 mg Tablet [Nitrostat 0.4 MG Tablet] 1 tab PO CLARIFY 07/03/22 [History] Ondansetron [Ondansetron Odt] 1 tab PO Q8H PRN PRN 07/03/22 [History] Ranolazine [Ranolazine ER] 1 tab PO BID 07/03/22 [History] Tamsulosin HCl 0.4 mg [Flomax 0.4 MG] 1 cap PO DAILY 07/03/22 [History] Trazodone HCl 50 mg [Desyrel 50 mg] 1 tab PO HS 07/03/22 [History] Hx Tetanus, Diphtheria Vaccination/Date Given: No Hx Influenza Vaccination/Date Given: No Hx Pneumococcal Vaccination/Date Given: No Immunizations Up to Date: No Travel Risk - International Travel Have you traveled outside of the country in past 3 weeks: No - Coronavirus Screening Are you exhibiting any of the following symptoms?: Yes Symptoms: Cough: New Onset, Shortness of Breath, Headaches/Body Aches/Fatigue - Vaccine Status Have you recieved a Covid-19 vaccination: No - Review of Systems Constitutional: No Symptoms, Lethargy, Malaise, Weakness Eyes: No Symptoms Ears, Nose, & Throat: No Symptoms Respiratory: No Symptoms, Cough, Dyspnea, Dyspnea on Exertion (FOX) Cardiac: No Symptoms, Chest Pain, Edema Abdominal/Gastrointestinal: No Symptoms, Nausea Genitourinary Symptoms: No Symptoms Musculoskeletal: No Symptoms Skin: No Symptoms Neurological: No Symptoms Psychological: No Symptoms Endocrine: No Symptoms Hematologic/Lymphatic: No Symptoms Immunological/Allergic: No Symptoms - Past Medical History Pertinent Past Medical History: Yes Neurological History: Stroke ENT History: No Pertinent History Cardiac History: Angina, Congestive Heart Failure, Coronary Artery Disease, Deep Vein Thrombosis, High Cholesterol, Hypertension, Myocardial Infarction (OK) Respiratory History: Bronchitis, COPD Endocrine Medical History: No Pertinent History Musculoskeletal History: No Pertinent History GI Medical History: Hernia, Ulcer History: No Pertinent History Psycho-Social History: Depression Male Reproductive Disorders: No Pertinent History Other Medical History: Patient had a blood transfusion in May 2021 and April 2020 for a HGB of 6. OK x3. Lifevest - Past Surgical History Past Surgical History: Yes Neuro Surgical History: No Pertinent History Cardiac: Cardiac Catheterization, Cardiac Stent, Vascular Surgery Respiratory: No Pertinent History Gastrointestinal: Hernia Repair Genitourinary: No Pertinent History Musculoskeletal: No Pertinent History Male Surgical History: No Pertinent History Other Surgical History: LEFT CAROTID SURGERY NOVEMBER 2018. 16 stents reported - Social History Smoking Status: Current every day smoker How long have you smoked: 50 years Exposure to second hand smoke: Yes Drug Use: none Patient Lives Alone: No Significant Family History: no pertinent family hx - Nursing Vital Signs Nursing Vital Signs: Initial Vital Signs Temperature 97.7 F 07/21/22 14:01 Pulse Rate 66 07/21/22 14:01 Respiratory Rate 24 07/21/22 14:01 Blood Pressure 76/42 07/21/22 14:01 O2 Sat by Pulse Oximetry 94 L 07/21/22 14:01 Pain Scale Pain Intensity 5 Markedly hypotensive/Borderline sats - Physical Exam General Appearance: mild distress Eye Exam: PERRL/EOMI, eyes nml inspection Ears, Nose, Throat Exam: hearing grossly normal, normal ENT inspection, normal pharynx, No abnormal TM (R), No abnormal TM (L) Neck Exam: normal inspection, non-tender, supple, full range of motion, No Brudzinski, No Kernig's, No meningismus Respiratory Exam: crackles/rales (Rales at bases 1/4 up) Cardiovascular/Chest Exam: normal heart sounds, regular rate/rhythm, No murmur Abdominal/Gastrointestinal Exam: soft, normal bowel sounds, No tenderness Extremity Exam: pedal edema (2+ B) Peripheral Pulses Exam: carotid (R): 2+, carotid (L): 2+ Neurologic Exam: alert, oriented x 3, cooperative, physician interventional cardiologist II-XII nml as tested, normal mood/affect, sensation nml, No motor deficits, No sensory deficit Skin Exam: normal color, warm, dry, pale Lymphatic Exam: No adenopathy SpO2 Interpretation: normal SpO2: 98 O2 Delivery: Nasal Cannula - Course Nursing assessment & vital signs reviewed: Yes EKG Interpreted by Me: RATE (NSR/R67/prolonged QT-QTc/RBBB/Por Rwave progression/old inferior infarct vs LAFB) - Radiology Exams Chest X-ray Interpretation: Discussed w/ radiologist (Improving R base infiltrate/atelectasis/effusion) - CT Exams Chest CT Interpretation: Discussed w/radiologist (CT chest Improved R pleural effusion/Atelectasis/COPD) Ordered Tests: Active Orders 24 hr Category Date Time Status EKG-ER Only STAT Care 07/21/22 14:26 Completed Consistent Carbohydrate Diet 2000 Calorie Diet 07/22/22 Breakfast Active CHEST 1 VIEW (PORTABLE) Stat Exams 07/21/22 14:27 Completed CHEST WITHOUT CONTRAST [CT] Stat Exams 07/21/22 15:57 Completed CBC W DIFF AM.LAB Lab 07/22/22 04:00 Ordered CBC W DIFF Stat Lab 07/21/22 14:30 Results CMP AM.LAB Lab 07/22/22 04:00 Ordered CMP Stat Lab 07/21/22 14:30 Completed Lactic Acid Stat Lab 07/21/22 14:37 Completed Lactic Acid Stat Lab 07/21/22 16:39 Completed MAGNESIUM Stat Lab 07/21/22 14:30 Completed Manual Differential NC Stat Lab 07/21/22 14:30 Results NT PRO BNP Stat Lab 07/21/22 14:30 Completed PROTIME WITH INR Stat Lab 07/21/22 14:26 Completed PTT Stat Lab 07/21/22 14:26 Completed Pathologist Review Stat Lab 07/21/22 14:30 Results TROPONIN Q4H Lab 07/21/22 14:30 Completed TROPONIN Q4H Lab 07/21/22 18:22 Completed TROPONIN Q4H Lab 07/21/22 22:26 Completed UA W/RFX CULTURE Stat Lab 07/21/22 19:09 Completed Medication Summary Generic Name Dose Route Start Last Admin Trade Name Mannie PRN Reason Stop Dose Admin Heparin Sodium (Beef Lung) 5,000 unit 07/21/22 22:00 07/22/22 02:07 Heparin 5000 Unit/0.5 Ml Syringe SQ 08/20/22 21:59 5,000 unit BID KIRBY Administration Norepinephrine/Dextrose 8 mg in 250 mls @ 15 mls/hr 07/21/22 14:29 07/21/22 19:37 Norepinephrine 8 Mg/250 Ml-D5w IV 08/20/22 14:28 0 mcg/min .[id number] PRN 0 mls/hr HYPOTENSION Titration Protocol 8 MCG/MIN Sodium Chloride 1,000 mls @ 0 mls/hr 07/21/22 21:15 Sodium Chloride 0.9% 1000 Ml IV 08/20/22 21:14 .Q0M KIRBY KVO Ceftriaxone Sodium/Dextrose 1 g in 50 mls @ 100 mls/hr 07/22/22 10:00 Rocephin 1 Gm-D5w 50 Ml Bag IV 07/25/22 09:59 Q24H10 KIRBY Morphine Sulfate 4 mg 07/22/22 02:20 Morphine Sulfate 4 Mg/Ml Injection IV 07/27/22 02:19 Q4H PRN PRN PAIN Ondansetron HCl 4 mg 07/21/22 21:13 Ondansetron Hcl 4 Mg/2 Ml Vial IV 08/20/22 21:12 Q6H PRN PRN NAUSEA/VOMITING Trazodone HCl 50 mg 07/22/22 22:00 Trazodone Hcl 50 Mg Tablet PO 08/21/22 21:59 HS KIRBY Discontinued Medications Generic Name Dose Route Start Last Admin Trade Name Mannie PRN Reason Stop Dose Admin Albuterol/Ipratropium 3 ml 07/21/22 22:32 07/21/22 22:36 Ipratropium/Albuterol Sulfate 3 Ml Ampul.Neb IH 07/21/22 22:33 3 ml STAT ONE Administration Albuterol/Ipratropium Confirm 07/21/22 22:33 Ipratropium/Albuterol Sulfate 3 Ml Ampul.Neb Administered 07/21/22 22:34 Dose 3 ml IH .STK-MED ONE Sodium Chloride 500 mls @ 500 mls/hr 07/21/22 15:58 07/21/22 17:24 Sodium Chloride 0.9% 500 Ml IV 07/21/22 16:57 Infused .Q1H ONE Infusion Sodium Chloride Confirm 07/21/22 16:08 Sodium Chloride 0.9% 500 Ml Administered 07/21/22 16:09 Dose 500 mls @ ud IV .STK-MED ONE Ceftriaxone Sodium/Dextrose 1 g in 50 mls @ 100 mls/hr 07/21/22 21:10 07/21/22 22:32 Rocephin 1 Gm-D5w 50 Ml Bag IV 07/21/22 21:39 Infused STAT STA Infusion Ceftriaxone Sodium/Dextrose Confirm 07/21/22 21:20 Rocephin 1 Gm-D5w 50 Ml Bag Administered 07/21/22 21:21 Dose 1 g in 50 mls @ ud IV .STK-MED ONE Trazodone HCl Confirm 07/22/22 02:34 Trazodone Hcl 50 Mg Tablet Administered 07/22/22 02:35 Dose 50 mg .ROUTE .STK-MED ONE Lab/Rad Data: Laboratory Result Diagrams 07/21/22 14:30 07/21/22 14:30 Laboratory Results 07/21/22 07/21/22 07/21/22 Range/Units 22:26 19:09 18:22 WBC (4.0-10.5) x10^3/uL RBC (4.1-5.6) x10^6/uL Hgb (12.5-18.0) g/dL Hct (42-50) % MCV (78-100) fL MCH (26-32) pg MCHC (32-36) g/dL RDW (11.5-14.0) % Plt Count (150-450) x10^3/uL MPV (7.5-11.0) fL Segmented Neutrophils (36.-66.) % Lymphocytes (Manual) (24-44) % Eosinophils (Manual) (0.00-3.0) % Toxic Granulation Platelet Estimate (NORMAL) RBC Morphology Anisocytosis Smear Path Review PT (9.4-12.5) SECONDS INR (0.8-3.0) APTT (25.1-36.5) SECONDS Sodium (137-145) mmol/L Potassium (3.5-5.1) mmol/L Chloride (98-107) mmol/L Carbon Dioxide (22-30) mmol/L Anion Gap (5-15) MEQ/L BUN (9-20) mg/dL Creatinine (0.66-1.25) mg/dL Estimated GFR ML/MIN Glucose (74-106) mg/dL Lactic Acid (0.4-2.0) Calcium (8.4-10.2) mg/dL Magnesium (1.6-2.3) mg/dL Total Bilirubin (0.2-1.3) mg/dL AST (17-59) U/L ALT (0-50) U/L Alkaline Phosphatase (38-126) U/L Troponin I < 0.012 < 0.012 (0.000-0.034) ng/mL NT-Pro-B Natriuret Pep (0-900) pg/mL Serum Total Protein (6.3-8.2) g/dL Albumin (3.5-5.0) g/dL Urinalys Dipstick Clnc MAIN LAB Urine Color DARK YELLOW (YELLOW) Urine Appearance CLEAR (CLEAR) Urine pH 5.5 (5-6) Ur Specific Gary 1.020 (1.005-1.025) POC Urine Protein Conf 30 (Negative) Urine Ketones NEGATIVE (NEGATIVE) Urine Nitrite NEGATIVE (NEGATIVE) Urine Bilirubin SMALL (NEGATIVE) Urine Urobilinogen 0.2 (0-1) mg/dL Urine Leukocytes NEGATIVE (NEGATIVE) Urine WBC (Auto) NONE (0-5) /HPF Urine RBC (Auto) NONE (0-2) /HPF U Hyaline Cast (Auto) 6-10 (0-2) /LPF U Epithel Cells (Auto) NONE (FEW) /HPF Urine Bacteria (Auto) NONE (NEGATIVE) /HPF Urine RBC NEGATIVE (0-5) Stuart/ul Ur Culture Indicated? NO Urine Glucose >=1000 (NEGATIVE) mg/dL Influenza Type A Ag (NEGATIVE) Influenza Type B Ag (NEGATIVE) RSV (PCR) (Negative) SARS-CoV-2 (PCR) (NEGATIVE) 07/21/22 07/21/22 07/21/22 Range/Units 16:39 15:46 14:37 WBC (4.0-10.5) x10^3/uL RBC (4.1-5.6) x10^6/uL Hgb (12.5-18.0) g/dL Hct (42-50) % MCV (78-100) fL MCH (26-32) pg MCHC (32-36) g/dL RDW (11.5-14.0) % Plt Count (150-450) x10^3/uL MPV (7.5-11.0) fL Segmented Neutrophils (36.-66.) % Lymphocytes (Manual) (24-44) % Eosinophils (Manual) (0.00-3.0) % Toxic Granulation Platelet Estimate (NORMAL) RBC Morphology Anisocytosis Smear Path Review PT (9.4-12.5) SECONDS INR (0.8-3.0) APTT (25.1-36.5) SECONDS Sodium (137-145) mmol/L Potassium (3.5-5.1) mmol/L Chloride (98-107) mmol/L Carbon Dioxide (22-30) mmol/L Anion Gap (5-15) MEQ/L BUN (9-20) mg/dL Creatinine (0.66-1.25) mg/dL Estimated GFR ML/MIN Glucose (74-106) mg/dL Lactic Acid 1.2 3.0 H (0.4-2.0) Calcium (8.4-10.2) mg/dL Magnesium (1.6-2.3) mg/dL Total Bilirubin (0.2-1.3) mg/dL AST (17-59) U/L ALT (0-50) U/L Alkaline Phosphatase (38-126) U/L Troponin I (0.000-0.034) ng/mL NT-Pro-B Natriuret Pep (0-900) pg/mL Serum Total Protein (6.3-8.2) g/dL Albumin (3.5-5.0) g/dL Urinalys Dipstick Clnc Urine Color (YELLOW) Urine Appearance (CLEAR) Urine pH (5-6) Ur Specific Gary (1.005-1.025) POC Urine Protein Conf (Negative) Urine Ketones (NEGATIVE) Urine Nitrite (NEGATIVE) Urine Bilirubin (NEGATIVE) Urine Urobilinogen (0-1) mg/dL Urine Leukocytes (NEGATIVE) Urine WBC (Auto) (0-5) /HPF Urine RBC (Auto) (0-2) /HPF U Hyaline Cast (Auto) (0-2) /LPF U Epithel Cells (Auto) (FEW) /HPF Urine Bacteria (Auto) (NEGATIVE) /HPF Urine RBC (0-5) Stuart/ul Ur Culture Indicated? Urine Glucose (NEGATIVE) mg/dL Influenza Type A Ag NEGATIVE (NEGATIVE) Influenza Type B Ag NEGATIVE (NEGATIVE) RSV (PCR) NEGATIVE (Negative) SARS-CoV-2 (PCR) NEGATIVE (NEGATIVE) 07/21/22 07/21/22 07/21/22 Range/Units 14:30 14:30 14:30 WBC 6.4 (4.0-10.5) x10^3/uL RBC 2.73 L (4.1-5.6) x10^6/uL Hgb 6.4 L* (12.5-18.0) g/dL Hct 23.8 L (42-50) % MCV 87.2 (78-100) fL MCH 23.4 L (26-32) pg MCHC 26.9 L (32-36) g/dL RDW 17.7 H (11.5-14.0) % Plt Count 248 (150-450) x10^3/uL MPV 11.8 H (7.5-11.0) fL Segmented Neutrophils 84 H (36.-66.) % Lymphocytes (Manual) 13 L (24-44) % Eosinophils (Manual) 3 (0.00-3.0) % Toxic Granulation 1+ Platelet Estimate NORMAL (NORMAL) RBC Morphology ABNORMAL Anisocytosis 1+ Smear Path Review Pending PT (9.4-12.5) SECONDS INR (0.8-3.0) APTT (25.1-36.5) SECONDS Sodium 136 L (137-145) mmol/L Potassium 3.8 (3.5-5.1) mmol/L Chloride 97 L (98-107) mmol/L Carbon Dioxide 35 H (22-30) mmol/L Anion Gap 8.4 (5-15) MEQ/L BUN 29 H (9-20) mg/dL Creatinine 1.54 H (0.66-1.25) mg/dL Estimated GFR 48.9 ML/MIN Glucose 117 H (74-106) mg/dL Lactic Acid (0.4-2.0) Calcium 7.7 L (8.4-10.2) mg/dL Magnesium 2.2 (1.6-2.3) mg/dL Total Bilirubin 0.50 (0.2-1.3) mg/dL AST 25 (17-59) U/L ALT 14 (0-50) U/L Alkaline Phosphatase 71 (38-126) U/L Troponin I < 0.012 (0.000-0.034) ng/mL NT-Pro-B Natriuret Pep 3880 H (0-900) pg/mL Serum Total Protein 5.8 L (6.3-8.2) g/dL Albumin 3.3 L (3.5-5.0) g/dL Urinalys Dipstick Clnc Urine Color (YELLOW) Urine Appearance (CLEAR) Urine pH (5-6) Ur Specific Gary (1.005-1.025) POC Urine Protein Conf (Negative) Urine Ketones (NEGATIVE) Urine Nitrite (NEGATIVE) Urine Bilirubin (NEGATIVE) Urine Urobilinogen (0-1) mg/dL Urine Leukocytes (NEGATIVE) Urine WBC (Auto) (0-5) /HPF Urine RBC (Auto) (0-2) /HPF U Hyaline Cast (Auto) (0-2) /LPF U Epithel Cells (Auto) (FEW) /HPF Urine Bacteria (Auto) (NEGATIVE) /HPF Urine RBC (0-5) Stuart/ul Ur Culture Indicated? Urine Glucose (NEGATIVE) mg/dL Influenza Type A Ag (NEGATIVE) Influenza Type B Ag (NEGATIVE) RSV (PCR) (Negative) SARS-CoV-2 (PCR) (NEGATIVE) 07/21/22 Range/Units 14:26 WBC (4.0-10.5) x10^3/uL RBC (4.1-5.6) x10^6/uL Hgb (12.5-18.0) g/dL Hct (42-50) % MCV (78-100) fL MCH (26-32) pg MCHC (32-36) g/dL RDW (11.5-14.0) % Plt Count (150-450) x10^3/uL MPV (7.5-11.0) fL Segmented Neutrophils (36.-66.) % Lymphocytes (Manual) (24-44) % Eosinophils (Manual) (0.00-3.0) % Toxic Granulation Platelet Estimate (NORMAL) RBC Morphology Anisocytosis Smear Path Review PT 11.5 (9.4-12.5) SECONDS INR 1.09 (0.8-3.0) APTT 24.8 L (25.1-36.5) SECONDS Sodium (137-145) mmol/L Potassium (3.5-5.1) mmol/L Chloride (98-107) mmol/L Carbon Dioxide (22-30) mmol/L Anion Gap (5-15) MEQ/L BUN (9-20) mg/dL Creatinine (0.66-1.25) mg/dL Estimated GFR ML/MIN Glucose (74-106) mg/dL Lactic Acid (0.4-2.0) Calcium (8.4-10.2) mg/dL Magnesium (1.6-2.3) mg/dL Total Bilirubin (0.2-1.3) mg/dL AST (17-59) U/L ALT (0-50) U/L Alkaline Phosphatase (38-126) U/L Troponin I (0.000-0.034) ng/mL NT-Pro-B Natriuret Pep (0-900) pg/mL Serum Total Protein (6.3-8.2) g/dL Albumin (3.5-5.0) g/dL Urinalys Dipstick Clnc Urine Color (YELLOW) Urine Appearance (CLEAR) Urine pH (5-6) Ur Specific Gary (1.005-1.025) POC Urine Protein Conf (Negative) Urine Ketones (NEGATIVE) Urine Nitrite (NEGATIVE) Urine Bilirubin (NEGATIVE) Urine Urobilinogen (0-1) mg/dL Urine Leukocytes (NEGATIVE) Urine WBC (Auto) (0-5) /HPF Urine RBC (Auto) (0-2) /HPF U Hyaline Cast (Auto) (0-2) /LPF U Epithel Cells (Auto) (FEW) /HPF Urine Bacteria (Auto) (NEGATIVE) /HPF Urine RBC (0-5) Stuart/ul Ur Culture Indicated? Urine Glucose (NEGATIVE) mg/dL Influenza Type A Ag (NEGATIVE) Influenza Type B Ag (NEGATIVE) RSV (PCR) (Negative) SARS-CoV-2 (PCR) (NEGATIVE) - Progress Progress Note: 07/21/22 21:10 500ml NS bolus w improvement in BP Levophed started upon arrival but BP improved w 500ml fluid bolus and levophed stopped w systolic BP maintaining >[address] Catherine Counseled pt/family regarding: lab results, diagnosis, need for follow-up, rad results - Departure Departure Disposition: Observation Clinical Impression: Hypotension, Sepsis Condition: Stable Critical Care Time: Yes Critical Care Time(excluding separately billable procedures): Critical 30-74 mins
[2022-07-21 14:41] LABS: Hematocrit 23.8 % (42-50); Mean Cell Volume 87.2 fL (78-100); Mean Corpuscular Hemoglobin 23.4 pg (26-32); Mean Corpuscular Hgb Concent. 26.9 g/dL (32-36); Mean Platelet Volume 11.8 fL (7.5-11.0); Platelet Count 248 x10^3/uL (150-450); Red Blood Count 2.73 x10^6/uL (4.1-5.6); Red Cell Distribution Width 17.7 % (11.5-14.0); White Blood Count 6.4 x10^3/uL (4.0-10.5)
--- NOTE | 2022-07-21 14:44 | XRAY ---
Indication: Dyspnea. Comparison: July 03, 2022 Portable chest demonstrates interval improving right base infiltrate/atelectasis/effusion with mild residual. Heart borderline enlarged again with coronary stent. No new cardiopulmonary abnormalities.
[2022-07-21 14:48] LABS: Hemoglobin 6.4 g/dL (12.5-18.0)
[2022-07-21 15:02] LABS: ALBUMIN 3.3 g/dL (3.5-5.0); ANION GAP 8.4 MEQ/L (5-15); BILIRUBIN,TOTAL 0.5 mg/dL (0.2-1.3); Calcium 7.7 mg/dL (8.4-10.2); Creatinine 1 1.54 mg/dL (0.66-1.25); EST GLOMERULAR FILTRATION RATE 48.9 ML/MIN; MAGNESIUM 2.2 mg/dL (1.6-2.3); Potassium 3.8 mmol/L (3.5-5.1); Total Protein 5.8 g/dL (6.3-8.2)
[2022-07-21 15:10] LABS: INR 1.09 (0.8-3.0); PROTIME 11.5 SECONDS (9.4-12.5); PTT 24.8 SECONDS (25.1-36.5)
[2022-07-21 15:31] LABS: INFLUENZA A NEGATIVE (NEGATIVE); INFLUENZA B NEGATIVE (NEGATIVE); RESPIRATORY SYNCTIAL VIRUS NEGATIVE (Negative); SARS-CoV-2 Xpert Express NEGATIVE (NEGATIVE)
[2022-07-21] MEDS ORDERED: Sodium Chloride 0.9% 500 ML 500 ML IV ONE ×2 (15:58→16:08)
[2022-07-21 16:00] LABS: Eosinophil 3 % (0.00-3.0); Lymphocytes 13 % (24-44); Total Cells Counted 100
[2022-07-21 16:01] LABS: ANISOCYTOSIS 1+; Platelet Estimate NORMAL (NORMAL); Toxic Granulation 1+
--- NOTE | 2022-07-21 16:55 | XRAY ---
Indication: Chest heaviness and short of breath. Multiple contiguous axial images obtained through the chest without contrast. Comparison: July 03, 2022 Right effusion and right base subsegmental atelectasis improved with small residual. Stable mild pulmonary emphysema, left lung dependent atelectasis, left base fibrosis/scarring, and left costophrenic angle calcified granuloma. Heart remains enlarged again with coronary calcifications and coronary stent graft. Aorta remains mildly arteriosclerotic. No pathologic mediastinal lymphadenopathy. Bony thorax intact again with mild degenerative changes throughout the spine and old right rib fractures. Limited upper abdomen again demonstrates tiny gallstones/gravel. Impression: 1. Improved right pleural effusion/atelectasis with small residual. 2. Continued chronic findings including pulmonary emphysema, left base fibrosis/scarring/calcified granuloma, cardiomegaly, arteriosclerotic disease, chronic bony findings, and tiny gallstones/gravel.
[2022-07-21 20:46] LABS: Appearance CLEAR (CLEAR); Bilirubin SMALL (NEGATIVE); Glucose >=1000 mg/dL (NEGATIVE); Ketones NEGATIVE (NEGATIVE); RBC NEGATIVE Ery/ul (0-5)
[2022-07-21 20:47] LABS: Dipstick done @ ? MAIN LAB; Nitrite NEGATIVE (NEGATIVE); Ph 5.5 (5-6); Protein,Urine Dip 30 (Negative); Urobilinogen 0.2 mg/dL (0-1)
[2022-07-21 20:53] LABS: Urine Cultured Indicated? NO
[2022-07-21] MEDS ORDERED: ROCEPHIN 1 Gm-D5w 50 ml Bag** 1 G/50 ML IVPB IV STA (21:10)
[2022-07-21] MEDS ORDERED: Zofran 4 MG/2 ML VIAL IV PRN (21:13)
[2022-07-21] MEDS ORDERED: Sodium Chloride 0.9% 1000 ML 1,000 ML IV SCH (21:15)
[2022-07-21] MEDS ORDERED: ROCEPHIN 1 Gm-D5w 50 ml Bag** 1 G/50 ML IVPB IV ONE (21:20)
[2022-07-21] MEDS ORDERED: DUONEB 0.5-3 MG/3 ml Neb IH ONE ×2 (22:32→22:33)
[2022-07-22] MEDS: HEPARIN 5000 UNITS/0.5 ML (HIGH RISK MED) SQ SCH ×2 (02:07→11:55)
[2022-07-22] MEDS ORDERED: DESYREL 50 MG ONE (02:34)
[2022-07-22] MEDS: MORPHINE SULFATE 4 MG INJ IV PRN ×4 (02:40→20:13)
[2022-07-22] MEDS: DESYREL 50 MG PO SCH ×2 (02:40→21:56)
[2022-07-22 05:08] LABS: Absolute Neutrophil Ct (ANC) 3.44 x10^3/uL (1.4-6.9); Basophil (Absolute #) 0.05 x10^3/uL (0-0.4); Eosinophil (Absolute #) 0.14 x10^3/uL (0-0.5); Hematocrit 24.6 % (42-50); Lymphocyte (Absolute #) 0.67 x10^3/uL (1.0-4.6); Lymphocytes % 14.4 % (24.0-44.0); Mean Cell Volume 86.9 fL (78-100); Mean Corpuscular Hemoglobin 23.3 pg (26-32); Mean Corpuscular Hgb Concent. 26.8 g/dL (32-36); Monocyte (Absolute #) 0.34 x10^3/uL (0.0-1.3); Monocytes % 7.3 % (0.0-12.0); Neutrophil % 73.8 % (36.0-66.0); Platelet Count 222 x10^3/uL (150-450); Red Blood Count 2.83 x10^6/uL (4.1-5.6); Red Cell Distribution Width 17.6 % (11.5-14.0); White Blood Count 4.7 x10^3/uL (4.0-10.5)
[2022-07-22 05:17] LABS: Hemoglobin 6.6 g/dL (12.5-18.0)
[2022-07-22] MEDS ORDERED: Sodium Chloride 0.9% 1000 ML 1,000 ML IV SCH (05:30)
[2022-07-22 05:38] LABS: ALBUMIN 3.3 g/dL (3.5-5.0); ALKALINE PHOSPHATASE 82 U/L (38-126); ANION GAP 5.1 MEQ/L (5-15); BLOOD UREA NITROGEN 27 mg/dL (9-20); CHLORIDE 97 mmol/L (98-107); Calcium 7.8 mg/dL (8.4-10.2); Carbon Dioxide 39 mmol/L (22-30); Creatinine 1 1.26 mg/dL (0.66-1.25); EST GLOMERULAR FILTRATION RATE > 60.0 ML/MIN; Glucose 99 mg/dL (74-106); Potassium 3.7 mmol/L (3.5-5.1); SGOT/AST 21 U/L (17-59); SGPT/ALT 14 U/L (0-50); SODIUM 137 mmol/L (137-145); Total Protein 5.7 g/dL (6.3-8.2)
[2022-07-22] MEDS: PROVENTIL 2.5 MG/3 ML NEB IH PRN (07:03)
[2022-07-22 07:10] LABS: ABO TYPING O
[2022-07-22 07:11] LABS: Antibody Screen NEGATIVE (NEGATIVE); RH TYPING POSITIVE
[2022-07-22 07:12] LABS: CROSS MATCH (PRBC) COMPATIBLE (COMPATIBLE)
--- NOTE | 2022-07-22 08:04 | PCM.HP ---
History of Present Illness - Chief Complaint Chief Complaint: hypotension, sepsis History of Present Illness: is a 62 year old male.w h/o VA/Stents/CHF/HTN/COPD presents w increasing dyspnea x 2 days. He has increasing LE edema and L lateral chest pain which is described as pressure. It radiates to his L shoulder. He has had nausea wo vomiting/diarrhea/melena/hematochezia. He has a mild chronic cough and mild coryza. Timing/Duration: other (2 wks) Severity of Dyspnea-Max: moderate Severity of Dyspnea-Current: moderate Possible Cause: frequent episodes Modifying Factors: Improves With: activity Associated Symptoms: cough, chest pain/discomfort, edema, weakness, ankle swelling, leg swelling, tightness - Review of Systems Constitutional: Fatigue, Lethargy, Weakness, No Fever, No Chills Eyes: No Symptoms Ears, Nose, & Throat: No Symptoms Respiratory: No Cough, No Short Of Breath Cardiac: Chest Pain, Palpitations, Orthopnea, PND, No Edema, No Syncope Abdominal/Gastrointestinal: No Abdominal Pain, No Nausea, No Vomiting, No Diarrhea Genitourinary Symptoms: No Dysuria Musculoskeletal: No Back Pain, No Neck Pain Skin: No Rash Neurological: No Dizziness, No Focal Weakness, No Sensory Changes Psychological: No Symptoms Endocrine: No Symptoms Hematologic/Lymphatic: No Symptoms Immunological/Allergic: No Symptoms Medications & Allergies Home Medications: Home Medication List Aspirin EC 81 mg [Ecotrin 81 mg] 81 mg PO DAILY 09/17/20 [History Confirmed 07/21/22] Sucralfate 1 gm [Carafate 1 GM] 1 ea PO QID 05/17/21 [History Confirmed 07/21/22] Potassium Chloride Tab* [Klor Con 10 MEQ] 10 meq PO DAILY 05/18/21 [History Confirmed 07/21/22] Nitroglycerin [Nitroglycerin Patch] 1 each TD DAILY 07/05/21 [History Confirmed 07/21/22] Metoprolol Succinate 25 mg Xl* [Toprol-Xl 25MG Tablets] 50 mg PO BID 08/19/21 [History Confirmed 07/21/22] Omeprazole 20 mg PO DAILY 08/19/21 [History Confirmed 07/21/22] Amiodarone HCl 200 mg [Cordarone 200 MG] 1 tab PO DAILY 07/03/22 [History Confirmed 07/21/22] Amlodipine Besylate 5 mg [Norvasc 5 mg] 1 tab PO DAILY 07/03/22 [History Confirmed 07/21/22] Atorvastatin Calcium [Lipitor] 1 tab PO HS 07/03/22 [History Confirmed 07/21/22] Bumetanide 1 mg [Bumex 1 mg] 2 tab PO BID 07/03/22 [History Confirmed 07/22/22] Clopidogrel Bisulfate [Clopidogrel] 1 tab PO DAILY 07/03/22 [History Confirmed 07/21/22] Empagliflozin [Jardiance] 1 tab PO DAILY 07/03/22 [History Confirmed 07/21/22] Escitalopram Oxalate [Lexapro] 1 tab PO DAILY 07/03/22 [History Confirmed 07/21/22] Ferrous Sulfate 1 tab PO DAILY 07/03/22 [History Confirmed 07/21/22] Gabapentin [Neurontin ] 1 cap PO TID 07/03/22 [History Confirmed 07/21/22] Isosorbide Mononitrate [Isosorbide Mononitrate ER] 1 tab PO DAILY 07/03/22 [History Confirmed 07/21/22] Losartan Potassium [Cozaar] 1 tab PO DAILY 07/03/22 [History Confirmed 07/21/22] Nitroglycerin 0.4 mg Tablet [Nitrostat 0.4 MG Tablet] 1 tab PO CLARIFY 07/03/22 [History Confirmed 07/21/22] Ondansetron [Ondansetron Odt] 1 tab PO Q8H PRN PRN 07/03/22 [History Confirmed 07/21/22] Ranolazine [Ranolazine ER] 1 tab PO BID 07/03/22 [History Confirmed 07/21/22] Tamsulosin HCl 0.4 mg [Flomax 0.4 MG] 1 cap PO DAILY 07/03/22 [History Confirmed 07/21/22] Trazodone HCl 50 mg [Desyrel 50 mg] 1 tab PO HS 07/03/22 [History Confirmed 07/21/22] Allergies/Adverse Reactions: Allergies Allergy/AdvReac Type Severity Reaction Status Date / Time No Known Drug Allergies Allergy Verified 07/21/22 14:10 - Past Medical History Past Medical History: Yes Neurological History: Stroke ENT History: No Pertinent History Cardiac History: Angina, Congestive Heart Failure, Coronary Artery Disease, Deep Vein Thrombosis, High Cholesterol, Hypertension, Myocardial Infarction (VA) Respiratory History: Bronchitis, COPD Endocrine Medical History: No Pertinent History Musculoskelatal History: No Pertinent History GI Medical History: Hernia, Ulcer History: No Pertinent History Pyscho-Social History: Depression Male Reproductive Disorders: No Pertinent History Comment: Patient had a blood transfusion in May 2021 and April 2020 for a HGB of 6. VA x3. [employer] - Past Surgical History Past Surgical History: Yes Neuro Surgical History: No Pertinent History Cardiac History: Cardiac Catheterization, Cardiac Stent, Vascular Surgery Respiratory Surgery: No Pertinent History GI Surgical History: Hernia Repair Genitourinary Surgical Hx: No Pertinent History Musculskeletal Surgical Hx: No Pertinent History Male Surgical History: No Pertinent History Other Surgical History: LEFT CAROTID SURGERY NOVEMBER 2018. 16 stents reported - Social History Smoking Status: Current every day smoker How long have you smoked: 50 years Exposure to second hand smoke: Yes Alcohol: None Drug Use: none Significant Family History: no pertinent family hx - Physical Exam Vital Signs: Vital Signs - 24 hr Temp Pulse Resp BP Pulse Ox 07/22/22 07:28 97.0 F 72 17 107/59 95 07/22/22 07:05 73 20 94 L 07/22/22 04:12 78 20 96 07/22/22 03:55 97.7 F 76 22 115/56 96 07/22/22 02:39 98 07/22/22 00:10 97.3 F 73 24 120/65 95 07/21/22 22:44 70 18 92 L 07/21/22 22:17 73 18 97/60 95 07/21/22 21:46 71 94/57 97 07/21/22 21:00 69 20 104/57 98 07/21/22 20:09 69 18 96/59 97 07/21/22 19:33 69 18 108/63 96 07/21/22 19:18 69 17 101/56 97 07/21/22 18:00 69 101/56 97 07/21/22 17:00 66 18 101/61 98 07/21/22 16:00 69 14 98/57 99 07/21/22 15:00 54 L 18 94/51 95 07/21/22 14:49 84/58 07/21/22 14:01 97.7 F 66 24 76/42 98 General Appearance: no apparent distress, alert Neurologic Exam: alert, oriented x 3, cooperative, normal mood/affect, nml cerebellar function, nml station & gait, sensation nml, No motor deficits Eye Exam: PERRL/EOMI, eyes nml inspection Ears, Nose, Throat Exam: normal ENT inspection, TMs normal, pharynx normal, moist mucous membranes Neck Exam: normal inspection, non-tender, supple, full range of motion Respiratory Exam: diminished breath sounds, crackles/rales, rhonchi, wheezing, No respiratory distress Cardiovascular Exam: regular rate/rhythm, normal heart sounds, normal peripheral pulses Gastrointestinal/Abdomen Exam: soft, normal bowel sounds, No tenderness, No mass Back Exam: normal inspection, normal range of motion, No CVA tenderness, No vertebral tenderness Extremity Exam: normal inspection, normal range of motion, pelvis stable Skin Exam: normal color, warm, dry, No rash Lymphatic Exam: No adenopathy Results - Labs Lab/Micro Results: Lab Results-Last 24 Hours 07/21/22 07/21/22 07/21/22 Range/Units 14:26 14:30 14:30 WBC 6.4 (4.0-10.5) x10^3/uL RBC 2.73 L (4.1-5.6) x10^6/uL Hgb 6.4 L* (12.5-18.0) g/dL Hct 23.8 L (42-50) % MCV 87.2 (78-100) fL MCH 23.4 L (26-32) pg MCHC 26.9 L (32-36) g/dL RDW 17.7 H (11.5-14.0) % Plt Count 248 (150-450) x10^3/uL MPV 11.8 H (7.5-11.0) fL Gran % (36.0-66.0) % Immature Gran % (Auto) (0.00-0.4) % Nucleat RBC Rel Count (0.00-0.1) % Eos # (Auto) (0-0.5) x10^3/uL Immature Gran # (Auto) (0.00-0.03) x10^3u/L Absolute Lymphs (auto) (1.0-4.6) x10^3/uL Absolute Monos (auto) (0.0-1.3) x10^3/uL Absolute Nucleated RBC (0.00-0.01) x10^3u/L Lymphocytes % (24.0-44.0) % Monocytes % (0.0-12.0) % Eosinophils % (0.00-5.0) % Basophils % (0.0-0.4) % Absolute Granulocytes (1.4-6.9) x10^3/uL Segmented Neutrophils 84 H (36.-66.) % Lymphocytes (Manual) 13 L (24-44) % Eosinophils (Manual) 3 (0.00-3.0) % Basophils # (0-0.4) x10^3/uL Toxic Granulation 1+ Platelet Estimate NORMAL (NORMAL) RBC Morphology ABNORMAL Anisocytosis 1+ Smear Path Review Pending PT 11.5 (9.4-12.5) SECONDS INR 1.09 (0.8-3.0) APTT 24.8 L (25.1-36.5) SECONDS Sodium 136 L (137-145) mmol/L Potassium 3.8 (3.5-5.1) mmol/L Chloride 97 L (98-107) mmol/L Carbon Dioxide 35 H (22-30) mmol/L Anion Gap 8.4 (5-15) MEQ/L BUN 29 H (9-20) mg/dL Creatinine 1.54 H (0.66-1.25) mg/dL Estimated GFR 48.9 ML/MIN Glucose 117 H (74-106) mg/dL Lactic Acid (0.4-2.0) Calcium 7.7 L (8.4-10.2) mg/dL Magnesium 2.2 (1.6-2.3) mg/dL Total Bilirubin 0.50 (0.2-1.3) mg/dL AST 25 (17-59) U/L ALT 14 (0-50) U/L Alkaline Phosphatase 71 (38-126) U/L Troponin I (0.000-0.034) ng/mL NT-Pro-B Natriuret Pep 3880 H (0-900) pg/mL Serum Total Protein 5.8 L (6.3-8.2) g/dL Albumin 3.3 L (3.5-5.0) g/dL Urinalys Dipstick Clnc Urine Color (YELLOW) Urine Appearance (CLEAR) Urine pH (5-6) Ur Specific [place] (1.005-1.025) POC Urine Protein Conf (Negative) Urine Ketones (NEGATIVE) Urine Nitrite (NEGATIVE) Urine Bilirubin (NEGATIVE) Urine Urobilinogen (0-1) mg/dL Urine Leukocytes (NEGATIVE) Urine WBC (Auto) (0-5) /HPF Urine RBC (Auto) (0-2) /HPF U Hyaline Cast (Auto) (0-2) /LPF U Epithel Cells (Auto) (FEW) /HPF Urine Bacteria (Auto) (NEGATIVE) /HPF Urine RBC (0-5) Stuart/ul Ur Culture Indicated? Urine Glucose (NEGATIVE) mg/dL Influenza Type A Ag (NEGATIVE) Influenza Type B Ag (NEGATIVE) RSV (PCR) (Negative) SARS-CoV-2 (PCR) (NEGATIVE) ABO Group Rh Factor Antibody Screen (NEGATIVE) Crossmatch (COMPATIBLE) 07/21/22 07/21/22 07/21/22 Range/Units 14:30 14:37 15:46 WBC (4.0-10.5) x10^3/uL RBC (4.1-5.6) x10^6/uL Hgb (12.5-18.0) g/dL Hct (42-50) % MCV (78-100) fL MCH (26-32) pg MCHC (32-36) g/dL RDW (11.5-14.0) % Plt Count (150-450) x10^3/uL MPV (7.5-11.0) fL Gran % (36.0-66.0) % Immature Gran % (Auto) (0.00-0.4) % Nucleat RBC Rel Count (0.00-0.1) % Eos # (Auto) (0-0.5) x10^3/uL Immature Gran # (Auto) (0.00-0.03) x10^3u/L Absolute Lymphs (auto) (1.0-4.6) x10^3/uL Absolute Monos (auto) (0.0-1.3) x10^3/uL Absolute Nucleated RBC (0.00-0.01) x10^3u/L Lymphocytes % (24.0-44.0) % Monocytes % (0.0-12.0) % Eosinophils % (0.00-5.0) % Basophils % (0.0-0.4) % Absolute Granulocytes (1.4-6.9) x10^3/uL Segmented Neutrophils (36.-66.) % Lymphocytes (Manual) (24-44) % Eosinophils (Manual) (0.00-3.0) % Basophils # (0-0.4) x10^3/uL Toxic Granulation Platelet Estimate (NORMAL) RBC Morphology Anisocytosis Smear Path Review PT (9.4-12.5) SECONDS INR (0.8-3.0) APTT (25.1-36.5) SECONDS Sodium (137-145) mmol/L Potassium (3.5-5.1) mmol/L Chloride (98-107) mmol/L Carbon Dioxide (22-30) mmol/L Anion Gap (5-15) MEQ/L BUN (9-20) mg/dL Creatinine (0.66-1.25) mg/dL Estimated GFR ML/MIN Glucose (74-106) mg/dL Lactic Acid 3.0 H (0.4-2.0) Calcium (8.4-10.2) mg/dL Magnesium (1.6-2.3) mg/dL Total Bilirubin (0.2-1.3) mg/dL AST (17-59) U/L ALT (0-50) U/L Alkaline Phosphatase (38-126) U/L Troponin I < 0.012 (0.000-0.034) ng/mL NT-Pro-B Natriuret Pep (0-900) pg/mL Serum Total Protein (6.3-8.2) g/dL Albumin (3.5-5.0) g/dL Urinalys Dipstick Clnc Urine Color (YELLOW) Urine Appearance (CLEAR) Urine pH (5-6) Ur Specific [place] (1.005-1.025) POC Urine Protein Conf (Negative) Urine Ketones (NEGATIVE) Urine Nitrite (NEGATIVE) Urine Bilirubin (NEGATIVE) Urine Urobilinogen (0-1) mg/dL Urine Leukocytes (NEGATIVE) Urine WBC (Auto) (0-5) /HPF Urine RBC (Auto) (0-2) /HPF U Hyaline Cast (Auto) (0-2) /LPF U Epithel Cells (Auto) (FEW) /HPF Urine Bacteria (Auto) (NEGATIVE) /HPF Urine RBC (0-5) Stuart/ul Ur Culture Indicated? Urine Glucose (NEGATIVE) mg/dL Influenza Type A Ag NEGATIVE (NEGATIVE) Influenza Type B Ag NEGATIVE (NEGATIVE) RSV (PCR) NEGATIVE (Negative) SARS-CoV-2 (PCR) NEGATIVE (NEGATIVE) ABO Group Rh Factor Antibody Screen (NEGATIVE) Crossmatch (COMPATIBLE) 07/21/22 07/21/22 07/21/22 Range/Units 16:39 18:22 19:09 WBC (4.0-10.5) x10^3/uL RBC (4.1-5.6) x10^6/uL Hgb (12.5-18.0) g/dL Hct (42-50) % MCV (78-100) fL MCH (26-32) pg MCHC (32-36) g/dL RDW (11.5-14.0) % Plt Count (150-450) x10^3/uL MPV (7.5-11.0) fL Gran % (36.0-66.0) % Immature Gran % (Auto) (0.00-0.4) % Nucleat RBC Rel Count (0.00-0.1) % Eos # (Auto) (0-0.5) x10^3/uL Immature Gran # (Auto) (0.00-0.03) x10^3u/L Absolute Lymphs (auto) (1.0-4.6) x10^3/uL Absolute Monos (auto) (0.0-1.3) x10^3/uL Absolute Nucleated RBC (0.00-0.01) x10^3u/L Lymphocytes % (24.0-44.0) % Monocytes % (0.0-12.0) % Eosinophils % (0.00-5.0) % Basophils % (0.0-0.4) % Absolute Granulocytes (1.4-6.9) x10^3/uL Segmented Neutrophils (36.-66.) % Lymphocytes (Manual) (24-44) % Eosinophils (Manual) (0.00-3.0) % Basophils # (0-0.4) x10^3/uL Toxic Granulation Platelet Estimate (NORMAL) RBC Morphology Anisocytosis Smear Path Review PT (9.4-12.5) SECONDS INR (0.8-3.0) APTT (25.1-36.5) SECONDS Sodium (137-145) mmol/L Potassium (3.5-5.1) mmol/L Chloride (98-107) mmol/L Carbon Dioxide (22-30) mmol/L Anion Gap (5-15) MEQ/L BUN (9-20) mg/dL Creatinine (0.66-1.25) mg/dL Estimated GFR ML/MIN Glucose (74-106) mg/dL Lactic Acid 1.2 (0.4-2.0) Calcium (8.4-10.2) mg/dL Magnesium (1.6-2.3) mg/dL Total Bilirubin (0.2-1.3) mg/dL AST (17-59) U/L ALT (0-50) U/L Alkaline Phosphatase (38-126) U/L Troponin I < 0.012 (0.000-0.034) ng/mL NT-Pro-B Natriuret Pep (0-900) pg/mL Serum Total Protein (6.3-8.2) g/dL Albumin (3.5-5.0) g/dL Urinalys Dipstick Clnc MAIN LAB Urine Color DARK YELLOW (YELLOW) Urine Appearance CLEAR (CLEAR) Urine pH 5.5 (5-6) Ur Specific [place] 1.020 (1.005-1.025) POC Urine Protein Conf 30 (Negative) Urine Ketones NEGATIVE (NEGATIVE) Urine Nitrite NEGATIVE (NEGATIVE) Urine Bilirubin SMALL (NEGATIVE) Urine Urobilinogen 0.2 (0-1) mg/dL Urine Leukocytes NEGATIVE (NEGATIVE) Urine WBC (Auto) NONE (0-5) /HPF Urine RBC (Auto) NONE (0-2) /HPF U Hyaline Cast (Auto) 6-10 (0-2) /LPF U Epithel Cells (Auto) NONE (FEW) /HPF Urine Bacteria (Auto) NONE (NEGATIVE) /HPF Urine RBC NEGATIVE (0-5) Stuart/ul Ur Culture Indicated? NO Urine Glucose >=1000 (NEGATIVE) mg/dL Influenza Type A Ag (NEGATIVE) Influenza Type B Ag (NEGATIVE) RSV (PCR) (Negative) SARS-CoV-2 (PCR) (NEGATIVE) ABO Group Rh Factor Antibody Screen (NEGATIVE) Crossmatch (COMPATIBLE) 07/21/22 07/22/22 07/22/22 Range/Units 22:26 04:30 04:30 WBC 4.7 (4.0-10.5) x10^3/uL RBC 2.83 L (4.1-5.6) x10^6/uL Hgb 6.6 L* (12.5-18.0) g/dL Hct 24.6 L (42-50) % MCV 86.9 (78-100) fL MCH 23.3 L (26-32) pg MCHC 26.8 L (32-36) g/dL RDW 17.6 H (11.5-14.0) % Plt Count 222 (150-450) x10^3/uL MPV 12.0 H (7.5-11.0) fL Gran % 73.8 H (36.0-66.0) % Immature Gran % (Auto) 0.4 (0.00-0.4) % Nucleat RBC Rel Count 0.0 (0.00-0.1) % Eos # (Auto) 0.14 (0-0.5) x10^3/uL Immature Gran # (Auto) 0.02 (0.00-0.03) x10^3u/L Absolute Lymphs (auto) 0.67 L (1.0-4.6) x10^3/uL Absolute Monos (auto) 0.34 (0.0-1.3) x10^3/uL Absolute Nucleated RBC 0.00 (0.00-0.01) x10^3u/L Lymphocytes % 14.4 L (24.0-44.0) % Monocytes % 7.3 (0.0-12.0) % Eosinophils % 3.0 (0.00-5.0) % Basophils % 1.1 (0.0-0.4) % Absolute Granulocytes 3.44 (1.4-6.9) x10^3/uL Segmented Neutrophils (36.-66.) % Lymphocytes (Manual) (24-44) % Eosinophils (Manual) (0.00-3.0) % Basophils # 0.05 (0-0.4) x10^3/uL Toxic Granulation Platelet Estimate (NORMAL) RBC Morphology Anisocytosis Smear Path Review PT (9.4-12.5) SECONDS INR (0.8-3.0) APTT (25.1-36.5) SECONDS Sodium 137 (137-145) mmol/L Potassium 3.7 (3.5-5.1) mmol/L Chloride 97 L (98-107) mmol/L Carbon Dioxide 39 H (22-30) mmol/L Anion Gap 5.1 (5-15) MEQ/L BUN 27 H (9-20) mg/dL Creatinine 1.26 H (0.66-1.25) mg/dL Estimated GFR > 60.0 ML/MIN Glucose 99 (74-106) mg/dL Lactic Acid (0.4-2.0) Calcium 7.8 L (8.4-10.2) mg/dL Magnesium (1.6-2.3) mg/dL Total Bilirubin 0.40 (0.2-1.3) mg/dL AST 21 (17-59) U/L ALT 14 (0-50) U/L Alkaline Phosphatase 82 (38-126) U/L Troponin I < 0.012 (0.000-0.034) ng/mL NT-Pro-B Natriuret Pep (0-900) pg/mL Serum Total Protein 5.7 L (6.3-8.2) g/dL Albumin 3.3 L (3.5-5.0) g/dL Urinalys Dipstick Clnc Urine Color (YELLOW) Urine Appearance (CLEAR) Urine pH (5-6) Ur Specific [place] (1.005-1.025) POC Urine Protein Conf (Negative) Urine Ketones (NEGATIVE) Urine Nitrite (NEGATIVE) Urine Bilirubin (NEGATIVE) Urine Urobilinogen (0-1) mg/dL Urine Leukocytes (NEGATIVE) Urine WBC (Auto) (0-5) /HPF Urine RBC (Auto) (0-2) /HPF U Hyaline Cast (Auto) (0-2) /LPF U Epithel Cells (Auto) (FEW) /HPF Urine Bacteria (Auto) (NEGATIVE) /HPF Urine RBC (0-5) Stuart/ul Ur Culture Indicated? Urine Glucose (NEGATIVE) mg/dL Influenza Type A Ag (NEGATIVE) Influenza Type B Ag (NEGATIVE) RSV (PCR) (Negative) SARS-CoV-2 (PCR) (NEGATIVE) ABO Group Rh Factor Antibody Screen (NEGATIVE) Crossmatch (COMPATIBLE) 07/22/22 07/22/22 Range/Units 05:57 05:57 WBC (4.0-10.5) x10^3/uL RBC (4.1-5.6) x10^6/uL Hgb (12.5-18.0) g/dL Hct (42-50) % MCV (78-100) fL MCH (26-32) pg MCHC (32-36) g/dL RDW (11.5-14.0) % Plt Count (150-450) x10^3/uL MPV (7.5-11.0) fL Gran % (36.0-66.0) % Immature Gran % (Auto) (0.00-0.4) % Nucleat RBC Rel Count (0.00-0.1) % Eos # (Auto) (0-0.5) x10^3/uL Immature Gran # (Auto) (0.00-0.03) x10^3u/L Absolute Lymphs (auto) (1.0-4.6) x10^3/uL Absolute Monos (auto) (0.0-1.3) x10^3/uL Absolute Nucleated RBC (0.00-0.01) x10^3u/L Lymphocytes % (24.0-44.0) % Monocytes % (0.0-12.0) % Eosinophils % (0.00-5.0) % Basophils % (0.0-0.4) % Absolute Granulocytes (1.4-6.9) x10^3/uL Segmented Neutrophils (36.-66.) % Lymphocytes (Manual) (24-44) % Eosinophils (Manual) (0.00-3.0) % Basophils # (0-0.4) x10^3/uL Toxic Granulation Platelet Estimate (NORMAL) RBC Morphology Anisocytosis Smear Path Review PT (9.4-12.5) SECONDS INR (0.8-3.0) APTT (25.1-36.5) SECONDS Sodium (137-145) mmol/L Potassium (3.5-5.1) mmol/L Chloride (98-107) mmol/L Carbon Dioxide (22-30) mmol/L Anion Gap (5-15) MEQ/L BUN (9-20) mg/dL Creatinine (0.66-1.25) mg/dL Estimated GFR ML/MIN Glucose (74-106) mg/dL Lactic Acid (0.4-2.0) Calcium (8.4-10.2) mg/dL Magnesium (1.6-2.3) mg/dL Total Bilirubin (0.2-1.3) mg/dL AST (17-59) U/L ALT (0-50) U/L Alkaline Phosphatase (38-126) U/L Troponin I (0.000-0.034) ng/mL NT-Pro-B Natriuret Pep (0-900) pg/mL Serum Total Protein (6.3-8.2) g/dL Albumin (3.5-5.0) g/dL Urinalys Dipstick Clnc Urine Color (YELLOW) Urine Appearance (CLEAR) Urine pH (5-6) Ur Specific [place] (1.005-1.025) POC Urine Protein Conf (Negative) Urine Ketones (NEGATIVE) Urine Nitrite (NEGATIVE) Urine Bilirubin (NEGATIVE) Urine Urobilinogen (0-1) mg/dL Urine Leukocytes (NEGATIVE) Urine WBC (Auto) (0-5) /HPF Urine RBC (Auto) (0-2) /HPF U Hyaline Cast (Auto) (0-2) /LPF U Epithel Cells (Auto) (FEW) /HPF Urine Bacteria (Auto) (NEGATIVE) /HPF Urine RBC (0-5) Stuart/ul Ur Culture Indicated? Urine Glucose (NEGATIVE) mg/dL Influenza Type A Ag (NEGATIVE) Influenza Type B Ag (NEGATIVE) RSV (PCR) (Negative) SARS-CoV-2 (PCR) (NEGATIVE) ABO Group O Rh Factor POSITIVE Antibody Screen NEGATIVE (NEGATIVE) Crossmatch COMPATIBLE COMPATIBLE (COMPATIBLE) - Radiology Impressions Radiology Exams & Impressions: Radiology Procedures Category Date Time Status CHEST 1 VIEW (PORTABLE) Stat Exams 07/21/22 14:27 Completed CHEST WITHOUT CONTRAST [CT] Stat Exams 07/21/22 15:57 Completed - Other Procedures and Tests Respiratory Therapy 07/21/22 21:13 Oxygen Nasal Cannula 4 lpm 08/30/22 22:36 Respiratory Therapy Assessment DAILY Assessment/Plan (1) Hypotension Current Visit: Yes Status: Acute Qualifiers: Hypotension type: other hypotension type Qualified Code(s): I95.89 - Other hypotension Code(s): I95.9 - HYPOTENSION, UNSPECIFIED (2) ACS (acute coronary syndrome) Current Visit: Yes Status: Acute Code(s): I24.9 - ACUTE ISCHEMIC HEART DISEASE, UNSPECIFIED (3) Anemia Current Visit: Yes Status: Acute Qualifiers: Anemia type: iron deficiency Iron deficiency anemia type: unspecified iron deficiency Qualified Code(s): D50.9 - Iron deficiency anemia, unspecified Code(s): D64.9 - ANEMIA, UNSPECIFIED (4) Angina at rest Current Visit: Yes Status: Acute Code(s): I20.8 - OTHER FORMS OF ANGINA PECTORIS (5) Congestive heart failure (CHF) Current Visit: Yes Status: Acute Qualifiers: Heart failure type: combined systolic and diastolic Heart failure chronicity: acute on chronic Qualified Code(s): I50.43 - Acute on chronic combined systolic (congestive) and diastolic (congestive) heart failure Code(s): I50.9 - HEART FAILURE, UNSPECIFIED
[2022-07-22 10:19] LABS: Slide Review 1 YES
[2022-07-22] MEDS: PROVENTIL 2.5 MG/3 ML NEB IH SCH ×3 (10:52→19:08)
[2022-07-22] MEDS ORDERED: NON-FORMULARY ITEM (Ondansetron 4 MG Tab.Rapdis) PO PRN (12:24)
[2022-07-22] MEDS ORDERED: Nitrostat 0.4 MG Tablet SL SCH (12:30)
[2022-07-22] MEDS ORDERED: ZOFRAN ODT 4 MG PO PRN (12:34)
[2022-07-22] MEDS ORDERED: MEDICATION INTERVENTION MC SCH (12:45)
[2022-07-22] MEDS ORDERED: NITRO-DUR 0.1MG/HR TD SCH (13:00)
[2022-07-22] MEDS: NORVASC 5 MG PO SCH (13:43)
[2022-07-22] MEDS: PLAVIX Tablet PO SCH (13:43)
[2022-07-22] MEDS: Imdur 30 MG PO SCH (13:44)
[2022-07-22] MEDS: Protonix 40MG Tablet PO SCH (13:44)
[2022-07-22] MEDS: Lexapro PO SCH (13:45)
[2022-07-22] MEDS: Cozaar 50 MG PO SCH (13:45)
[2022-07-22] MEDS: ECOTRIN 81 MG PO SCH (13:45)
[2022-07-22] MEDS: FEOSOL 325 MG PO SCH (13:46)
[2022-07-22] MEDS: Flomax 0.4 MG PO SCH (13:46)
[2022-07-22] MEDS: Cordarone 200 MG PO SCH (13:47)
[2022-07-22] MEDS: Toprol Xl 50 MG PO SCH ×2 (13:48→21:56)
[2022-07-22] MEDS: Ranexa 500 MG PO SCH ×2 (13:48→21:56)
[2022-07-22] MEDS: Klor Con PO SCH (13:48)
[2022-07-22] MEDS: JARDIANCE PO SCH (13:49)
[2022-07-22] MEDS: NEURONTIN PO SCH ×2 (14:27→21:56)
[2022-07-22] MEDS: BUMEX 1 MG PO SCH (17:13)
[2022-07-22] MEDS: Carafate 1 GM PO SCH ×2 (17:13→21:57)
[2022-07-22] MEDS: Nitro-Dur 0.4 MG/HR TOP SCH (17:32)
[2022-07-22 17:51] LABS: Hematocrit 28.3 % (42-50)
[2022-07-22] MEDS: ZOCOR 20MG PO SCH (21:57)
[2022-07-22] MEDS: ROCEPHIN 1 Gm-D5w 50 ml Bag** 1 G/50 ML IVPB IV SCH (21:57)
[2022-07-22] MEDS ORDERED: NON-FORMULARY ITEM (Atorvastatin Calcium [Lipitor] 80 MG Tablet) PO SCH (22:00)
[2022-07-22] MEDS ORDERED: NON-FORMULARY ITEM (Ranolazine [Ranolazine Er] 1,000 MG Tab.Er.12h) PO SCH (22:00)
[2022-07-23] MEDS: MORPHINE SULFATE 4 MG INJ IV PRN ×4 (01:00→23:15)
[2022-07-23 04:06] LABS: Hematocrit 29.5 % (42-50); Hemoglobin 8.3 g/dL (12.5-18.0); Mean Cell Volume 86.3 fL (78-100); Mean Corpuscular Hemoglobin 24.3 pg (26-32); Mean Corpuscular Hgb Concent. 28.1 g/dL (32-36); Mean Platelet Volume 11.7 fL (7.5-11.0); Platelet Count 200 x10^3/uL (150-450); Red Blood Count 3.42 x10^6/uL (4.1-5.6); Red Cell Distribution Width 17.9 % (11.5-14.0); White Blood Count 6.8 x10^3/uL (4.0-10.5)
[2022-07-23 04:34] LABS: ALBUMIN 3.7 g/dL (3.5-5.0); ALKALINE PHOSPHATASE 77 U/L (38-126); ANION GAP 8.4 MEQ/L (5-15); BLOOD UREA NITROGEN 25 mg/dL (9-20); CHLORIDE 97 mmol/L (98-107); Calcium 7.9 mg/dL (8.4-10.2); Carbon Dioxide 37 mmol/L (22-30); Creatinine 1 1.18 mg/dL (0.66-1.25); EST GLOMERULAR FILTRATION RATE > 60.0 ML/MIN; Glucose 102 mg/dL (74-106); SGOT/AST 26 U/L (17-59); SGPT/ALT 13 U/L (0-50); SODIUM 138 mmol/L (137-145); Total Protein 6.2 g/dL (6.3-8.2)
[2022-07-23] MEDS: PROVENTIL 2.5 MG/3 ML NEB IH SCH ×4 (07:07→19:36)
[2022-07-23] MEDS ORDERED: Nitrostat 0.4 MG Tablet SL PRN (07:15)
[2022-07-23] MEDS: Carafate 1 GM PO SCH ×4 (08:07→21:20)
[2022-07-23] MEDS ORDERED: NON-FORMULARY ITEM (Omeprazole [Omeprazole] 20 MG Tablet.Dr) PO SCH (10:00)
[2022-07-23] MEDS ORDERED: NON-FORMULARY ITEM (Losartan Potassium [Cozaar] 25 MG Tablet) PO SCH (10:00)
[2022-07-23] MEDS: Toprol Xl 50 MG PO SCH ×2 (10:20→21:30)
[2022-07-23] MEDS: Klor Con PO SCH (10:20)
[2022-07-23] MEDS: Protonix 40MG Tablet PO SCH (10:20)
[2022-07-23] MEDS: FEOSOL 325 MG PO SCH (10:20)
[2022-07-23] MEDS: Lexapro PO SCH (10:21)
[2022-07-23] MEDS: Flomax 0.4 MG PO SCH (10:21)
[2022-07-23] MEDS: Imdur 30 MG PO SCH (10:21)
[2022-07-23] MEDS: BUMEX 1 MG PO SCH ×2 (10:21→16:15)
[2022-07-23] MEDS: PLAVIX Tablet PO SCH (10:21)
[2022-07-23] MEDS: NEURONTIN PO SCH ×3 (10:21→21:20)
[2022-07-23] MEDS: ECOTRIN 81 MG PO SCH (10:21)
[2022-07-23] MEDS: Cordarone 200 MG PO SCH (10:21)
[2022-07-23] MEDS: Ranexa 500 MG PO SCH ×2 (10:21→21:20)
[2022-07-23] MEDS: JARDIANCE PO SCH (10:22)
[2022-07-23] MEDS: Cozaar 50 MG PO SCH (10:22)
[2022-07-23] MEDS: NORVASC 5 MG PO SCH (10:22)
[2022-07-23] MEDS: Nitro-Dur 0.4 MG/HR TOP SCH (10:22)
--- NOTE | 2022-07-23 20:39 | PCM.NOTE ---
Date and Time: 07/23/222037 Subjective Assessment: doing ok - Review of Systems Constitutional: No Fever, No Chills Eyes: No Symptoms Ears, Nose, & Throat: No Symptoms Respiratory: No Cough, No Short Of Breath Cardiac: No Chest Pain, No Edema, No Syncope Abdominal/Gastrointestinal: No Abdominal Pain, No Nausea, No Vomiting, No Diarrhea Genitourinary Symptoms: No Dysuria Musculoskeletal: No Back Pain, No Neck Pain Skin: No Rash Neurological: No Dizziness, No Focal Weakness, No Sensory Changes Psychological: No Symptoms Endocrine: No Symptoms Hematologic/Lymphatic: No Symptoms Immunological/Allergic: No Symptoms Objective Exam General Appearance: no apparent distress, alert Neurologic Exam: alert, oriented x 3, cooperative, normal mood/affect, nml cerebellar function, sensation nml, No motor deficits Skin Exam: normal color, warm, dry Eye Exam: PERRL, EOMI, eyes nml inspection Ears, Nose, Throat Exam: normal ENT inspection, pharynx normal, moist mucous membranes Neck Exam: normal inspection, non-tender, supple, full range of motion Respiratory Exam: normal breath sounds, lungs clear, No respiratory distress Cardiovascular Exam: regular rate/rhythm, normal heart sounds Gastrointestinal/Abdomen Exam: soft, No tenderness, No mass Extremity Exam: normal inspection, normal range of motion Back Exam: normal inspection, normal range of motion, No CVA tenderness, No vertebral tenderness Male Genitalia Exam: deferred Rectal Exam: deferred OBJECTIVE DATA Vital Signs: Vital Signs - 24 hr Temp Pulse Resp BP BP Pulse Ox 07/23/22 19:36 74 20 91 L 07/23/22 19:35 98.0 F 83 20 108/61 93 L 07/23/22 16:00 97.2 F 81 17 109/51 94 L 07/23/22 14:59 80 20 92 L 07/23/22 12:55 79 119/55 07/23/22 12:06 80 16 95 07/23/22 11:58 97.6 F 83 18 99/54 88 L 07/23/22 07:09 76 14 93 L 07/23/22 07:08 97.3 F 74 19 96/52 91 L 07/23/22 04:00 97.8 F 78 22 109/60 96 07/22/22 23:46 97.7 F 63 20 106/56 94 L Pain Assessment - Last Documented Pain Intensity 7 Pain Scale Used 0-10 Pain Scale Intake and Output: Intake & Output 07/21/22 07/22/22 07/23/22 07/24/22 11:59 11:59 11:59 11:59 Intake Total 200 4313 600 Output Total 3000 2450 Balance 200 1313 -1850 Weight 119.9 kg Lab Results: Lab Results-Last 24 Hours 07/21/22 07/23/22 07/23/22 Range/Units 14:30 04:03 04:03 WBC 6.8 (4.0-10.5) x10^3/uL RBC 3.42 L (4.1-5.6) x10^6/uL Hgb 8.3 L (12.5-18.0) g/dL Hct 29.5 L (42-50) % MCV 86.3 (78-100) fL MCH 24.3 L (26-32) pg MCHC 28.1 L (32-36) g/dL RDW 17.9 H (11.5-14.0) % Plt Count 200 (150-450) x10^3/uL MPV 11.7 H (7.5-11.0) fL Smear Path Review Sodium 138 (137-145) mmol/L Potassium 4.0 (3.5-5.1) mmol/L Chloride 97 L (98-107) mmol/L Carbon Dioxide 37 H (22-30) mmol/L Anion Gap 8.4 (5-15) MEQ/L BUN 25 H (9-20) mg/dL Creatinine 1.18 (0.66-1.25) mg/dL Estimated GFR > 60.0 ML/MIN Glucose 102 (74-106) mg/dL Calcium 7.9 L (8.4-10.2) mg/dL Total Bilirubin 0.60 (0.2-1.3) mg/dL AST 26 (17-59) U/L ALT 13 (0-50) U/L Alkaline Phosphatase 77 (38-126) U/L Serum Total Protein 6.2 L (6.3-8.2) g/dL Albumin 3.7 (3.5-5.0) g/dL Multi-Disciplinary Progress Notes: Multi-Disciplinary Progress Notes 07/23/22 15:11 Physical Therapy Note by Aileen(L#[id number] Clayton PT. SEEN BY P.T. THIS PM. WAS NOT FEELING WELL THIS MORNING, BUT AGREEABLE TO WORK W/ P.T. AND BATHE THIS PM. IN BED UPON P.T. ARRIVAL TO ROOM. SUPINE TO SIT - MOD-MAX ASSIST W/ HOB ELEVATED. SIT TO STAND- MIN-MOD ASSIST X 1; ABLE TO STAND X ~ 2' WHILE USING URINAL W/ MIN ASSIST AND RW IN FRONR OF HIM. PT. TOOK 2-3 STEPS TO TRANSFER W/ RW W/ MIN-MOD ASSIST. ATTEMPTED TO SWITCH TO PORTABLE O2 IN AN EFFORT TO GO TO THE SHOWER AND PT. SATS DECREASED TO 87% AND PT. C/O CP. OPTED TO TO DO BEDSIDE BATH W/ SAFETY INTERN AND P.T. TO ASSIST. O2 SATS RECOVERED TO 95% W/ DEEP BREATHING AND REST. PT. ATTEMPTED TO WASH FACE HIMSELF AND FATIGUED W/ THIS. SAFETY INTERN FINISHED BATH. PT. ASKED TO RETURN TO BED AFTER BATH AND SIT TO STAND AND TRANSFER WORK. DID NOTE PT. WAS SHAKY IN HANDS AND LES DURING MUCH OF SESSION. LIFE VEST NOT WORKING FAMILY HAS NOT BROUGHT IN BATTERY. WILL CONT. P.T. 5X/WK TOLERATED. AWAITING INS PRE-CERT FOR SNF STAY. RX TIME [id number] Initialized on 07/23/22 15:11 - END OF NOTE 07/23/22 11:27 Physical Therapy Note by Aileen(L#[id number])Judie P.T. HELD THIS A.M. PT. LETHARGIC AND NOT FEELING WELL. WILL ATTEMPT THIS PM. Initialized on 07/23/22 11:27 - END OF NOTE 07/23/22 09:27 Case Management Note by Estefany Rivera WILL START PRECERT TODAY- PATIENT AWARE Initialized on 07/23/22 09:27 - END OF NOTE Assessment/Plan (1) Hypotension Current Visit: Yes Status: Resolved Qualifiers: Hypotension type: other hypotension type Qualified Code(s): I95.89 - Other hypotension Code(s): I95.9 - HYPOTENSION, UNSPECIFIED (2) ACS (acute coronary syndrome) Current Visit: Yes Status: Resolved Code(s): I24.9 - ACUTE ISCHEMIC HEART DISEASE, UNSPECIFIED (3) Anemia Current Visit: Yes Status: Acute Qualifiers: Anemia type: iron deficiency Iron deficiency anemia type: unspecified iron deficiency Qualified Code(s): D50.9 - Iron deficiency anemia, unspecified Code(s): D64.9 - ANEMIA, UNSPECIFIED (4) Angina at rest Current Visit: Yes Status: Acute Code(s): I20.8 - OTHER FORMS OF ANGINA PECTORIS (5) Congestive heart failure (CHF) Current Visit: Yes Status: Chronic Qualifiers: Heart failure type: combined systolic and diastolic Heart failure chronicity: acute on chronic Qualified Code(s): I50.43 - Acute on chronic combined systolic (congestive) and diastolic (congestive) heart failure Code(s): I50.9 - HEART FAILURE, UNSPECIFIED
[2022-07-23] MEDS: ROCEPHIN 1 Gm-D5w 50 ml Bag** 1 G/50 ML IVPB IV SCH (21:20)
[2022-07-23] MEDS: ZOCOR 20MG PO SCH (21:20)
[2022-07-23] MEDS: DESYREL 50 MG PO SCH (21:21)
[2022-07-24] MEDS: MORPHINE SULFATE 4 MG INJ IV PRN ×4 (04:29→19:19)
[2022-07-24] MEDS: Carafate 1 GM PO SCH ×4 (06:29→21:33)
[2022-07-24] MEDS: PROVENTIL 2.5 MG/3 ML NEB IH SCH ×4 (08:08→19:02)
[2022-07-24] MEDS: NEURONTIN PO SCH ×3 (08:53→21:33)
[2022-07-24] MEDS: PLAVIX Tablet PO SCH (08:53)
[2022-07-24] MEDS: Cordarone 200 MG PO SCH (08:53)
[2022-07-24] MEDS: BUMEX 1 MG PO SCH ×2 (08:53→16:42)
[2022-07-24] MEDS: ECOTRIN 81 MG PO SCH (08:53)
[2022-07-24] MEDS: FEOSOL 325 MG PO SCH (08:53)
[2022-07-24] MEDS: Lexapro PO SCH (08:53)
[2022-07-24] MEDS: Cozaar 50 MG PO SCH (08:54)
[2022-07-24] MEDS: Flomax 0.4 MG PO SCH (08:55)
[2022-07-24] MEDS: Toprol Xl 50 MG PO SCH ×2 (08:56→21:33)
[2022-07-24] MEDS: NORVASC 5 MG PO SCH (08:56)
[2022-07-24] MEDS: Nitro-Dur 0.4 MG/HR TOP SCH (08:57)
[2022-07-24] MEDS: JARDIANCE PO SCH (08:57)
[2022-07-24] MEDS: Klor Con PO SCH (08:57)
[2022-07-24] MEDS: Protonix 40MG Tablet PO SCH (08:57)
[2022-07-24] MEDS: Imdur 30 MG PO SCH (08:58)
[2022-07-24] MEDS: Ranexa 500 MG PO SCH ×2 (10:10→21:33)
[2022-07-24] MEDS: ROCEPHIN 1 Gm-D5w 50 ml Bag** 1 G/50 ML IVPB IV SCH (21:32)
[2022-07-24] MEDS: ZOCOR 20MG PO SCH (21:33)
[2022-07-24] MEDS: DESYREL 50 MG PO SCH (21:33)
[2022-07-25] MEDS: MORPHINE SULFATE 4 MG INJ IV PRN ×2 (01:10→16:50)
[2022-07-25] MEDS: PROVENTIL 2.5 MG/3 ML NEB IH SCH ×4 (06:47→19:27)
[2022-07-25] MEDS: Carafate 1 GM PO SCH ×4 (07:41→21:26)
[2022-07-25] MEDS: Flomax 0.4 MG PO SCH (09:17)
[2022-07-25] MEDS: Klor Con PO SCH (09:17)
[2022-07-25] MEDS: Protonix 40MG Tablet PO SCH (09:17)
[2022-07-25] MEDS: Ranexa 500 MG PO SCH ×2 (09:17→21:26)
[2022-07-25] MEDS: Nitro-Dur 0.4 MG/HR TOP SCH (09:17)
[2022-07-25] MEDS: BUMEX 1 MG PO SCH ×2 (09:17→16:03)
[2022-07-25] MEDS: PLAVIX Tablet PO SCH (09:17)
[2022-07-25] MEDS: ECOTRIN 81 MG PO SCH (09:18)
[2022-07-25] MEDS: Cordarone 200 MG PO SCH (09:18)
[2022-07-25] MEDS: Lexapro PO SCH (09:18)
[2022-07-25] MEDS: Imdur 30 MG PO SCH (09:18)
[2022-07-25] MEDS: NEURONTIN PO SCH ×3 (09:18→21:26)
[2022-07-25] MEDS: NORVASC 5 MG PO SCH (09:19)
[2022-07-25] MEDS: Toprol Xl 50 MG PO SCH ×2 (09:19→21:27)
[2022-07-25] MEDS: Cozaar 50 MG PO SCH (09:25)
[2022-07-25] MEDS: FEOSOL 325 MG PO SCH (09:25)
[2022-07-25] MEDS: JARDIANCE PO SCH (10:13)
--- NOTE | 2022-07-25 14:13 | PCM.NOTE ---
Date and Time: 07/25/221411 Subjective Assessment: doing ok. awaiting NH placement - Review of Systems Constitutional: No Fever, No Chills Eyes: No Symptoms Ears, Nose, & Throat: No Symptoms Respiratory: No Cough, No Short Of Breath Cardiac: No Chest Pain, No Edema, No Syncope Abdominal/Gastrointestinal: No Abdominal Pain, No Nausea, No Vomiting, No Diarrhea Genitourinary Symptoms: No Dysuria Musculoskeletal: No Back Pain, No Neck Pain Skin: No Rash Neurological: No Dizziness, No Focal Weakness, No Sensory Changes Psychological: No Symptoms Endocrine: No Symptoms Hematologic/Lymphatic: No Symptoms Immunological/Allergic: No Symptoms Objective Exam General Appearance: no apparent distress, alert Neurologic Exam: alert, oriented x 3, cooperative, normal mood/affect, nml cerebellar function, sensation nml, No motor deficits Skin Exam: normal color, warm, dry Eye Exam: PERRL, EOMI, eyes nml inspection Ears, Nose, Throat Exam: normal ENT inspection, pharynx normal, moist mucous membranes Neck Exam: normal inspection, non-tender, supple, full range of motion Respiratory Exam: normal breath sounds, lungs clear, No respiratory distress Cardiovascular Exam: regular rate/rhythm, normal heart sounds Gastrointestinal/Abdomen Exam: soft, No tenderness, No mass Extremity Exam: normal inspection, normal range of motion Back Exam: normal inspection, normal range of motion, No CVA tenderness, No vertebral tenderness Male Genitalia Exam: deferred Rectal Exam: deferred OBJECTIVE DATA Vital Signs: Vital Signs - 24 hr Temp Pulse Resp BP Pulse Ox 07/25/22 12:00 97.5 F 85 18 102/61 96 07/25/22 11:08 85 22 94 L 07/25/22 07:46 98.4 F 104 H 20 100/62 91 L 07/25/22 06:50 89 22 91 L 07/25/22 04:00 96.7 F 72 18 128/77 97 07/25/22 00:00 97.7 F 109 H 20 117/62 92 L 07/24/22 20:00 98.0 F 97 H 21 133/54 93 L 07/24/22 19:02 97 H 21 93 L 07/24/22 16:00 97.5 F 117 H 23 128/67 93 L 07/24/22 15:55 89 20 92 L Pain Assessment - Last Documented Pain Intensity 8 Pain Scale Used FLACC Intake and Output: Intake & Output 07/23/22 07/24/22 07/25/22 07/26/22 11:59 11:59 11:59 11:59 Intake Total 4313 1620 480 Output Total 4371 5170 2350 Balance 1255 -9346 -1870 Weight 119.9 kg Assessment/Plan (1) Hypotension Current Visit: Yes Status: Resolved Qualifiers: Hypotension type: other hypotension type Qualified Code(s): I95.89 - Other hypotension Assessment & Plan: Chief Complaint Diagnosis SEPSIS, HYPOTENSION, ACS, ANEMIA Allergies Allergy/AdvReac Type Severity Reaction Status Date / Time No Known Drug Allergies Allergy Verified 07/21/22 14:10 Vital Signs (Last 24 hours) Temp Pulse Resp BP Pulse Ox 07/25/22 12:00 97.5 F 85 18 102/61 96 07/25/22 11:08 85 22 94 L 07/25/22 07:46 98.4 F 104 H 20 100/62 91 L 07/25/22 06:50 89 22 91 L 07/25/22 04:00 96.7 F 72 18 128/77 97 07/25/22 00:00 97.7 F 109 H 20 117/62 92 L 07/24/22 20:00 98.0 F 97 H 21 133/54 93 L 07/24/22 19:02 97 H 21 93 L 07/24/22 16:00 97.5 F 117 H 23 128/67 93 L 07/24/22 15:55 89 20 92 L Home Medications Medication Instructions Recorded Confirmed Last Taken Type Nitroglycerin 0.4 mg/Hr 1 patch TOP DAILY 07/22/22 07/22/22 Unknown History [Nitro-Dur 0.4 MG/HR] Current Medications Generic Name Dose Route Start Last Admin Trade Name Freq PRN Reason Stop Dose Admin Albuterol Sulfate 2.5 mg 07/22/22 05:51 07/22/22 07:03 Albuterol Sulfate 2.5 Mg/3 Ml [facility] 08/21/22 05:50 2.5 mg Q4H PRN PRN Administration SHORTNESS OF BREATH/WHEEZING Albuterol Sulfate 2.5 mg 07/22/22 11:00 07/25/22 11:05 Albuterol Sulfate 2.5 Mg/3 Ml [facility] 08/21/22 10:59 2.5 mg QIDRT KIRBY Administration Amiodarone HCl 200 mg 07/22/22 13:00 07/25/22 09:18 Amiodarone Hcl 200 Mg Tab PO 08/21/22 12:59 200 mg DAILY KIRBY Administration Amlodipine Besylate 5 mg 07/22/22 13:00 07/25/22 09:19 Amlodipine Besylate 5 Mg Tablet PO 08/21/22 12:59 Not Given DAILY KIRBY Aspirin 81 mg 07/22/22 13:00 07/25/22 09:18 Aspirin 81 Mg Tablet.Ec PO 08/21/22 12:59 81 mg DAILY KIRBY Administration Bumetanide 2 mg 07/22/22 17:00 07/25/22 09:17 Bumetanide 1 Mg Tablet PO 08/21/22 16:59 2 mg BID DIURETIC KIRBY Administration Clopidogrel Bisulfate 75 mg 07/22/22 13:00 07/25/22 09:17 Clopidogrel Bisulfate 75 Mg Tablet PO 08/21/22 12:59 75 mg DAILY KIRBY Administration Empagliflozin 10 mg 07/22/22 13:00 07/25/22 10:13 Empagliflozin 10 Mg Tablet PO 08/21/22 12:59 Not Given DAILY KIRBY Escitalopram Oxalate 10 mg 07/22/22 13:00 07/25/22 09:18 Escitalopram Oxalate 10 Mg Tablet PO 08/21/22 12:59 10 mg DAILY KIRBY Administration Ferrous Sulfate 325 mg 07/22/22 13:00 07/25/22 09:25 Ferrous Sulfate 325 Mg Tablet PO 08/21/22 12:59 325 mg DAILY KIRBY Administration Gabapentin 300 mg 07/22/22 15:00 07/25/22 09:18 Gabapentin 300 Mg Capsule PO 08/21/22 14:59 300 mg TID KIRBY Administration Sodium Chloride 1,000 mls @ 0 mls/hr 07/21/22 21:15 Sodium Chloride 0.9% 1000 Ml IV 08/20/22 21:14 .Q0M KIRBY KVO Ceftriaxone Sodium/Dextrose 1 g in 50 mls @ 100 mls/hr 07/22/22 22:00 07/24/22 21:32 Rocephin 1 Gm-D5w 50 Ml Bag IV 07/26/22 21:59 100 mls/hr Q24H22 KIRBY Administration Isosorbide Mononitrate 30 mg 07/22/22 13:00 07/25/22 09:18 Isosorbide Mononitrate 30 Mg Tab PO 08/21/22 12:59 Not Given DAILY KIRBY Losartan Potassium 25 mg 07/22/22 13:00 07/25/22 09:25 Losartan Potassium 50 Mg Tablet PO 08/21/22 12:59 Not Given DAILY KIRBY Metoprolol Succinate 50 mg 07/22/22 13:00 07/25/22 09:19 Metoprolol Succinate 50 Mg Tablet.Sa PO 08/21/22 12:59 Not Given BID KIRBY Morphine Sulfate 4 mg 07/22/22 02:20 07/25/22 01:10 Morphine Sulfate 4 Mg/Ml Injection IV 07/27/22 02:19 4 mg Q4H PRN PRN Administration PAIN Nitroglycerin 0.4 mg 07/22/22 17:30 07/25/22 09:17 Nitroglycerin 0.4 Mg Patch TOP 08/21/22 17:29 0.4 mg DAILY KIRBY Administration Nitroglycerin 0.4 mg 07/23/22 07:15 Nitroglycerin 0.4 Mg Tablet Bottle SL 08/21/22 12:29 Q5MIN PRN MR X 3 PRN Non-Formulary Medication 1 each 07/22/22 22:00 07/24/22 22:15 Remove Patch 1 Each TOP 08/21/22 21:59 1 each HS KIRBY Administration Ondansetron HCl 4 mg 07/21/22 21:13 Ondansetron Hcl 4 Mg/2 Ml Vial IV 08/20/22 21:12 Q6H PRN PRN NAUSEA/VOMITING Ondansetron HCl 4 mg 07/22/22 12:34 Zofran 4 Mg/Udtablet Orally Disintegrating PO 08/21/22 12:33 Q8H PRN PRN NAUSEA Pantoprazole Sodium 40 mg 07/22/22 13:00 07/25/22 09:17 Protonix (Pantoprazole) 40 Mg Tablet PO 08/21/22 12:59 40 mg DAILY KIRBY Administration Potassium Chloride 10 meq 07/22/22 13:00 07/25/22 09:17 Potassium Chloride Tab 10 Meq Tab PO 08/21/22 12:59 10 meq DAILY KIRBY Administration Ranolazine 1,000 mg 07/24/22 09:05 07/25/22 09:17 Ranolazine 500 Mg Tab.Sr.12h PO 08/21/22 12:59 1,000 mg BID KIRBY Administration Simvastatin 40 mg 07/22/22 22:00 07/24/22 21:33 Simvastatin 20 Mg Tablet PO 08/21/22 21:59 40 mg HS KIRBY Administration Sucralfate 1 g 07/22/22 16:30 07/25/22 12:50 Sucralfate 1 G Tablet PO 08/21/22 16:29 Not Given ACHS KIRBY Tamsulosin HCl 0.4 mg 07/22/22 13:00 07/25/22 09:17 Tamsulosin Hcl 0.4 Mg Cap PO 08/21/22 12:59 0.4 mg DAILY KIRBY Administration Trazodone HCl 50 mg 07/22/22 22:00 07/24/22 21:33 Trazodone Hcl 50 Mg Tablet PO 08/21/22 21:59 50 mg HS KIRBY Administration Discontinued Medications Generic Name Dose Route Start Last Admin Trade Name Freq PRN Reason Stop Dose Admin Albuterol/Ipratropium 3 ml 07/21/22 22:32 07/21/22 22:36 Ipratropium/Albuterol Sulfate 3 Ml Ampul.Neb IH 07/21/22 22:33 3 ml STAT ONE Administration Albuterol/Ipratropium Confirm 07/21/22 22:33 Ipratropium/Albuterol Sulfate 3 Ml Ampul.Neb Administered 07/21/22 22:34 Dose 3 ml IH .STK-MED ONE Heparin Sodium (Beef Lung) 5,000 unit 07/21/22 22:00 07/22/22 11:55 Heparin 5000 Unit/0.5 Ml Syringe SQ 08/20/22 21:59 Not Given BID KIRBY Norepinephrine/Dextrose 8 mg in 250 mls @ 15 mls/hr 07/21/22 14:29 07/21/22 19:37 Norepinephrine 8 Mg/250 Ml-D5w IV 08/20/22 14:28 0 mcg/min .[id number] PRN 0 mls/hr HYPOTENSION Titration Protocol 8 MCG/MIN Sodium Chloride 500 mls @ 500 mls/hr 07/21/22 15:58 07/21/22 17:24 Sodium Chloride 0.9% 500 Ml IV 07/21/22 16:57 Infused .Q1H ONE Infusion Sodium Chloride Confirm 07/21/22 16:08 Sodium Chloride 0.9% 500 Ml Administered 07/21/22 16:09 Dose 500 mls @ ud IV .STK-MED ONE Ceftriaxone Sodium/Dextrose 1 g in 50 mls @ 100 mls/hr 07/21/22 21:10 07/21/22 22:32 Rocephin 1 Gm-D5w 50 Ml Bag IV 07/21/22 21:39 Infused STAT STA Infusion Ceftriaxone Sodium/Dextrose Confirm 07/21/22 21:20 Rocephin 1 Gm-D5w 50 Ml Bag Administered 07/21/22 21:21 Dose 1 g in 50 mls @ ud IV .STK-MED ONE Norepinephrine/Dextrose Confirm 07/21/22 14:30 Norepinephrine 8 Mg/250 Ml-D5w Administered 07/21/22 14:31 Dose 8 mg in 250 mls @ ud IV .STK-MED ONE Miscellaneous Information 1 each 07/22/22 12:45 Medication Intervention 1 Each Each 08/21/22 12:44 .RN TO CHECK KIRBY Nitroglycerin 0.1 mg 07/22/22 13:00 Nitroglycerin 0.1 Mg Patch.Td24 TD 08/21/22 12:59 DAILY KIRBY Nitroglycerin 0.4 mg 07/22/22 12:30 Nitroglycerin 0.4 Mg Tablet Bottle SL 08/21/22 12:29 CLARIFY KIRBY Ranolazine 500 mg 07/22/22 13:00 07/23/22 21:20 Ranolazine 500 Mg Tab.Sr.12h PO 08/21/22 12:59 500 mg BID KRIBY Administration Trazodone HCl Confirm 07/22/22 02:34 Trazodone Hcl 50 Mg Tablet Administered 07/22/22 02:35 Dose 50 mg .ROUTE .STK-MED ONE Intake & Output (Last 24 hours) 07/23/22 07/24/22 07/25/22 07/26/22 11:59 11:59 11:59 11:59 Intake Total 4313 1620 480 Output Total 3000 4700 2350 Balance 0321 -2720 -1495 Weight 119.9 kg Code(s): I95.9 - HYPOTENSION, UNSPECIFIED (2) ACS (acute coronary syndrome) Current Visit: Yes Status: Resolved Code(s): I24.9 - ACUTE ISCHEMIC HEART DISEASE, UNSPECIFIED (3) Anemia Current Visit: Yes Status: Acute Qualifiers: Anemia type: iron deficiency Iron deficiency anemia type: unspecified iron deficiency Qualified Code(s): D50.9 - Iron deficiency anemia, unspecified Code(s): D64.9 - ANEMIA, UNSPECIFIED (4) Angina at rest Current Visit: Yes Status: Acute Code(s): I20.8 - OTHER FORMS OF ANGINA PECTORIS (5) Congestive heart failure (CHF) Current Visit: Yes Status: Chronic Qualifiers: Heart failure type: combined systolic and diastolic Heart failure chronicity: acute on chronic Qualified Code(s): I50.43 - Acute on chronic combined systolic (congestive) and diastolic (congestive) heart failure Code(s): I50.9 - HEART FAILURE, UNSPECIFIED
[2022-07-25] MEDS: ZOCOR 20MG PO SCH (21:25)
[2022-07-25] MEDS: ROCEPHIN 1 Gm-D5w 50 ml Bag** 1 G/50 ML IVPB IV SCH (21:25)
[2022-07-25] MEDS: DESYREL 50 MG PO SCH (21:26)
[2022-07-26] MEDS: MORPHINE SULFATE 4 MG INJ IV PRN ×5 (01:04→20:10)
[2022-07-26] MEDS: PROVENTIL 2.5 MG/3 ML NEB IH SCH ×5 (04:38→19:20)
[2022-07-26] MEDS: Klor Con PO SCH (08:43)
[2022-07-26] MEDS: Ranexa 500 MG PO SCH ×2 (08:43→21:24)
[2022-07-26] MEDS: ECOTRIN 81 MG PO SCH (08:43)
[2022-07-26] MEDS: FEOSOL 325 MG PO SCH (08:44)
[2022-07-26] MEDS: Protonix 40MG Tablet PO SCH (08:44)
[2022-07-26] MEDS: Carafate 1 GM PO SCH ×4 (08:44→21:24)
[2022-07-26] MEDS: Cordarone 200 MG PO SCH (08:44)
[2022-07-26] MEDS: Flomax 0.4 MG PO SCH (08:44)
[2022-07-26] MEDS: Lexapro PO SCH (08:44)
[2022-07-26] MEDS: PLAVIX Tablet PO SCH (08:44)
[2022-07-26] MEDS: NEURONTIN PO SCH ×3 (08:44→21:24)
[2022-07-26] MEDS: Cozaar 50 MG PO SCH (08:45)
[2022-07-26] MEDS: NORVASC 5 MG PO SCH (08:46)
[2022-07-26] MEDS: Imdur 30 MG PO SCH (08:46)
[2022-07-26] MEDS: Toprol Xl 50 MG PO SCH ×2 (08:47→21:25)
[2022-07-26] MEDS: BUMEX 1 MG PO SCH ×2 (08:48→16:33)
[2022-07-26] MEDS: Nitro-Dur 0.4 MG/HR TOP SCH (08:48)
--- NOTE | 2022-07-26 09:11 | PCM.NOTE ---
Date and Time: 07/26/22908 Subjective Assessment: doing better - Review of Systems Constitutional: No Fever, No Chills Eyes: No Symptoms Ears, Nose, & Throat: No Symptoms Respiratory: No Cough, No Short Of Breath Cardiac: No Chest Pain, No Edema, No Syncope Abdominal/Gastrointestinal: No Abdominal Pain, No Nausea, No Vomiting, No Diarrhea Genitourinary Symptoms: No Dysuria Musculoskeletal: No Back Pain, No Neck Pain Skin: No Rash Neurological: No Dizziness, No Focal Weakness, No Sensory Changes Psychological: No Symptoms Endocrine: No Symptoms Hematologic/Lymphatic: No Symptoms Immunological/Allergic: No Symptoms Objective Exam General Appearance: no apparent distress, alert Neurologic Exam: alert, oriented x 3, cooperative, normal mood/affect, nml cerebellar function, sensation nml, No motor deficits Skin Exam: normal color, warm, dry Eye Exam: PERRL, EOMI, eyes nml inspection Ears, Nose, Throat Exam: normal ENT inspection, pharynx normal, moist mucous membranes Neck Exam: normal inspection, non-tender, supple, full range of motion Respiratory Exam: diminished breath sounds, crackles/rales, rhonchi, No respiratory distress Cardiovascular Exam: regular rate/rhythm, normal heart sounds Gastrointestinal/Abdomen Exam: soft, No tenderness, No mass Extremity Exam: normal inspection, normal range of motion Back Exam: normal inspection, normal range of motion, No CVA tenderness, No vertebral tenderness Male Genitalia Exam: deferred Rectal Exam: deferred OBJECTIVE DATA Vital Signs: Vital Signs - 24 hr Temp Pulse Resp BP Pulse Ox 07/26/22 07:22 97.1 F 90 20 121/68 90 L 07/26/22 05:36 111/61 07/26/22 04:36 97.5 F 87 20 108/64 97 07/26/22 04:30 102 H 24 94 L 07/26/22 01:02 129/89 07/26/22 00:00 97.1 F 72 20 95/59 98 07/25/22 20:00 97.7 F 75 19 95/50 95 07/25/22 19:27 74 20 96 07/25/22 16:00 97.1 F 76 18 98/58 93 L 07/25/22 12:00 97.5 F 85 18 102/61 96 07/25/22 11:08 85 22 94 L Pain Assessment - Last Documented Pain Intensity 3 Pain Scale Used 0-10 Pain Scale Intake and Output: Intake & Output 07/23/22 07/24/22 07/25/22 07/26/22 11:59 11:59 11:59 11:59 Intake Total 4313 5124 878 0063 Output Total 3000 4700 2350 1400 Balance 2783 -8472 -7660 1160 Weight 119.9 kg Assessment/Plan (1) Congestive heart failure (CHF) Current Visit: Yes Status: Acute Qualifiers: Heart failure type: combined systolic and diastolic Heart failure chronicity: acute on chronic Qualified Code(s): I50.43 - Acute on chronic combined systolic (congestive) and diastolic (congestive) heart failure Assessment & Plan: Chief Complaint Diagnosis SEPSIS, HYPOTENSION, ACS, ANEMIA Allergies Allergy/AdvReac Type Severity Reaction Status Date / Time No Known Drug Allergies Allergy Verified 07/21/22 14:10 Vital Signs (Last 24 hours) Temp Pulse Resp BP Pulse Ox 07/26/22 07:22 97.1 F 90 20 121/68 90 L 07/26/22 05:36 111/61 07/26/22 04:36 97.5 F 87 20 108/64 97 07/26/22 04:30 102 H 24 94 L 07/26/22 01:02 129/89 07/26/22 00:00 97.1 F 72 20 95/59 98 07/25/22 20:00 97.7 F 75 19 95/50 95 07/25/22 19:27 74 20 96 07/25/22 16:00 97.1 F 76 18 98/58 93 L 07/25/22 12:00 97.5 F 85 18 102/61 96 07/25/22 11:08 85 22 94 L Home Medications Medication Instructions Recorded Confirmed Last Taken Type Nitroglycerin 0.4 mg/Hr 1 patch TOP DAILY 07/22/22 07/22/22 Unknown History [Nitro-Dur 0.4 MG/HR] Current Medications Generic Name Dose Route Start Last Admin Trade Name Freq PRN Reason Stop Dose Admin Albuterol Sulfate 2.5 mg 07/22/22 05:51 07/22/22 07:03 Albuterol Sulfate 2.5 Mg/3 Ml Neb IH 08/21/22 05:50 2.5 mg Q4H PRN PRN Administration SHORTNESS OF BREATH/WHEEZING Albuterol Sulfate 2.5 mg 07/22/22 11:00 07/26/22 04:38 Albuterol Sulfate 2.5 Mg/3 Ml Neb IH 08/21/22 10:59 2.5 mg QIDRT KIRBY Administration Amiodarone HCl 200 mg 07/22/22 13:00 07/26/22 08:44 Amiodarone Hcl 200 Mg Tab PO 08/21/22 12:59 200 mg DAILY KIRBY Administration Amlodipine Besylate 5 mg 07/22/22 13:00 07/26/22 08:46 Amlodipine Besylate 5 Mg Tablet PO 08/21/22 12:59 Not Given DAILY KIRBY Aspirin 81 mg 07/22/22 13:00 07/26/22 08:43 Aspirin 81 Mg Tablet.Ec PO 08/21/22 12:59 81 mg DAILY KIRBY Administration Bumetanide 2 mg 07/22/22 17:00 07/26/22 08:48 Bumetanide 1 Mg Tablet PO 08/21/22 16:59 2 mg BID DIURETIC KIRBY Administration Clopidogrel Bisulfate 75 mg 07/22/22 13:00 07/26/22 08:44 Clopidogrel Bisulfate 75 Mg Tablet PO 08/21/22 12:59 75 mg DAILY KIRBY Administration Empagliflozin 10 mg 07/22/22 13:00 07/25/22 10:13 Empagliflozin 10 Mg Tablet PO 08/21/22 12:59 Not Given DAILY KIRBY Escitalopram Oxalate 10 mg 07/22/22 13:00 07/26/22 08:44 Escitalopram Oxalate 10 Mg Tablet PO 08/21/22 12:59 10 mg DAILY KIRBY Administration Ferrous Sulfate 325 mg 07/22/22 13:00 07/26/22 08:44 Ferrous Sulfate 325 Mg Tablet PO 08/21/22 12:59 325 mg DAILY KIRBY Administration Gabapentin 300 mg 07/22/22 15:00 07/26/22 08:44 Gabapentin 300 Mg Capsule PO 08/21/22 14:59 300 mg TID KIRBY Administration Guaifenesin 600 mg 07/26/22 10:00 Guaifenesin 600 Mg Tablet Er PO 08/25/22 09:59 BID KIRBY Sodium Chloride 1,000 mls @ 0 mls/hr 07/21/22 21:15 Sodium Chloride 0.9% 1000 Ml IV 08/20/22 21:14 .Q0M KIRBY KVO Ceftriaxone Sodium/Dextrose 1 g in 50 mls @ 100 mls/hr 07/22/22 22:00 07/25/22 21:25 Rocephin 1 Gm-D5w 50 Ml Bag IV 07/26/22 21:59 100 mls/hr Q24H22 KIRBY Administration Isosorbide Mononitrate 30 mg 07/22/22 13:00 07/26/22 08:46 Isosorbide Mononitrate 30 Mg Tab PO 08/21/22 12:59 Not Given DAILY KIRBY Losartan Potassium 25 mg 07/22/22 13:00 07/26/22 08:45 Losartan Potassium 50 Mg Tablet PO 08/21/22 12:59 Not Given DAILY KIRBY Metoprolol Succinate 50 mg 07/22/22 13:00 07/26/22 08:47 Metoprolol Succinate 50 Mg Tablet.Sa PO 08/21/22 12:59 Not Given BID KIRBY Morphine Sulfate 4 mg 07/22/22 02:20 07/26/22 05:37 Morphine Sulfate 4 Mg/Ml Injection IV 07/27/22 02:19 4 mg Q4H PRN PRN Administration PAIN Nitroglycerin 0.4 mg 07/22/22 17:30 07/26/22 08:48 Nitroglycerin 0.4 Mg Patch TOP 08/21/22 17:29 0.4 mg DAILY KIRBY Administration Nitroglycerin 0.4 mg 07/23/22 07:15 Nitroglycerin 0.4 Mg Tablet Bottle SL 08/21/22 12:29 Q5MIN PRN MR X 3 PRN Non-Formulary Medication 1 each 07/22/22 22:00 07/25/22 21:28 Remove Patch 1 Each TOP 08/21/22 21:59 1 each HS KIRBY Administration Ondansetron HCl 4 mg 07/21/22 21:13 Ondansetron Hcl 4 Mg/2 Ml Vial IV 08/20/22 21:12 Q6H PRN PRN NAUSEA/VOMITING Ondansetron HCl 4 mg 07/22/22 12:34 Zofran 4 Mg/Udtablet Orally Disintegrating PO 08/21/22 12:33 Q8H PRN PRN NAUSEA Pantoprazole Sodium 40 mg 07/22/22 13:00 07/26/22 08:44 Protonix (Pantoprazole) 40 Mg Tablet PO 08/21/22 12:59 40 mg DAILY KIRBY Administration Potassium Chloride 10 meq 07/22/22 13:00 07/26/22 08:43 Potassium Chloride Tab 10 Meq Tab PO 08/21/22 12:59 10 meq DAILY KIRBY Administration Ranolazine 1,000 mg 07/24/22 09:05 07/26/22 08:43 Ranolazine 500 Mg Tab.Sr.12h PO 08/21/22 12:59 1,000 mg BID KIRBY Administration Simvastatin 40 mg 07/22/22 22:00 07/25/22 21:25 Simvastatin 20 Mg Tablet PO 08/21/22 21:59 40 mg HS KIRBY Administration Sucralfate 1 g 07/22/22 16:30 07/26/22 08:44 Sucralfate 1 G Tablet PO 08/21/22 16:29 1 g ACHS KIRBY Administration Tamsulosin HCl 0.4 mg 07/22/22 13:00 07/26/22 08:44 Tamsulosin Hcl 0.4 Mg Cap PO 08/21/22 12:59 0.4 mg DAILY KIRBY Administration Trazodone HCl 50 mg 07/22/22 22:00 07/25/22 21:26 Trazodone Hcl 50 Mg Tablet PO 08/21/22 21:59 50 mg HS KIRBY Administration Discontinued Medications Generic Name Dose Route Start Last Admin Trade Name Luis Mq PRN Reason Stop Dose Admin Albuterol/Ipratropium 3 ml 07/21/22 22:32 07/21/22 22:36 Ipratropium/Albuterol Sulfate 3 Ml Ampul.Neb IH 07/21/22 22:33 3 ml STAT ONE Administration Albuterol/Ipratropium Confirm 07/21/22 22:33 Ipratropium/Albuterol Sulfate 3 Ml Ampul.Neb Administered 07/21/22 22:34 Dose 3 ml IH .STK-MED ONE Heparin Sodium (Beef Lung) 5,000 unit 07/21/22 22:00 07/22/22 11:55 Heparin 5000 Unit/0.5 Ml Syringe SQ 08/20/22 21:59 Not Given BID KIRBY Norepinephrine/Dextrose 8 mg in 250 mls @ 15 mls/hr 07/21/22 14:29 07/21/22 19:37 Norepinephrine 8 Mg/250 Ml-D5w IV 08/20/22 14:28 0 mcg/min .[id number] PRN 0 mls/hr HYPOTENSION Titration Protocol 8 MCG/MIN Sodium Chloride 500 mls @ 500 mls/hr 07/21/22 15:58 07/21/22 17:24 Sodium Chloride 0.9% 500 Ml IV 07/21/22 16:57 Infused .Q1H ONE Infusion Sodium Chloride Confirm 07/21/22 16:08 Sodium Chloride 0.9% 500 Ml Administered 07/21/22 16:09 Dose 500 mls @ ud IV .STK-MED ONE Ceftriaxone Sodium/Dextrose 1 g in 50 mls @ 100 mls/hr 07/21/22 21:10 07/21/22 22:32 Rocephin 1 Gm-D5w 50 Ml Bag IV 07/21/22 21:39 Infused STAT STA Infusion Ceftriaxone Sodium/Dextrose Confirm 07/21/22 21:20 Rocephin 1 Gm-D5w 50 Ml Bag Administered 07/21/22 21:21 Dose 1 g in 50 mls @ ud IV .STK-MED ONE Norepinephrine/Dextrose Confirm 07/21/22 14:30 Norepinephrine 8 Mg/250 Ml-D5w Administered 07/21/22 14:31 Dose 8 mg in 250 mls @ ud IV .STK-MED ONE Miscellaneous Information 1 each 07/22/22 12:45 Medication Intervention 1 Each Each 08/21/22 12:44 .RN TO CHECK KIRBY Nitroglycerin 0.1 mg 07/22/22 13:00 Nitroglycerin 0.1 Mg Patch.Td24 TD 08/21/22 12:59 DAILY KIRBY Nitroglycerin 0.4 mg 07/22/22 12:30 Nitroglycerin 0.4 Mg Tablet Bottle SL 08/21/22 12:29 CLARIFY KIRBY Ranolazine 500 mg 07/22/22 13:00 07/23/22 21:20 Ranolazine 500 Mg Tab.Sr.12h PO 08/21/22 12:59 500 mg BID KIRBY Administration Trazodone HCl Confirm 07/22/22 02:34 Trazodone Hcl 50 Mg Tablet Administered 07/22/22 02:35 Dose 50 mg .ROUTE .STK-MED ONE Intake & Output (Last 24 hours) 07/23/22 07/24/22 07/25/22 07/26/22 11:59 11:59 11:59 11:59 Intake Total 4313 4332 796 3637 Output Total 3000 4700 2350 1400 Balance 4039 -6198 -8528 1160 Weight 119.9 kg Microbiology Results (Last 24 hours) 07/21/22 21:45 Blood Blood Culture Gram Stain - Final Not Reportable 07/21/22 21:45 Blood Blood Culture - Final NO GROWTH 07/21/22 21:25 Blood Blood Culture Gram Stain - Final Not Reportable 07/21/22 21:25 Blood Blood Culture - Final NO GROWTH Orders (Last 24 hours) Category Date Time Status Guaifenesin 600 mg ER [Mucinex 600MG ER Tabs] Med 07/26/22 10:00 Ordered 600 mg PO BID Code(s): I50.9 - HEART FAILURE, UNSPECIFIED (2) Hypotension Current Visit: Yes Status: Resolved Qualifiers: Hypotension type: other hypotension type Qualified Code(s): I95.89 - Other hypotension Code(s): I95.9 - HYPOTENSION, UNSPECIFIED (3) ACS (acute coronary syndrome) Current Visit: Yes Status: Resolved Code(s): I24.9 - ACUTE ISCHEMIC HEART DISEASE, UNSPECIFIED (4) Anemia Current Visit: Yes Status: Acute Qualifiers: Anemia type: iron deficiency Iron deficiency anemia type: unspecified iron deficiency Qualified Code(s): D50.9 - Iron deficiency anemia, unspecified Code(s): D64.9 - ANEMIA, UNSPECIFIED (5) Angina at rest Current Visit: Yes Status: Acute Code(s): I20.8 - OTHER FORMS OF ANGINA PECTORIS
[2022-07-26] MEDS: JARDIANCE PO SCH (09:20)
[2022-07-26] MEDS: Mucinex 600MG ER Tabs PO SCH ×2 (09:40→21:24)
[2022-07-26] MEDS: ZOCOR 20MG PO SCH (21:24)
[2022-07-26] MEDS: DESYREL 50 MG PO SCH (21:24)
[2022-07-26] MEDS: ROCEPHIN 1 Gm-D5w 50 ml Bag** 1 G/50 ML IVPB IV SCH (21:24)
[2022-07-27] MEDS: MORPHINE SULFATE 4 MG INJ IV PRN ×4 (02:02→20:32)
[2022-07-27] MEDS: PROVENTIL 2.5 MG/3 ML NEB IH SCH ×4 (07:39→19:33)
[2022-07-27] MEDS: Nitro-Dur 0.4 MG/HR TOP SCH (08:13)
[2022-07-27] MEDS: NEURONTIN PO SCH ×3 (08:13→20:31)
[2022-07-27] MEDS: FEOSOL 325 MG PO SCH (08:13)
[2022-07-27] MEDS: PLAVIX Tablet PO SCH (08:13)
[2022-07-27] MEDS: Ranexa 500 MG PO SCH ×2 (08:13→20:31)
[2022-07-27] MEDS: Flomax 0.4 MG PO SCH (08:13)
[2022-07-27] MEDS: BUMEX 1 MG PO SCH ×2 (08:13→16:19)
[2022-07-27] MEDS: Carafate 1 GM PO SCH ×4 (08:13→20:31)
[2022-07-27] MEDS: ECOTRIN 81 MG PO SCH (08:13)
[2022-07-27] MEDS: Lexapro PO SCH (08:13)
[2022-07-27] MEDS: Protonix 40MG Tablet PO SCH (08:14)
[2022-07-27] MEDS: Cordarone 200 MG PO SCH (08:14)
[2022-07-27] MEDS: Klor Con PO SCH (08:14)
[2022-07-27] MEDS: Mucinex 600MG ER Tabs PO SCH ×2 (09:13→20:31)
[2022-07-27] MEDS: Toprol Xl 50 MG PO SCH ×2 (09:13→20:32)
[2022-07-27] MEDS: NORVASC 5 MG PO SCH (09:13)
[2022-07-27] MEDS: Cozaar 50 MG PO SCH (09:13)
[2022-07-27] MEDS: Imdur 30 MG PO SCH (09:13)
--- NOTE | 2022-07-27 09:39 | PCM.NOTE ---
Date and Time: 07/27/22937 Subjective Assessment: doing ok - Review of Systems Constitutional: No Fever, No Chills Eyes: No Symptoms Ears, Nose, & Throat: No Symptoms Respiratory: No Cough, No Short Of Breath Cardiac: No Chest Pain, No Edema, No Syncope Abdominal/Gastrointestinal: No Abdominal Pain, No Nausea, No Vomiting, No Diarrhea Genitourinary Symptoms: No Dysuria Musculoskeletal: No Back Pain, No Neck Pain Skin: No Rash Neurological: No Dizziness, No Focal Weakness, No Sensory Changes Psychological: No Symptoms Endocrine: No Symptoms Hematologic/Lymphatic: No Symptoms Immunological/Allergic: No Symptoms Objective Exam General Appearance: no apparent distress, alert Neurologic Exam: alert, oriented x 3, cooperative, normal mood/affect, nml cerebellar function, sensation nml, No motor deficits Skin Exam: normal color, warm, dry Eye Exam: PERRL, EOMI, eyes nml inspection Ears, Nose, Throat Exam: normal ENT inspection, pharynx normal, moist mucous membranes Neck Exam: normal inspection, non-tender, supple, full range of motion Respiratory Exam: normal breath sounds, lungs clear, No respiratory distress Cardiovascular Exam: regular rate/rhythm, normal heart sounds Gastrointestinal/Abdomen Exam: soft, No tenderness, No mass Extremity Exam: normal inspection, normal range of motion Back Exam: normal inspection, normal range of motion, No CVA tenderness, No vertebral tenderness Male Genitalia Exam: deferred Rectal Exam: deferred OBJECTIVE DATA Vital Signs: Vital Signs - 24 hr Temp Pulse Resp BP Pulse Ox 07/27/22 09:00 98.2 F 82 20 116/65 93 L 07/27/22 07:40 92 H 22 91 L 07/27/22 04:26 97.7 F 97 H 19 120/72 93 L 07/27/22 01:57 113/57 07/26/22 23:51 97.8 F 75 19 94/50 95 07/26/22 19:58 97.3 F 77 19 109/66 94 L 07/26/22 19:20 79 20 95 07/26/22 16:56 97.7 F 80 18 109/44 93 L 07/26/22 14:22 80 16 95 07/26/22 11:42 97.3 F 88 18 118/56 96 07/26/22 10:20 88 20 95 Pain Assessment - Last Documented Pain Intensity 7 Pain Scale Used FLACC Intake and Output: Intake & Output 07/24/22 07/25/22 07/26/22 07/27/22 11:59 11:59 11:59 11:59 Intake Total 3188 987 7098 1160 Output Total 4700 2350 1800 1150 Balance -3080 -1870 760 10 Weight 119.9 kg Assessment/Plan (1) Congestive heart failure (CHF) Current Visit: Yes Status: Acute Qualifiers: Heart failure type: combined systolic and diastolic Heart failure chronicity: acute on chronic Qualified Code(s): I50.43 - Acute on chronic combined systolic (congestive) and diastolic (congestive) heart failure Code(s): I50.9 - HEART FAILURE, UNSPECIFIED (2) Hypotension Current Visit: Yes Status: Resolved Qualifiers: Hypotension type: other hypotension type Qualified Code(s): I95.89 - Other hypotension Code(s): I95.9 - HYPOTENSION, UNSPECIFIED (3) ACS (acute coronary syndrome) Current Visit: Yes Status: Resolved Code(s): I24.9 - ACUTE ISCHEMIC HEART DISEASE, UNSPECIFIED (4) Anemia Current Visit: Yes Status: Acute Qualifiers: Anemia type: iron deficiency Iron deficiency anemia type: unspecified iron deficiency Qualified Code(s): D50.9 - Iron deficiency anemia, unspecified Code(s): D64.9 - ANEMIA, UNSPECIFIED (5) Angina at rest Current Visit: Yes Status: Acute Code(s): I20.8 - OTHER FORMS OF ANGINA PECTORIS
[2022-07-27] MEDS: JARDIANCE PO SCH (10:55)
[2022-07-27] MEDS: DESYREL 50 MG PO SCH (20:31)
[2022-07-27] MEDS: ZOCOR 20MG PO SCH (20:31)
[2022-07-27] MEDS: ROCEPHIN 1 Gm-D5w 50 ml Bag** 1 G/50 ML IVPB IV SCH (20:31)
[2022-07-28] MEDS: MORPHINE SULFATE 4 MG INJ IV PRN ×2 (05:46→10:10)
[2022-07-28] MEDS: Carafate 1 GM PO SCH ×4 (07:53→22:51)
[2022-07-28] MEDS: PROVENTIL 2.5 MG/3 ML NEB IH SCH ×4 (08:11→19:06)
[2022-07-28] MEDS: BUMEX 1 MG PO SCH ×2 (10:12→17:03)
[2022-07-28] MEDS: ECOTRIN 81 MG PO SCH (10:13)
[2022-07-28] MEDS: PLAVIX Tablet PO SCH (10:13)
[2022-07-28] MEDS: Lexapro PO SCH (10:13)
[2022-07-28] MEDS: Protonix 40MG Tablet PO SCH (10:13)
[2022-07-28] MEDS: Cozaar 50 MG PO SCH (10:13)
[2022-07-28] MEDS: Cordarone 200 MG PO SCH (10:13)
[2022-07-28] MEDS: NEURONTIN PO SCH ×3 (10:13→22:52)
[2022-07-28] MEDS: Flomax 0.4 MG PO SCH (10:13)
[2022-07-28] MEDS: FEOSOL 325 MG PO SCH (10:13)
[2022-07-28] MEDS: Mucinex 600MG ER Tabs PO SCH ×2 (10:13→22:51)
[2022-07-28] MEDS: Toprol Xl 50 MG PO SCH (10:13)
[2022-07-28] MEDS: JARDIANCE PO SCH (10:14)
[2022-07-28] MEDS: Klor Con PO SCH (10:14)
[2022-07-28] MEDS: Imdur 30 MG PO SCH (11:38)
--- NOTE | 2022-07-28 13:21 | PCM.NOTE ---
Date and Time: 07/28/22 1320 Subjective Assessment: doing ok - Review of Systems Constitutional: No Fever, No Chills Eyes: No Symptoms Ears, Nose, & Throat: No Symptoms Respiratory: No Cough, No Short Of Breath Cardiac: No Chest Pain, No Edema, No Syncope Abdominal/Gastrointestinal: No Abdominal Pain, No Nausea, No Vomiting, No Diarrhea Genitourinary Symptoms: No Dysuria Musculoskeletal: No Back Pain, No Neck Pain Skin: No Rash Neurological: No Dizziness, No Focal Weakness, No Sensory Changes Psychological: No Symptoms Endocrine: No Symptoms Hematologic/Lymphatic: No Symptoms Immunological/Allergic: No Symptoms Objective Exam General Appearance: no apparent distress, alert Neurologic Exam: alert, oriented x 3, cooperative, normal mood/affect, nml cerebellar function, sensation nml, No motor deficits Skin Exam: normal color, warm, dry Eye Exam: PERRL, EOMI, eyes nml inspection Ears, Nose, Throat Exam: normal ENT inspection, pharynx normal, moist mucous membranes Neck Exam: normal inspection, non-tender, supple, full range of motion Respiratory Exam: normal breath sounds, lungs clear, No respiratory distress Cardiovascular Exam: regular rate/rhythm, normal heart sounds Gastrointestinal/Abdomen Exam: soft, No tenderness, No mass Extremity Exam: normal inspection, normal range of motion Back Exam: normal inspection, normal range of motion, No CVA tenderness, No vertebral tenderness Male Genitalia Exam: deferred Rectal Exam: deferred OBJECTIVE DATA Vital Signs: Vital Signs - 24 hr Temp Pulse Resp BP Pulse Ox 07/28/22 12:00 97.7 F 87 23 101/58 90 L 07/28/22 10:50 81 18 95 07/28/22 08:11 89 18 90 L 07/28/22 07:29 97.1 F 95 H 21 107/56 91 L 07/28/22 04:00 98.4 F 92 H 18 90/64 90 L 07/27/22 23:04 97.5 F 91 H 18 113/55 90 L 07/27/22 19:43 97.2 F 81 16 103/52 90 L 07/27/22 19:33 86 20 91 L 07/27/22 16:43 97.3 F 75 21 101/56 86 L 07/27/22 15:39 88 20 93 L Pain Assessment - Last Documented Pain Intensity 0 Pain Scale Used 0-10 Pain Scale Intake and Output: Intake & Output 07/26/22 07/27/22 07/28/22 07/29/22 11:59 11:59 11:59 11:59 Intake Total 2560 1160 480 Output Total 1800 1150 800 Balance 760 10 -320 Multi-Disciplinary Progress Notes: Multi-Disciplinary Progress Notes 07/28/22 10:52 Physical Therapy Note by Aileen(Michael#[id number])Judie PT. SEEN BY P.T. THIS A.M. PT. RECEIVED IV PN MED AND ZOFRAN FOR NAUSEA PRIOR TO RX. PT. C/O L CHEST PN WHICH IS CHRONIC. PT. LETHARGIC BUT ORIENTED TO NAME, LOCATION AND STATED TODAY WAS THE 5TH. PT. AGREEABLE TO P.T. IN BED UPON P.T. ARRIVAL TO ROOM. O2 SATS 84% AT REST ON 4 L. INCREASED O2 TO 5 L AND SATS INCREASED TO 90-91%. PERFORMED SUPINE TO SIT W/ MIN-MOD ASSIST W/ HOB ELEVATED. SIT TO STAND PERFORMED W/ MOD ASSIST X 1. PT. AMBULATED ~ 10' W/ RW ON 6 L AND MOD ASSIST X 1. FREQUENT V.C. GIVEN TO BREATHE DEEP W/ PROPER PATTERN. NOTED TREMORING OF LES W/ SIT TO STAND AND W/ 1ST 1-2 STEPS. 02 SATS 95% AFTER WALK ON 6L. PT. PERFORMED SEATED LE EX'S OF LAQS, ANKLE PUMPS, QUAD SETS, GLUT SETS, AND HEEL SLIDES (ACTIVE ASSIST) X 5 REPS. PT. DOZED OCCASIONALLY BETWEEN EX'S. PT. REQUIRED MANY CUES TO REDIRECT BACK TO TASK AND CONVERSATION RE: PLOF AND GENERAL QUESTIONS ABOUT HOW HE WAS FEELING DURING SESSION. FEEL THESE COGNITIVE LIMITATIONS ARE MORE SIGNIFICANT THAN LAST WEEK. CONT. W/ SIGNIFICANT LE WEAKNESS AND DECREASED ENDURANCE W/ ACTIVITY. WILL CONT. P.T. 5X/WK UNTIL D/C. AWAITING INSURANCE PA FOR REHAB STAY. RX TIME [id number] Initialized on 07/28/22 10:52 - END OF NOTE 07/28/22 09:00 (created 07/28/22 12:02) Case Management Note by Estefany Rivera CALLED [facility]- STILL NO PA YET- THEY ARE CALLING INSURANCE COMPANY AGAIN TODAY Initialized on 07/28/22 12:02 - END OF NOTE Assessment/Plan (1) Congestive heart failure (CHF) Current Visit: Yes Status: Acute Qualifiers: Heart failure type: combined systolic and diastolic Heart failure chronicity: acute on chronic Qualified Code(s): I50.43 - Acute on chronic combined systolic (congestive) and diastolic (congestive) heart failure Assessment & Plan: Chief Complaint Diagnosis SEPSIS, HYPOTENSION, ACS, ANEMIA Allergies Allergy/AdvReac Type Severity Reaction Status Date / Time No Known Drug Allergies Allergy Verified 07/21/22 14:10 Vital Signs (Last 24 hours) Temp Pulse Resp BP Pulse Ox 07/28/22 12:00 97.7 F 87 23 101/58 90 L 07/28/22 10:50 81 18 95 07/28/22 08:11 89 18 90 L 07/28/22 07:29 97.1 F 95 H 21 107/56 91 L 07/28/22 04:00 98.4 F 92 H 18 90/64 90 L 07/27/22 23:04 97.5 F 91 H 18 113/55 90 L 07/27/22 19:43 97.2 F 81 16 103/52 90 L 07/27/22 19:33 86 20 91 L 07/27/22 16:43 97.3 F 75 21 101/56 86 L 07/27/22 15:39 88 20 93 L Home Medications Medication Instructions Recorded Confirmed Last Taken Type Nitroglycerin 0.4 mg/Hr 1 patch TOP DAILY 07/22/22 07/22/22 Unknown History [Nitro-Dur 0.4 MG/HR] Current Medications Generic Name Dose Route Start Last Admin Trade Name Freq PRN Reason Stop Dose Admin Albuterol Sulfate 2.5 mg 07/22/22 05:51 07/22/22 07:03 Albuterol Sulfate 2.5 Mg/3 Ml Neb 08/21/22 05:50 2.5 mg Q4H PRN PRN Administration SHORTNESS OF BREATH/WHEEZING Albuterol Sulfate 2.5 mg 07/22/22 11:00 07/28/22 10:47 Albuterol Sulfate 2.5 Mg/3 Ml Neb 08/21/22 10:59 2.5 mg QIDRT KIRBY Administration Amiodarone HCl 200 mg 07/22/22 13:00 07/28/22 10:13 Amiodarone Hcl 200 Mg Tab PO 08/21/22 12:59 200 mg DAILY KIRBY Administration Amlodipine Besylate 5 mg 07/28/22 22:00 Amlodipine Besylate 5 Mg Tablet PO 08/27/22 21:59 HS KIRBY Aspirin 81 mg 07/22/22 13:00 07/28/22 10:13 Aspirin 81 Mg Tablet.Ec PO 08/21/22 12:59 81 mg DAILY KIRBY Administration Bumetanide 2 mg 07/22/22 17:00 07/28/22 10:12 Bumetanide 1 Mg Tablet PO 08/21/22 16:59 2 mg BID DIURETIC KIRBY Administration Clopidogrel Bisulfate 75 mg 07/22/22 13:00 07/28/22 10:13 Clopidogrel Bisulfate 75 Mg Tablet PO 08/21/22 12:59 75 mg DAILY KIRBY Administration Empagliflozin 10 mg 07/22/22 13:00 07/28/22 10:14 Empagliflozin 10 Mg Tablet PO 08/21/22 12:59 10 mg DAILY KIRBY Administration Escitalopram Oxalate 10 mg 07/22/22 13:00 07/28/22 10:13 Escitalopram Oxalate 10 Mg Tablet PO 08/21/22 12:59 10 mg DAILY KIRBY Administration Ferrous Sulfate 325 mg 07/22/22 13:00 07/28/22 10:13 Ferrous Sulfate 325 Mg Tablet PO 08/21/22 12:59 325 mg DAILY KIRBY Administration Gabapentin 300 mg 07/22/22 15:00 07/28/22 10:13 Gabapentin 300 Mg Capsule PO 08/21/22 14:59 300 mg TID KIRBY Administration Guaifenesin 600 mg 07/26/22 10:00 07/28/22 10:13 Guaifenesin 600 Mg Tablet Er PO 08/25/22 09:59 600 mg BID KIRBY Administration Sodium Chloride 1,000 mls @ 0 mls/hr 07/21/22 21:15 Sodium Chloride 0.9% 1000 Ml IV 08/20/22 21:14 .Q0M KIRBY KVO Ceftriaxone Sodium/Dextrose 1 g in 50 mls @ 100 mls/hr 07/22/22 22:00 07/27/22 20:31 Rocephin 1 Gm-D5w 50 Ml Bag IV 07/28/22 21:59 100 mls/hr Q24H22 KIRBY Administration Isosorbide Mononitrate 30 mg 07/28/22 12:00 07/28/22 11:38 Isosorbide Mononitrate 30 Mg Tab PO 08/27/22 11:59 30 mg NOON KIRBY Administration Losartan Potassium 25 mg 07/22/22 13:00 07/28/22 10:13 Losartan Potassium 50 Mg Tablet PO 08/21/22 12:59 25 mg DAILY KIRBY Administration Metoprolol Succinate 50 mg 07/28/22 10:00 07/28/22 10:13 Metoprolol Succinate 50 Mg Tablet.Sa PO 08/27/22 09:59 50 mg DAILY KIRBY Administration Nitroglycerin 0.4 mg 07/23/22 07:15 Nitroglycerin 0.4 Mg Tablet Bottle SL 08/21/22 12:29 Q5MIN PRN MR X 3 PRN Non-Formulary Medication 1 each 07/22/22 22:00 07/27/22 20:32 Remove Patch 1 Each TOP 08/21/22 21:59 1 each HS KIRBY Administration Ondansetron HCl 4 mg 07/21/22 21:13 07/28/22 10:07 Ondansetron Hcl 4 Mg/2 Ml Vial IV 08/20/22 21:12 4 mg Q6H PRN PRN Administration NAUSEA/VOMITING Ondansetron HCl 4 mg 07/22/22 12:34 Zofran 4 Mg/Udtablet Orally Disintegrating PO 08/21/22 12:33 Q8H PRN PRN NAUSEA Pantoprazole Sodium 40 mg 07/22/22 13:00 07/28/22 10:13 Protonix (Pantoprazole) 40 Mg Tablet PO 08/21/22 12:59 40 mg DAILY KIRBY Administration Potassium Chloride 10 meq 07/22/22 13:00 07/28/22 10:14 Potassium Chloride Tab 10 Meq Tab PO 08/21/22 12:59 10 meq DAILY KIRBY Administration Simvastatin 40 mg 07/22/22 22:00 07/27/22 20:31 Simvastatin 20 Mg Tablet PO 08/21/22 21:59 40 mg HS KIRBY Administration Sucralfate 1 g 07/22/22 16:30 07/28/22 11:38 Sucralfate 1 G Tablet PO 08/21/22 16:29 1 g ACHS KIRBY Administration Tamsulosin HCl 0.4 mg 07/22/22 13:00 07/28/22 10:13 Tamsulosin Hcl 0.4 Mg Cap PO 08/21/22 12:59 0.4 mg DAILY KIRBY Administration Trazodone HCl 50 mg 07/22/22 22:00 07/27/22 20:31 Trazodone Hcl 50 Mg Tablet PO 08/21/22 21:59 50 mg HS KIRBY Administration Discontinued Medications Generic Name Dose Route Start Last Admin Trade Name Freq PRN Reason Stop Dose Admin Albuterol/Ipratropium 3 ml 07/21/22 22:32 07/21/22 22:36 Ipratropium/Albuterol Sulfate 3 Ml Ampul.Neb IH 07/21/22 22:33 3 ml STAT ONE Administration Albuterol/Ipratropium Confirm 07/21/22 22:33 Ipratropium/Albuterol Sulfate 3 Ml Ampul.Neb Administered 07/21/22 22:34 Dose 3 ml IH .STK-MED ONE Amlodipine Besylate 5 mg 07/22/22 13:00 07/27/22 09:13 Amlodipine Besylate 5 Mg Tablet PO 08/21/22 12:59 Not Given DAILY KIRBY Heparin Sodium (Beef Lung) 5,000 unit 07/21/22 22:00 07/22/22 11:55 Heparin 5000 Unit/0.5 Ml Syringe SQ 08/20/22 21:59 Not Given BID KIRBY Norepinephrine/Dextrose 8 mg in 250 mls @ 15 mls/hr 07/21/22 14:29 07/21/22 19:37 Norepinephrine 8 Mg/250 Ml-D5w IV 08/20/22 14:28 0 mcg/min .[id number] PRN 0 mls/hr HYPOTENSION Titration Protocol 8 MCG/MIN Sodium Chloride 500 mls @ 500 mls/hr 07/21/22 15:58 07/21/22 17:24 Sodium Chloride 0.9% 500 Ml IV 07/21/22 16:57 Infused .Q1H ONE Infusion Sodium Chloride Confirm 07/21/22 16:08 Sodium Chloride 0.9% 500 Ml Administered 07/21/22 16:09 Dose 500 mls @ ud IV .STK-MED ONE Ceftriaxone Sodium/Dextrose 1 g in 50 mls @ 100 mls/hr 07/21/22 21:10 07/21/22 22:32 Rocephin 1 Gm-D5w 50 Ml Bag IV 07/21/22 21:39 Infused STAT STA Infusion Ceftriaxone Sodium/Dextrose Confirm 07/21/22 21:20 Rocephin 1 Gm-D5w 50 Ml Bag Administered 07/21/22 21:21 Dose 1 g in 50 mls @ ud IV .STK-MED ONE Norepinephrine/Dextrose Confirm 07/21/22 14:30 Norepinephrine 8 Mg/250 Ml-D5w Administered 07/21/22 14:31 Dose 8 mg in 250 mls @ ud IV .STK-MED ONE Isosorbide Mononitrate 30 mg 07/22/22 13:00 07/27/22 09:13 Isosorbide Mononitrate 30 Mg Tab PO 08/21/22 12:59 Not Given DAILY KIRBY Metoprolol Succinate 50 mg 07/22/22 13:00 07/27/22 20:32 Metoprolol Succinate 50 Mg Tablet.Sa PO 08/21/22 12:59 Not Given BID KIRBY Miscellaneous Information 1 each 07/22/22 12:45 Medication Intervention 1 Each Each 08/21/22 12:44 .RN TO CHECK KIRBY Morphine Sulfate 4 mg 07/22/22 02:20 07/28/22 10:10 Morphine Sulfate 4 Mg/Ml Injection IV 08/01/22 12:00 4 mg Q4H PRN PRN Administration PAIN Nitroglycerin 0.1 mg 07/22/22 13:00 Nitroglycerin 0.1 Mg Patch.Td24 TD 08/21/22 12:59 DAILY KIRBY Nitroglycerin 0.4 mg 07/22/22 12:30 Nitroglycerin 0.4 Mg Tablet Bottle SL 08/21/22 12:29 CLARIFY KIRBY Nitroglycerin 0.4 mg 07/22/22 17:30 07/27/22 08:13 Nitroglycerin 0.4 Mg Patch TOP 08/21/22 17:29 0.4 mg DAILY KIRBY Administration Ranolazine 500 mg 07/22/22 13:00 07/23/22 21:20 Ranolazine 500 Mg Tab.Sr.12h PO 08/21/22 12:59 500 mg BID KIRBY Administration Ranolazine 1,000 mg 07/24/22 09:05 07/27/22 20:31 Ranolazine 500 Mg Tab.Sr.12h PO 08/21/22 12:59 1,000 mg BID KIRBY Administration Trazodone HCl Confirm 07/22/22 02:34 Trazodone Hcl 50 Mg Tablet Administered 07/22/22 02:35 Dose 50 mg .ROUTE .STK-MED ONE Intake & Output (Last 24 hours) 07/26/22 07/27/22 07/28/22 07/29/22 11:59 11:59 11:59 11:59 Intake Total 2560 1160 480 Output Total 1800 1150 800 Balance 760 10 -320 Orders (Last 24 hours) Category Date Time Status Amlodipine Besylate 5 mg [Norvasc 5 mg] Med 07/28/22 22:00 Active 5 mg PO HS Isosorbide Mononitrate 30 mg [Imdur 30 MG] Med 07/28/22 12:00 Active 30 mg PO NOON Metoprolol Succinate 50 mg [Toprol Xl 50 MG] Med 07/28/22 10:00 Active 50 mg PO DAILY Patient Care Notes (Last 24 hours) 07/28/22 12:34 Nursing Note by Lizz Hernandez PHONED [facility] FOR REQUESTED TELE CARDIO WITH Rachael ALBERTO, SPOKE WITH YE, TOOK ALL INFORMATION, NURSE KAT STATES TO FAX ALL RECORDS TO [phone], THEY WILL SCHEDULE TELE CARDIO FOR TODAY. Initialized on 07/28/22 12:34 - END OF NOTE 07/28/22 12:17 Nursing Note by Lizz Hernandez DR ON UNIT FOR ROUNDS. ORDERS TO D/C, MORPHINE, CALL Rachael ALBERTO OFFICE AND SEE IF HE CAN DO TELE CARDIO TO SEE PATIENT PRIOR TO D/C TO [facility]. Initialized on 07/28/22 12:17 - END OF NOTE 07/28/22 10:52 Physical Therapy Note by Aileen(L#[id number]),Judie PT. SEEN BY P.T. THIS A.M. PT. RECEIVED IV PN MED AND ZOFRAN FOR NAUSEA PRIOR TO RX. PT. C/O L CHEST PN WHICH IS CHRONIC. PT. LETHARGIC BUT ORIENTED TO NAME, LOCATION AND STATED TODAY WAS THE 5TH. PT. AGREEABLE TO P.T. IN BED UPON P.T. ARRIVAL TO ROOM. O2 SATS 84% AT REST ON 4 L. INCREASED O2 TO 5 L AND SATS INCREASED TO 90-91%. PERFORMED SUPINE TO SIT W/ MIN-MOD ASSIST W/ HOB ELEVATED. SIT TO STAND PERFORMED W/ MOD ASSIST X 1. PT. AMBULATED ~ 10' W/ RW ON 6 L AND MOD ASSIST X 1. FREQUENT V.C. GIVEN TO BREATHE DEEP W/ PROPER PATTERN. NOTED TREMORING OF LES W/ SIT TO STAND AND W/ 1ST 1-2 STEPS. 02 SATS 95% AFTER WALK ON 6L. PT. PERFORMED SEATED LE EX'S OF LAQS, ANKLE PUMPS, QUAD SETS, GLUT SETS, AND HEEL SLIDES (ACTIVE ASSIST) X 5 REPS. PT. DOZED OCCASIONALLY BETWEEN EX'S. PT. REQUIRED MANY CUES TO REDIRECT BACK TO TASK AND CONVERSATION RE: PLOF AND GENERAL QUESTIONS ABOUT HOW HE WAS FEELING DURING SESSION. FEEL THESE COGNITIVE LIMITATIONS ARE MORE SIGNIFICANT THAN LAST WEEK. CONT. W/ SIGNIFICANT LE WEAKNESS AND DECREASED ENDURANCE W/ ACTIVITY. WILL CONT. P.T. 5X/WK UNTIL D/C. AWAITING INSURANCE PA FOR REHAB STAY. RX TIME [id number] Initialized on 07/28/22 10:52 - END OF NOTE 07/28/22 10:21 Nursing Note by Antonia Mott patient 84% on 4L NC at rest. Increased O2 to 5L at this time, patient O2 now 92% at rest Initialized on 07/28/22 10:21 - END OF NOTE 07/28/22 09:00 (created 07/28/22 12:02) Case Management Note by Estefany Rivera CALLED [facility]- STILL NO PA YET- THEY ARE CALLING INSURANCE [employer] AGAIN TODAY Initialized on 07/28/22 12:02 - END OF NOTE 07/28/22 08:57 Nursing Note by Kacy Newell discussed pt's blood pressure and medications with dr castro. new orders obtained:continue cozaar as ordered, change imdur time to noon, change toprol dose to daily, d/c nitro, d/c ranexa, change norvasc dose to hs. Initialized on 07/28/22 08:57 - END OF NOTE 07/27/22 16:45 MAT ROLLER Note by Megan Taylor pt B/P was retaken 147/89 Initialized on 07/27/22 16:45 - END OF NOTE Code(s): I50.9 - HEART FAILURE, UNSPECIFIED (2) Hypotension Current Visit: Yes Status: Resolved Qualifiers: Hypotension type: other hypotension type Qualified Code(s): I95.89 - Other hypotension Code(s): I95.9 - HYPOTENSION, UNSPECIFIED (3) ACS (acute coronary syndrome) Current Visit: Yes Status: Resolved Code(s): I24.9 - ACUTE ISCHEMIC HEART DISEASE, UNSPECIFIED (4) Anemia Current Visit: Yes Status: Acute Qualifiers: Anemia type: iron deficiency Iron deficiency anemia type: unspecified iron deficiency Qualified Code(s): D50.9 - Iron deficiency anemia, unspecified Code(s): D64.9 - ANEMIA, UNSPECIFIED (5) Angina at rest Current Visit: Yes Status: Acute Code(s): I20.8 - OTHER FORMS OF ANGINA PECTORIS
[2022-07-28] MEDS ORDERED: NORVASC 5 MG PO SCH (22:00)
[2022-07-28] MEDS: ZOCOR 20MG PO SCH (22:52)
[2022-07-28] MEDS: DESYREL 50 MG PO SCH (23:01)
[2022-07-29] MEDS: PROVENTIL 2.5 MG/3 ML NEB IH SCH ×4 (06:53→20:00)
[2022-07-29] MEDS: Carafate 1 GM PO SCH ×4 (08:20→21:26)
[2022-07-29] MEDS: BUMEX 1 MG PO SCH ×2 (09:00→17:12)
[2022-07-29] MEDS: Cozaar 50 MG PO SCH (09:01)
[2022-07-29] MEDS: Cordarone 200 MG PO SCH (09:01)
[2022-07-29] MEDS: ECOTRIN 81 MG PO SCH (09:02)
[2022-07-29] MEDS: FEOSOL 325 MG PO SCH (09:02)
[2022-07-29] MEDS: Flomax 0.4 MG PO SCH (09:02)
[2022-07-29] MEDS: JARDIANCE PO SCH (09:03)
[2022-07-29] MEDS: Klor Con PO SCH (09:03)
[2022-07-29] MEDS: NEURONTIN PO SCH ×3 (09:03→21:26)
[2022-07-29] MEDS: Toprol Xl 50 MG PO SCH (09:03)
[2022-07-29] MEDS: Lexapro PO SCH (09:04)
[2022-07-29] MEDS: Mucinex 600MG ER Tabs PO SCH ×2 (09:04→21:26)
[2022-07-29] MEDS: Protonix 40MG Tablet PO SCH (09:04)
[2022-07-29] MEDS: PLAVIX Tablet PO SCH (09:05)
[2022-07-29] MEDS: Imdur 30 MG PO SCH (12:03)
[2022-07-29] MEDS ORDERED: TYLENOL EXTRA STRENGTH 500 MG PO SCH (13:00)
[2022-07-29] MEDS: Nitro-Dur 0.4 MG/HR TD SCH (18:11)
[2022-07-29] MEDS: MORPHINE SULFATE 4 MG INJ IV PRN (18:12)
[2022-07-29] MEDS ORDERED: TYLENOL EXTRA STRENGTH 500 MG PO PRN (18:18)
[2022-07-29 18:28] LABS: Hematocrit 25.8 % (42-50); Mean Cell Volume 90.5 fL (78-100); Mean Corpuscular Hemoglobin 24.6 pg (26-32); Mean Corpuscular Hgb Concent. 27.1 g/dL (32-36); Platelet Count 178 x10^3/uL (150-450); Red Blood Count 2.85 x10^6/uL (4.1-5.6); Red Cell Distribution Width 19.3 % (11.5-14.0)
[2022-07-29] MEDS ORDERED: Lasix 40 MG/4 ML IV PRN (18:56)
--- NOTE | 2022-07-29 20:48 | PCM.NOTE ---
Date and Time: 07/29/222046 Subjective Assessment: doing better - Review of Systems Constitutional: No Fever, No Chills Eyes: No Symptoms Ears, Nose, & Throat: No Symptoms Respiratory: No Cough, No Short Of Breath Cardiac: No Chest Pain, No Edema, No Syncope Abdominal/Gastrointestinal: No Abdominal Pain, No Nausea, No Vomiting, No Diarrhea Genitourinary Symptoms: No Dysuria Musculoskeletal: No Back Pain, No Neck Pain Skin: No Rash Neurological: No Dizziness, No Focal Weakness, No Sensory Changes Psychological: No Symptoms Endocrine: No Symptoms Hematologic/Lymphatic: No Symptoms Immunological/Allergic: No Symptoms Objective Exam General Appearance: no apparent distress, alert Neurologic Exam: alert, oriented x 3, cooperative, normal mood/affect, nml cerebellar function, sensation nml, No motor deficits Skin Exam: normal color, warm, dry Eye Exam: PERRL, EOMI, eyes nml inspection Ears, Nose, Throat Exam: normal ENT inspection, pharynx normal, moist mucous membranes Neck Exam: normal inspection, non-tender, supple, full range of motion Respiratory Exam: normal breath sounds, lungs clear, No respiratory distress Cardiovascular Exam: regular rate/rhythm, normal heart sounds Gastrointestinal/Abdomen Exam: soft, No tenderness, No mass Extremity Exam: normal inspection, normal range of motion Back Exam: normal inspection, normal range of motion, No CVA tenderness, No vertebral tenderness Male Genitalia Exam: deferred Rectal Exam: deferred OBJECTIVE DATA Vital Signs: Vital Signs - 24 hr Temp Pulse Resp BP Pulse Ox 07/29/22 20:01 67 17 94 L 07/29/22 20:00 97.7 F 67 20 79/45 94 L 07/29/22 17:26 97.5 F 69 17 83/49 93 L 07/29/22 15:17 70 16 92 L 07/29/22 14:00 97.1 F 77 18 104/53 95 07/29/22 10:47 76 18 95 07/29/22 08:07 97.5 F 73 18 94/54 95 07/29/22 06:53 73 18 95 07/29/22 04:55 97.1 F 72 20 93/44 96 07/29/22 02:00 55 L 92/55 07/28/22 22:55 71 20 90/54 07/28/22 21:00 87/47 Pain Assessment - Last Documented Pain Intensity 10 Pain Scale Used 0-10 Pain Scale Intake and Output: Intake & Output 07/27/22 07/28/22 07/29/22 07/30/22 11:59 11:59 11:59 11:59 Intake Total 1160 480 580 480 Output Total 1150 800 600 700 Balance 10 -320 -20 -220 Lab Results: Lab Results-Last 24 Hours 07/28/22 07/29/22 07/29/22 Range/Units 21:43 06:20 08:01 WBC 6.0 (4.0-10.5) x10^3/uL RBC 2.85 L (4.1-5.6) x10^6/uL Hgb 7.0 L (12.5-18.0) g/dL Hct 25.8 L (42-50) % MCV 90.5 (78-100) fL MCH 24.6 L (26-32) pg MCHC 27.1 L (32-36) g/dL RDW 19.3 H (11.5-14.0) % Plt Count 178 (150-450) x10^3/uL MPV 11.0 (7.5-11.0) fL POC Glucometer 130 H (74 to 106) mg/dL Procalcitonin 0.273 H (0.030-0.080) ng/mL Multi-Disciplinary Progress Notes: Multi-Disciplinary Progress Notes 07/29/22 15:40 Nutrition Note by Annia Boothe F/u Note: 2000CC diet con't with 100% po intake. no recent weight/labs. fluid balance improving. goal of po intake >=75% met and ongoing. con't to recommend HH diet. ALVA Callaway Initialized on 07/29/22 15:40 - END OF NOTE 07/29/22 14:08 Case Management Note by Estefany Rivera S/W SUDEEP AT [facility] [place]- THEY HAVE BEEN CALLING AND EMAILING INSURANCE FOR DAYS TRYING TO GET APPROVAL FOR STAY. THEY ARE STILL WAITING FOR APPROVAL AT THIS TIME. Initialized on 07/29/22 14:08 - END OF NOTE 07/29/22 11:39 Physical Therapy Note by Aileen(L#[id number]),Judie PT. SEEN BY PDaniel THIS A.M. STILL C/O CP. HAS HAD LOW BP THIS AM AND SO PN MEDS HAVE NOT BEEN GIVEN PER NSG. PT. AGREEABLE TO P.T. PT. UP IN CHAIR UPON P.T. ARRIVAL TO ROOM. O2 SATS 95% HR 74 BPM AT REST ON 4 L O2. PERFORMED SEATED LE EX'S X 10 REPS OF ANKLE PUMPS, QUAD AND GLUT SETS. REQUIRES FREQUENT TV.C. AND TACTILE CURES TO INCREASE MM CONTRACTION AND KEEP PT. ALERT AND ON TASK. PERFORMED HEEL SLIDES X 10 REPS ACTIVE ASSISTED W/ IMPROVED ROM TODAY. PERFORMED SIT TO STAND W/ MIN-MOD ASSIST W/ V.C. TO PLACE HANDS ON CHAIR FOR SAFETY PRIOR TO STANDING. PT. ABLE TO TAKE 2-3 STEPS (RN FOLLOWED BEHIND HIM W/ CHAIR) W/ RW AND MIN-MOD ASSIST AND THEN BEGAN TO HAVE LE TREMORS AND KNEES WERE FLEXING. PT. ASSISTED TO CHAIR BEHIND HIM. PERFORMED ANOTHER SIT TO STAND W/ MIN-MOD ASSIST AFTER RESTING ~ 1'. PERFORMED STANDING HEEL RAISES AT WALKER X 5 REPS. W/ MIN ASSIST TO STAND AND THEN LE TREMORS BEGAN AGIN AND WAS ASSISTED BACK TO CHAIR. PT. REQUIRES FREQUENT V.C. FOR DEEP BREATHING DURING ACTIVITY HE TENDS TO HOLD HIS BREATH. PT'S CARDIOPULMONARY LIMITATIONS INHIBIT PROGRESS W/ P.T. AND ACTIVITY TOLERANCE. STILL AWAITING PRE-CERT FOR REHAB SNF STAY. WILL CONT. P.T. 5X/WK TOLERATED TO ADDRESS FUNCTIONAL DEFICITS AND PREP FOR REHAB STAY. RX TIME- [id number] Initialized on 07/29/22 11:39 - END OF NOTE Assessment/Plan (1) Congestive heart failure (CHF) Current Visit: Yes Status: Acute Qualifiers: Heart failure type: combined systolic and diastolic Heart failure chronicity: acute on chronic Qualified Code(s): I50.43 - Acute on chronic combined systolic (congestive) and diastolic (congestive) heart failure Assessment & Plan: Chief Complaint Diagnosis SEPSIS, HYPOTENSION, ACS, ANEMIA Allergies Allergy/AdvReac Type Severity Reaction Status Date / Time No Known Drug Allergies Allergy Verified 07/21/22 14:10 Vital Signs (Last 24 hours) Temp Pulse Resp BP Pulse Ox 07/29/22 20:01 67 17 94 L 07/29/22 20:00 97.7 F 67 20 79/45 94 L 07/29/22 17:26 97.5 F 69 17 83/49 93 L 07/29/22 15:17 70 16 92 L 07/29/22 14:00 97.1 F 77 18 104/53 95 07/29/22 10:47 76 18 95 07/29/22 08:07 97.5 F 73 18 94/54 95 07/29/22 06:53 73 18 95 07/29/22 04:55 97.1 F 72 20 93/44 96 07/29/22 02:00 55 L 92/55 07/28/22 22:55 71 20 90/54 07/28/22 21:00 87/47 Home Medications Medication Instructions Recorded Confirmed Last Taken Type Nitroglycerin 0.4 mg/Hr 1 patch TOP DAILY 07/22/22 07/22/22 Unknown History [Nitro-Dur 0.4 MG/HR] Current Medications Generic Name Dose Route Start Last Admin Trade Name Freq PRN Reason Stop Dose Admin Acetaminophen 500 mg 07/29/22 18:18 Acetaminophen 500 Mg Tablet PO 08/28/22 12:59 Q6H PRN PAIN Albuterol Sulfate 2.5 mg 07/22/22 05:51 07/22/22 07:03 Albuterol Sulfate 2.5 Mg/3 Ml [facility] 08/21/22 05:50 2.5 mg Q4H PRN PRN Administration SHORTNESS OF BREATH/WHEEZING Albuterol Sulfate 2.5 mg 07/22/22 11:00 07/29/22 20:00 Albuterol Sulfate 2.5 Mg/3 Ml [facility] 08/21/22 10:59 2.5 mg QIDRT KIRBY Administration Amiodarone HCl 200 mg 07/22/22 13:00 07/29/22 09:01 Amiodarone Hcl 200 Mg Tab PO 08/21/22 12:59 200 mg DAILY KIRBY Administration Aspirin 81 mg 07/22/22 13:00 07/29/22 09:02 Aspirin 81 Mg Tablet.Ec PO 08/21/22 12:59 81 mg DAILY KIRBY Administration Bumetanide 2 mg 07/22/22 17:00 07/29/22 17:12 Bumetanide 1 Mg Tablet PO 08/21/22 16:59 2 mg BID DIURETIC KIRBY Administration Clopidogrel Bisulfate 75 mg 07/22/22 13:00 07/29/22 09:05 Clopidogrel Bisulfate 75 Mg Tablet PO 08/21/22 12:59 75 mg DAILY KIRBY Administration Empagliflozin 25 mg 07/29/22 18:01 Empagliflozin 10 Mg Tablet PO 08/21/22 12:59 DAILY KIRBY Escitalopram Oxalate 10 mg 07/22/22 13:00 07/29/22 09:04 Escitalopram Oxalate 10 Mg Tablet PO 08/21/22 12:59 10 mg DAILY KIRBY Administration Ferrous Sulfate 325 mg 07/22/22 13:00 07/29/22 09:02 Ferrous Sulfate 325 Mg Tablet PO 08/21/22 12:59 325 mg DAILY KIRBY Administration Furosemide 40 mg 07/29/22 18:56 Furosemide 40 Mg/4 Ml Vial IV BETWEEN UNITS PRN SHORTNESS OF BREATH Gabapentin 300 mg 07/22/22 15:00 07/29/22 14:40 Gabapentin 300 Mg Capsule PO 08/21/22 14:59 300 mg TID KIRBY Administration Guaifenesin 600 mg 07/26/22 10:00 07/29/22 09:04 Guaifenesin 600 Mg Tablet Er PO 08/25/22 09:59 600 mg BID KIRBY Administration Sodium Chloride 1,000 mls @ 0 mls/hr 07/21/22 21:15 Sodium Chloride 0.9% 1000 Ml IV 08/20/22 21:14 .Q0M [facility] KVO Isosorbide Mononitrate 30 mg 07/28/22 12:00 07/29/22 12:03 Isosorbide Mononitrate 30 Mg Tab PO 08/27/22 11:59 30 mg NOON KIRBY Administration Metoprolol Succinate 25 mg 07/30/22 10:00 Metoprolol Succinate 25 Mg Xl Tab PO 08/29/22 09:59 DAILY KIRBY Morphine Sulfate 4 mg 07/29/22 18:03 07/29/22 18:12 Morphine Sulfate 4 Mg/Ml Injection IV 08/03/22 18:02 4 mg Q4H PRN PRN Administration PAIN Nitroglycerin 0.4 mg 07/23/22 07:15 Nitroglycerin 0.4 Mg Tablet Bottle SL 08/21/22 12:29 Q5MIN PRN MR X 3 PRN Nitroglycerin 0.4 mg 07/29/22 18:10 07/29/22 18:11 Nitroglycerin 0.4 Mg Patch TD 08/28/22 18:09 0.4 mg DAILY@0800 KIRBY Administration Non-Formulary Medication 1 each 07/22/22 22:00 07/29/22 03:59 Remove Patch 1 Each TOP 08/21/22 21:59 Not Given HS KIRBY Ondansetron HCl 4 mg 07/21/22 21:13 07/28/22 10:07 Ondansetron Hcl 4 Mg/2 Ml Vial IV 08/20/22 21:12 4 mg Q6H PRN PRN Administration NAUSEA/VOMITING Ondansetron HCl 4 mg 07/22/22 12:34 Zofran 4 Mg/Udtablet Orally Disintegrating PO 08/21/22 12:33 Q8H PRN PRN NAUSEA Pantoprazole Sodium 40 mg 07/22/22 13:00 07/29/22 09:04 Protonix (Pantoprazole) 40 Mg Tablet PO 08/21/22 12:59 40 mg DAILY KIRBY Administration Potassium Chloride 10 meq 07/22/22 13:00 07/29/22 09:03 Potassium Chloride Tab 10 Meq Tab PO 08/21/22 12:59 10 meq DAILY KIRBY Administration Ranolazine 1,000 mg 07/29/22 22:00 Ranolazine 500 Mg Tab.Sr.12h PO 08/28/22 21:59 Q12HT KIRBY Simvastatin 40 mg 07/22/22 22:00 07/28/22 22:52 Simvastatin 20 Mg Tablet PO 08/21/22 21:59 40 mg HS KIRBY Administration Sucralfate 1 g 07/22/22 16:30 07/29/22 17:12 Sucralfate 1 G Tablet PO 08/21/22 16:29 1 g ACHS KIRBY Administration Tamsulosin HCl 0.4 mg 07/22/22 13:00 07/29/22 09:02 Tamsulosin Hcl 0.4 Mg Cap PO 08/21/22 12:59 0.4 mg DAILY KIRBY Administration Trazodone HCl 50 mg 07/22/22 22:00 07/28/22 23:01 Trazodone Hcl 50 Mg Tablet PO 08/21/22 21:59 Not Given HS KIRBY Discontinued Medications Generic Name Dose Route Start Last Admin Trade Name Freq PRN Reason Stop Dose Admin Acetaminophen 500 mg 07/29/22 13:00 07/29/22 14:40 Acetaminophen 500 Mg Tablet PO 08/28/22 12:59 500 mg Q6H KIRBY Administration Albuterol/Ipratropium 3 ml 07/21/22 22:32 07/21/22 22:36 Ipratropium/Albuterol Sulfate 3 Ml Ampul.Neb IH 07/21/22 22:33 3 ml STAT ONE Administration Albuterol/Ipratropium Confirm 07/21/22 22:33 Ipratropium/Albuterol Sulfate 3 Ml Ampul.Neb Administered 07/21/22 22:34 Dose 3 ml IH .STK-MED ONE Amlodipine Besylate 5 mg 07/22/22 13:00 07/27/22 09:13 Amlodipine Besylate 5 Mg Tablet PO 08/21/22 12:59 Not Given DAILY KIRBY Amlodipine Besylate 5 mg 07/28/22 22:00 07/28/22 23:01 Amlodipine Besylate 5 Mg Tablet PO 08/27/22 21:59 Not Given HS KIRBY Empagliflozin 10 mg 07/22/22 13:00 07/29/22 09:03 Empagliflozin 10 Mg Tablet PO 08/21/22 12:59 10 mg DAILY KIRBY Administration Heparin Sodium (Beef Lung) 5,000 unit 07/21/22 22:00 07/22/22 11:55 Heparin 5000 Unit/0.5 Ml Syringe SQ 08/20/22 21:59 Not Given BID KIRBY Norepinephrine/Dextrose 8 mg in 250 mls @ 15 mls/hr 07/21/22 14:29 07/21/22 19:37 Norepinephrine 8 Mg/250 Ml-D5w IV 08/20/22 14:28 0 mcg/min .[id number] PRN 0 mls/hr HYPOTENSION Titration Protocol 8 MCG/MIN Sodium Chloride 500 mls @ 500 mls/hr 07/21/22 15:58 07/21/22 17:24 Sodium Chloride 0.9% 500 Ml IV 07/21/22 16:57 Infused .Q1H ONE Infusion Sodium Chloride Confirm 07/21/22 16:08 Sodium Chloride 0.9% 500 Ml Administered 07/21/22 16:09 Dose 500 mls @ ud IV .STK-MED ONE Ceftriaxone Sodium/Dextrose 1 g in 50 mls @ 100 mls/hr 07/21/22 21:10 07/21/22 22:32 Rocephin 1 Gm-D5w 50 Ml Bag IV 07/21/22 21:39 Infused STAT STA Infusion Ceftriaxone Sodium/Dextrose 1 g in 50 mls @ 100 mls/hr 07/22/22 22:00 07/27/22 20:31 Rocephin 1 Gm-D5w 50 Ml Bag IV 07/28/22 21:59 100 mls/hr Q24H22 KIRBY Administration Ceftriaxone Sodium/Dextrose Confirm 07/21/22 21:20 Rocephin 1 Gm-D5w 50 Ml Bag Administered 07/21/22 21:21 Dose 1 g in 50 mls @ ud IV .STK-MED ONE Norepinephrine/Dextrose Confirm 07/21/22 14:30 Norepinephrine 8 Mg/250 Ml-D5w Administered 07/21/22 14:31 Dose 8 mg in 250 mls @ ud IV .STK-MED ONE Isosorbide Mononitrate 30 mg 07/22/22 13:00 07/27/22 09:13 Isosorbide Mononitrate 30 Mg Tab PO 08/21/22 12:59 Not Given DAILY KIRBY Losartan Potassium 25 mg 07/22/22 13:00 07/29/22 09:01 Losartan Potassium 50 Mg Tablet PO 08/21/22 12:59 25 mg DAILY KIRBY Administration Metoprolol Succinate 50 mg 07/22/22 13:00 07/27/22 20:32 Metoprolol Succinate 50 Mg Tablet.Sa PO 08/21/22 12:59 Not Given BID KIRBY Metoprolol Succinate 50 mg 07/28/22 10:00 07/29/22 09:03 Metoprolol Succinate 50 Mg Tablet.Sa PO 08/27/22 09:59 50 mg DAILY KIRBY Administration Miscellaneous Information 1 each 07/22/22 12:45 Medication Intervention 1 Each Each 08/21/22 12:44 .RN TO CHECK KIRBY Morphine Sulfate 4 mg 07/22/22 02:20 07/28/22 10:10 Morphine Sulfate 4 Mg/Ml Injection IV 08/01/22 12:00 4 mg Q4H PRN PRN Administration PAIN Nitroglycerin 0.1 mg 07/22/22 13:00 Nitroglycerin 0.1 Mg Patch.Td24 TD 08/21/22 12:59 DAILY KIRBY Nitroglycerin 0.4 mg 07/22/22 12:30 Nitroglycerin 0.4 Mg Tablet Bottle SL 08/21/22 12:29 CLARIFY KIRBY Nitroglycerin 0.4 mg 07/22/22 17:30 07/27/22 08:13 Nitroglycerin 0.4 Mg Patch TOP 08/21/22 17:29 0.4 mg DAILY KIRBY Administration Ranolazine 500 mg 07/22/22 13:00 07/23/22 21:20 Ranolazine 500 Mg Tab.Sr.12h PO 08/21/22 12:59 500 mg BID KIRBY Administration Ranolazine 1,000 mg 07/24/22 09:05 07/27/22 20:31 Ranolazine 500 Mg Tab.Sr.12h PO 08/21/22 12:59 1,000 mg BID KIRBY Administration Trazodone HCl Confirm 07/22/22 02:34 Trazodone Hcl 50 Mg Tablet Administered 07/22/22 02:35 Dose 50 mg .ROUTE .STK-MED ONE Intake & Output (Last 24 hours) 07/27/22 07/28/22 07/29/22 07/30/22 11:59 11:59 11:59 11:59 Intake Total 1160 480 580 480 Output Total 1150 800 600 700 Balance 10 -320 -20 -220 Laboratory Results (Last 24 hours) 07/29/22 07/29/22 07/28/22 08:01 06:20 21:43 WBC 6.0 RBC 2.85 L Hgb 7.0 L Hct 25.8 L MCV 90.5 MCH 24.6 L MCHC 27.1 L RDW 19.3 H Plt Count 178 MPV 11.0 POC Glucometer 130 H Procalcitonin 0.273 H Orders (Last 24 hours) Category Date Time Status BLOOD COMPONENT REQUEST Urgent Lab 07/29/22 Received CBC Stat Lab 07/29/22 06:20 Completed POCT GLUCOSE Stat Lab 07/28/22 21:43 Completed PROCALCITONIN Stat Lab 07/29/22 08:01 Completed TYPE AND SCREEN Urgent Lab 07/29/22 19:52 Ordered Acetaminophen 500 mg [Tylenol Extra Strength 500 mg* Med 07/29/22 13:00 Discontinued ] 500 mg PO Q6H Acetaminophen 500 mg [Tylenol Extra Strength 500 mg* Med 07/29/22 18:18 Ordered ] 500 mg PO Q6H PRN Amlodipine Besylate 5 mg [Norvasc 5 mg] Med 07/28/22 22:00 Discontinued 5 mg PO HS Empagliflozin [Jardiance] Med 07/29/22 18:01 Ordered 25 mg PO DAILY Furosemide 40 mg/4 ml [Lasix 40 MG/4 ML] Med 07/29/22 18:56 Ordered 40 mg IV BETWEEN UNITS PRN Metoprolol Succinate 25 mg Xl* [Toprol-Xl 25MG Tablets* Med 07/30/22 10:00 Ordered ] 25 mg PO DAILY Morphine Sulfate 4 mg Inj Med 07/29/22 18:03 Ordered 4 mg IV Q4H PRN PRN Nitroglycerin 0.4 mg/Hr [Nitro-Dur 0.4 MG/HR] Med 07/29/22 18:10 Ordered 0.4 mg TD DAILY@0800 Ranolazine 500 MG [Ranexa 500 MG] Med 07/29/22 22:00 Ordered 1,000 mg PO Q12HT Patient Care Notes (Last 24 hours) 07/29/22 18:04 Nursing Note by Sharmila Dawson spoke with dr daria singer by phone about pt's condition. new orders to resume ranexa 100mg bid, nitrodur 0.4 patch, morphine 4mg iv q4 prn. orders to dc norvasc, and cozaar. orders given to decrease toprol to 25mg daily and increase jardiance to 25mg. will also check cbc and orders given to keep hemoglobin around 9. Initialized on 07/29/22 18:04 - END OF NOTE 07/29/22 15:40 Nutrition Note by Annia Boothe F/u Note: 2000CC diet con't with 100% po intake. no recent weight/labs. fluid balance improving. goal of po intake >=75% met and ongoing. con't to recommend HH diet. ALVA Callaway Initialized on 07/29/22 15:40 - END OF NOTE 07/29/22 14:08 Case Management Note by Estefany Rivera S/W SUDEEP AT [facility] [place]- THEY HAVE BEEN CALLING AND EMAILING INSURANCE FOR DAYS TRYING TO GET APPROVAL FOR STAY. THEY ARE STILL WAITING FOR APPROVAL AT THIS TIME. Initialized on 07/29/22 14:08 - END OF NOTE 07/29/22 11:39 Physical Therapy Note by Aileen(L#[id number])Judie PT. SEEN BY P.T. THIS A.M. STILL C/O CP. HAS HAD LOW BP THIS AM AND SO PN MEDS HAVE NOT BEEN GIVEN PER NSG. PT. AGREEABLE TO P.T. PT. UP IN CHAIR UPON P.T. ARRIVAL TO ROOM. O2 SATS 95% HR 74 BPM AT REST ON 4 L O2. PERFORMED SEATED LE EX'S X 10 REPS OF ANKLE PUMPS, QUAD AND GLUT SETS. REQUIRES FREQUENT TV.C. AND TACTILE CURES TO INCREASE MM CONTRACTION AND KEEP PT. ALERT AND ON TASK. PERFORMED HEEL SLIDES X 10 REPS ACTIVE ASSISTED W/ IMPROVED ROM TODAY. PERFORMED SIT TO STAND W/ MIN-MOD ASSIST W/ V.C. TO PLACE HANDS ON CHAIR FOR SAFETY PRIOR TO STANDING. PT. ABLE TO TAKE 2-3 STEPS (RN FOLLOWED BEHIND HIM W/ CHAIR) W/ RW AND MIN-MOD ASSIST AND THEN BEGAN TO HAVE LE TREMORS AND KNEES WERE FLEXING. PT. ASSISTED TO CHAIR BEHIND HIM. PERFORMED ANOTHER SIT TO STAND W/ MIN-MOD ASSIST AFTER RESTING ~ 1'. PERFORMED STANDING HEEL RAISES AT WALKER X 5 REPS. W/ MIN ASSIST TO STAND AND THEN LE TREMORS BEGAN AGIN AND WAS ASSISTED BACK TO CHAIR. PT. REQUIRES FREQUENT V.C. FOR DEEP BREATHING DURING ACTIVITY HE TENDS TO HOLD HIS BREATH. PT'S CARDIOPULMONARY LIMITATIONS INHIBIT PROGRESS W/ P.T. AND ACTIVITY TOLERANCE. STILL AWAITING PRE-CERT FOR REHAB SNF STAY. WILL CONT. P.T. 5X/WK TOLERATED TO ADDRESS FUNCTIONAL DEFICITS AND PREP FOR REHAB STAY. RX TIME- [id number] Initialized on 07/29/22 11:39 - END OF NOTE 07/28/22 21:00 (created 07/28/22 21:36) Nursing Note by Judie Tanner Primary nurse notified of BP of 87/47 Initialized on 07/28/22 21:36 - END OF NOTE Code(s): I50.9 - HEART FAILURE, UNSPECIFIED (2) Hypotension Current Visit: Yes Status: Resolved Qualifiers: Hypotension type: other hypotension type Qualified Code(s): I95.89 - Other hypotension Code(s): I95.9 - HYPOTENSION, UNSPECIFIED (3) ACS (acute coronary syndrome) Current Visit: Yes Status: Resolved Code(s): I24.9 - ACUTE ISCHEMIC HEART DISEASE, UNSPECIFIED (4) Anemia Current Visit: Yes Status: Acute Qualifiers: Anemia type: iron deficiency Iron deficiency anemia type: unspecified iron deficiency Qualified Code(s): D50.9 - Iron deficiency anemia, unspecified Code(s): D64.9 - ANEMIA, UNSPECIFIED (5) Angina at rest Current Visit: Yes Status: Acute Code(s): I20.8 - OTHER FORMS OF ANGINA PECTORIS
[2022-07-29] MEDS: DESYREL 50 MG PO SCH (21:26)
[2022-07-29] MEDS: ZOCOR 20MG PO SCH (21:28)
[2022-07-29] MEDS: Ranexa 500 MG PO SCH (21:29)
[2022-07-29] MEDS ORDERED: Sodium Chloride 0.9% 500 ML 500 ML IV ONE (21:34)
[2022-07-29 21:56] LABS: ABO TYPING O; Antibody Screen NEGATIVE (NEGATIVE); RH TYPING POSITIVE
[2022-07-29 22:02] LABS: CROSS MATCH (PRBC) COMPATIBLE (COMPATIBLE)
[2022-07-29 22:04] LABS: CROSS MATCH (PRBC) COMPATIBLE (COMPATIBLE)
[2022-07-30 05:39] LABS: Hematocrit 29.9 % (42-50); Hemoglobin 8.4 g/dL (12.5-18.0); Mean Cell Volume 88.5 fL (78-100); Mean Corpuscular Hemoglobin 24.9 pg (26-32); Mean Corpuscular Hgb Concent. 28.1 g/dL (32-36); Mean Platelet Volume 11.5 fL (7.5-11.0); Platelet Count 179 x10^3/uL (150-450); Red Blood Count 3.38 x10^6/uL (4.1-5.6); Red Cell Distribution Width 19.9 % (11.5-14.0); White Blood Count 5.8 x10^3/uL (4.0-10.5)
[2022-07-30 06:03] LABS: Calcium 7.9 mg/dL (8.4-10.2); Creatinine 1 1.48 mg/dL (0.66-1.25); EST GLOMERULAR FILTRATION RATE 51.2 ML/MIN; Potassium 4.3 mmol/L (3.5-5.1)
[2022-07-30 06:16] LABS: ANION GAP 13.3 MEQ/L (5-15)
[2022-07-30 07:23] LABS: Slide Review YES
[2022-07-30] MEDS: PROVENTIL 2.5 MG/3 ML NEB IH SCH ×4 (07:27→19:04)
[2022-07-30] MEDS: Carafate 1 GM PO SCH ×4 (07:35→21:19)
[2022-07-30] MEDS: Nitro-Dur 0.4 MG/HR TD SCH (07:35)
--- NOTE | 2022-07-30 08:18 | CONS ---
TELE-CARDIOLOGY CONSULT DATE: 07/29/2022 REASON FOR CONSULT: Hypotension from congestive heart failure, coronary artery disease and chest pain. HISTORY: Po Mireles is a 62-year-old gentleman who presented on 07/21/2022 with chest pain and shortness of breath. He has known history of advanced coronary artery disease with no revascularization option as well as significant cardiomyopathy and chronic systolic congestive heart failure and chronic CCS Class III B angina. He has been medically managed and is requiring chronic narcotics for management for refractory angina. He presented with worsening pain and was found to be somewhat hypotensive. His cardiac enzymes have been negative however BNP is elevated and hemoglobin was approximately 6 grams/deciliter. He received blood transfusions. Hemoglobin is now a low 8's. However, he continues to have intermittent chest pain. Due to the low blood pressure, several of his antianginal therapies were held. Morphine and nitroglycerin were also held. However, nitroglycerin has been resumed which has improved his symptoms however he is still requiring IV morphine. LAB DATA AND TESTS: Laboratory data was reviewed and notable for BNP which is markedly elevated the thousands. Hemoglobin was low in the 6's however has improved to the low 8's. Cardiac enzymes were all negative. REVIEW OF SYSTEMS: Fourteen system review performed. Pertinent positives as noted in H&P otherwise negative. PAST MEDICAL HISTORY: SOCIAL HISTORY: FAMILY HISTORY: ALLERGIES: NKDA. MEDICATIONS: Current medications reviewed. Please see EMR for full details. PHYSICAL EXAMINATION: Physical exam is deferred as this is a tele-health cardiology visit. IMPRESSION: 1) Chronic CCS Class III B angina which is worsened likely exacerbated by severe anemia. 2) Severe anemia with history of recurrent GI bleeding. 3) Ischemic cardiomyopathy with reduced ejection fraction and chronic systolic congestive heart failure. 4) Advanced lung disease with chronic hypoxemic respiratory failure. RECOMMENDATIONS: At this time would repeat hemoglobin and transfuse to keep hemoglobin approximately 9 grams/deciliter as this does reduce the patient's angina in the setting of advanced coronary disease with no revascularization options. He has been evaluated multiple times at [facility] and has been turned down for any surgery. He has recurrent restenosis of stents in his LAD and does not have any good percutaneous options. In the setting of worsening heart failure, would increase his Jardiance to 25 mg daily to augment diuresis. I would monitor blood sugars for any hypoglycemia with increase in Jardiance although this would be unlikely. Due to ongoing low blood pressure, would hold losartan and Norvasc to allow for up titration of beta jose g as these have proven to be more effective for his angina in the past. I would resume isosorbide mononitrate 30 mg daily as well as Toprol XL 25 mg daily and up titrate. Of note the patient was previously on Toprol XL 50 mg b.i.d., would aim to slowly up titrate as blood pressure and heart rate allow to this target dose. I would also resume Ranexa 1,000 mg b.i.d. as this does not have any impact on heart and blood pressure. I have personally had discussions in the past regarding possible transition to Hospice. I would readdress this with the patient and consider at least a palliative care consultation as the patient does have advanced lung disease as well as advanced coronary disease with no good revascularization options and known ischemic cardiomyopathy with severely reduced ejection fraction. Thank you. Dr. Victor, for allowing me to participate in the care of this patient.
[2022-07-30] MEDS: BUMEX 1 MG PO SCH ×2 (09:25→17:48)
[2022-07-30] MEDS: Ranexa 500 MG PO SCH ×2 (09:25→21:19)
[2022-07-30] MEDS: Mucinex 600MG ER Tabs PO SCH ×2 (09:25→21:19)
[2022-07-30] MEDS: Flomax 0.4 MG PO SCH (09:25)
[2022-07-30] MEDS: NEURONTIN PO SCH ×3 (09:26→21:18)
[2022-07-30] MEDS: Protonix 40MG Tablet PO SCH (09:26)
[2022-07-30] MEDS: FEOSOL 325 MG PO SCH (09:26)
[2022-07-30] MEDS: Cordarone 200 MG PO SCH (09:26)
[2022-07-30] MEDS: Klor Con PO SCH (09:26)
[2022-07-30] MEDS: Lexapro PO SCH (09:26)
[2022-07-30] MEDS: PLAVIX Tablet PO SCH (09:27)
[2022-07-30] MEDS: ECOTRIN 81 MG PO SCH (09:27)
[2022-07-30] MEDS: JARDIANCE PO SCH (09:28)
--- NOTE | 2022-07-30 13:39 | PCM.NOTE ---
Date and Time: 07/30/22 5368 Subjective Assessment: doing ok - Review of Systems Constitutional: No Fever, No Chills Eyes: No Symptoms Ears, Nose, & Throat: No Symptoms Respiratory: No Cough, No Short Of Breath Cardiac: No Chest Pain, No Edema, No Syncope Abdominal/Gastrointestinal: No Abdominal Pain, No Nausea, No Vomiting, No Diarrhea Genitourinary Symptoms: No Dysuria Musculoskeletal: No Back Pain, No Neck Pain Skin: No Rash Neurological: No Dizziness, No Focal Weakness, No Sensory Changes Psychological: No Symptoms Endocrine: No Symptoms Hematologic/Lymphatic: No Symptoms Immunological/Allergic: No Symptoms Objective Exam General Appearance: no apparent distress, alert Neurologic Exam: alert, oriented x 3, cooperative, normal mood/affect, nml cerebellar function, sensation nml, No motor deficits Skin Exam: normal color, warm, dry Eye Exam: PERRL, EOMI, eyes nml inspection Ears, Nose, Throat Exam: normal ENT inspection, pharynx normal, moist mucous membranes Neck Exam: normal inspection, non-tender, supple, full range of motion Respiratory Exam: normal breath sounds, lungs clear, No respiratory distress Cardiovascular Exam: regular rate/rhythm, normal heart sounds Gastrointestinal/Abdomen Exam: soft, No tenderness, No mass Extremity Exam: normal inspection, normal range of motion Back Exam: normal inspection, normal range of motion, No CVA tenderness, No vertebral tenderness Male Genitalia Exam: deferred Rectal Exam: deferred OBJECTIVE DATA Vital Signs: Vital Signs - 24 hr Temp Pulse Resp BP Pulse Ox 07/30/22 12:11 71 14 96 07/30/22 12:00 96.9 F 71 16 104/57 95 07/30/22 07:27 75 16 92 L 07/30/22 07:08 97.5 F 72 16 96/50 94 L 07/30/22 04:00 97.7 F 71 18 117/62 91 L 07/30/22 00:00 97.7 F 74 18 99/54 91 L 07/29/22 20:01 67 17 94 L 07/29/22 20:00 97.7 F 67 20 79/45 94 L 07/29/22 17:26 97.5 F 69 17 83/49 93 L 07/29/22 15:17 70 16 92 L 07/29/22 14:00 97.1 F 77 18 104/53 95 Pain Assessment - Last Documented Pain Intensity 4 Pain Scale Used 0-10 Pain Scale Intake and Output: Intake & Output 07/28/22 07/29/22 07/30/22 07/31/22 11:59 11:59 11:59 11:59 Intake Total 480 580 480 Output Total 800 600 850 Balance -071 -42 -153 Lab Results: Lab Results-Last 24 Hours 07/29/22 07/29/22 07/29/22 Range/Units 06:20 20:00 Unknown WBC 6.0 (4.0-10.5) x10^3/uL RBC 2.85 L (4.1-5.6) x10^6/uL Hgb 7.0 L (12.5-18.0) g/dL Hct 25.8 L (42-50) % MCV 90.5 (78-100) fL MCH 24.6 L (26-32) pg MCHC 27.1 L (32-36) g/dL RDW 19.3 H (11.5-14.0) % Plt Count 178 (150-450) x10^3/uL MPV 11.0 (7.5-11.0) fL Sodium (137-145) mmol/L Potassium (3.5-5.1) mmol/L Chloride (98-107) mmol/L Carbon Dioxide (22-30) mmol/L Anion Gap (5-15) MEQ/L BUN (9-20) mg/dL Creatinine (0.66-1.25) mg/dL Estimated GFR ML/MIN Glucose (74-106) mg/dL Calcium (8.4-10.2) mg/dL Slides for Path Review ABO Group O Rh Factor POSITIVE Antibody Screen NEGATIVE (NEGATIVE) Crossmatch COMPATIBLE COMPATIBLE (COMPATIBLE) 07/30/22 07/30/22 Range/Units 05:20 05:20 WBC 5.8 (4.0-10.5) x10^3/uL RBC 3.38 L (4.1-5.6) x10^6/uL Hgb 8.4 L (12.5-18.0) g/dL Hct 29.9 L (42-50) % MCV 88.5 (78-100) fL MCH 24.9 L (26-32) pg MCHC 28.1 L (32-36) g/dL RDW 19.9 H (11.5-14.0) % Plt Count 179 (150-450) x10^3/uL MPV 11.5 H (7.5-11.0) fL Sodium 133 L (137-145) mmol/L Potassium 4.3 (3.5-5.1) mmol/L Chloride 88 L (98-107) mmol/L Carbon Dioxide 36 H (22-30) mmol/L Anion Gap 13.3 (5-15) MEQ/L BUN 37 H (9-20) mg/dL Creatinine 1.48 H (0.66-1.25) mg/dL Estimated GFR 51.2 ML/MIN Glucose 99 (74-106) mg/dL Calcium 7.9 L (8.4-10.2) mg/dL Slides for Path Review YES ABO Group Rh Factor Antibody Screen (NEGATIVE) Crossmatch (COMPATIBLE) Multi-Disciplinary Progress Notes: Multi-Disciplinary Progress Notes 07/30/22 10:57 Case Management Note by Estefany Rivera CALLED THIS AM TO [facility] AND S/Nivia SHEETS ABOUT PRECERT- SUDEEP REPORTS THEY HAVE HAD THE WRONG ID NUMBER?? THEY WERE SENT PAPERWORK WITH INFO ON PRECERT PROCESS TO HELP WITH ASSISTANCE. Initialized on 07/30/22 10:57 - END OF NOTE 07/29/22 15:40 Nutrition Note by Annia Boothe F/u Note: 2000CC diet con't with 100% po intake. no recent weight/labs. fluid balance improving. goal of po intake >=75% met and ongoing. con't to recommend HH diet. ALVA Callaway Initialized on 07/29/22 15:40 - END OF NOTE 07/29/22 14:08 Case Management Note by Estefany Rivera/Nivia SHEETS AT [facility]- THEY HAVE BEEN CALLING AND EMAILING INSURANCE FOR DAYS TRYING TO GET APPROVAL FOR STAY. THEY ARE STILL WAITING FOR APPROVAL AT THIS TIME. Initialized on 07/29/22 14:08 - END OF NOTE Assessment/Plan (1) Congestive heart failure (CHF) Current Visit: Yes Status: Acute Qualifiers: Heart failure type: combined systolic and diastolic Heart failure chronicity: acute on chronic Qualified Code(s): I50.43 - Acute on chronic combined systolic (congestive) and diastolic (congestive) heart failure Code(s): I50.9 - HEART FAILURE, UNSPECIFIED (2) Hypotension Current Visit: Yes Status: Resolved Qualifiers: Hypotension type: other hypotension type Qualified Code(s): I95.89 - Other hypotension Code(s): I95.9 - HYPOTENSION, UNSPECIFIED (3) ACS (acute coronary syndrome) Current Visit: Yes Status: Resolved Code(s): I24.9 - ACUTE ISCHEMIC HEART DISEASE, UNSPECIFIED (4) Anemia Current Visit: Yes Status: Acute Qualifiers: Anemia type: iron deficiency Iron deficiency anemia type: unspecified iron deficiency Qualified Code(s): D50.9 - Iron deficiency anemia, unspecified Code(s): D64.9 - ANEMIA, UNSPECIFIED (5) Angina at rest Current Visit: Yes Status: Acute Code(s): I20.8 - OTHER FORMS OF ANGINA PECTORIS
[2022-07-30] MEDS: Toprol-Xl 25MG Tablets PO SCH (17:47)
[2022-07-30] MEDS: Imdur 30 MG PO SCH (17:47)
[2022-07-30] MEDS: MORPHINE SULFATE 4 MG INJ IV PRN ×2 (17:49→23:53)
[2022-07-30] MEDS: ZOCOR 20MG PO SCH (21:18)
[2022-07-30] MEDS: DESYREL 50 MG PO SCH (21:18)
[2022-07-31] MEDS: PROVENTIL 2.5 MG/3 ML NEB IH PRN (00:13)
[2022-07-31] MEDS: MORPHINE SULFATE 4 MG INJ IV PRN ×2 (04:14→11:27)
[2022-07-31] MEDS: Carafate 1 GM PO SCH ×2 (06:13→11:27)
[2022-07-31] MEDS: PROVENTIL 2.5 MG/3 ML NEB IH SCH ×2 (06:18→11:40)
--- NOTE | 2022-07-31 07:31 | PCM.NOTE ---
Date and Time: 07/31/22729 Subjective Assessment: cardiology consult reviewed. - Review of Systems Constitutional: No Fever, No Chills Eyes: No Symptoms Ears, Nose, & Throat: No Symptoms Respiratory: No Cough, No Short Of Breath Cardiac: No Chest Pain, No Edema, No Syncope Abdominal/Gastrointestinal: No Abdominal Pain, No Nausea, No Vomiting, No Diarrhea Genitourinary Symptoms: No Dysuria Musculoskeletal: No Back Pain, No Neck Pain Skin: No Rash Neurological: No Dizziness, No Focal Weakness, No Sensory Changes Psychological: No Symptoms Endocrine: No Symptoms Hematologic/Lymphatic: No Symptoms Immunological/Allergic: No Symptoms Objective Exam General Appearance: no apparent distress, alert Neurologic Exam: alert, oriented x 3, cooperative, normal mood/affect, nml cerebellar function, sensation nml, No motor deficits Skin Exam: normal color, warm, dry Eye Exam: PERRL, EOMI, eyes nml inspection Ears, Nose, Throat Exam: normal ENT inspection, pharynx normal, moist mucous membranes Neck Exam: normal inspection, non-tender, supple, full range of motion Respiratory Exam: normal breath sounds, lungs clear, No respiratory distress Cardiovascular Exam: regular rate/rhythm, normal heart sounds Gastrointestinal/Abdomen Exam: soft, No tenderness, No mass Extremity Exam: normal inspection, normal range of motion Back Exam: normal inspection, normal range of motion, No CVA tenderness, No vertebral tenderness Male Genitalia Exam: deferred Rectal Exam: deferred OBJECTIVE DATA Vital Signs: Vital Signs - 24 hr Temp Pulse Resp BP Pulse Ox 07/31/22 06:19 82 18 92 L 07/31/22 04:00 97.9 F 88 22 105/58 94 L 07/31/22 00:00 98.0 F 79 20 112/65 96 07/30/22 20:00 97.7 F 78 20 95/52 95 07/30/22 19:07 75 22 94 L 07/30/22 16:00 97.3 F 87 18 112/55 92 L 07/30/22 15:36 80 16 94 L 07/30/22 12:11 71 14 96 07/30/22 12:00 96.9 F 71 16 104/57 95 Pain Assessment - Last Documented Pain Intensity 6 Pain Scale Used 0-10 Pain Scale Intake and Output: Intake & Output 07/28/22 07/29/22 07/30/22 07/31/22 11:59 11:59 11:59 11:59 Intake Total 480 454 140 3483 Output Total 800 722 943 2459 [place] -320 -20 -370 -2905 Multi-Disciplinary Progress Notes: Multi-Disciplinary Progress Notes 07/30/22 13:46 Physical Therapy Note by Lily Carey UPON ARRIVAL PT WAS HARD TO WAKE UP. NURSING ASSESSED VITALS AND HE WAS WITH NORMAL LIMITS. PT NEEDED TO VOID, ATTEMPTED TO STAND AT WALKER AND USE URINAL, MIN. ASSIST X 2 FOR SIT TO STAND AND CGA WHILE STANDING, PT UNABLE TO VOID. PT THEN SET BACK DOWN ON SIDE OF BED. PT REQUESTED TO ATTEMPT COMMODE, TRANSFERRED PT TO COMMODE WITH MIN ASSIST X 2. AGAIN, UNABLE TO VOID, TRANSFERRED TO TO BED, SIT TO STAND ATTEMPT X 2 AND MIN ASSIST X 2 WITH HEAVY CUING FOR SAFETY WHEN PUSHING TO GET INTO STANDING. LEGS STARTED SHAKING ON BOTH ATTEMPTS BUT ABLE TO GET INTO BED, CUES GIVEN TO BRIDGE AND GET STRAIGHT IN BED, PT WAS ABLE TO FOLLOW. PT DECLINED TO COMPLETE EXERCISES OR SIT UP IN CHAIR. PT WAS VERY FATIGUED AND HARD TO UNDERSTAND WHEN HE WAS SPEAKING. Addendum entered by Lily Carey 07/30/22 14:31: PT WAS SEEN AT 11:25 AM Initialized on 07/30/22 13:46 - END OF NOTE 07/30/22 10:57 Case Management Note by Estefany Rivera CALLED THIS AM TO [facility] AND S/W SUDEEP ABOUT PRECERT- SUDEEP REPORTS THEY HAVE HAD THE WRONG ID NUMBER?? THEY WERE SENT PAPERWORK WITH INFO ON PRECERT PROCESS TO HELP WITH ASSISTANCE. Initialized on 07/30/22 10:57 - END OF NOTE Assessment/Plan (1) Congestive heart failure (CHF) Current Visit: Yes Status: Acute Qualifiers: Heart failure type: combined systolic and diastolic Heart failure chronicity: acute on chronic Qualified Code(s): I50.43 - Acute on chronic combined systolic (congestive) and diastolic (congestive) heart failure Assessment & Plan: Chief Complaint Diagnosis SEPSIS, HYPOTENSION, ACS, ANEMIA Allergies Allergy/AdvReac Type Severity Reaction Status Date / Time No Known Drug Allergies Allergy Verified 07/21/22 14:10 Vital Signs (Last 24 hours) Temp Pulse Resp BP Pulse Ox 07/31/22 06:19 82 18 92 L 07/31/22 04:00 97.9 F 88 22 105/58 94 L 07/31/22 00:00 98.0 F 79 20 112/65 96 07/30/22 20:00 97.7 F 78 20 95/52 95 07/30/22 19:07 75 22 94 L 07/30/22 16:00 97.3 F 87 18 112/55 92 L 07/30/22 15:36 80 16 94 L 07/30/22 12:11 71 14 96 07/30/22 12:00 96.9 F 71 16 104/57 95 Home Medications Medication Instructions Recorded Confirmed Last Taken Type Nitroglycerin 0.4 mg/Hr 1 patch TOP DAILY 07/22/22 07/22/22 Unknown History [Nitro-Dur 0.4 MG/HR] Current Medications Generic Name Dose Route Start Last Admin Trade Name Freq PRN Reason Stop Dose Admin Acetaminophen 500 mg 07/29/22 18:18 Acetaminophen 500 Mg Tablet PO 08/28/22 18:17 Q6H PRN PRN PAIN Albuterol Sulfate 2.5 mg 07/22/22 05:51 07/31/22 00:13 Albuterol Sulfate 2.5 Mg/3 Ml Neb 08/21/22 05:50 2.5 mg Q4H PRN PRN Administration SHORTNESS OF BREATH/WHEEZING Albuterol Sulfate 2.5 mg 07/22/22 11:00 07/31/22 06:18 Albuterol Sulfate 2.5 Mg/3 Ml Neb 08/21/22 10:59 2.5 mg QIDRT KIRBY Administration Amiodarone HCl 200 mg 07/22/22 13:00 07/30/22 09:26 Amiodarone Hcl 200 Mg Tab PO 08/21/22 12:59 200 mg DAILY KIRBY Administration Aspirin 81 mg 07/22/22 13:00 07/30/22 09:27 Aspirin 81 Mg Tablet.Ec PO 08/21/22 12:59 81 mg DAILY KIRBY Administration Bumetanide 2 mg 07/22/22 17:00 07/30/22 17:48 Bumetanide 1 Mg Tablet PO 08/21/22 16:59 2 mg BID DIURETIC KIRBY Administration Clopidogrel Bisulfate 75 mg 07/22/22 13:00 07/30/22 09:27 Clopidogrel Bisulfate 75 Mg Tablet PO 08/21/22 12:59 75 mg DAILY [facility] Administration Empagliflozin 25 mg 07/29/22 18:01 07/30/22 09:28 Empagliflozin 10 Mg Tablet PO 08/21/22 12:59 25 mg DAILY KIRBY Administration Escitalopram Oxalate 10 mg 07/22/22 13:00 07/30/22 09:26 Escitalopram Oxalate 10 Mg Tablet PO 08/21/22 12:59 10 mg DAILY KIRBY Administration Ferrous Sulfate 325 mg 07/22/22 13:00 07/30/22 09:26 Ferrous Sulfate 325 Mg Tablet PO 08/21/22 12:59 325 mg DAILY KIRBY Administration Gabapentin 300 mg 07/22/22 15:00 07/30/22 21:18 Gabapentin 300 Mg Capsule PO 08/21/22 14:59 300 mg TID [facility] Administration Guaifenesin 600 mg 07/26/22 10:00 07/30/22 21:19 Guaifenesin 600 Mg Tablet Er PO 08/25/22 09:59 600 mg BID [facility] Administration Sodium Chloride 1,000 mls @ 0 mls/hr 07/21/22 21:15 Sodium Chloride 0.9% 1000 Ml IV 08/20/22 21:14 .Q0M [facility] KVO Isosorbide Mononitrate 30 mg 07/28/22 12:00 07/30/22 17:47 Isosorbide Mononitrate 30 Mg Tab PO 08/27/22 11:59 Not Given NOON [facility] Metoprolol Succinate 25 mg 07/30/22 10:00 07/30/22 17:47 Metoprolol Succinate 25 Mg Xl Tab PO 08/29/22 09:59 Not Given DAILY [facility] Morphine Sulfate 4 mg 07/29/22 18:03 07/31/22 04:14 Morphine Sulfate 4 Mg/Ml Injection IV 08/03/22 18:02 4 mg Q4H PRN PRN Administration PAIN Nitroglycerin 0.4 mg 07/23/22 07:15 Nitroglycerin 0.4 Mg Tablet Bottle SL 08/21/22 12:29 Q5MIN PRN MR X 3 PRN Nitroglycerin 0.4 mg 07/29/22 18:10 07/30/22 07:35 Nitroglycerin 0.4 Mg Patch TD 08/28/22 18:09 0.4 mg DAILY@0800 [facility] Administration Non-Formulary Medication 1 each 07/22/22 22:00 07/30/22 21:20 Remove Patch 1 Each TOP 08/21/22 21:59 1 each HS [facility]BY Administration Ondansetron HCl 4 mg 07/21/22 21:13 07/28/22 10:07 Ondansetron Hcl 4 Mg/2 Ml Vial IV 08/20/22 21:12 4 mg Q6H PRN PRN Administration NAUSEA/VOMITING Ondansetron HCl 4 mg 07/22/22 12:34 Zofran 4 Mg/Udtablet Orally Disintegrating PO 08/21/22 12:33 Q8H PRN PRN NAUSEA Pantoprazole Sodium 40 mg 07/22/22 13:00 07/30/22 09:26 Protonix (Pantoprazole) 40 Mg Tablet PO 08/21/22 12:59 40 mg DAILY [facility] Administration Potassium Chloride 10 meq 07/22/22 13:00 07/30/22 09:26 Potassium Chloride Tab 10 Meq Tab PO 08/21/22 12:59 10 meq DAILY [facility] Administration Ranolazine 1,000 mg 07/29/22 22:00 07/30/22 21:19 Ranolazine 500 Mg Tab.Sr.12h PO 08/28/22 21:59 1,000 mg Q12HT [facility] Administration Simvastatin 40 mg 07/22/22 22:00 07/30/22 21:18 Simvastatin 20 Mg Tablet PO 08/21/22 21:59 40 mg HS [facility] Administration Sucralfate 1 g 07/22/22 16:30 07/31/22 06:13 Sucralfate 1 G Tablet PO 08/21/22 16:29 1 g ACHS [facility] Administration Tamsulosin HCl 0.4 mg 07/22/22 13:00 07/30/22 09:25 Tamsulosin Hcl 0.4 Mg Cap PO 08/21/22 12:59 0.4 mg DAILY [facility] Administration Trazodone HCl 50 mg 07/22/22 22:00 07/30/22 21:18 Trazodone Hcl 50 Mg Tablet PO 08/21/22 21:59 50 mg HS KIRBY Administration Discontinued Medications Generic Name Dose Route Start Last Admin Trade Name Freq PRN Reason Stop Dose Admin Acetaminophen 500 mg 07/29/22 13:00 07/29/22 14:40 Acetaminophen 500 Mg Tablet PO 08/28/22 12:59 500 mg Q6H [facility] Administration Albuterol/Ipratropium 3 ml 07/21/22 22:32 07/21/22 22:36 Ipratropium/Albuterol Sulfate 3 Ml Ampul.Neb IH 07/21/22 22:33 3 ml STAT ONE Administration Albuterol/Ipratropium Confirm 07/21/22 22:33 Ipratropium/Albuterol Sulfate 3 Ml Ampul.Neb Administered 07/21/22 22:34 Dose 3 ml IH .STK-MED ONE Amlodipine Besylate 5 mg 07/22/22 13:00 07/27/22 09:13 Amlodipine Besylate 5 Mg Tablet PO 08/21/22 12:59 Not Given DAILY [facility] Amlodipine Besylate 5 mg 07/28/22 22:00 07/28/22 23:01 Amlodipine Besylate 5 Mg Tablet PO 08/27/22 21:59 Not Given HS KRIBY Empagliflozin 10 mg 07/22/22 13:00 07/29/22 09:03 Empagliflozin 10 Mg Tablet PO 08/21/22 12:59 10 mg DAILY [facility] Administration Furosemide 40 mg 07/29/22 18:56 07/30/22 00:30 Furosemide 40 Mg/4 Ml Vial IV 40 mg BETWEEN UNITS PRN Administration SHORTNESS OF BREATH Heparin Sodium (Beef Lung) 5,000 unit 07/21/22 22:00 07/22/22 11:55 Heparin 5000 Unit/0.5 Ml Syringe SQ 08/20/22 21:59 Not Given BID KIR[facility] Norepinephrine/Dextrose 8 mg in 250 mls @ 15 mls/hr 07/21/22 14:29 07/21/22 19:37 Norepinephrine 8 Mg/250 Ml-D5w IV 08/20/22 14:28 0 mcg/min .[id number] PRN 0 mls/hr HYPOTENSION Titration Protocol 8 MCG/MIN Sodium Chloride 500 mls @ 500 mls/hr 07/21/22 15:58 07/21/22 17:24 Sodium Chloride 0.9% 500 Ml IV 07/21/22 16:57 Infused .Q1H ONE Infusion Sodium Chloride Confirm 07/21/22 16:08 Sodium Chloride 0.9% 500 Ml Administered 07/21/22 16:09 Dose 500 mls @ ud IV .STK-MED ONE Ceftriaxone Sodium/Dextrose 1 g in 50 mls @ 100 mls/hr 07/21/22 21:10 07/21/22 22:32 Rocephin 1 Gm-D5w 50 Ml Bag IV 07/21/22 21:39 Infused STAT STA Infusion Ceftriaxone Sodium/Dextrose 1 g in 50 mls @ 100 mls/hr 07/22/22 22:00 07/27/22 20:31 Rocephin 1 Gm-D5w 50 Ml Bag IV 07/28/22 21:59 100 mls/hr Q24H22 KIBRY Administration Ceftriaxone Sodium/Dextrose Confirm 07/21/22 21:20 Rocephin 1 Gm-D5w 50 Ml Bag Administered 07/21/22 21:21 Dose 1 g in 50 mls @ ud IV .STK-MED ONE Norepinephrine/Dextrose Confirm 07/21/22 14:30 Norepinephrine 8 Mg/250 Ml-D5w Administered 07/21/22 14:31 Dose 8 mg in 250 mls @ ud IV .STK-MED ONE Sodium Chloride Confirm 07/29/22 21:34 Sodium Chloride 0.9% 500 Ml Administered 07/29/22 21:35 Dose 500 mls @ ud IV .STK-MED ONE Isosorbide Mononitrate 30 mg 07/22/22 13:00 07/27/22 09:13 Isosorbide Mononitrate 30 Mg Tab PO 08/21/22 12:59 Not Given DAILY [facility] Losartan Potassium 25 mg 07/22/22 13:00 07/29/22 09:01 Losartan Potassium 50 Mg Tablet PO 08/21/22 12:59 25 mg DAILY [facility] Administration Metoprolol Succinate 50 mg 07/22/22 13:00 07/27/22 20:32 Metoprolol Succinate 50 Mg Tablet.Sa PO 08/21/22 12:59 Not Given BID KIRBY Metoprolol Succinate 50 mg 07/28/22 10:00 07/29/22 09:03 Metoprolol Succinate 50 Mg Tablet.Sa PO 08/27/22 09:59 50 mg DAILY KIRBY Administration Miscellaneous Information 1 each 07/22/22 12:45 Medication Intervention 1 Each Each 08/21/22 12:44 .RN TO CHECK KIRBY Morphine Sulfate 4 mg 07/22/22 02:20 07/28/22 10:10 Morphine Sulfate 4 Mg/Ml Injection IV 08/01/22 12:00 4 mg Q4H PRN PRN Administration PAIN Nitroglycerin 0.1 mg 07/22/22 13:00 Nitroglycerin 0.1 Mg Patch.Td24 TD 08/21/22 12:59 DAILY [facility] Nitroglycerin 0.4 mg 07/22/22 12:30 Nitroglycerin 0.4 Mg Tablet Bottle SL 08/21/22 12:29 CLARIFY KIRBY Nitroglycerin 0.4 mg 07/22/22 17:30 07/27/22 08:13 Nitroglycerin 0.4 Mg Patch TOP 08/21/22 17:29 0.4 mg DAILY [facility] Administration Ranolazine 500 mg 07/22/22 13:00 07/23/22 21:20 Ranolazine 500 Mg Tab.Sr.12h PO 08/21/22 12:59 500 mg BID [facility] Administration Ranolazine 1,000 mg 07/24/22 09:05 07/27/22 20:31 Ranolazine 500 Mg Tab.Sr.12h PO 08/21/22 12:59 1,000 mg BID [facility] Administration Trazodone HCl Confirm 07/22/22 02:34 Trazodone Hcl 50 Mg Tablet Administered 07/22/22 02:35 Dose 50 mg .ROUTE .STK-MED ONE Intake & Output (Last 24 hours) 07/28/22 07/29/22 07/30/22 07/31/22 11:59 11:59 11:59 11:59 Intake Total 480 842 589 6438 Output Total 800 158 272 3170 Balance -320 -20 -370 -2905 Orders (Last 24 hours) Category Date Time Status Metoprolol Succinate 25 mg Xl* [Toprol-Xl 25MG Tablets* Med 07/30/22 10:00 Active ] 25 mg PO DAILY Patient Care Notes (Last 24 hours) 07/30/22 13:46 Physical Therapy Note by Lily Carey UPON ARRIVAL PT WAS HARD TO WAKE UP. NURSING ASSESSED VITALS AND HE WAS WITH NORMAL LIMITS. PT NEEDED TO VOID, ATTEMPTED TO STAND AT WALKER AND USE URINAL, MIN. ASSIST X 2 FOR SIT TO STAND AND CGA WHILE STANDING, PT UNABLE TO VOID. PT THEN SET BACK DOWN ON SIDE OF BED. PT REQUESTED TO ATTEMPT COMMODE, TRANSFERRED PT TO COMMODE WITH MIN ASSIST X 2. AGAIN, UNABLE TO VOID, TRANSFERRED TO TO BED, SIT TO STAND ATTEMPT X 2 AND MIN ASSIST X 2 WITH HEAVY CUING FOR SAFETY WHEN PUSHING TO GET INTO STANDING. LEGS STARTED SHAKING ON BOTH ATTEMPTS BUT ABLE TO GET INTO BED, CUES GIVEN TO BRIDGE AND GET STRAIGHT IN BED, PT WAS ABLE TO FOLLOW. PT DECLINED TO COMPLETE EXERCISES OR SIT UP IN CHAIR. PT WAS VERY FATIGUED AND HARD TO UNDERSTAND WHEN HE WAS SPEAKING. Addendum entered by Lily Carey 07/30/22 14:31: PT WAS SEEN AT 11:25 AM Initialized on 07/30/22 13:46 - END OF NOTE 07/30/22 10:57 Case Management Note by Estefany Rivera CALLED THIS AM TO [facility] AND S/W SUDEEP ABOUT PRECERT- SUDEEP REPORTS THEY HAVE HAD THE WRONG ID NUMBER?? THEY WERE SENT PAPERWORK WITH INFO ON PRECERT PROCESS TO HELP WITH ASSISTANCE. Initialized on 07/30/22 10:57 - END OF NOTE Code(s): I50.9 - HEART FAILURE, UNSPECIFIED (2) Hypotension Current Visit: Yes Status: Resolved Qualifiers: Hypotension type: other hypotension type Qualified Code(s): I95.89 - Other hypotension Code(s): I95.9 - HYPOTENSION, UNSPECIFIED (3) ACS (acute coronary syndrome) Current Visit: Yes Status: Resolved Code(s): I24.9 - ACUTE ISCHEMIC HEART DISEASE, UNSPECIFIED (4) Anemia Current Visit: Yes Status: Acute Qualifiers: Anemia type: iron deficiency Iron deficiency anemia type: unspecified iron deficiency Qualified Code(s): D50.9 - Iron deficiency anemia, unspecified Code(s): D64.9 - ANEMIA, UNSPECIFIED (5) Angina at rest Current Visit: Yes Status: Acute Code(s): I20.8 - OTHER FORMS OF ANGINA PECTORIS
[2022-07-31] MEDS: Nitro-Dur 0.4 MG/HR TD SCH (08:42)
[2022-07-31 09:35] VITALS: BP 114/56
[2022-07-31] MEDS: Cordarone 200 MG PO SCH (09:46)
[2022-07-31] MEDS: ECOTRIN 81 MG PO SCH (09:46)
[2022-07-31] MEDS: Protonix 40MG Tablet PO SCH (09:46)
[2022-07-31] MEDS: FEOSOL 325 MG PO SCH (09:46)
[2022-07-31] MEDS: Klor Con PO SCH (09:47)
[2022-07-31] MEDS: Flomax 0.4 MG PO SCH (09:47)
[2022-07-31] MEDS: Ranexa 500 MG PO SCH (09:47)
[2022-07-31] MEDS: Mucinex 600MG ER Tabs PO SCH (09:47)
[2022-07-31] MEDS: Lexapro PO SCH (09:47)
[2022-07-31] MEDS: BUMEX 1 MG PO SCH (09:47)
[2022-07-31] MEDS: PLAVIX Tablet PO SCH (09:47)
[2022-07-31] MEDS: NEURONTIN PO SCH (09:47)
[2022-07-31] MEDS: JARDIANCE PO SCH (09:48)
[2022-07-31] MEDS: Toprol-Xl 25MG Tablets PO SCH (09:51)
[2022-07-31 11:45] VITALS: PULSE 80; O2SAT 94
[2022-07-31] MEDS: Imdur 30 MG PO SCH (14:25)
--- NOTE | 2022-08-02 20:31 | PCM.DS ---
Discharge Summary Date of Admission: 07/22/22 07:59 Admitting Physician: KEVYN VANCE Consults: Consults on Case 07/22/22 12:07 Consult,Sarthak [Psychiatric Consult] STAT Primary Care Provider: GABRIEL MEEKS Allergies Allergies No Known Drug Allergies Allergy (Verified 07/21/22 14:10) Hospital Summary - Hospital Course Hospital Course: Chief Complaint Diagnosis SEPSIS, HYPOTENSION, ACS, ANEMIA Allergies Allergy/AdvReac Type Severity Reaction Status Date / Time No Known Drug Allergies Allergy Verified 07/21/22 14:10 Home Medications Medication Instructions Recorded Confirmed Last Taken Type Nitroglycerin 0.4 mg/Hr 1 patch TOP DAILY 07/22/22 07/22/22 Unknown History [Nitro-Dur 0.4 MG/HR] Empagliflozin [Jardiance] 25 mg PO DAILY #90 tablet 07/31/22 Unknown Rx Metoprolol Succinate 25 mg Xl* 25 mg PO DAILY #30 tablet 07/31/22 Unknown Rx [Toprol-Xl 25MG Tablets] Current Medications Discontinued Medications Generic Name Dose Route Start Last Admin Trade Name Freq PRN Reason Stop Dose Admin Acetaminophen 500 mg 07/29/22 13:00 07/29/22 14:40 Acetaminophen 500 Mg Tablet PO 08/28/22 12:59 500 mg Q6H KIRBY Administration Acetaminophen 500 mg 07/29/22 18:18 Acetaminophen 500 Mg Tablet PO 08/28/22 18:17 Q6H PRN PRN PAIN Albuterol Sulfate 2.5 mg 07/22/22 05:51 07/31/22 00:13 Albuterol Sulfate 2.5 Mg/3 Ml [facility] 08/21/22 05:50 2.5 mg Q4H PRN PRN Administration SHORTNESS OF BREATH/WHEEZING Albuterol Sulfate 2.5 mg 07/22/22 11:00 07/31/22 11:40 Albuterol Sulfate 2.5 Mg/3 Ml [facility] 08/21/22 10:59 2.5 mg QIDRT KIRBY Administration Albuterol/Ipratropium 3 ml 07/21/22 22:32 07/21/22 22:36 Ipratropium/Albuterol Sulfate 3 Ml Ampul.[facility] 07/21/22 22:33 3 ml STAT ONE Administration Albuterol/Ipratropium Confirm 07/21/22 22:33 Ipratropium/Albuterol Sulfate 3 Ml Ampul.Neb Administered 07/21/22 22:34 Dose 3 ml IH .STK-MED ONE Amiodarone HCl 200 mg 07/22/22 13:00 07/31/22 09:46 Amiodarone Hcl 200 Mg Tab PO 08/21/22 12:59 200 mg DAILY KIRBY Administration Amlodipine Besylate 5 mg 07/22/22 13:00 07/27/22 09:13 Amlodipine Besylate 5 Mg Tablet PO 08/21/22 12:59 Not Given DAILY KIRBY Amlodipine Besylate 5 mg 07/28/22 22:00 07/28/22 23:01 Amlodipine Besylate 5 Mg Tablet PO 08/27/22 21:59 Not Given HS KIRBY Aspirin 81 mg 07/22/22 13:00 07/31/22 09:46 Aspirin 81 Mg Tablet.Ec PO 08/21/22 12:59 81 mg DAILY KIRBY Administration Bumetanide 2 mg 07/22/22 17:00 07/31/22 09:47 Bumetanide 1 Mg Tablet PO 08/21/22 16:59 2 mg BID DIURETIC KIRBY Administration Clopidogrel Bisulfate 75 mg 07/22/22 13:00 07/31/22 09:47 Clopidogrel Bisulfate 75 Mg Tablet PO 08/21/22 12:59 75 mg DAILY KIRBY Administration Empagliflozin 10 mg 07/22/22 13:00 07/29/22 09:03 Empagliflozin 10 Mg Tablet PO 08/21/22 12:59 10 mg DAILY KIRBY Administration Empagliflozin 25 mg 07/29/22 18:01 07/31/22 09:48 Empagliflozin 10 Mg Tablet PO 08/21/22 12:59 25 mg DAILY KIRBY Administration Escitalopram Oxalate 10 mg 07/22/22 13:00 07/31/22 09:47 Escitalopram Oxalate 10 Mg Tablet PO 08/21/22 12:59 10 mg DAILY KIRBY Administration Ferrous Sulfate 325 mg 07/22/22 13:00 07/31/22 09:46 Ferrous Sulfate 325 Mg Tablet PO 08/21/22 12:59 325 mg DAILY KIRBY Administration Furosemide 40 mg 07/29/22 18:56 07/30/22 00:30 Furosemide 40 Mg/4 Ml Vial IV 40 mg BETWEEN UNITS PRN Administration SHORTNESS OF BREATH Gabapentin 300 mg 07/22/22 15:00 07/31/22 09:47 Gabapentin 300 Mg Capsule PO 08/21/22 14:59 300 mg TID KIRBY Administration Guaifenesin 600 mg 07/26/22 10:00 07/31/22 09:47 Guaifenesin 600 Mg Tablet Er PO 08/25/22 09:59 600 mg BID KIRBY Administration Heparin Sodium (Beef Lung) 5,000 unit 07/21/22 22:00 07/22/22 11:55 Heparin 5000 Unit/0.5 Ml Syringe SQ 08/20/22 21:59 Not Given BID KIRBY Norepinephrine/Dextrose 8 mg in 250 mls @ 15 mls/hr 07/21/22 14:29 07/21/22 19:37 Norepinephrine 8 Mg/250 Ml-D5w IV 08/20/22 14:28 0 mcg/min .[id number] PRN 0 mls/hr HYPOTENSION Titration Protocol 8 MCG/MIN Sodium Chloride 500 mls @ 500 mls/hr 07/21/22 15:58 07/21/22 17:24 Sodium Chloride 0.9% 500 Ml IV 07/21/22 16:57 Infused .Q1H ONE Infusion Sodium Chloride Confirm 07/21/22 16:08 Sodium Chloride 0.9% 500 Ml Administered 07/21/22 16:09 Dose 500 mls @ ud IV .STK-MED ONE Ceftriaxone Sodium/Dextrose 1 g in 50 mls @ 100 mls/hr 07/21/22 21:10 0 07/21/22 22:32 Rocephin 1 Gm-D5w 50 Ml Bag IV 07/21/22 21:39 Infused STAT STA Infusion Sodium Chloride 1,000 mls @ 0 mls/hr 07/21/22 21:15 Sodium Chloride 0.9% 1000 Ml IV 08/20/22 21:14 .Q0M KIRBY KVO Ceftriaxone Sodium/Dextrose 1 g in 50 mls @ 100 mls/hr 07/22/22 22:00 07/27/22 20:31 Rocephin 1 Gm-D5w 50 Ml Bag IV 07/28/22 21:59 100 mls/hr Q24H22 KIRBY Administration Ceftriaxone Sodium/Dextrose Confirm 07/21/22 21:20 Rocephin 1 Gm-D5w 50 Ml Bag Administered 07/21/22 21:21 Dose 1 g in 50 mls @ ud IV .STK-MED ONE Norepinephrine/Dextrose Confirm 07/21/22 14:30 Norepinephrine 8 Mg/250 Ml-D5w Administered 07/21/22 14:31 Dose 8 mg in 250 mls @ ud IV .STK-MED ONE Sodium Chloride Confirm 07/29/22 21:34 Sodium Chloride 0.9% 500 Ml Administered 07/29/22 21:35 Dose 500 mls @ ud IV .STK-MED ONE Isosorbide Mononitrate 30 mg 07/22/22 13:00 07/27/22 09:13 Isosorbide Mononitrate 30 Mg Tab PO 08/21/22 12:59 Not Given DAILY KIRBY Isosorbide Mononitrate 30 mg 07/28/22 12:00 07/31/22 14:25 Isosorbide Mononitrate 30 Mg Tab PO 08/27/22 11:59 Not Given NOON KIRBY Losartan Potassium 25 mg 07/22/22 13:00 07/29/22 09:01 Losartan Potassium 50 Mg Tablet PO 08/21/22 12:59 25 mg DAILY KIRBY Administration Metoprolol Succinate 50 mg 07/22/22 13:00 07/27/22 20:32 Metoprolol Succinate 50 Mg Tablet.Sa PO 08/21/22 12:59 Not Given BID KIRBY Metoprolol Succinate 50 mg 07/28/22 10:00 07/29/22 09:03 Metoprolol Succinate 50 Mg Tablet.Sa PO 08/27/22 09:59 50 mg DAILY KIRBY Administration Metoprolol Succinate 25 mg 07/30/22 10:00 07/31/22 09:51 Metoprolol Succinate 25 Mg Xl Tab PO 08/29/22 09:59 25 mg DAILY KIRBY Administration Miscellaneous Information 1 each 07/22/22 12:45 Medication Intervention 1 Each Each 08/21/22 12:44 .RN TO CHECK KIRBY Morphine Sulfate 4 mg 07/22/22 02:20 07/28/22 10:10 Morphine Sulfate 4 Mg/Ml Injection IV 08/01/22 12:00 4 mg Q4H PRN PRN Administration PAIN Morphine Sulfate 4 mg 07/29/22 18:03 07/31/22 11:27 Morphine Sulfate 4 Mg/Ml Injection IV 08/03/22 18:02 4 mg Q4H PRN PRN Administration PAIN Nitroglycerin 0.1 mg 07/22/22 13:00 Nitroglycerin 0.1 Mg Patch.Td24 TD 08/21/22 12:59 DAILY KIRBY Nitroglycerin 0.4 mg 07/22/22 12:30 Nitroglycerin 0.4 Mg Tablet Bottle SL 08/21/22 12:29 CLARIFY KIRBY Nitroglycerin 0.4 mg 07/22/22 17:30 07/27/22 08:13 Nitroglycerin 0.4 Mg Patch TOP 08/21/22 17:29 0.4 mg DAILY KIRBY Administration Nitroglycerin 0.4 mg 07/23/22 07:15 Nitroglycerin 0.4 Mg Tablet Bottle SL 08/21/22 12:29 Q5MIN PRN MR X 3 PRN Nitroglycerin 0.4 mg 07/29/22 18:10 07/31/22 08:42 Nitroglycerin 0.4 Mg Patch TD 08/28/22 18:09 0.4 mg DAILY@0800 KIRBY Administration Non-Formulary Medication 1 each 07/22/22 22:00 07/30/22 21:20 Remove Patch 1 Each TOP 08/21/22 21:59 1 each HS KIRBY Administration Ondansetron HCl 4 mg 07/21/22 21:13 07/28/22 10:07 Ondansetron Hcl 4 Mg/2 Ml Vial IV 08/20/22 21:12 4 mg Q6H PRN PRN Administration NAUSEA/VOMITING Ondansetron HCl 4 mg 07/22/22 12:34 Zofran 4 Mg/Udtablet Orally Disintegrating PO 08/21/22 12:33 Q8H PRN PRN NAUSEA Pantoprazole Sodium 40 mg 07/22/22 13:00 07/31/22 09:46 Protonix (Pantoprazole) 40 Mg Tablet PO 08/21/22 12:59 40 mg DAILY KIRBY Administration Potassium Chloride 10 meq 07/22/22 13:00 07/31/22 09:47 Potassium Chloride Tab 10 Meq Tab PO 08/21/22 12:59 10 meq DAILY KIRBY Administration Ranolazine 500 mg 07/22/22 13:00 07/23/22 21:20 Ranolazine 500 Mg Tab.Sr.12h PO 08/21/22 12:59 500 mg BID KIRBY Administration Ranolazine 1,000 mg 07/24/22 09:05 07/27/22 20:31 Ranolazine 500 Mg Tab.Sr.12h PO 08/21/22 12:59 1,000 mg BID KIRBY Administration Ranolazine 1,000 mg 07/29/22 22:00 07/31/22 09:47 Ranolazine 500 Mg Tab.Sr.12h PO 08/28/22 21:59 1,000 mg Q12HT KIRBY Administration Simvastatin 40 mg 07/22/22 22:00 07/30/22 21:18 Simvastatin 20 Mg Tablet PO 08/21/22 21:59 40 mg HS KIRBY Administration Sucralfate 1 g 07/22/22 16:30 07/31/22 11:27 Sucralfate 1 G Tablet PO 08/21/22 16:29 1 g ACHS KIRBY Administration Tamsulosin HCl 0.4 mg 07/22/22 13:00 07/31/22 09:47 Tamsulosin Hcl 0.4 Mg Cap PO 08/21/22 12:59 0.4 mg DAILY KIRBY Administration Trazodone HCl 50 mg 07/22/22 22:00 07/30/22 21:18 Trazodone Hcl 50 Mg Tablet PO 08/21/22 21:59 50 mg HS KIRBY Administration Trazodone HCl Confirm 07/22/22 02:34 Trazodone Hcl 50 Mg Tablet Administered 07/22/22 02:35 Dose 50 mg .ROUTE .STK-MED ONE Intake & Output (Last 24 hours) 07/31/22 08/01/22 08/02/22 08/03/22 11:59 11:59 11:59 11:59 Intake Total 1120 Output Total 4325 Balance -3205 - Vitals & Intake/Output Vital Signs: Vital Signs Temperature 97.1 F 07/31/22 08:00 Pulse Rate 80 07/31/22 11:43 Respiratory Rate 16 07/31/22 11:43 Blood Pressure 114/56 07/31/22 09:34 O2 Sat by Pulse Oximetry 94 L 07/31/22 11:43 Intake & Output: Intake & Output 07/31/22 08/01/22 08/02/22 08/03/22 11:59 11:59 11:59 11:59 Intake Total 1120 Output Total 4325 Balance -3205 - Lab Result Diagrams: 07/30/22 05:20 07/30/22 05:20 Micro Results-Entire Visit: Microbiology 07/21/22 21:45 Blood Culture Gram Stain - Final Blood Not Reportable Blood Culture - Final NO GROWTH 07/21/22 21:25 Blood Culture Gram Stain - Final Blood Not Reportable Blood Culture - Final NO GROWTH - Procedures and Test Procedures and Tests throughout Hospitalization: Therapy Orders & Screens 07/21/22 21:13 Oxygen Nasal Cannula 4 lpm Comment: 07/21/22 22:36 Respiratory Therapy Assessment DAILY Comment: 07/22/22 00:52 RT Screen per Nursing Assess ONCE Comment: Protocol Order Physician Instructions: Greater than 3 points order RT Admission Screen Reason For Exam: Triggered on Admission Diagnosis: hypotension, sepsis Diagnosis: hypotension, sepsis Pneumonia: No Home O2: Yes Asthma: No CHF: Yes Home CPAP/BIPAP: No Home Nebs/MDI: Yes Total Points: 13 07/22/22 01:16 OT Screen per Nursing Assess ONCE Comment: Protocol Order Physician Instructions: Greater than 3 points order OT Admission Screening Reason For Exam: Triggered on Admission Diagnosis: hypotension, sepsis Open Wound/Cellutlitis/Pressure Ulcers: Yes Acute Fx/ORIF/Change in wt bearing status: No Severe MUSCULOSKELETAL pain: No ADL Dysfunction: No Acute CVA w/Hemiparesis/Hemiplegia: No Decreased Functional Mobility/Strength: No Sprain/Strain: No Acute Post-op Mobility Dysfunction: No Total Points: 5 PT Screen per Nursing Assess ONCE Comment: Protocol Order Physician Instructions: Greater than 3 points order PT Admission Screenin Reason For Exam: Triggered on Admission Diagnosis: hypotension, sepsis Open Wound/Cellutlitis/Pressure Ulcers: Yes Acute Fx/ORIF/Change in wt bearing status: No Severe MUSCULOSKELETAL pain: No ADL Dysfunction: No Acute CVA w/Hemiparesis/Hemiplegia: No Decreased Functional Mobility/Strength: No Sprain/Strain: No Acute Post-op Mobility Dysfunction: No Total Points: 5 07/22/22 10:47 PT Eval & Treat (MD Order) ONCE Reason for Eval:: WEAK, UNABLE TO CARE FOR SELF, NH PLACEMENT Diagnosis: hypotension, sepsis Discharge Exam General Appearance: no apparent distress, alert Neurologic Exam: alert, oriented x 3, cooperative, normal mood/affect, nml cerebellar function, sensation nml, No motor deficits Eye Exam: PERRL, EOMI, eyes nml inspection Ears, Nose, Throat Exam: normal ENT inspection, pharynx normal, moist mucous membranes Neck Exam: normal inspection, non-tender, supple, full range of motion Respiratory Exam: normal breath sounds, lungs clear, No respiratory distress Cardiovascular Exam: regular rate/rhythm, normal heart sounds Gastrointestinal/Abdomen Exam: soft, No tenderness, No mass Male Genitalia Exam: deferred Rectal Exam: deferred Back Exam: normal inspection, normal range of motion, No CVA tenderness, No vertebral tenderness Extremity Exam: normal inspection, normal range of motion Skin Exam: normal color, warm, dry Final Diagnosis/Problem List - Final Discharge Diagnosis/Problem (1) Congestive heart failure (CHF) Status: Chronic Code(s): I50.9 - HEART FAILURE, UNSPECIFIED (2) Hypotension Status: Resolved Code(s): I95.9 - HYPOTENSION, UNSPECIFIED (3) ACS (acute coronary syndrome) Status: Resolved Code(s): I24.9 - ACUTE ISCHEMIC HEART DISEASE, UNSPECIFIED (4) Anemia Status: Acute Code(s): D64.9 - ANEMIA, UNSPECIFIED (5) Angina at rest Status: Acute Code(s): I20.8 - OTHER FORMS OF ANGINA PECTORIS - Discharge Discharge Date: 07/31/22 Disposition: Home, Self-Care Condition: Stable Prescriptions: New Empagliflozin [Jardiance] 25 mg PO DAILY #90 tablet Metoprolol Succinate 25 mg Xl* [Toprol-Xl 25MG Tablets] 25 mg PO DAILY #30 tablet Continue Aspirin EC 81 mg [Ecotrin 81 mg] 81 mg PO DAILY Sucralfate 1 gm [Carafate 1 GM] 1 ea PO QID Potassium Chloride Tab* [Klor Con] 10 meq PO DAILY Omeprazole 20 mg PO DAILY Ranolazine [Ranolazine ER] 1,000 mg PO BID Amiodarone HCl 200 mg [Cordarone 200 MG] 1 tab PO DAILY Nitroglycerin 0.4 mg Tablet [Nitrostat 0.4 MG Tablet] 1 tab PO CLARIFY Clopidogrel Bisulfate [Clopidogrel] 1 tab PO DAILY Ondansetron [Ondansetron Odt] 1 tab PO Q8H PRN PRN PRN Reason: Nausea Atorvastatin Calcium [Lipitor] 1 tab PO HS Trazodone HCl 50 mg [Desyrel 50 mg] 1 tab PO HS Tamsulosin HCl 0.4 mg [Flomax 0.4 MG] 1 cap PO DAILY Isosorbide Mononitrate [Isosorbide Mononitrate ER] 1 tab PO DAILY Gabapentin [Neurontin ] 1 cap PO TID Ferrous Sulfate 1 tab PO DAILY Escitalopram Oxalate [Lexapro] 1 tab PO DAILY Bumetanide 1 mg [Bumex 1 mg] 2 tab PO BID Nitroglycerin 0.4 mg/Hr [Nitro-Dur 0.4 MG/HR] 1 patch TOP DAILY Discontinued Metoprolol Succinate 25 mg Xl* [Toprol-Xl 25MG Tablets] 50 mg PO BID Amlodipine Besylate 5 mg [Norvasc 5 mg] 1 tab PO DAILY Losartan Potassium [Cozaar] 1 tab PO DAILY Empagliflozin [Jardiance] 1 tab PO DAILY Instructions: Heart Attack (DC) Additional Instructions: WEAR YOUR LIFEVEST DIRECTED BY YOUR VELVET CUTTER. CONTINUE TO ENCOURAGE HOSPICE SERVICES DR Rachael ALBERTO HAS DISCUSSED WITH YOU. YOU HAVE HAD MEDICATION CHANGES THIS VISIT, TAKE THIS PAPERWORK WITH YOU TO YOUR FOLLOWUP APPOINTMENT WITH DR. MEEKS. IT WAS RECOMMENDED THAT YOU FOLLOW UP WITH THE [facility]-CALL THEM AT [phone] TO MAKE AN APT. Follow up with: GABRIEL MEEKS [Primary Care Provider] -
== END 2022-07-31 13:50 | disposition home or self-care (01) | DRG 292 ==
LOC: ED 13:45 → MED SURG 23:45 → OBSVTOIN 07-22 07:59
PROVIDERS: ADMIT General Practice; ATTEND Family Medicine
DX: I11.0 Hypertensive heart disease with heart failure (principal); I24.9 Acute ischemic heart disease, unspecified; I50.9 Heart failure, unspecified; I95.9 Hypotension, unspecified; D64.9 Anemia, unspecified; J44.9 Chronic obstructive pulmonary disease, unspecified; R60.0 Localized edema; F32.A Depression, unspecified; E78.00 Pure hypercholesterolemia, unspecified; Z79.899 Other long term (current) drug therapy; Z20.828 Contact with and (suspected) exposure to other viral communicable diseases; Z72.0 Tobacco use
CPT/HCPCS: 0241U; 36000; 36415; 36430; 71045; 71250; 80048; 80053; 81015; 82947; 83605; 83735; 83880; 84145; 84484; 85014; 85018; 85025; 85027; 85610; 85730; 86850; 86900; 86901; 86922; 87040; 90791; 93005; 93268; 94640; 94760; 96360; 96365; 96366; 96367; 97110; 97161; 97530; 99285; 99291; P9016; Q3014; J0696; J1644; J1940; J2270; J2405; J7609; A9270-GY

== ENCOUNTER 2022-08-01 21:44 | Emergency (ER) | payer MEDICARE, OTHER ==
--- NOTE | 2022-08-01 21:57 | ERPHSYRPT ---
- History of Present Illness Time Seen by Provider: 08/01/22 21:57 Source: patient Exam Limitations: no limitations Physician History: This is a 62-year-old obese white male patient of Dr. Mulligan who was discharged from the hospital yesterday and returns emergency department after falling 14 hours ago hitting his left head and the top of his left ear this morning. He is still having pain in the area. He fell on his way back from the bathroom and hit the left side of his head and upper ear on a dresser. Patient has a history of chronic anemia. He falls frequently. Patient has a history of hyperlipidemia, coronary disease, oxygen dependent COPD, chronic angina, hypertension, DVT, TIAs, and peripheral vascular disease. He does not recall when his last tetanus shot was. Occurred: this morning Reason for Fall: fell from standing pos Injuries/Pain Location: head Loss of Consciousness: no loss of consciousness Quality: aching Severity of Pain-Max: mild Severity of Pain-Current: mild Associated Symptoms (Fall): denies symptoms Allergies/Adverse Reactions: No Known Drug Allergies Allergy (Verified 07/21/22 14:10) Home Medications: Aspirin EC 81 mg [Ecotrin 81 mg] 81 mg PO DAILY 09/17/20 [History] Sucralfate 1 gm [Carafate 1 GM] 1 ea PO QID 05/17/21 [History] Potassium Chloride Tab* [Klor Con] 10 meq PO DAILY 05/18/21 [History] Omeprazole 20 mg PO DAILY 08/19/21 [History] Amiodarone HCl 200 mg [Cordarone 200 MG] 1 tab PO DAILY 07/03/22 [History] Atorvastatin Calcium [Lipitor] 1 tab PO HS 07/03/22 [History] Bumetanide 1 mg [Bumex 1 mg] 2 tab PO BID 07/03/22 [History] Clopidogrel Bisulfate [Clopidogrel] 1 tab PO DAILY 07/03/22 [History] Escitalopram Oxalate [Lexapro] 1 tab PO DAILY 07/03/22 [History] Ferrous Sulfate 1 tab PO DAILY 07/03/22 [History] Gabapentin [Neurontin ] 1 cap PO TID 07/03/22 [History] Isosorbide Mononitrate [Isosorbide Mononitrate ER] 1 tab PO DAILY 07/03/22 [History] Nitroglycerin 0.4 mg Tablet [Nitrostat 0.4 MG Tablet] 1 tab PO CLARIFY 07/03/22 [History] Ondansetron [Ondansetron Odt] 1 tab PO Q8H PRN PRN 07/03/22 [History] Ranolazine [Ranolazine ER] 1,000 mg PO BID 07/03/22 [History] Tamsulosin HCl 0.4 mg [Flomax 0.4 MG] 1 cap PO DAILY 07/03/22 [History] Trazodone HCl 50 mg [Desyrel 50 mg] 1 tab PO HS 07/03/22 [History] Nitroglycerin 0.4 mg/Hr [Nitro-Dur 0.4 MG/HR] 1 patch TOP DAILY 07/22/22 [History] Hx Tetanus, Diphtheria Vaccination/Date Given: No Hx Influenza Vaccination/Date Given: No Hx Pneumococcal Vaccination/Date Given: No Travel Risk - International Travel Have you traveled outside of the country in past 3 weeks: No - Coronavirus Screening Are you exhibiting any of the following symptoms?: No Close contact with a COVID-19 positive Pt in past 14-21 Days: No - Vaccine Status Have you recieved a Covid-19 vaccination: No - Review of Systems Constitutional: No Symptoms Eyes: No Symptoms Ears, Nose, & Throat: Ear Pain (Top of left ear) Respiratory: No Symptoms Cardiac: No Symptoms Abdominal/Gastrointestinal: No Symptoms Genitourinary Symptoms: No Symptoms Musculoskeletal: No Symptoms Skin: No Symptoms Neurological: Headache Psychological: No Symptoms Endocrine: No Symptoms Hematologic/Lymphatic: No Symptoms Immunological/Allergic: No Symptoms All Other Systems: Reviewed and Negative - Past Medical History Pertinent Past Medical History: Yes Neurological History: Stroke ENT History: No Pertinent History Cardiac History: Angina, Congestive Heart Failure, Coronary Artery Disease, Deep Vein Thrombosis, High Cholesterol, Hypertension, Myocardial Infarction (TN) Respiratory History: Bronchitis, COPD Endocrine Medical History: No Pertinent History Musculoskeletal History: No Pertinent History GI Medical History: Hernia, Ulcer History: No Pertinent History Psycho-Social History: Depression Male Reproductive Disorders: No Pertinent History Other Medical History: Patient had a blood transfusion in May 2021 and April 2020 for a HGB of 6. [place] x3. Lifevest - Past Surgical History Past Surgical History: Yes Neuro Surgical History: No Pertinent History Cardiac: Cardiac Catheterization, Cardiac Stent, Vascular Surgery Respiratory: No Pertinent History Gastrointestinal: Hernia Repair Genitourinary: No Pertinent History Musculoskeletal: No Pertinent History Male Surgical History: No Pertinent History Other Surgical History: LEFT CAROTID SURGERY NOVEMBER 2018. 16 stents reported - Social History Smoking Status: Current every day smoker How long have you smoked: 50 years Exposure to second hand smoke: Yes Drug Use: none Patient Lives Alone: No Significant Family History: no pertinent family hx - Nursing Vital Signs Nursing Vital Signs: Initial Vital Signs Temperature 97.4 F 08/01/22 22:00 Pulse Rate 77 08/01/22 22:00 Respiratory Rate 18 08/01/22 22:00 Blood Pressure 101/62 08/01/22 22:00 Pain Scale Pain Intensity 8 - Dora Coma Score Best Eye Response (Randa): (4) open spontaneously Best Verbal Response (Randa): (5) oriented Best Motor Response (Randa): (6) obeys commands Randa Total: 15 - Physical Exam General Appearance: no apparent distress, alert, anxiety, obese Head Injury: contusions (Left scalp) Eye Exam: PERRL/EOMI, post op pupil defect (L) ENT Exam: other (Superficial, old laceration of the tip of left ear. No active bleeding. Skin and cartilage is intact.) Neck Exam: supple, trachea midline, full range of motion, normal alignment, normal inspection Respiratory/Chest Exam: chest tenderness, No respiratory distress, No crepitus Gastrointestinal Exam: No tenderness Rectal Exam: not done Back Exam: normal inspection, normal range of motion, No CVA tenderness, No vertebral tenderness Extremity Exam: normal inspection, normal range of motion, capillary refill <3 sec, pelvis stable Neurologic Exam: alert, oriented x 3, cooperative, director of field service II-XII nml as tested, normal mood/affect, sensation nml Skin Exam: normal color, warm, dry, laceration (1 cm superficial laceration tip of left ear. Sealed well. Eschar present. No active bleeding) Procedures - Laceration/Wound Repair Left Upper Ear Time of Procedure: 22:46 Wound Location: Left, head (Tip of left ear) Wound Length (cm): 1 Wound's Depth, Shape: superficial, linear Wound Explored: clean (Evaluation was performed to the base in a bloodless field and no foreign body noted) Hibiclens Prep: Yes Wound Repaired With: Steri-strips (And benzoin), Dermabond - Course Nursing assessment & vital signs reviewed: Yes Ordered Tests: Active Orders 24 hr Category Date Time Status Oxygen-ED Only Nasal Cannula 4 lpm Care 08/01/22 22:00 Active HEAD WITHOUT CONTRAST [CT] Stat Exams 08/01/22 22:22 Taken Medication Summary Discontinued Medications Generic Name Dose Route Start Last Admin Trade Name Mannie PRN Reason Stop Dose Admin Diphtheria/Tetanus/Acell Pertussis 0.5 ml 08/01/22 22:22 08/01/22 22:28 Tdap --Diph,Pertuss(Acell),Tet Vac/Pf 0.5 Ml Vial IM 08/01/22 22:23 0.5 ml .ONCE ONE Administration Diphtheria/Tetanus/Acell Pertussis Confirm 08/01/22 22:27 Tdap --Diph,Pertuss(Acell),Tet Vac/Pf 0.5 Ml Vial Administered 08/01/22 22:28 Dose 0.5 ml IM .STK-MED ONE - Progress Progress: improved Progress Note: 08/01/22 23:32 CT scan of the head without contrast shows no acute intracranial abnormality. Counseled pt/family regarding: diagnosis, need for follow-up, rad results - Departure Departure Disposition: Home Clinical Impression: Laceration of left ear, Head injury, Fall with injury Condition: Stable Critical Care Time: No Referrals: GABRIEL MULLIGAN [Primary Care Provider] - Follow up/PCP as directed Additional Instructions: Keep the ear laceration repair site dry for 24 to 48 hours. After 24 to 48 hours, may wash the site daily. Leave the Steri-Strips in place until they fall off on their own. Follow-up with your primary care physician on 08/03/2022 to make arrangements for evaluation for home health or possible temporary prison placement as was discussed with you when you were being discharged to home on 07/31/2022 from the hospital.
[2022-08-01] MEDS ORDERED: Adacel Vial IM ONE ×2 (22:22→22:27)
[2022-08-01 23:17] VITALS: BP 128/72; PULSE 76; O2SAT 94
--- NOTE | 2022-08-02 09:11 | XRAY ---
Indication: Left head injury following fall. Multiple contiguous axial images obtained through the head without contrast. Comparison: None Age-appropriate global atrophy and minimal periventricular degenerative micro-ischemia bilaterally. No acute intracranial hemorrhage, abnormal extra-axial fluid collection, or mass effect. Fourth ventricle is midline without hydrocephalus. Bony calvarium intact. Visualized paranasal sinuses and mastoid air cells are clear. Impression: Atrophy and degenerative micro-ischemia within normal limits for patient's age. No acute intracranial abnormalities. Comment: Preliminary interpretation made by [facility]. No critical discrepancy.
== END 2022-08-01 23:49 | disposition home or self-care (01) ==
LOC: ED 21:44
DX: S00.83XA Contusion of other part of head, initial encounter (principal); S01.312A Laceration without foreign body of left ear, initial encounter; W18.09XA Striking against other object with subsequent fall, initial encounter; Z91.81 History of falling; E78.5 Hyperlipidemia, unspecified; J44.9 Chronic obstructive pulmonary disease, unspecified; I11.0 Hypertensive heart disease with heart failure; I50.9 Heart failure, unspecified; Z99.81 Dependence on supplemental oxygen; Z72.0 Tobacco use; Z79.02 Long term (current) use of antithrombotics/antiplatelets; Z79.899 Other long term (current) drug therapy; Z28.310 Unvaccinated for COVID-19
CPT/HCPCS: 12011; 70450; 90471; 90715; 99283

== ENCOUNTER 2022-08-24 21:33 | Emergency (ER) | payer MEDICARE, OTHER ==
--- NOTE | 2022-08-24 21:57 | ERPHSYRPT ---
- History of Present Illness Time Seen by Provider: 08/24/22 21:40 Historian: patient Exam Limitations: no limitations Patient Subjective Stated Complaint: pt states he has been having chest pain since approx 1400 today Triage Nursing Assessment: pt alert and oriented, answers questions approp. pt back to room per wheelchair and transfers to stretcher with assist of 1. skin warm, dry. pt appears unkempt. respirations nonlabored, insp wheezing noted bilat. occasional cough noted. pt reports productive at times. o2 87 on arrival to er, pt not wearing o2, states portable is not working and they [place] from [place] without his o2. heart rate 104, sinus tach on monitor. peripheral pulses intact. Physician History: This is a morbidly obese 62-year-old white male patient of Dr. Meeks who for the last 2 to 3 days has noticed some changes in his blood pressure. It had been running fairly low intermittently for the last 2 to 3 days then today it jumped up to what he calls high but the actual value of the systolic blood pressure was approximately 110-120 mmHg. Patient has history of chronic angina and approximately 2:00pm today he noticed more constant sharp chest pains. He took 1 nitroglycerin when he was at home at 1800 today and there was some mild relief from that. However the pain in his chest recurred approximately 2030 this evening and he took 2 nitroglycerin without much relief. Patient alonso mittal is an oxygen dependent patient with COPD and wears 4 L of oxygen via nasal cannula but he arrived to the emergency department without the oxygen in place and his room air oxygenation level was 88%. Patient has a LifeVest in place. His psych nurse is Dr. Rachael Layton out of [facility]. Patient continues to smoke cigarettes daily. Patient has a history of CHF, coronary disease, hypertension, DVTs, hyperlipidemia, TIAs, peripheral vascular disease and chronic anemia for which he has received blood transfusions in the past. Patient is on Plavix. Timing/Duration: day(s) (2 to 3 days) Activities at Onset: none Quality: sharpness Location: substernal, central Chest Pain Radiation: no radiation Severity of Pain-Max: moderate Severity of Pain-Current: mild (To moderate) Modifying Factors: Improves With: nothing Associated Symptoms: denies symptoms Nitro Today/Relief: 0.4 mg x 3, provided at home, no relief Aspirin Treatment Today: 81 mg x 1, provided at home Allergies/Adverse Reactions: No Known Drug Allergies Allergy (Verified 08/24/22 21:50) Home Medications: Aspirin EC 81 mg [Ecotrin 81 mg] 81 mg PO DAILY 09/17/20 [History] Sucralfate 1 gm [Carafate 1 GM] 1 ea PO QID 05/17/21 [History] Potassium Chloride Tab* [Klor Con] 10 meq PO DAILY 05/18/21 [History] Omeprazole 20 mg PO DAILY 08/19/21 [History] Amiodarone HCl 200 mg [Cordarone 200 MG] 1 tab PO DAILY 07/03/22 [History] Atorvastatin Calcium [Lipitor] 1 tab PO HS 07/03/22 [History] Bumetanide 1 mg [Bumex 1 mg] 2 tab PO BID 07/03/22 [History] Clopidogrel Bisulfate [Clopidogrel] 1 tab PO DAILY 07/03/22 [History] Escitalopram Oxalate [Lexapro] 1 tab PO DAILY 07/03/22 [History] Ferrous Sulfate 1 tab PO DAILY 07/03/22 [History] Gabapentin [Neurontin ] 1 cap PO TID 07/03/22 [History] Nitroglycerin 0.4 mg Tablet [Nitrostat 0.4 MG Tablet] 1 tab PO CLARIFY 07/03/22 [History] Ondansetron [Ondansetron Odt] 1 tab PO Q8H PRN PRN 07/03/22 [History] Ranolazine [Ranolazine ER] 1,000 mg PO BID 07/03/22 [History] Tamsulosin HCl 0.4 mg [Flomax 0.4 MG] 1 cap PO DAILY 07/03/22 [History] Trazodone HCl 50 mg [Desyrel 50 mg] 1 tab PO HS 07/03/22 [History] Nitroglycerin 0.4 mg/Hr [Nitro-Dur 0.4 MG/HR] 1 patch TOP DAILY 07/22/22 [History] Hx Tetanus, Diphtheria Vaccination/Date Given: No Hx Influenza Vaccination/Date Given: No Hx Pneumococcal Vaccination/Date Given: No Immunizations Up to Date: No Travel Risk - International Travel Have you traveled outside of the country in past 3 weeks: No - Coronavirus Screening Are you exhibiting any of the following symptoms?: No Close contact with a COVID-19 positive Pt in past 14-21 Days: No - Vaccine Status Have you recieved a Covid-19 vaccination: No - Review of Systems Constitutional: No Symptoms Eyes: No Symptoms Ears, Nose, & Throat: No Symptoms Respiratory: No Symptoms Cardiac: Chest Pain Abdominal/Gastrointestinal: No Symptoms Genitourinary Symptoms: No Symptoms Musculoskeletal: No Symptoms Skin: No Symptoms Neurological: No Symptoms Psychological: No Symptoms Endocrine: No Symptoms Hematologic/Lymphatic: No Symptoms Immunological/Allergic: No Symptoms All Other Systems: Reviewed and Negative - Past Medical History Pertinent Past Medical History: Yes Neurological History: Stroke ENT History: No Pertinent History Cardiac History: Angina, Congestive Heart Failure, Coronary Artery Disease, Deep Vein Thrombosis, High Cholesterol, Hypertension, Myocardial Infarction (CO) Respiratory History: Bronchitis, COPD Endocrine Medical History: No Pertinent History Musculoskeletal History: No Pertinent History GI Medical History: Hernia, Ulcer History: No Pertinent History Psycho-Social History: Depression Male Reproductive Disorders: No Pertinent History Other Medical History: Patient had a blood transfusion in May 2021 and April 2020 for a HGB of 6. [place] x3. Lifevest - Past Surgical History Past Surgical History: Yes Neuro Surgical History: No Pertinent History Cardiac: Cardiac Catheterization, Cardiac Stent, Vascular Surgery Respiratory: No Pertinent History Gastrointestinal: Hernia Repair Genitourinary: No Pertinent History Musculoskeletal: No Pertinent History Male Surgical History: No Pertinent History Other Surgical History: LEFT CAROTID SURGERY NOVEMBER 2018. 16 stents reported - Social History Smoking Status: Current every day smoker How long have you smoked: 50 years Exposure to second hand smoke: Yes Drug Use: none Patient Lives Alone: No Significant Family History: no pertinent family hx - Nursing Vital Signs Nursing Vital Signs: Initial Vital Signs Temperature 98.1 F 08/24/22 21:36 Pulse Rate 108 H 08/24/22 21:36 Respiratory Rate 20 08/24/22 21:36 Blood Pressure 137/90 08/24/22 21:36 O2 Sat by Pulse Oximetry 87 L 08/24/22 21:36 Pain Scale Pain Intensity 0 - Physical Exam General Appearance: no apparent distress, alert, anxiety, obese Eye Exam: PERRL/EOMI, eyes nml inspection Ears, Nose, Throat Exam: normal ENT inspection, moist mucous membranes Neck Exam: normal inspection, non-tender, supple, full range of motion Respiratory Exam: normal breath sounds, chest tenderness, lungs clear, airway intact, No respiratory distress Cardiovascular Exam: tachycardia Gastrointestinal/Abdomen Exam: soft, normal bowel sounds, No tenderness Back Exam: normal inspection, normal range of motion, No CVA tenderness Extremity Exam: normal inspection, normal range of motion, pelvis stable Neurologic Exam: alert, oriented x 3, cooperative, hospital mortician II-XII nml as tested, normal mood/affect Skin Exam: normal color, warm, dry Lymphatic Exam: No adenopathy SpO2: 87 O2 Delivery: Room Air - Course Nursing assessment & vital signs reviewed: Yes EKG Interpreted by Me: RATE (106), Sinus Tach, Right Bundle Branch Block, Other (Left posterior fascicular block. No acute ischemic changes appreciated. New mild sinus tachycardia. No other acute changes when compared to twelve-lead EKG dated 07/22/2022) Ordered Tests: Active Orders 24 hr Category Date Time Status Regulatory Submissions Associate STAT Care 08/24/22 21:48 Active EKG-ER Only STAT Care 08/24/22 21:48 Active IV Insertion STAT Care 08/24/22 21:48 Active Pulse Oximetry (ED) STAT Care 08/24/22 21:48 Active CHEST 1 VIEW (PORTABLE) Stat Exams 08/24/22 22:58 Taken CBC W DIFF Stat Lab 08/24/22 22:10 Completed CMP Stat Lab 08/24/22 22:00 Completed NT PRO BNP Stat Lab 08/24/22 22:10 Completed PROTIME WITH INR Stat Lab 08/24/22 22:10 Completed TROPONIN Q4H Lab 08/24/22 22:10 Completed TROPONIN Q4H Lab 08/25/22 01:01 Completed TROPONIN Q4H Lab 08/25/22 03:58 Completed UA W/RFX CULTURE Stat Lab 08/24/22 22:29 Completed Medication Summary Discontinued Medications Generic Name Dose Route Start Last Admin Trade Name Freq PRN Reason Stop Dose Admin Aspirin 243 mg 08/24/22 22:02 08/24/22 22:09 Aspirin 81 Mg Tab.Chew PO 08/24/22 22:03 243 mg STAT ONE Administration Bumetanide 1 mg 08/24/22 23:00 08/24/22 23:09 Bumetanide 0.25 Mg/Ml 4ml Vial IV 08/24/22 23:01 1 mg STAT ONE Administration Bumetanide Confirm 08/24/22 23:09 Bumetanide 0.25 Mg/Ml 4ml Vial Administered 08/24/22 23:10 Dose 1 mg .ROUTE .STK-MED ONE Morphine Sulfate 4 mg 08/25/22 01:35 08/25/22 01:41 Morphine Sulfate 4 Mg/Ml Injection IV 08/25/22 01:36 4 mg STAT ONE Administration Morphine Sulfate Confirm 08/25/22 01:38 Morphine Sulfate 4 Mg/Ml Injection Administered 08/25/22 01:39 Dose 4 mg .ROUTE .STK-MED ONE Ondansetron HCl 4 mg 08/25/22 01:35 08/25/22 01:41 Ondansetron Hcl 4 Mg/2 Ml Vial IV 08/25/22 01:36 4 mg STAT ONE Administration Ondansetron HCl Confirm 08/25/22 01:38 Ondansetron Hcl 4 Mg/2 Ml Vial Administered 08/25/22 01:39 Dose 4 mg .ROUTE .STK-MED ONE Lab/Rad Data: Laboratory Result Diagrams 08/24/22 22:10 08/24/22 22:00 Laboratory Results 08/25/22 08/25/22 08/24/22 Range/Units 03:58 01:01 22:29 WBC (4.0-10.5) x10^3/uL RBC (4.1-5.6) x10^6/uL Hgb (12.5-18.0) g/dL Hct (42-50) % MCV (78-100) fL MCH (26-32) pg MCHC (32-36) g/dL RDW (11.5-14.0) % Plt Count (150-450) x10^3/uL MPV (7.5-11.0) fL Gran % (36.0-66.0) % Immature Gran % (Auto) (0.00-0.4) % Nucleat RBC Rel Count (0.00-0.1) % Eos # (Auto) (0-0.5) x10^3/uL Immature Gran # (Auto) (0.00-0.03) x10^3u/L Absolute Lymphs (auto) (1.0-4.6) x10^3/uL Absolute Monos (auto) (0.0-1.3) x10^3/uL Absolute Nucleated RBC (0.00-0.01) x10^3u/L Lymphocytes % (24.0-44.0) % Monocytes % (0.0-12.0) % Eosinophils % (0.00-5.0) % Basophils % (0.0-0.4) % Absolute Granulocytes (1.4-6.9) x10^3/uL Basophils # (0-0.4) x10^3/uL PT (9.4-12.5) SECONDS INR (0.8-3.0) Sodium (137-145) mmol/L Potassium (3.5-5.1) mmol/L Chloride (98-107) mmol/L Carbon Dioxide (22-30) mmol/L Anion Gap (5-15) MEQ/L BUN (9-20) mg/dL Creatinine (0.66-1.25) mg/dL Estimated GFR ML/MIN Glucose (74-106) mg/dL Calcium (8.4-10.2) mg/dL Total Bilirubin (0.2-1.3) mg/dL AST (17-59) U/L ALT (0-50) U/L Alkaline Phosphatase (38-126) U/L Troponin I 0.054 H* 0.036 H* (0.000-0.034) ng/mL NT-Pro-B Natriuret Pep (0-900) pg/mL Serum Total Protein (6.3-8.2) g/dL Albumin (3.5-5.0) g/dL Urinalys Dipstick Clnc MAIN LAB Urine Color YELLOW (YELLOW) Urine Appearance CLEAR (CLEAR) Urine pH 5.0 (5-6) Ur Specific [place] 1.015 (1.005-1.025) POC Urine Protein Conf NEGATIVE (Negative) Urine Ketones NEGATIVE (NEGATIVE) Urine Nitrite NEGATIVE (NEGATIVE) Urine Bilirubin NEGATIVE (NEGATIVE) Urine Urobilinogen 0.2 (0-1) mg/dL Urine Leukocytes NEGATIVE (NEGATIVE) Urine WBC (Auto) NONE (0-5) /HPF Urine RBC (Auto) NONE (0-2) /HPF U Hyaline Cast (Auto) 3-5 (0-2) /LPF U Epithel Cells (Auto) NONE (FEW) /HPF Urine Bacteria (Auto) NONE (NEGATIVE) /HPF Urine RBC NEGATIVE (0-5) Stuart/ul Urine Mucus (Auto) SLIGHT (NEGATIVE) /HPF Ur Culture Indicated? NO Urine Glucose 250 (NEGATIVE) mg/dL Slides for Path Review 08/24/22 08/24/22 08/24/22 Range/Units 22:10 22:10 22:10 WBC (4.0-10.5) x10^3/uL RBC (4.1-5.6) x10^6/uL Hgb (12.5-18.0) g/dL Hct (42-50) % MCV (78-100) fL MCH (26-32) pg MCHC (32-36) g/dL RDW (11.5-14.0) % Plt Count (150-450) x10^3/uL MPV (7.5-11.0) fL Gran % (36.0-66.0) % Immature Gran % (Auto) (0.00-0.4) % Nucleat RBC Rel Count (0.00-0.1) % Eos # (Auto) (0-0.5) x10^3/uL Immature Gran # (Auto) (0.00-0.03) x10^3u/L Absolute Lymphs (auto) (1.0-4.6) x10^3/uL Absolute Monos (auto) (0.0-1.3) x10^3/uL Absolute Nucleated RBC (0.00-0.01) x10^3u/L Lymphocytes % (24.0-44.0) % Monocytes % (0.0-12.0) % Eosinophils % (0.00-5.0) % Basophils % (0.0-0.4) % Absolute Granulocytes (1.4-6.9) x10^3/uL Basophils # (0-0.4) x10^3/uL PT 11.1 (9.4-12.5) SECONDS INR 1.05 (0.8-3.0) Sodium (137-145) mmol/L Potassium (3.5-5.1) mmol/L Chloride (98-107) mmol/L Carbon Dioxide (22-30) mmol/L Anion Gap (5-15) MEQ/L BUN (9-20) mg/dL Creatinine (0.66-1.25) mg/dL Estimated GFR ML/MIN Glucose (74-106) mg/dL Calcium (8.4-10.2) mg/dL Total Bilirubin (0.2-1.3) mg/dL AST (17-59) U/L ALT (0-50) U/L Alkaline Phosphatase (38-126) U/L Troponin I 0.016 (0.000-0.034) ng/mL NT-Pro-B Natriuret Pep 5420 H (0-900) pg/mL Serum Total Protein (6.3-8.2) g/dL Albumin (3.5-5.0) g/dL Urinalys Dipstick Clnc Urine Color (YELLOW) Urine Appearance (CLEAR) Urine pH (5-6) Ur Specific [place] (1.005-1.025) POC Urine Protein Conf (Negative) Urine Ketones (NEGATIVE) Urine Nitrite (NEGATIVE) Urine Bilirubin (NEGATIVE) Urine Urobilinogen (0-1) mg/dL Urine Leukocytes (NEGATIVE) Urine WBC (Auto) (0-5) /HPF Urine RBC (Auto) (0-2) /HPF U Hyaline Cast (Auto) (0-2) /LPF U Epithel Cells (Auto) (FEW) /HPF Urine Bacteria (Auto) (NEGATIVE) /HPF Urine RBC (0-5) Stuart/ul Urine Mucus (Auto) (NEGATIVE) /HPF Ur Culture Indicated? Urine Glucose (NEGATIVE) mg/dL Slides for Path Review 08/24/22 08/24/22 Range/Units 22:10 22:00 WBC 6.4 (4.0-10.5) x10^3/uL RBC 3.91 L (4.1-5.6) x10^6/uL Hgb 9.9 L (12.5-18.0) g/dL Hct 37.1 L (42-50) % MCV 94.9 (78-100) fL MCH 25.3 L (26-32) pg MCHC 26.7 L (32-36) g/dL RDW 21.1 H (11.5-14.0) % Plt Count 231 (150-450) x10^3/uL MPV 11.0 (7.5-11.0) fL Gran % 76.7 H (36.0-66.0) % Immature Gran % (Auto) 0.2 (0.00-0.4) % Nucleat RBC Rel Count 0.0 (0.00-0.1) % Eos # (Auto) 0.21 (0-0.5) x10^3/uL Immature Gran # (Auto) 0.01 (0.00-0.03) x10^3u/L Absolute Lymphs (auto) 0.65 L (1.0-4.6) x10^3/uL Absolute Monos (auto) 0.55 (0.0-1.3) x10^3/uL Absolute Nucleated RBC 0.00 (0.00-0.01) x10^3u/L Lymphocytes % 10.1 L (24.0-44.0) % Monocytes % 8.6 (0.0-12.0) % Eosinophils % 3.3 (0.00-5.0) % Basophils % 1.1 (0.0-0.4) % Absolute Granulocytes 4.92 (1.4-6.9) x10^3/uL Basophils # 0.07 (0-0.4) x10^3/uL PT (9.4-12.5) SECONDS INR (0.8-3.0) Sodium 140 (137-145) mmol/L Potassium 3.8 (3.5-5.1) mmol/L Chloride 102 (98-107) mmol/L Carbon Dioxide 34 H (22-30) mmol/L Anion Gap 8.6 (5-15) MEQ/L BUN 19 (9-20) mg/dL Creatinine 1.12 (0.66-1.25) mg/dL Estimated GFR > 60.0 ML/MIN Glucose 117 H (74-106) mg/dL Calcium 8.1 L (8.4-10.2) mg/dL Total Bilirubin 0.60 (0.2-1.3) mg/dL AST 24 (17-59) U/L ALT 14 (0-50) U/L Alkaline Phosphatase 87 (38-126) U/L Troponin I (0.000-0.034) ng/mL NT-Pro-B Natriuret Pep (0-900) pg/mL Serum Total Protein 6.9 (6.3-8.2) g/dL Albumin 3.7 (3.5-5.0) g/dL Urinalys Dipstick Clnc Urine Color (YELLOW) Urine Appearance (CLEAR) Urine pH (5-6) Ur Specific [place] (1.005-1.025) POC Urine Protein Conf (Negative) Urine Ketones (NEGATIVE) Urine Nitrite (NEGATIVE) Urine Bilirubin (NEGATIVE) Urine Urobilinogen (0-1) mg/dL Urine Leukocytes (NEGATIVE) Urine WBC (Auto) (0-5) /HPF Urine RBC (Auto) (0-2) /HPF U Hyaline Cast (Auto) (0-2) /LPF U Epithel Cells (Auto) (FEW) /HPF Urine Bacteria (Auto) (NEGATIVE) /HPF Urine RBC (0-5) Stuart/ul Urine Mucus (Auto) (NEGATIVE) /HPF Ur Culture Indicated? Urine Glucose (NEGATIVE) mg/dL Slides for Path Review YES - Progress Progress: improved, re-examined Air Movement: fair Progress Note: 08/24/22 23:32 Chest x-ray shows cardiomegaly. There is no definite infiltrate present. There appears to be bibasilar fluid with a small right pleural effusion present. 08/24/22 23:49 Medical decision making: This patient states that he is breathing much better now and is chest pain has improved. This patient has chronic angina and chronic COPD. He states that his portable oxygen tank is not working well so he often arrives to our emergency department after a long drive to our emergency department and his oxygen level is low. Immediately after placing him on his usual 4 L oxygen nasal cannula he feels much better and his oxygenation level increases to between 94 to 97% which is where he usually runs per his report. Patient's initial troponin is within normal limits. His twelve-lead EKG shows no acute ischemic changes. His symptoms have improved. He does have exac erbation of CHF tonight which, in my experience, often improves readily in response to extra doses of diuretic. Patient prefers to be discharged to home. However, we will wait 3-hour troponin level and repeat twelve-lead EKG in 3 hours. We did provide him with an extra dose of Bumex intravenously and he is responding to that. His chest x-ray shows evidence of CHF but it is mild compared to other prior chest x-rays. I did not order a D-dimer level or perform a CTA of the chest because he has had 2 CTA of the chest results that were negative for pulmonary embolus within the last 30 days. Patient is on Plavix. We will send the patient home if his repeat 3-hour troponin and twelve- lead EKG do not have any acute emergent changes. Patient will also take an extra dose of diuretic tomorrow. He is also to follow-up with his psych nurse and his primary care doctor tomorrow to make arranges for follow-up appointment. He prefers this plan over transfer to another hospital or admission into this hospital. I think this is a reasonable request. 08/25/22 05:12 Medical decision making: This patient, although feeling better, still has persistent but improved chest pain. In addition, his 3-hour and 6-hour troponin levels have slowly increased. The 3-hour twelve-lead EKG shows a normal sinus rhythm at 98 bpm with a short MA interval as well as a prolonged QT interval and nonspecific T abnormalities in the lateral leads. He has persistent right bundle branch block and left posterior fascicular block. The patient also has acute exacerbation of CHF. I contacted [facility], hospitalist Dr. Irwin. I reviewed the patient history, physical findings and results of his work-up. Dr. Irwin accepts the patient in transfer. We will continue to monitor him in the emergency department until he can be transferred sometime later today after morning discharges per Tawanda in the [facility] transfer center. Blood Culture(s) Obtained: No Antibiotics given: No Counseled pt/family regarding: lab results, diagnosis, rad results - Departure Departure Disposition: Home Clinical Impression: CHF exacerbation, Chest pain, Elevated troponin, Hypoxia Condition: Stable Critical Care Time: Yes Critical Care Time(excluding separately billable procedures): Critical 30-74 mins (30 minutes) Referrals: GABRIEL MEEKS [Primary Care Provider] - Follow up/PCP as directed Instructions: Heart Failure Additional Instructions: Take an extra dose of your Bumex at midday tomorrow. Continue your other medication as prescribed. Call your primary care physician and your psych nurse tomorrow morning to make arrangements for a follow-up appointment. Return to the emergency department if your symptoms worsen.
[2022-08-24] MEDS ORDERED: BABY ASPIRIN 81 MG CHEW PO ONE (22:02)
[2022-08-24 22:19] LABS: Absolute Neutrophil Ct (ANC) 4.92 x10^3/uL (1.4-6.9); Basophil (Absolute #) 0.07 x10^3/uL (0-0.4); Eosinophil % 3.3 % (0.00-5.0); Eosinophil (Absolute #) 0.21 x10^3/uL (0-0.5); Hematocrit 37.1 % (42-50); Hemoglobin 9.9 g/dL (12.5-18.0); Lymphocyte (Absolute #) 0.65 x10^3/uL (1.0-4.6); Lymphocytes % 10.1 % (24.0-44.0); Mean Cell Volume 94.9 fL (78-100); Mean Corpuscular Hemoglobin 25.3 pg (26-32); Mean Corpuscular Hgb Concent. 26.7 g/dL (32-36); Monocyte (Absolute #) 0.55 x10^3/uL (0.0-1.3); Monocytes % 8.6 % (0.0-12.0); Neutrophil % 76.7 % (36.0-66.0); Platelet Count 231 x10^3/uL (150-450); Red Blood Count 3.91 x10^6/uL (4.1-5.6); Red Cell Distribution Width 21.1 % (11.5-14.0); White Blood Count 6.4 x10^3/uL (4.0-10.5)
[2022-08-24 22:34] LABS: INR 1.05 (0.8-3.0); PROTIME 11.1 SECONDS (9.4-12.5)
[2022-08-24 22:34] LABS: Appearance CLEAR (CLEAR)
[2022-08-24 22:36] LABS: Bilirubin NEGATIVE (NEGATIVE); Dipstick done @ ? MAIN LAB; Glucose 250 mg/dL (NEGATIVE); Ketones NEGATIVE (NEGATIVE); Nitrite NEGATIVE (NEGATIVE); Protein,Urine Dip NEGATIVE (Negative); RBC NEGATIVE Ery/ul (0-5); Specific Gravity 1.015 (1.005-1.025); Urobilinogen 0.2 mg/dL (0-1)
[2022-08-24 22:39] LABS: Mucus SLIGHT /HPF (NEGATIVE)
[2022-08-24 22:40] LABS: Urine Cultured Indicated? NO
[2022-08-24 22:45] LABS: ALBUMIN 3.7 g/dL (3.5-5.0); ALKALINE PHOSPHATASE 87 U/L (38-126); ANION GAP 8.6 MEQ/L (5-15); BLOOD UREA NITROGEN 19 mg/dL (9-20); CHLORIDE 102 mmol/L (98-107); Calcium 8.1 mg/dL (8.4-10.2); Carbon Dioxide 34 mmol/L (22-30); Creatinine 1 1.12 mg/dL (0.66-1.25); EST GLOMERULAR FILTRATION RATE > 60.0 ML/MIN; Glucose 117 mg/dL (74-106); Potassium 3.8 mmol/L (3.5-5.1); SGOT/AST 24 U/L (17-59); SGPT/ALT 14 U/L (0-50); SODIUM 140 mmol/L (137-145); Total Protein 6.9 g/dL (6.3-8.2)
[2022-08-24] MEDS ORDERED: BUMEX 1 MG IV ONE (23:00)
[2022-08-24] MEDS ORDERED: BUMEX 1 MG ONE (23:09)
[2022-08-25 00:28] LABS: Slide Review 1 YES
[2022-08-25] MEDS ORDERED: Zofran 4 MG/2 ML VIAL IV ONE (01:35)
[2022-08-25] MEDS ORDERED: MORPHINE SULFATE 4 MG INJ IV ONE ×3 (01:35→13:47)
[2022-08-25] MEDS ORDERED: MORPHINE SULFATE 4 MG INJ ONE ×3 (01:38→13:50)
[2022-08-25] MEDS ORDERED: Zofran 4 MG/2 ML VIAL ONE (01:38)
[2022-08-25] MEDS ORDERED: Heparin 25,000 units/D5W: USE ORDER SET PROTO 25,000 UNITS/250 ML BAG IV ONE (07:37)
[2022-08-25] MEDS ORDERED: HEPARIN 5000 UNITS/0.5 ML (HIGH RISK MED) ONE (07:49)
[2022-08-25] MEDS ORDERED: ZOFRAN ODT 4 MG PO ONE (08:03)
[2022-08-25] MEDS ORDERED: ZOFRAN ODT 4 MG ONE (08:07)
--- NOTE | 2022-08-25 08:36 | XRAY ---
Indication: Chest pain, short of breath, and weakness. Comparison: July 21, 2022 Portable chest unchanged again demonstrating borderline cardiomegaly and mild right base infiltrate/atelectasis/effusion. No new cardiopulmonary abnormalities.
[2022-08-25 14:39] LABS: INR 1.1 (0.8-3.0); PROTIME 11.6 SECONDS (9.4-12.5); PTT 36.2 SECONDS (25.1-36.5)
[2022-08-25 16:24] VITALS: BP 125/68; PULSE 92; O2SAT 98
== END 2022-08-25 16:43 | disposition short-term general hospital (02) ==
LOC: ED 21:33
DX: I11.0 Hypertensive heart disease with heart failure (principal); I50.9 Heart failure, unspecified; R07.9 Chest pain, unspecified; R77.8 Other specified abnormalities of plasma proteins; R09.02 Hypoxemia; J44.9 Chronic obstructive pulmonary disease, unspecified; E78.5 Hyperlipidemia, unspecified; Z72.0 Tobacco use; Z99.81 Dependence on supplemental oxygen; Z79.02 Long term (current) use of antithrombotics/antiplatelets; Z79.899 Other long term (current) drug therapy; Z28.310 Unvaccinated for COVID-19
CPT/HCPCS: 36000; 36415; 71045; 80053; 81015; 83880; 84484; 85025; 85610; 85730; 93005; 93041; 94760; 96374; 96375; 96376; 99285; 99291; J1644; J2270; J2405; Q0162; A9270-GY

== ENCOUNTER 2022-09-28 19:03 | Emergency (ER) | payer MEDICARE, OTHER ==
--- NOTE | 2022-09-28 19:06 | ERPHSYRPT ---
- History of Present Illness Time Seen by Provider: 09/28/22 19:06 Source: patient Exam Limitations: no limitations Physician History: This is a 62-year-old morbidly obese white male patient who presents with a few day history of weakness. No specific complaints of chest pain today. Patient is an oxygen dependent COPD patient who wears 4 L oxygen via nasal cannula. He continues to smoke cigarettes. Patient is morbidly obese. He has a history of sleep apnea and wears a CPAP for this. He has chronic angina, congestive heart failure, coronary artery disease, hypertension, history of DVTs and takes Plavix, he has hyperlipidemia, history of TIAs and peripheral vascular disease. Patient has a history of chronic anemia on iron sulfate. Patient's manual arts therapist is Dr. Rachael Layton out of [facility]. His last hemoglobin levels 9.9 on 08/24/2022 Timing/Duration: day(s) (Last few days) Severity: mild Associated Symptoms: weakness, No nausea, No vomiting, No abdominal pain, No shortness of breath, No cough, No chest pain Allergies/Adverse Reactions: No Known Drug Allergies Allergy (Verified 09/28/22 19:05) Home Medications: Aspirin EC 81 mg [Ecotrin 81 mg] 81 mg PO DAILY 09/17/20 [History] Sucralfate 1 gm [Carafate 1 GM] 1 ea PO QID 05/17/21 [History] Potassium Chloride Tab* [Klor Con] 10 meq PO DAILY 05/18/21 [History] Omeprazole 20 mg PO DAILY 08/19/21 [History] Amiodarone HCl 200 mg [Cordarone 200 MG] 1 tab PO DAILY 07/03/22 [History] Atorvastatin Calcium [Lipitor] 1 tab PO HS 07/03/22 [History] Bumetanide 1 mg [Bumex 1 mg] 2 tab PO BID 07/03/22 [History] Clopidogrel Bisulfate [Clopidogrel] 1 tab PO DAILY 07/03/22 [History] Escitalopram Oxalate [Lexapro] 1 tab PO DAILY 07/03/22 [History] Ferrous Sulfate 1 tab PO DAILY 07/03/22 [History] Gabapentin [Neurontin ] 1 cap PO TID 07/03/22 [History] Nitroglycerin 0.4 mg Tablet [Nitrostat 0.4 MG Tablet] 1 tab PO CLARIFY 07/03/22 [History] Ondansetron [Ondansetron Odt] 1 tab PO Q8H PRN PRN 07/03/22 [History] Ranolazine [Ranolazine ER] 1,000 mg PO BID 07/03/22 [History] Tamsulosin HCl 0.4 mg [Flomax 0.4 MG] 1 cap PO DAILY 07/03/22 [History] Trazodone HCl 50 mg [Desyrel 50 mg] 1 tab PO HS 07/03/22 [History] Nitroglycerin 0.4 mg/Hr [Nitro-Dur 0.4 MG/HR] 1 patch TOP DAILY 07/22/22 [History] Hx Tetanus, Diphtheria Vaccination/Date Given: No Hx Influenza Vaccination/Date Given: No Hx Pneumococcal Vaccination/Date Given: No Travel Risk - International Travel Have you traveled outside of the country in past 3 weeks: No - Coronavirus Screening Are you exhibiting any of the following symptoms?: No Close contact with a COVID-19 positive Pt in past 14-21 Days: No - Vaccine Status Have you recieved a Covid-19 vaccination: No - Review of Systems Constitutional: Weakness Eyes: No Symptoms Ears, Nose, & Throat: No Symptoms Respiratory: No Symptoms Cardiac: No Symptoms Abdominal/Gastrointestinal: No Symptoms Genitourinary Symptoms: No Symptoms Musculoskeletal: No Symptoms Skin: No Symptoms Neurological: No Symptoms Psychological: No Symptoms Endocrine: No Symptoms Hematologic/Lymphatic: No Symptoms Immunological/Allergic: No Symptoms All Other Systems: Reviewed and Negative - Past Medical History Pertinent Past Medical History: Yes Neurological History: Stroke ENT History: No Pertinent History Cardiac History: Angina, Congestive Heart Failure, Coronary Artery Disease, Deep Vein Thrombosis, High Cholesterol, Hypertension, Myocardial Infarction ([place]) Respiratory History: Bronchitis, COPD Endocrine Medical History: No Pertinent History Musculoskeletal History: No Pertinent History GI Medical History: Hernia, Ulcer History: No Pertinent History Psycho-Social History: Depression Male Reproductive Disorders: No Pertinent History Other Medical History: Patient had a blood transfusion in May 2021 and April 2020 for a HGB of 6. [place] x3. Lifevest - Past Surgical History Past Surgical History: Yes Neuro Surgical History: No Pertinent History Cardiac: Cardiac Catheterization, Cardiac Stent, Vascular Surgery Respiratory: No Pertinent History Gastrointestinal: Hernia Repair Genitourinary: No Pertinent History Musculoskeletal: No Pertinent History Male Surgical History: No Pertinent History Other Surgical History: LEFT CAROTID SURGERY NOVEMBER 2018. 16 stents reported - Social History Smoking Status: Current every day smoker How long have you smoked: 50 years Exposure to second hand smoke: Yes Drug Use: none Patient Lives Alone: No Significant Family History: no pertinent family hx - Nursing Vital Signs Nursing Vital Signs: Initial Vital Signs Temperature 97.4 F 09/28/22 19:08 Pulse Rate 64 09/28/22 19:08 Respiratory Rate 20 09/28/22 19:08 O2 Sat by Pulse Oximetry 95 09/28/22 19:08 Pain Scale Pain Intensity 0 - Physical Exam General Appearance: no apparent distress, alert, obese Eye Exam: PERRL/EOMI, eyes nml inspection Ears, Nose, Throat Exam: normal ENT inspection, moist mucous membranes Neck Exam: normal inspection, non-tender, supple, full range of motion Respiratory Exam: normal breath sounds, lungs clear, airway intact, No chest tenderness, No respiratory distress Cardiovascular Exam: regular rate/rhythm, normal heart sounds, normal peripheral pulses Gastrointestinal/Abdomen Exam: soft, normal bowel sounds, No tenderness Rectal Exam: not done Back Exam: normal inspection, normal range of motion, No CVA tenderness, No vertebral tenderness Extremity Exam: normal inspection, normal range of motion, pelvis stable Neurologic Exam: alert, oriented x 3, cooperative, pharmacology professor II-XII nml as tested, n ormal mood/affect, nml cerebellar function, nml station & gait, sensation nml Skin Exam: normal color, warm, dry Lymphatic Exam: No adenopathy SpO2 Interpretation: normal O2 Delivery: Room Air - Course Nursing assessment & vital signs reviewed: Yes EKG Interpreted by Me: RATE (64), Sinus Rhythm, Right Bundle Branch Block, NORMAL ST-T, Other (Left posterior fascicular block. There is no evidence of any acute ischemic changes. This EKG is improved over the EKG dated 08/24/2022.) Ordered Tests: Active Orders 24 hr Category Date Time Status Property Inspector STAT Care 09/28/22 19:30 Active EKG-ER Only STAT Care 09/28/22 19:29 Active IV Insertion STAT Care 09/28/22 19:29 Active POCT Glucose Check STAT Care 09/28/22 19:38 Active CBC W DIFF Stat Lab 09/28/22 19:35 Completed CMP Stat Lab 09/28/22 19:35 Completed NT PRO BNP Stat Lab 09/28/22 19:35 Completed POCT GLUCOSE Stat Lab 09/28/22 19:40 Completed PROTIME WITH INR Stat Lab 09/28/22 19:35 Completed TROPONIN Q4H Lab 09/28/22 19:35 Completed TROPONIN Q4H Lab 09/28/22 23:30 Ordered TROPONIN Q4H Lab 09/29/22 03:30 Ordered Medication Summary Generic Name Dose Route Start Last Admin Trade Name Freq PRN Reason Stop Dose Admin Sodium Chloride 500 mls @ 500 mls/hr 09/28/22 22:11 09/28/22 22:14 Sodium Chloride 0.9% 500 Ml IV 09/28/22 23:10 500 mls/hr .Q1H ONE Administration Discontinued Medications Generic Name Dose Route Start Last Admin Trade Name Freq PRN Reason Stop Dose Admin Aspirin 324 mg 09/28/22 19:29 09/28/22 19:35 Aspirin 81 Mg Tab.Chew PO 09/28/22 19:30 324 mg STAT ONE Administration Aspirin Confirm 09/28/22 19:34 Aspirin 81 Mg Tab.Chew Administered 09/28/22 19:35 Dose 324 mg .ROUTE .STK-MED ONE Sodium Chloride 500 mls @ 500 mls/hr 09/28/22 20:53 09/28/22 21:54 Sodium Chloride 0.9% 500 Ml IV 09/28/22 21:52 Infused .Q1H ONE Infusion Sodium Chloride Confirm 09/28/22 20:53 Sodium Chloride 0.9% 500 Ml Administered 09/28/22 20:54 Dose 500 mls @ ud IV .STK-MED ONE Sodium Chloride Confirm 09/28/22 22:13 Sodium Chloride 0.9% 500 Ml Administered 09/28/22 22:14 Dose 500 mls @ ud IV .STK-MED ONE Ondansetron HCl 4 mg 09/28/22 19:29 09/28/22 19:35 Ondansetron Hcl 4 Mg/2 Ml Vial IV 09/28/22 19:30 4 mg STAT ONE Administration Ondansetron HCl Confirm 09/28/22 19:34 Ondansetron Hcl 4 Mg/2 Ml Vial Administered 09/28/22 19:35 Dose 4 mg .ROUTE .K-MED ONE Lab/Rad Data: Laboratory Result Diagrams 09/28/22 19:35 09/28/22 19:35 Laboratory Results 09/28/22 09/28/22 09/28/22 Range/Units 19:40 19:40 19:35 WBC (4.0-10.5) x10^3/uL RBC (4.1-5.6) x10^6/uL Hgb (12.5-18.0) g/dL Hct (42-50) % MCV (78-100) fL MCH (26-32) pg MCHC (32-36) g/dL RDW (11.5-14.0) % Plt Count (150-450) x10^3/uL MPV (7.5-11.0) fL Gran % (36.0-66.0) % Immature Gran % (Auto) (0.00-0.4) % Nucleat RBC Rel Count (0.00-0.1) % Eos # (Auto) (0-0.5) x10^3/uL Immature Gran # (Auto) (0.00-0.03) x10^3u/L Absolute Lymphs (auto) (1.0-4.6) x10^3/uL Absolute Monos (auto) (0.0-1.3) x10^3/uL Absolute Nucleated RBC (0.00-0.01) x10^3u/L Lymphocytes % (24.0-44.0) % Monocytes % (0.0-12.0) % Eosinophils % (0.00-5.0) % Basophils % (0.0-0.4) % Absolute Granulocytes (1.4-6.9) x10^3/uL Basophils # (0-0.4) x10^3/uL PT (9.4-12.5) SECONDS INR (0.8-3.0) Sodium (137-145) mmol/L Potassium (3.5-5.1) mmol/L Chloride (98-107) mmol/L Carbon Dioxide (22-30) mmol/L Anion Gap (5-15) MEQ/L BUN (9-20) mg/dL Creatinine (0.66-1.25) mg/dL Estimated GFR ML/MIN Glucose (74-106) mg/dL POC Glucometer 113 H (74 to 106) mg/dL Calcium (8.4-10.2) mg/dL Total Bilirubin (0.2-1.3) mg/dL AST (17-59) U/L ALT (0-50) U/L Alkaline Phosphatase (38-126) U/L Troponin I 0.019 (0.000-0.034) ng/mL NT-Pro-B Natriuret Pep (0-900) pg/mL Serum Total Protein (6.3-8.2) g/dL Albumin (3.5-5.0) g/dL Influenza Type A Ag NEGATIVE (NEGATIVE) Influenza Type B Ag NEGATIVE (NEGATIVE) RSV (PCR) NEGATIVE (Negative) SARS-CoV-2 (PCR) NEGATIVE (NEGATIVE) 09/28/22 09/28/22 09/28/22 Range/Units 19:35 19:35 19:35 WBC 5.6 (4.0-10.5) x10^3/uL RBC 3.16 L (4.1-5.6) x10^6/uL Hgb 8.5 L (12.5-18.0) g/dL Hct 31.0 L (42-50) % MCV 98.1 (78-100) fL MCH 26.9 (26-32) pg MCHC 27.4 L (32-36) g/dL RDW 19.6 H (11.5-14.0) % Plt Count 282 (150-450) x10^3/uL MPV 11.3 H (7.5-11.0) fL Gran % 71.5 H (36.0-66.0) % Immature Gran % (Auto) 0.4 (0.00-0.4) % Nucleat RBC Rel Count 0.0 (0.00-0.1) % Eos # (Auto) 0.17 (0-0.5) x10^3/uL Immature Gran # (Auto) 0.02 (0.00-0.03) x10^3u/L Absolute Lymphs (auto) 0.77 L (1.0-4.6) x10^3/uL Absolute Monos (auto) 0.58 (0.0-1.3) x10^3/uL Absolute Nucleated RBC 0.00 (0.00-0.01) x10^3u/L Lymphocytes % 13.8 L (24.0-44.0) % Monocytes % 10.4 (0.0-12.0) % Eosinophils % 3.0 (0.00-5.0) % Basophils % 0.9 (0.0-0.4) % Absolute Granulocytes 3.99 (1.4-6.9) x10^3/uL Basophils # 0.05 (0-0.4) x10^3/uL PT 11.9 (9.4-12.5) SECONDS INR 1.14 (0.8-3.0) Sodium 136 L (137-145) mmol/L Potassium 4.4 (3.5-5.1) mmol/L Chloride 100 (98-107) mmol/L Carbon Dioxide 29 (22-30) mmol/L Anion Gap 11.3 (5-15) MEQ/L BUN 35 H (9-20) mg/dL Creatinine 2.20 H (0.66-1.25) mg/dL Estimated GFR 32.4 ML/MIN Glucose 118 H (74-106) mg/dL POC Glucometer (74 to 106) mg/dL Calcium 8.2 L (8.4-10.2) mg/dL Total Bilirubin 0.50 (0.2-1.3) mg/dL AST 19 (17-59) U/L ALT 16 (0-50) U/L Alkaline Phosphatase 79 (38-126) U/L Troponin I (0.000-0.034) ng/mL NT-Pro-B Natriuret Pep 3720 H (0-900) pg/mL Serum Total Protein 5.5 L (6.3-8.2) g/dL Albumin 3.3 L (3.5-5.0) g/dL Influenza Type A Ag (NEGATIVE) Influenza Type B Ag (NEGATIVE) RSV (PCR) (Negative) SARS-CoV-2 (PCR) (NEGATIVE) - Progress Progress: improved, re-examined Progress Note: 09/28/22 22:29 Patient denies chest pain and he denies shortness of breath at this time. Patient chronically has low systolic blood pressure. Typically, his systolic blood pressure runs in the high 80s and low 90s. 09/28/22 22:45 Medical decision making: This patient states that he is feeling better. He is resting and comfortable. He does not have chest pain or shortness of breath. His troponin is normal. His hemoglobin is low. However, is chronically low. He is not in the range that he would require blood transfusions at this time. Patient does not want to be transferred to another facility and feels well enough to go home. I think this is reasonable. Patient's systolic blood pressure is in the high 80s. We will continue with the 500 mL intravenous lila ine bolus and discharge him to home. Counseled pt/family regarding: lab results, diagnosis, need for follow-up - Departure Departure Disposition: Home Clinical Impression: Weakness, Chronic anemia, Chronic hypotension Condition: Stable Critical Care Time: No Referrals: GABRIEL MEEKS [Primary Care Provider] - Follow up/PCP as directed Additional Instructions: Hold your morning blood pressure medication. Call your manual arts therapist tomorrow morning and obtain further instructions. Return to the emergency department if your symptoms recur. Continue your iron supplementation.
[2022-09-28] MEDS ORDERED: Zofran 4 MG/2 ML VIAL IV ONE (19:29)
[2022-09-28] MEDS ORDERED: BABY ASPIRIN 81 MG CHEW PO ONE (19:29)
[2022-09-28] MEDS ORDERED: BABY ASPIRIN 81 MG CHEW ONE (19:34)
[2022-09-28] MEDS ORDERED: Zofran 4 MG/2 ML VIAL ONE (19:34)
[2022-09-28 19:56] LABS: Absolute Neutrophil Ct (ANC) 3.99 x10^3/uL (1.4-6.9); Basophil (Absolute #) 0.05 x10^3/uL (0-0.4); Eosinophil (Absolute #) 0.17 x10^3/uL (0-0.5); Hemoglobin 8.5 g/dL (12.5-18.0); Lymphocyte (Absolute #) 0.77 x10^3/uL (1.0-4.6); Lymphocytes % 13.8 % (24.0-44.0); Mean Cell Volume 98.1 fL (78-100); Mean Corpuscular Hemoglobin 26.9 pg (26-32); Mean Corpuscular Hgb Concent. 27.4 g/dL (32-36); Mean Platelet Volume 11.3 fL (7.5-11.0); Monocyte (Absolute #) 0.58 x10^3/uL (0.0-1.3); Monocytes % 10.4 % (0.0-12.0); Neutrophil % 71.5 % (36.0-66.0); Platelet Count 282 x10^3/uL (150-450); Red Blood Count 3.16 x10^6/uL (4.1-5.6); Red Cell Distribution Width 19.6 % (11.5-14.0); White Blood Count 5.6 x10^3/uL (4.0-10.5)
[2022-09-28 20:10] LABS: INR 1.14 (0.8-3.0); PROTIME 11.9 SECONDS (9.4-12.5)
[2022-09-28 20:20] LABS: ALBUMIN 3.3 g/dL (3.5-5.0); ANION GAP 11.3 MEQ/L (5-15); BILIRUBIN,TOTAL 0.5 mg/dL (0.2-1.3); Calcium 8.2 mg/dL (8.4-10.2); Creatinine 1 2.2 mg/dL (0.66-1.25); EST GLOMERULAR FILTRATION RATE 32.4 ML/MIN; Potassium 4.4 mmol/L (3.5-5.1); Total Protein 5.5 g/dL (6.3-8.2)
[2022-09-28 20:35] LABS: INFLUENZA A NEGATIVE (NEGATIVE); INFLUENZA B NEGATIVE (NEGATIVE); RESPIRATORY SYNCTIAL VIRUS NEGATIVE (Negative); SARS-CoV-2 Xpert Express NEGATIVE (NEGATIVE)
[2022-09-28] MEDS ORDERED: Sodium Chloride 0.9% 500 ML 500 ML IV ONE ×4 (20:53→22:13)
[2022-09-28 22:07] VITALS: PULSE 65; O2SAT 93
[2022-09-28 23:01] VITALS: BP 87/49
[2022-09-29 00:34] LABS: Slide Review 1 YES
== END 2022-09-28 23:00 | disposition home or self-care (01) ==
LOC: ED 19:03
DX: R53.1 Weakness (principal); D64.9 Anemia, unspecified; I95.89 Other hypotension; J44.9 Chronic obstructive pulmonary disease, unspecified; Z99.81 Dependence on supplemental oxygen; Z72.0 Tobacco use; E78.5 Hyperlipidemia, unspecified; I11.0 Hypertensive heart disease with heart failure; I50.9 Heart failure, unspecified; Z79.02 Long term (current) use of antithrombotics/antiplatelets; Z79.899 Other long term (current) drug therapy; Z20.828 Contact with and (suspected) exposure to other viral communicable diseases
CPT/HCPCS: 0241U; 36000; 36415; 80053; 82947; 83880; 84484; 85025; 85610; 93005; 93041; 96360; 96361; 96374; 99284; 96375; J2405; A9270-GY